=== PATIENT | male | born 1955 | race African-American/Black ===

== ENCOUNTER 2018-08-06 00:07 | Inpatient (IN) | payer OTHER ==
--- NOTE | 2018-08-06 01:04 | PDOC ---
History of Present Illness - General Chief Complaint: Pain, Acute Stated Complaint: ABDOMINAL PAIN - History of Present Illness Initial Comments: The patient is a 62M w/ a history of HTN and ESRD on iHD (,, ) who presents for evaluation of L flank/abdominal pain 1.5d. The patient describes that pain as achy/cramping, non-radiating, constant but worsening since its onset, and not associated with vomiting or diarrhea. The patient endorses intermittent chills. He denies fevers, WANG, blurry vision, chest pain, dyspnea, dysuria, hematuria, blood in his stool, or changes in sensation. The patient reports feeling well before his last iHD He denies taking his metoprolol today Patient endorses making a small amount of urine, approx 1 small void daily 08/06/18 03:57 Past History - Past Medical History Allergies/Adverse Reactions: Allergies Allergy/AdvReac Type Severity Reaction Status Date / Time No Known Drug Allergies Allergy Verified 08/06/18 00:20 Home Medications: Ambulatory Orders Sevelamer Carbonate [Renvela -] 800 mg PO TIDCM 12/26/13 oxyCODONE HCL [Roxicodone -] 5 mg PO Q4H PRN #30 tablet 03/17/15 Anemia: No Asthma: No Cancer: No Cardiac Disorders: No CVA: No COPD: No CHF: No Dementia: No Diabetes: Yes (NO MEDS AT PRESENT) Dialysis: Yes () GI Disorders: No Disorders: No HTN: Yes Hypercholesterolemia: No Liver Disease: No Seizures: No Thyroid Disease: No Other medical history: RENAL FAILURE,DIALYSIS - Surgical History Abdominal Surgery: No Appendectomy: No Cardiac Surgery: No Cholecystectomy: No Lung Surgery: No Neurologic Surgery: No Orthopedic Surgery: No - Suicide/Smoking/Psychosocial Hx Smoking Status: No Smoking History: Former smoker Have you smoked in the past 12 months: No Number of Cigarettes Smoked Daily: 3 If you are a former smoker, when did you quit?: 1 YEARS AGO Cigars Per Day: 0 Information on smoking cessation initiated: No 'Breaking Loose' booklet given: 03/15/15 Hx Alcohol Use: No Drug/Substance Use Hx: No Substance Use Type: None Hx Substance Use Treatment: No Review of Systems - Review of Systems Able to Perform ROS?: Yes Comments:: GENERAL/CONSTITUTIONAL: +chills; Denies fever. No weakness HEAD, EYES, EARS, NOSE AND THROAT: No change in vision. No ear pain or discharge. No sore throat CARDIOVASCULAR: No chest pain or shortness of breath RESPIRATORY: No cough, wheezing, or hemoptysis GASTROINTESTINAL: per HPI GENITOURINARY: No dysuria, frequency, or change in urination MUSCULOSKELETAL: No joint or muscle swelling or pain. No neck or back pain SKIN: No rash NEUROLOGIC: No headache, vertigo, loss of consciousness, or change in strength/ sensation ENDOCRINE: No increased thirst. No abnormal weight change HEMATOLOGIC/LYMPHATIC: No anemia, easy bleeding, or history of blood clots ALLERGIC/IMMUNOLOGIC: No hives or skin allergy 08/06/18 04:02 Is the patient limited Icelandic proficient: No *Physical Exam - Vital Signs Last Vital Signs Temp Pulse Resp BP Pulse Ox 99.5 F 114 H 22 H 134/79 92 L 08/06/18 00:17 08/06/18 00:17 08/06/18 00:17 08/06/18 00:17 08/06/18 00:17 - Physical Exam Comments: GENERAL: Awake, alert, and fully oriented, in no acute distress HEAD: No signs of trauma, normocephalic, atraumatic EYES: PERRL, EOMI, sclera anicteric, conjunctiva clear ENT: Hearing grossly normal, nares patent, oropharynx clear without exudates. Moist mucosa LUNGS: No distress, speaks full sentences, clear to auscultation bilaterally HEART:Regular rate and rhythm, normal S1 and S2, no murmurs appreciated, peripheral pulses normal and equal bilaterally ABDOMEN: Soft, protuberant, suprapubic TTP and mild L flank TTP, not distended, normoactive bowel sounds. No guarding, no rebound EXTREMITIES : Normal inspection, Normal range of motion, no edema NEUROLOGICAL: Cranial nerves II through XII grossly intact. Normal speech, no focal sensorimotor deficits SKIN: Warm, Dry, normal turgor, no rashes or lesions noted 08/06/18 04:04 ED Treatment Course - LABORATORY CBC & Chemistry Diagram: 08/27/18 05:20 08/27/18 05:20 - ADDITIONAL ORDERS Additional order review: Laboratory Results 08/06/18 00:27 POC Glucometer [id number] 08/06/18 00:27 POC Glucometer [id number] Medical Decision Making - Medical Decision Making The patient is a 62M w/ a history of HTN and ESRD on iHD who presents for evaluation of 1.5d of suprapubic and L flank abdominal pain associated with chills. ED Course CBC, CMP CT Spiral Tylenol 975mg PO once Hyperkalmeia 5.2, near baseline Kayexolate 15mg PO once for hyperkalemia Cr 11.7 08/06/18 04:07 Patient appear more diaphoretic Will obtain rectal temperature... 102.1F Will initiate Sepsis w/u Patient pending CT spiral 08/06/18 04:14 Trop I 0.14, hx of 0.16 Lactate 1.4 08/06/18 05:50 Plan for admission for further evaluation of SIRS Patient w/o leukocytosis, could be viral in etiology, will withhold abx at this time 08/06/18 05:54 Patient w/ repeat Cr 11, ESRD Patient signed out to Dr. Dorado, presentation/course/plan to this point discussed and all questions answered 08/06/18 06:22 *DC/Admit/Observation/Transfer Diagnosis at time of Disposition: ESRD (end stage renal disease) on dialysis - Discharge Dispostion Disposition: Condition at time of disposition: Guarded Decision to Admit order: Yes - Referrals - Patient Instructions - Post Discharge Activity
[2018-08-06] MEDS ORDERED: ACETAMINOPHEN 325 MG TABLET (FP) PO ONE (01:46)
--- NOTE | 2018-08-06 02:06 | PDOC ---
Attending Attestation - HPI HPI: 08/06/18 02:07 The patient is a 59 year old male with a significant PMH of ESRD(TThSa) and hypertension who presents to the emergency department with abdominal pain since earlier today. The patient reports that his abdominal pain is non radiating , left sided and achy. He states that he has been experiencing a small output of urine since about once a day. He also reports some associated chills since . The patient denies any other symptoms. He denies any fever, nausea, vomiting, diarrhea, constipation, or other urinary symptoms. He denies any chest pain, shortness of breath, headache or dizziness. The patient denies any other complaints. PCP: Law Posada - Physicial Exam PE: 08/06/18 02:07 GENERAL: Awake, alert, and fully oriented, in no acute distress HEAD: No signs of trauma EYES: PERRLA, EOMI, sclera anicteric, conjunctiva clear ENT: Auricles normal inspection, hearing grossly normal, nares patent, oropharynx clear without exudates. Moist mucosa NECK: Normal ROM, supple, no lymphadenopathy, JVD, or masses LUNGS: Breath sounds equal, clear to auscultation bilaterally. No wheezes, and no crackles HEART: (+) tACHY Regular rhythm, normal S1 and S2, no murmurs, rubs or gallops ABDOMEN: (+) Suprapubic tenderness w/o rebound. Soft, normoactive bowel sounds. No guarding, No masses EXTREMITIES: Normal range of motion, no edema. No clubbing or cyanosis. No cords, erythema, or tenderness NEUROLOGICAL: Cranial nerves II through XII grossly intact. Normal speech, normal gait SKIN: Warm, Dry, normal turgor, no rashes or lesions noted. Documentation prepared by Felipa Coello, acting as medical office representative for Rachael Cruz MD. <Felipa Coello - Last Filed: 08/06/18 02:07> - Resident Resident Name: Cullen Morley - ED Attending Attestation I have performed the following: I have examined & evaluated the patient, The case was reviewed & discussed with the resident, I agree w/resident's findings & plan - Medical Decision Making 08/06/18 04:36 Pt has a fever and he appears unwell; perhaps a reaction to the flu shot which he received during dialysis on . Sonce that time, pt has felt unwell, and he continues to look unwell. He is complaining of abd and flank pain. He has been unable to give us urine. We will admit for fever and r/o UTI 08/06/18 04:55 Rectal temp is 102+F Pt likely has a pyelonephritis. We are awaiting CT scan of abd pelvis to look for kidney stones etc. 08/06/18 05:45 Patient Name: DAVID VALENZUELA THIS IS A PRELIMINARY REPORT FROM [facility] DATE OF SERVICE: 2018-08-06 04:18:53 IMAGES: [id number] EXAM: CT ABDOMEN AND PELVIS WITHOUT CONTRAST HISTORY: Pain COMPARISON: None. FINDINGS: Mild bibasilar subsegmental atelectasis Cardiomegaly with a small pericardial effusion No gallstones Atrophic kidneys Small left renal cysts Punctate nonobstructing calyceal stone within the inferior pole of the left kidney No evidence of ureterolithiasis or obstructive uropathy Atherosclerotic aorta without evidence of an aneurysm No evidence of intestinal obstruction, perforation, colitis, pancreatitis, acute diverticular disease, or an intra-abdominal or pelvic abscess Normal appendix Large amount of stool within the rectosigmoid colon Small fat-containing bilateral inguinal hernias Bilateral pars defects at L5 Multiple collateral vessels within the anterior abdominal and pelvic wall THIS DOCUMENT HAS BEEN ELECTRONICALLY SIGNED 08/07/18 04:29 <Rachael Cruz - Last Filed: 08/07/18 04:30> Heart Score/ECG Review - ST and T Early Repolarization: No Non Specific ST-T Wave changes: Yes Flattened T Waves: Yes Prolonged Q-T Interval: No - ECG Impressions Normal ECG: No Non-specific ST Elevation: No Ischemic Changes: Yes (flipped lateral T waves) Tachycardia: Sinus <Rachael Cruz - Last Filed: 08/07/18 04:30>
[2018-08-06] MEDS ORDERED: ACETAMINOPHEN 325 MG TABLET (FP) ONE (02:24)
[2018-08-06 02:30] LABS: HEMATOCRIT 31.5 % (35.4-49); HEMOGLOBIN 10.2 GM/dL (11.7-16.9); MCH 29.6 pg (25.7-33.7); MCHC 32.5 g/dl (32.0-35.9); MEAN CELL VOLUME 91.1 fl (80-96); PLATELET COUNT 134 K/MM3 (134-434); RBC 3.45 M/mm3 (4.00-5.60); WHITE BLOOD COUNT 8.6 K/mm3 (4.0-10.0)
[2018-08-06 03:52] LABS: ALBUMIN 3.4 g/dl (3.4-5.0); ALK PHOS 190 U/L (45-117); ANION GAP 10 MMOL/L (8-16); BILIRUBIN,TOTAL 0.5 mg/dL (0.2-1); BLOOD UREA NITROGEN 50 mg/dL (7-18); CHLORIDE 98 mmol/L (98-107); CO2 28 mmol/L (21-32); GLUCOSE,RANDOM 190 mg/dL (74-106); LIPASE 143 U/L (73-393); POTASSIUM 5.2 mmol/L (3.5-5.1); SGOT/AST 16 U/L (15-37); SGPT/ALT 17 U/L (13-61); SODIUM 135 mmol/L (136-145); TOT PROT 8.1 g/dl (6.4-8.2)
[2018-08-06 03:54] LABS: CREATININE 11.7 mg/dL (0.55-1.3)
[2018-08-06] MEDS ORDERED: SODIUM POLYSTYRENE SULFONATE 15 GM/60 ML BOTTLE PO ONE (03:54)
[2018-08-06] MEDS ORDERED: SODIUM POLYSTYRENE SULFONATE 15 GM/60 ML BOTTLE ONE (04:34)
[2018-08-06] MEDS ORDERED: IBUPROFEN 600 MG TABLET (FP) PO ONE ×2 (05:04→06:05)
[2018-08-06 05:23] LABS: VENOUS PC02 44.6 mmHg (38-52); VENOUS PH 7.41 (7.32-7.42)
[2018-08-06 05:53] LABS: INR 1.58 (0.83-1.09); PROTHROMBIN TIME (PATIENT) 18.7 SEC (9.7-13.0)
[2018-08-06 06:07] LABS: BASO % 0.5 % (0-2.0); HEMATOCRIT 29.3 % (35.4-49); HEMOGLOBIN 9.6 GM/dL (11.7-16.9); LYMPH % 5.9 % (8-40); MCH 29.8 pg (25.7-33.7); MCHC 32.6 g/dl (32.0-35.9); MEAN CELL VOLUME 91.4 fl (80-96); MEAN PLT VOLUME 9.2 fl (7.5-11.1); NEUT % 87.6 % (42.8-82.8); PLATELET COUNT 114 K/MM3 (134-434); RBC 3.21 M/mm3 (4.00-5.60); RDW 19.2 % (11.9-15.9); WHITE BLOOD COUNT 8.5 K/mm3 (4.0-10.0)
[2018-08-06 06:18] LABS: ALBUMIN 3.1 g/dl (3.4-5.0); ALK PHOS 170 U/L (45-117); ANION GAP 10 MMOL/L (8-16); BILIRUBIN,TOTAL 0.4 mg/dL (0.2-1); BLOOD UREA NITROGEN 52 mg/dL (7-18); CALCIUM 8.6 mg/dL (8.5-10.1); CHLORIDE 98 mmol/L (98-107); CO2 28 mmol/L (21-32); GLUCOSE,RANDOM 184 mg/dL (74-106); SGOT/AST 14 U/L (15-37); SGPT/ALT 16 U/L (13-61); SODIUM 136 mmol/L (136-145); TOT PROT 7.4 g/dl (6.4-8.2)
[2018-08-06 06:20] LABS: CREATININE 11.9 mg/dL (0.55-1.3)
[2018-08-06 06:24] LABS: URINE APPEARANCE CLEAR; URINE BILIRUBIN NEGATIVE (<2.0 mg/dL); URINE COLOR LTYELLOW; URINE GLUCOSE (UA) 2+ (NEGATIVE); URINE KETONE NEGATIVE (NEGATIVE); URINE LEUK ESTERASE NEGATIVE (NEGATIVE); URINE NITRITE NEGATIVE (NEGATIVE); URINE PROTEIN 2+ (NEGATIVE); URINE UROBILINOGEN NEGATIVE mg/dL (0.2-1.0)
[2018-08-06 06:28] LABS: EPI CELLS RARE /HPF (FEW)
[2018-08-06] MEDS ORDERED: VANCOMYCIN 1,000 MG in DEXTROSE 5%-WATER - 250 ML IVPB ONE (07:20)
[2018-08-06] MEDS ORDERED: VANCOMYCIN 1 GRAM (PRE-DOCKED) 1,000 MG/250 ML BAG IVPB ONE (07:37)
[2018-08-06] MEDS ORDERED: ACETAMINOPHEN 1000 MG/100 ML VIAL (NON FORMULARY) IVPB ONE (07:39)
[2018-08-06] MEDS ORDERED: ACETAMINOPHEN INJECTION 100 ML IVPB ONE (07:41)
[2018-08-06] MEDS: HEPARIN NA (PORCINE) 5,000 UNITS/ML 1ML VIAL SQ SCH ×2 (10:04→21:39)
[2018-08-06] MEDS: INSULIN SLIDING SCALE (NOVOLOG) 1 VIAL SQ SCH ×3 (11:29→21:39)
--- NOTE | 2018-08-06 11:59 | CON.NEP ---
Consult Consult Specialty:: nephrology Referred by:: dr pastrana Reason for Consultation:: esrd on maintenance dialysis - History of Present Illness Chief Complaint: malaise chills cough History of Present Illness: poor historian 62M HTN ESRD on iHD (,, ) c/o L flank/abdominal pain 1.5d. achy/cramping, non-radiating, constant but worsening since its onset, no vomiting or diarrhea. +intermittent chills. - History Source History Provided By: Medical Record, Transfer Record Limitations to Obtaining History: Clinical Condition - Past Medical History Cardio/Vascular: Yes: HTN Renal/: Yes: Renal Failure, Other (on dialysis for 3 years) Endocrine: Yes: Diabetes Mellitus - Past Surgical History Past Surgical History: Yes: AV Fistula/Graft - Alcohol/Substance Use Hx Alcohol Use: No - Smoking History Smoking history: Former smoker Have you smoked in the past 12 months: No Aproximately how many cigarettes per day: 3 If you are a former smoker, when did you quit?: 1 YEARS AGO Home Medications - Allergies Allergies/Adverse Reactions: Allergies Allergy/AdvReac Type Severity Reaction Status Date / Time No Known Drug Allergies Allergy Verified 08/06/18 00:20 - Home Medications Home Medications: Ambulatory Orders Sevelamer Carbonate [Renvela -] 800 mg PO TIDCM 12/26/13 oxyCODONE HCL [Roxicodone -] 5 mg PO Q4H PRN #30 tablet 03/17/15 Nephrology Consult - Height Height: 5 ft 9 in - Weight Weight: 201 lb 1.6 oz - BMI Body Mass Index (BMI): 29.7 - Lab Results CBC,BMP: CBC, BMP 08/06/18 04:56 08/06/18 04:56 Anion Gap: Anion Gap Anion Gap 10 MMOL/L (8-16) 08/06/18 04:56 - Physical Examination Vital Signs: Vital Signs Temperature 100.2 F H 08/06/18 08:23 Pulse Rate 97 H 08/06/18 08:23 Respiratory Rate 16 08/06/18 08:23 Blood Pressure 121/60 08/06/18 08:23 O2 Sat by Pulse Oximetry (%) 99 08/06/18 07:45 Constitutional: Yes: Well Nourished, Obese Eyes: Yes: WNL HENT: Yes: WNL Neck: Yes: WNL Cardiovascular: Yes: WNL Respiratory: Yes: WNL Gastrointestinal: Yes: WNL Access for Hemodialysis: AV Graft Musculoskeletal: Yes: WNL Edema: No Integumentary: Yes: WNL Neurological: Yes: WNL Psychiatric: Yes: WNL Assessment/Plan esrd on hd via avg s/p avg excision s/p avg infection htn admitted for eval of malaise and l abd/flank pain
[2018-08-06] MEDS ORDERED: SODIUM CHLORIDE 250 ML IV PRN ×2 (12:04→12:19)
[2018-08-06] MEDS ORDERED: oxyCODONE HCL 5 MG TABLET PO PRN (13:07)
--- NOTE | 2018-08-06 13:09 | HP ---
Admitting History and Physical - Primary Care Physician PCP: Zelalem Franklin - Admission History of Present Illness: pt seen/ examined . chart reviewed. 62 year old man ESRD on HD with right arm AV graft - , DM, obesity is admitted with fever to 104 and left sided abdominal pain. given abx - vanco in er ct scan - abd - ok pt seen/ examined / daughter at bedside cultures send avg noted to be tender/swelling + distally and oozing + Likely infected pt denies any abd pain/ cp sob now History Source: Patient, Family Member Limitations to Obtaining History: No Limitations - Past Medical History Cardiovascular: Yes: HTN Renal/: Yes: Renal Failure, Other (on dialysis for 3 years) Endocrine: Yes: Diabetes Mellitus - Past Surgical History Past Surgical History: Yes: AV Fistula/Graft - Smoking History Smoking history: Former smoker Have you smoked in the past 12 months: No Aproximately how many cigarettes per day: 3 If you are a former smoker, when did you quit?: 1 YEARS AGO - Alcohol/Substance Use Hx Alcohol Use: No Home Medications - Allergies Allergies/Adverse Reactions: Allergies Allergy/AdvReac Type Severity Reaction Status Date / Time No Known Drug Allergies Allergy Verified 08/06/18 00:20 - Home Medications Home Medications: Ambulatory Orders Sevelamer Carbonate [Renvela -] 800 mg PO TIDCM 12/26/13 oxyCODONE HCL [Roxicodone -] 5 mg PO Q4H PRN #30 tablet 03/17/15 Review of Systems Findings/Remarks: see [place] - Review of Systems Constitutional: reports: Fever Eyes: reports: No Symptoms Neck: reports: No Symptoms Cardiovascular: reports: No Symptoms Respiratory: reports: No Symptoms Gastrointestinal: reports: Abdominal Pain Neurological: reports: No Symptoms Endocrine: reports: No Symptoms Physical Examination Vital Signs: Vital Signs Temperature 100.2 F H 08/06/18 08:23 Pulse Rate 97 H 08/06/18 08:23 Respiratory Rate 16 08/06/18 08:23 Blood Pressure 121/60 08/06/18 08:23 O2 Sat by Pulse Oximetry (%) 99 08/06/18 07:45 Constitutional: Yes: No Distress, Obese Eyes: Yes: Conjunctiva Clear Neck: Yes: Supple Cardiovascular: Yes: Regular Rate and Rhythm Respiratory: Yes: Diminished Gastrointestinal: Yes: Soft Extremities: Yes: Other (rue - av fistula - tender/ oozing/ swelling + distally) Edema: No Neurological: Yes: Alert Psychiatric: Yes: Alert Labs: CBC, BMP 08/06/18 04:56 08/06/18 04:56 Imaging - Results Chest X-ray: Report Reviewed Problem List - Problems (1) Abdominal pain Code(s): R10.9 - UNSPECIFIED ABDOMINAL PAIN (2) ESRD (end stage renal disease) on dialysis Code(s): N18.6 - END STAGE RENAL DISEASE; Z99.2 - DEPENDENCE ON RENAL DIALYSIS (3) Fever Code(s): R50.9 - FEVER, UNSPECIFIED (4) AV fistula occlusion Code(s): T82.898A - OTH COMPLICATION OF VASCULAR PROSTH DEV/GRFT, INIT Assessment/Plan Abx Pain control Hold dialysis today Discussed with nursing staff . Also discussed with i/d and Dr. Lucero Will request Dr. Ortiz to evaluate will follow Discussed in detail with pt/ pts family also
--- NOTE | 2018-08-06 13:58 | CON.ID ---
Consult - History of Present Illness History of Present Illness: Asked to evaluate this 62 y.o. male with PMH of ESRD on HD (), DM, HTN, RUE AVF presenting with c/o Lt sided abdominal pain for the past 3 days. Pt states pain is sharp (9/10 in intensity at times) and exacerbated with movement but denies n/v/d or bloody BMs. Denies recent travel or sick contacts. In the ER he was noted to have persistent fever (up to 104F). He denies shortness of breath, chest pain, rhinorrhea, cough, sore throat. Today he was noted to have small amount of bleeding from the AVF/graft site as well as formation of a small clear fluid-filled blister. Pt reports pain at the site. Currently he is alert, without acute distress but states he is unable to move due to his abd pain. and daughter at the bedside agree with history given by patient. - History Source History Provided By: Patient, Family Member Limitations to Obtaining History: No Limitations - Past Medical History Cardio/Vascular: Yes: HTN Renal/: Yes: Renal Failure, Other (on dialysis for 3 years) Endocrine: Yes: Diabetes Mellitus - Past Surgical History Past Surgical History: Yes: AV Fistula/Graft - Alcohol/Substance Use Hx Alcohol Use: No - Smoking History Smoking history: Former smoker Have you smoked in the past 12 months: No Aproximately how many cigarettes per day: 3 If you are a former smoker, when did you quit?: 1 YEARS AGO - Social History Usual Living Arrangement: With Spouse History of Recent Travel: No Home Medications - Allergies Allergies/Adverse Reactions: Allergies Allergy/AdvReac Type Severity Reaction Status Date / Time No Known Drug Allergies Allergy Verified 08/06/18 00:20 - Home Medications Home Medications: Ambulatory Orders Sevelamer Carbonate [Renvela -] 800 mg PO TIDCM 12/26/13 oxyCODONE HCL [Roxicodone -] 5 mg PO Q4H PRN #30 tablet 03/17/15 Review of Systems - Review of Systems Constitutional: reports: Chills, Fever. denies: No Symptoms, Diaphoresis, Lethargy, Loss of Appetite, Malaise, Night Sweats, Unintentional Wgt. Loss, Weakness, Other Eyes: reports: No Symptoms. denies: Blind Spots, Blurred Vision, Double Vision , Eye Pain, Floaters, Photophobia, Recent Change in Vision, Other HENT: reports: No Symptoms. denies: Difficult Swallowing, Ear Discharge, Ear Pain, Epistaxis, Gingival Bleeding, Hearing Loss, Mouth Swelling, Nasal Congestion, Ocular Prosthesis, Throat Pain, Toothache, Ringing in Ears, Other Neck: reports: No Symptoms. denies: Decreased ROM, Lumps, Pain on Movement, Stiffness, Swollen Glands, Tenderness, Other Cardiovascular: reports: No Symptoms. denies: Chest Pain, Edema, Palpitations, Shortness of Breath, Other Respiratory: reports: No Symptoms. denies: Cough, Exercise Intolerance, Hemoptysis, Orthopnea, PND, Snoring, SOB, SOB on Exertion, Wheezing, Other Gastrointestinal: reports: Abdominal Pain (Lt side). denies: No Symptoms, Bloating, Constipation, Diarrhea, Dysphagia, Indigestion, Melena, Nausea, Rectal Bleeding, Vomiting, Vomiting Blood, Other Genitourinary: reports: No Symptoms Musculoskeletal: reports: No Symptoms Integumentary: reports: Blister (RUE AVG site with mild pain). denies: Bruising , Change in Color, Eczema, Erythema, Incision, Lesions, Lump, Pallor, Pruritis, Rash, Wound, Other Neurological: reports: No Symptoms. denies: Change in LOC, Change in Speech, Confusion, Dizziness, Headache, Incoordination, Numbness, Parasthesia, Pre- Existing Deficit, Seizure, Syncope, Tremors, Unsteady Gait, Weakness, Other Endocrine: reports: No Symptoms. denies: Excessive Sweating, Flushing, Increased Hunger, Increased Thirst, Intolerance to Cold, Intolerance to Heat, Unexplained Weight Gain, Unexplained Weight Loss, Other Hematology/Lymphatic: reports: No Symptoms. denies: Easily Bruised, Excessive Bleeding, Swollen Glands, Other Pain Intensity: 9 Physical Exam Vital Signs: Vital Signs Temperature 100.2 F H 08/06/18 08:23 Pulse Rate 97 H 08/06/18 08:23 Respiratory Rate 16 08/06/18 08:23 Blood Pressure 121/60 08/06/18 08:23 O2 Sat by Pulse Oximetry (%) 99 08/06/18 07:45 Constitutional: Yes: No Distress, Calm Eyes: Yes: Conjunctiva Clear HENT: Yes: Atraumatic Neck: Yes: Supple Cardiovascular: Yes: Regular Rate and Rhythm Respiratory: Yes: CTA Bilaterally Gastrointestinal: Yes: Normal Bowel Sounds, Soft, Tenderness (Lt abd/lower abd, no guarding) Renal/: Yes: Oliguria Musculoskeletal: Yes: WNL Extremities: Yes: Other (RUE AVF with .5cm blister , clear fluid at distal aspect, +mild tenderness, no obvious purulent drainage) Edema: No Integumentary: Yes: WNL Neurological: Yes: Alert Psychiatric: Yes: Alert Labs: CBC, BMP 08/06/18 04:56 08/06/18 04:56 Laboratory Tests 08/06/18 08/06/18 08/06/18 00:27 02:10 02:10 WBC 8.6 RBC 3.45 L Hgb 10.2 L Hct 31.5 L MCV 91.1 MCH 29.6 MCHC 32.5 RDW 19.0 H Plt Count 134 MPV 9.0 Absolute Neuts (auto) Neutrophils % Lymphocytes % Monocytes % Eosinophils % Basophils % Nucleated RBC % PT with INR INR PTT (Actin FS) VBG pH POC VBG pCO2 POC VBG pO2 Mixed VBG HCO3 Sodium 135 L Potassium 5.2 H Chloride 98 Carbon Dioxide 28 Anion Gap 10 BUN 50 H Creatinine 11.7 H* Creat Clearance w eGFR 4.43 POC Glucometer [phone] Random Glucose 190 H Lactic Acid Calcium 9.0 Total Bilirubin 0.5 AST 16 ALT 17 Alkaline Phosphatase 190 H Troponin I Total Protein 8.1 Albumin 3.4 Lipase 143 Urine Color Urine Appearance Urine pH Ur Specific Apollo Urine Protein Urine Glucose (UA) Urine Ketones Urine Blood Urine Nitrite Urine Bilirubin Urine Urobilinogen Ur Leukocyte Esterase Urine WBC (Auto) Urine RBC (Auto) Ur Epithelial Cells 08/06/18 08/06/18 08/06/18 04:56 04:56 04:56 WBC 8.5 RBC 3.21 L Hgb 9.6 L Hct 29.3 L MCV 91.4 MCH 29.8 MCHC 32.6 RDW 19.2 H Plt Count 114 L MPV 9.2 Absolute Neuts (auto) 7.5 Neutrophils % 87.6 H Lymphocytes % 5.9 L D Monocytes % 6.0 Eosinophils % 0.0 D Basophils % 0.5 Nucleated RBC % 0 PT with INR INR PTT (Actin FS) VBG pH 7.41 POC VBG pCO2 44.6 POC VBG pO2 26.0 L Mixed VBG HCO3 27.5 H Sodium 136 Potassium 5.0 Chloride 98 Carbon Dioxide 28 Anion Gap 10 BUN 52 H Creatinine 11.9 H* Creat Clearance w eGFR 4.35 POC Glucometer Random Glucose 184 H Lactic Acid Calcium 8.6 Total Bilirubin 0.4 AST 14 L ALT 16 Alkaline Phosphatase 170 H Troponin I Total Protein 7.4 Albumin 3.1 L Lipase Urine Color Urine Appearance Urine pH Ur Specific Apollo Urine Protein Urine Glucose (UA) Urine Ketones Urine Blood Urine Nitrite Urine Bilirubin Urine Urobilinogen Ur Leukocyte Esterase Urine WBC (Auto) Urine RBC (Auto) Ur Epithelial Cells 08/06/18 08/06/18 08/06/18 04:56 04:56 05:12 WBC RBC Hgb Hct MCV MCH MCHC RDW Plt Count MPV Absolute Neuts (auto) Neutrophils % Lymphocytes % Monocytes % Eosinophils % Basophils % Nucleated RBC % PT with INR 18.70 H INR 1.58 H PTT (Actin FS) 44.0 H VBG pH POC VBG pCO2 POC VBG pO2 Mixed VBG HCO3 Sodium Potassium Chloride Carbon Dioxide Anion Gap BUN Creatinine Creat Clearance w eGFR POC Glucometer Random Glucose Lactic Acid 1.2 Calcium Total Bilirubin AST ALT Alkaline Phosphatase Troponin I 0.14 H Total Protein Albumin Lipase Urine Color Urine Appearance Urine pH Ur Specific Apollo Urine Protein Urine Glucose (UA) Urine Ketones Urine Blood Urine Nitrite Urine Bilirubin Urine Urobilinogen Ur Leukocyte Esterase Urine WBC (Auto) Urine RBC (Auto) Ur Epithelial Cells 08/06/18 08/06/18 08/06/18 05:32 10:40 10:40 WBC RBC Hgb Hct MCV MCH MCHC RDW Plt Count MPV Absolute Neuts (auto) Neutrophils % Lymphocytes % Monocytes % Eosinophils % Basophils % Nucleated RBC % PT with INR INR PTT (Actin FS) VBG pH POC VBG pCO2 POC VBG pO2 Mixed VBG HCO3 Sodium Potassium Chloride Carbon Dioxide Anion Gap BUN Creatinine Creat Clearance w eGFR POC Glucometer Random Glucose Lactic Acid 1.8 Calcium Total Bilirubin AST ALT Alkaline Phosphatase Troponin I 0.15 H Total Protein Albumin Lipase Urine Color Ltyellow Urine Appearance Clear Urine pH 8.0 Ur Specific Apollo 1.011 Urine Protein 2+ H Urine Glucose (UA) 2+ H Urine Ketones Negative Urine Blood 1+ H Urine Nitrite Negative Urine Bilirubin Negative Urine Urobilinogen Negative Ur Leukocyte Esterase Negative Urine WBC (Auto) 3 Urine RBC (Auto) 1 Ur Epithelial Cells Rare 08/06/18 11:26 WBC RBC Hgb Hct MCV MCH MCHC RDW Plt Count MPV Absolute Neuts (auto) Neutrophils % Lymphocytes % Monocytes % Eosinophils % Basophils % Nucleated RBC % PT with INR INR PTT (Actin FS) VBG pH POC VBG pCO2 POC VBG pO2 Mixed VBG HCO3 Sodium Potassium Chloride Carbon Dioxide Anion Gap BUN Creatinine Creat Clearance w eGFR POC Glucometer 337 Random Glucose Lactic Acid Calcium Total Bilirubin AST ALT Alkaline Phosphatase Troponin I Total Protein Albumin Lipase Urine Color Urine Appearance Urine pH Ur Specific Apollo Urine Protein Urine Glucose (UA) Urine Ketones Urine Blood Urine Nitrite Urine Bilirubin Urine Urobilinogen Ur Leukocyte Esterase Urine WBC (Auto) Urine RBC (Auto) Ur Epithelial Cells Microbiology 08/06/18 06:16 Nasopharyngeal Swab Influenza Types A,B Antigen - Final 08/06/18 06:16 Nasopharyngeal Swab - Final Blood cultures - pending Imaging - Results Chest X-ray: Report Reviewed Cat Scan: Report Reviewed Problem List - Problems (1) Abdominal pain Code(s): R10.9 - UNSPECIFIED ABDOMINAL PAIN (2) Fever Code(s): R50.9 - FEVER, UNSPECIFIED (3) ESRD (end stage renal disease) on dialysis Code(s): N18.6 - END STAGE RENAL DISEASE; Z99.2 - DEPENDENCE ON RENAL DIALYSIS (4) Presence of arterial-venous shunt (for dialysis) Code(s): Z99.2 - DEPENDENCE ON RENAL DIALYSIS Assessment/Plan 62 y.o. male with PMH of ESRD on HD, AVF/Graft, DM, and HTN presenting with Lt sided abdominal pain, fevers, and RUE AVF site blister formation/mild bleeding/ mild tenderness Fever Abd pain - unclear etiology r/o AVF site infection ESRD on HD DM HTN -- agree with Vancomycin post HD empirically for now, (one dose given this a.m. ) monitor levels -- vascular surgery evaluation requested -- f/u blood culture results -- CT abd/pelvis results noted, no obvious abnormal findings -- monitor temperatures/vitals will follow Thank you
--- NOTE | 2018-08-06 14:28 | CONSULT ---
Consult - History of Present Illness History of Present Illness: 62 year old man ESRD on HD with right arm AV graft - HERO graft with history of central venous occlusion. He is admitted with fever to 104 and left sided abdominal pain. He was noted to have a pulsatile area of swelling over the AV graft with bloody oozing. - Past Medical History Cardio/Vascular: Yes: HTN Renal/: Yes: Renal Failure, Other (on dialysis for 3 years) Endocrine: Yes: Diabetes Mellitus - Past Surgical History Past Surgical History: Yes: AV Fistula/Graft - Alcohol/Substance Use Hx Alcohol Use: No - Smoking History Smoking history: Former smoker Have you smoked in the past 12 months: No Aproximately how many cigarettes per day: 3 If you are a former smoker, when did you quit?: 1 YEARS AGO - Social History Usual Living Arrangement: With Spouse History of Recent Travel: No Home Medications - Allergies Allergies/Adverse Reactions: Allergies Allergy/AdvReac Type Severity Reaction Status Date / Time No Known Drug Allergies Allergy Verified 08/06/18 00:20 - Home Medications Home Medications: Ambulatory Orders Sevelamer Carbonate [Renvela -] 800 mg PO TIDCM 12/26/13 oxyCODONE HCL [Roxicodone -] 5 mg PO Q4H PRN #30 tablet 03/17/15 Physical Exam Vital Signs: Vital Signs Temperature 98.1 F 08/06/18 14:13 Pulse Rate 93 H 08/06/18 14:13 Respiratory Rate 18 08/06/18 14:13 Blood Pressure 110/59 L 08/06/18 14:13 O2 Sat by Pulse Oximetry (%) 99 08/06/18 07:45 Extremities: Yes: Other (Right arm 3 x 3 cm pulsatile area over distal AV graft in upper arm and small adjacent blister. Small wound over area of swelling with no active bleeding. 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 Occlusive dressing applied. IV antibiotics Will excise graft segment tomorrow AM and place Permacath until infection resolves. Code(s): T82.9XXA - UNSP COMP OF CARDIAC AND VASCULAR PROSTH DEV/GRFT, INIT Qualifiers: Encounter type: initial encounter Qualified Code(s): T82.9XXA - Unspecified complication of cardiac and vascular prosthetic device, implant and graft, initial encounter
--- NOTE | 2018-08-06 14:53 | EKG ---
Test Reason : Blood Pressure : / mmHG Vent. Rate : 104 BPM Atrial Rate : 104 BPM P-R Int : 190 ms QRS Dur : 094 ms QT Int : 332 ms P-R-T Axes : 068 -07 121 degrees QTc Int : 436 ms POOR DATA QUALITY, INTERPRETATION MAY BE ADVERSELY AFFECTED SINUS TACHYCARDIA LEFT VENTRICULAR HYPERTROPHY WITH REPOLARIZATION ABNORMALITY ABNORMAL ECG WHEN COMPARED WITH ECG OF 06-AUG-2018 02:25, PREMATURE ATRIAL COMPLEXES ARE NO LONGER PRESENT Confirmed by MD Kenneth, Rolly ([id number]) on 08/06/2018 2:53:49 PM Referred By: Confirmed By:Rolly Cooper MD
[2018-08-06] MEDS ORDERED: SEVELAMER CARBONATE 800 MG TAB (FP) PO SCH (17:30)
[2018-08-06] MEDS ORDERED: INSULIN (NOVOLOG) ASPART 100 UNITS/ML 10ML VIAL ONE (18:13)
[2018-08-06] MEDS ORDERED: INSULIN (LEVEMIR) 100 UNITS/ML UNITS SQ SCH (22:00)
--- NOTE | 2018-08-06 23:25 | HOSP ---
Subjective - Review of Symptoms Subjective: rapid response called at 11:15pm. On arrival, informed that patient was bleeding out of his R arm AV graft site. On arrival, patient had a large pool of clotted blood on bed near R arm. Patient is laying comfortably in bed in no acute distress. PE Vitals: 98/40, 105bpm, 12, 100% 2L PE: No acute distress, A&O mild systolic murmur noted on exam R arm fistula A/P: R arm graft bleed -ice packs applied to area -used tourniquet to attempt to stop blood flow -held pressure -CBC, CMP, INR ordered -Dr. Greene contacted, OR team called in -3U PRBC ordered, transfuse 1U now, slowly due to anuric status Physical Examination Vital Signs: Vital Signs Temperature 99.8 F H 08/06/18 22:00 Pulse Rate 104 H 08/06/18 22:00 Respiratory Rate 18 08/06/18 22:00 Blood Pressure 133/66 08/06/18 22:00 O2 Sat by Pulse Oximetry (%) 99 08/06/18 07:45 Labs: CBC, BMP 08/06/18 04:56 08/06/18 04:56 Visit type - Emergency Visit Emergency Visit: Yes ED Registration Date: 08/06/18 Care time: The patient presented to the Emergency Department on the above date and was hospitalized for further evaluation of their emergent condition. - New Patient This patient is new to me today: No - Critical Care Critical Care patient: No
[2018-08-06 23:50] LABS: HEMATOCRIT 24.1 % (35.4-49); HEMOGLOBIN 7.8 GM/dL (11.7-16.9); MCH 29.4 pg (25.7-33.7); MCHC 32.3 g/dl (32.0-35.9); MEAN CELL VOLUME 91.2 fl (80-96); MEAN PLT VOLUME 9.6 fl (7.5-11.1); PLATELET COUNT 92 K/MM3 (134-434); RBC 2.64 M/mm3 (4.00-5.60); RDW 19.8 % (11.9-15.9); WHITE BLOOD COUNT 9.3 K/mm3 (4.0-10.0)
[2018-08-07] MEDS ORDERED: MIDAZOLAM HCL 2 MG/2 ML SINGLE DOSE VIAL ONE (00:15)
[2018-08-07] MEDS ORDERED: ROCURONIUM BROMIDE 50 MG/5 ML VIAL ONE (00:15)
[2018-08-07] MEDS ORDERED: ETOMIDATE 20 MG/10 ML AMPUL IVPUSH ONE (00:17)
[2018-08-07] MEDS ORDERED: LIDOCAINE HCL/PF 2% SDV 5ML VIAL ONE (00:17)
[2018-08-07 00:18] LABS: INR 1.39 (0.83-1.09); PROTHROMBIN TIME (PATIENT) 16.5 SEC (9.7-13.0)
[2018-08-07] MEDS ORDERED: DESFLURANE GAS 240 ML BOTTLE IH ONE (00:45)
[2018-08-07 00:47] LABS: ALBUMIN 2.3 g/dl (3.4-5.0); ALK PHOS 116 U/L (45-117); ANION GAP 12 MMOL/L (8-16); BILIRUBIN,TOTAL 0.4 mg/dL (0.2-1); BLOOD UREA NITROGEN 38 mg/dL (7-18); CALCIUM 8.1 mg/dL (8.5-10.1); CHLORIDE 100 mmol/L (98-107); CO2 26 mmol/L (21-32); GLUCOSE,RANDOM 279 mg/dL (74-106); POTASSIUM 4.5 mmol/L (3.5-5.1); SGOT/AST 23 U/L (15-37); SGPT/ALT 15 U/L (13-61); SODIUM 138 mmol/L (136-145); TOT PROT 5.8 g/dl (6.4-8.2)
[2018-08-07 00:53] LABS: CREATININE 9.1 mg/dL (0.55-1.3)
[2018-08-07] MEDS ORDERED: DEXAMETHASONE SOD PHOSPHATE 4 MG/1 ML VIAL ONE (01:00)
[2018-08-07] MEDS ORDERED: NEOSTIGMINE METHYLSULFATE 0.5 MG/ML - 10 ML MDV ONE (01:09)
[2018-08-07] MEDS ORDERED: GLYCOPYRROLATE 0.2 MG/1 ML VIAL ONE ×2 (01:09→01:34)
--- NOTE | 2018-08-07 01:35 | OP ---
Operative Note - Note: Operative Date: 08/07/18 Pre-Operative Diagnosis: Bleeding AV graft aneurysm Operation: Excision of AV graft right arm Findings: Bleeding from aneurysm of AV graft right upper arm Post-Operative Diagnosis: Same as Pre-op Surgeon: Gio Greene Anesthesiologist/[employer] HANDSTITCHING MACHINE: Jeremias Arreola Anesthesia: General Specimens Removed: Portion of AV graft Estimated Blood Loss (mls): 20
[2018-08-07] MEDS ORDERED: oxyCODONE HCL 5 MG TABLET PO PRN (01:43)
[2018-08-07] MEDS ORDERED: SODIUM CHLORIDE 250 ML IV PRN (01:43)
[2018-08-07] MEDS ORDERED: ACETAMINOPHEN 1000 MG/100 ML VIAL (NON FORMULARY) IVPB ONE (01:53)
[2018-08-07] MEDS ORDERED: PROMETHAZINE HCL 25 MG/1 ML VIAL IVPUSH PRN (01:53)
[2018-08-07] MEDS ORDERED: ONDANSETRON 4 MG/2 ML VIAL IVPUSH PRN (01:53)
[2018-08-07] MEDS ORDERED: SODIUM CHLORIDE 1,000 ML IV SCH (02:00)
[2018-08-07] MEDS ORDERED: ACETAMINOPHEN INJECTION 100 ML IVPB ONE (02:53)
[2018-08-07 08:07] LABS: BASO % 0.3 % (0-2.0); HEMATOCRIT 31.3 % (35.4-49); HEMOGLOBIN 10.4 GM/dL (11.7-16.9); LYMPH % 5.5 % (8-40); MCH 29.8 pg (25.7-33.7); MCHC 33.2 g/dl (32.0-35.9); MEAN CELL VOLUME 89.6 fl (80-96); MEAN PLT VOLUME 9.3 fl (7.5-11.1); MONO % 7.7 % (3.8-10.2); NEUT % 86.5 % (42.8-82.8); PLATELET COUNT 72 K/MM3 (134-434); RDW 16.7 % (11.9-15.9); WHITE BLOOD COUNT 10.4 K/mm3 (4.0-10.0)
[2018-08-07] MEDS: SEVELAMER CARBONATE 800 MG TAB (FP) PO SCH ×3 (08:45→18:08)
[2018-08-07] MEDS: INSULIN SLIDING SCALE (NOVOLOG) 1 VIAL SQ SCH ×4 (08:45→22:41)
[2018-08-07 09:14] LABS: ALBUMIN 2.5 g/dl (3.4-5.0); ALK PHOS 116 U/L (45-117); ANION GAP 14 MMOL/L (8-16); BILIRUBIN,TOTAL 0.6 mg/dL (0.2-1); BLOOD UREA NITROGEN 44 mg/dL (7-18); CALCIUM 8.2 mg/dL (8.5-10.1); CHLORIDE 102 mmol/L (98-107); CO2 26 mmol/L (21-32); GLUCOSE,RANDOM 228 mg/dL (74-106); SGOT/AST 42 U/L (15-37); SGPT/ALT 23 U/L (13-61); SODIUM 142 mmol/L (136-145)
[2018-08-07 09:23] LABS: CREATININE 9.8 mg/dL (0.55-1.3)
[2018-08-07] MEDS: HEPARIN NA (PORCINE) 5,000 UNITS/ML 1ML VIAL SQ SCH ×2 (10:46→22:39)
--- NOTE | 2018-08-07 12:39 | PN ---
Progress Note (short form) - Note Progress Note: Events reviewed/ noted S/p Avg graft excision due to bleeding / aneurism Now +ve cultures-- staph pt comfortable ate well family at bedside Vital Signs Temp 98.6 F 08/07/18 05:46 Pulse 91 H 08/07/18 08:53 Resp 18 08/07/18 08:53 BP 90/58 L 08/07/18 08:53 Pulse Ox 98 08/07/18 08:53 Intake & Output 08/06/18 08/07/18 08/07/18 23:59 11:59 23:59 Intake Total 350 1100 Output Total 0 20 Balance 350 1080 Weight 201 lb 1.6 oz Intake: IV 300 Oral 350 0 Blood Product 800 Output: Urine 0 0 Void 0 0 Estimated Blood Loss 20 Other: Voiding Method Urinal Urinal Bowel Movement No Height 5 ft 9 in Body Mass Index (BMI) 29.7 Active Medications Heparin Sodium (Porcine) (Heparin -) 5,000 unit SQ BID [facility] Last Admin: 08/07/18 10:46 Dose: 5,000 unit Sodium Chloride (Normal Saline -) 250 mls @ 3,000 mls/hr IV PRN PRN PRN Reason: Hypotension during Dialysis Insulin Aspart (Novolog Vial Sliding Scale -) 1 vial SQ [facility]; Protocol Last Admin: 08/07/18 12:01 Dose: 4 units Insulin Detemir (Levemir Vial) 12 units SQ [facility] Ondansetron HCl (Zofran Injection) 4 mg IVPUSH Q6H PRN PRN Reason: NAUSEA AND/OR VOMITING Oxycodone HCl (Roxicodone -) 5 mg PO Q4H PRN PRN Reason: PAIN LEVEL 6-10 Sevelamer Carbonate (Renvela -) 800 mg PO TIDCM [facility] Last Admin: 08/07/18 08:45 Dose: Not Given CBC, BMP 08/07/18 07:49 08/07/18 07:49 Microbiology 08/06/18 05:32 Urine Culture - Preliminary Urine - Urine - Catheterized Staphylococcus Latex Coag Pos 08/06/18 04:56 Blood Culture - Preliminary Blood - Peripheral Venous Staphylococcus Latex Coag Pos 08/06/18 04:56 Blood Culture - Preliminary Blood - Peripheral Venous Staphylococcus Latex Coag Pos vanco level -- ordered Echo _ ordered Physical Examination Vital Signs: Vital Signs Temperature 100.2 F H 08/06/18 08:23 Pulse Rate 97 H 08/06/18 08:23 Respiratory Rate 16 08/06/18 08:23 Blood Pressure 121/60 08/06/18 08:23 O2 Sat by Pulse Oximetry (%) 99 08/06/18 07:45 Constitutional: Yes: No Distress, morbidly obese Eyes: Yes: Conjunctiva Clear Neck: Yes: Supple Cardiovascular: Yes: Regular Rate and Rhythm Respiratory: Yes: Diminished Gastrointestinal: Yes: Soft. obese Extremities: Yes: Other (rue - dressing +) Edema: No Neurological: Yes: Alert Psychiatric: Yes: Alert Assessment/Plan Abx Pain under control f/u cultures check vanco level will need access but +ve cultures Permacath when cultures -ve May need shiley Check vanco level-- Vanco per level i/d/ vascular and renal to follow Not in volume overload f/u labs tomorrow Discussed in detail with pts family in detail Also discussed with Nursing staff . will follow Problem List - Problems (1) Abdominal pain Code(s): R10.9 - UNSPECIFIED ABDOMINAL PAIN (2) ESRD (end stage renal disease) on dialysis Code(s): N18.6 - END STAGE RENAL DISEASE; Z99.2 - DEPENDENCE ON RENAL DIALYSIS (3) Fever Code(s): R50.9 - FEVER, UNSPECIFIED (4) AV fistula occlusion Code(s): T82.898A - OTH COMPLICATION OF VASCULAR PROSTH DEV/GRFT, INIT (5) Bacteremia Code(s): R78.81 - BACTEREMIA
--- NOTE | 2018-08-07 13:36 | PN ---
Progress Note, Physician History of Present Illness: Pt is alert, with recent low grade fevers. He is s/p excision of AVG. Currently without acute distress. - Current Medication List Current Medications: Active Medications Heparin Sodium (Porcine) (Heparin -) 5,000 unit SQ BID [facility] Last Admin: 08/07/18 10:46 Dose: 5,000 unit Sodium Chloride (Normal Saline -) 250 mls @ 3,000 mls/hr IV PRN PRN PRN Reason: Hypotension during Dialysis Insulin Aspart (Novolog Vial Sliding Scale -) 1 vial SQ ACHS [facility]; Protocol Last Admin: 08/07/18 12:01 Dose: 4 units Insulin Detemir (Levemir Vial) 12 units SQ HS [facility] Ondansetron HCl (Zofran Injection) 4 mg IVPUSH Q6H PRN PRN Reason: NAUSEA AND/OR VOMITING Oxycodone HCl (Roxicodone -) 5 mg PO Q4H PRN PRN Reason: PAIN LEVEL 6-10 Sevelamer Carbonate (Renvela -) 800 mg PO TIDCM [facility] Last Admin: 08/07/18 13:15 Dose: Not Given - Objective Vital Signs: Vital Signs Temperature 98.6 F 08/07/18 05:46 Pulse Rate 91 H 08/07/18 08:53 Respiratory Rate 18 08/07/18 08:53 Blood Pressure 90/58 L 08/07/18 08:53 O2 Sat by Pulse Oximetry (%) 98 08/07/18 08:53 Constitutional: Yes: No Distress Cardiovascular: Yes: Regular Rate and Rhythm Respiratory: Yes: Regular Gastrointestinal: Yes: Normal Bowel Sounds, Soft Extremities: Yes: WNL Integumentary: Yes: WNL Wound/Incision: Yes: Dressing Dry and Intact (RUE) Neurological: Yes: Alert Labs: CBC, BMP 08/07/18 07:49 08/07/18 07:49 INR, PTT INR 1.39 (0.83-1.09) H 08/06/18 23:00 Microbiology 08/06/18 04:56 Blood - Peripheral Venous Blood Culture - Preliminary Presumptive Mssa (Pbp2a Neg) 08/06/18 05:32 Urine - Urine - Catheterized Urine Culture - Preliminary Staphylococcus Latex Coag Pos 08/06/18 04:56 Blood - Peripheral Venous Blood Culture - Preliminary Staphylococcus Latex Coag Pos 08/06/18 06:16 Nasopharyngeal Swab Influenza Types A,B Antigen - Final 08/06/18 06:16 Nasopharyngeal Swab - Final Problem List - Problems (1) Abdominal pain Code(s): R10.9 - UNSPECIFIED ABDOMINAL PAIN (2) Fever Code(s): R50.9 - FEVER, UNSPECIFIED (3) ESRD (end stage renal disease) on dialysis Code(s): N18.6 - END STAGE RENAL DISEASE; Z99.2 - DEPENDENCE ON RENAL DIALYSIS (4) Presence of arterial-venous shunt (for dialysis) Code(s): Z99.2 - DEPENDENCE ON RENAL DIALYSIS Assessment/Plan 62 y.o. male with PMH of ESRD on HD, AVF/Graft, DM, and HTN presenting with Lt sided abdominal pain, fevers, and RUE AVF site blister formation/mild bleeding/ mild tenderness Sepsis/ Staph aureus bacteremia Infection of AVG - s/p excision ESRD on HD DM HTN -- f/u Vancomycin level drawn, redose if <15 -- f/u final blood culture results, will adjust antibiotics if indicated -- repeat blood cultures pending -- continue monitor temperature trend/vitals -- wound care
--- NOTE | 2018-08-07 13:36 | PN ---
Progress Note (short form) - Note Progress Note: S/p graft excision for bleeding aneurysm. Stable No edema Hgb 10 Blood C+S growing Staph auerus Will hold off placing Permacath until blood cultures negative. May need femoral Shiley for access in the interim. Problem List - Problems (1) ESRD (end stage renal disease) on dialysis Code(s): N18.6 - END STAGE RENAL DISEASE; Z99.2 - DEPENDENCE ON RENAL DIALYSIS (2) Complication of vascular access for dialysis Code(s): T82.9XXA - UNSP COMP OF CARDIAC AND VASCULAR PROSTH DEV/GRFT, INIT Qualifiers: Qualified Code(s): T82.9XXA - Unspecified complication of cardiac and vascular prosthetic device, implant and graft, initial encounter
--- NOTE | 2018-08-07 14:05 | EKG ---
Test Reason : Blood Pressure : / mmHG Vent. Rate : 114 BPM Atrial Rate : 114 BPM P-R Int : 202 ms QRS Dur : 104 ms QT Int : 314 ms P-R-T Axes : 054 -13 109 degrees QTc Int : 432 ms SINUS TACHYCARDIA WITH PREMATURE ATRIAL COMPLEXES LEFT VENTRICULAR HYPERTROPHY WITH REPOLARIZATION ABNORMALITY ABNORMAL ECG WHEN COMPARED WITH ECG OF 15-MAR-2015 10:09, PREMATURE VENTRICULAR COMPLEXES ARE NO LONGER PRESENT PREMATURE ATRIAL COMPLEXES ARE NOW PRESENT Confirmed by MD Kenneth, Rolly ([id number]) on 08/07/2018 2:04:52 PM Referred By: Confirmed By:Rolly Cooper MD
--- NOTE | 2018-08-07 20:25 | PN ---
Progress Note (short form) - Note Progress Note: Current Medications Heparin Sodium (Porcine) (Heparin -) 5,000 unit SQ BID [facility] Last Admin: 08/07/18 10:46 Dose: 5,000 unit Sodium Chloride (Normal Saline -) 250 mls @ 3,000 mls/hr IV PRN PRN PRN Reason: Hypotension during Dialysis Insulin Aspart (Novolog Vial Sliding Scale -) 1 vial SQ ACHS [facility]; Protocol Last Admin: 08/07/18 18:08 Dose: 2 units Insulin Detemir (Levemir Vial) 12 units SQ HS [facility] Ondansetron HCl (Zofran Injection) 4 mg IVPUSH Q6H PRN PRN Reason: NAUSEA AND/OR VOMITING Oxycodone HCl (Roxicodone -) 5 mg PO Q4H PRN PRN Reason: PAIN LEVEL 6-10 Sevelamer Carbonate (Renvela -) 800 mg PO TIDCM [facility] Last Admin: 08/07/18 18:08 Dose: 800 mg Last Vital Signs Temp Pulse Resp BP Pulse Ox 98.4 F 93 H 18 112/60 98 08/07/18 17:30 08/07/18 18:00 08/07/18 18:00 08/07/18 18:00 08/07/18 08:53 Lungs clear Heart reg Abd soft ext no edema CBC, BMP 08/07/18 07:49 08/07/18 07:49 Microbiology 08/07/18 02:30 Blood - Peripheral Venous Blood Culture - Preliminary Pending Organism 08/07/18 02:30 Blood - Peripheral Venous Blood Culture - Preliminary Pending Organism 08/06/18 04:56 Blood - Peripheral Venous Blood Culture - Preliminary Presumptive Mssa (Pbp2a Neg) 08/06/18 05:32 Urine - Urine - Catheterized Urine Culture - Preliminary Staphylococcus Latex Coag Pos 08/06/18 04:56 Blood - Peripheral Venous Blood Culture - Preliminary Staphylococcus Latex Coag Pos IMP- ESRD infected avg excision anemia Plan- follow blood c/s monitor renal fuction and lytes for timing of next dialysis with temporary catheter
[2018-08-07] MEDS ORDERED: INSULIN (LEVEMIR) 100 UNITS/ML UNITS SQ SCH (22:00)
[2018-08-07] MEDS: INSULIN (LEVEMIR) 100 UNITS/ML UNITS SQ SCH (22:40)
[2018-08-08] MEDS: INSULIN SLIDING SCALE (NOVOLOG) 1 VIAL SQ SCH ×4 (06:46→21:36)
--- NOTE | 2018-08-08 08:51 | PN ---
Progress Note (short form) - Note Progress Note: POD #1 - s/p ligation and excision of ruptured/infected A-V graft right arm under general anesthesia. VSS. Pt. doing well, resting comfortably in bed. C/o some nausea - zofran ordered. No apparent anesthetic complications noted. Continue current care.
[2018-08-08] MEDS: SEVELAMER CARBONATE 800 MG TAB (FP) PO SCH ×3 (09:06→18:33)
[2018-08-08] MEDS: HEPARIN NA (PORCINE) 5,000 UNITS/ML 1ML VIAL SQ SCH ×2 (09:06→21:35)
--- NOTE | 2018-08-08 09:26 | PN ---
Progress Note (short form) - Note Progress Note: 62yo M s/p excision of RUE AV graft POD 1. Pt had positive blood cx for staph aureus. Pt complains of mild Rt arm pain. Pt denies fever, chills, n/v. Pt last dialysis was on Wednesday08/06/18. Pt receiving vanc during HD. Pt currently has no HD access. Last Vital Signs Temp Pulse Resp BP Pulse Ox 98.2 F 94 H 17 104/75 96 08/08/18 08:00 08/08/18 08:00 08/08/18 08:00 08/08/18 08:00 08/07/18 21:00 CBC, BMP 08/07/18 07:49 08/07/18 07:49 PE: Gen: A&O x3 Resp: breathing comfortably Ext: RUE wound is clean with no erythema, serous discharge, wet to dry placed. Hand is warm, no edema. Problem List - Problems (1) Complication of vascular access for dialysis Assessment/Plan: Plan -appreciate ID and renal recs as to when and what type of HD access. Willing to place permacath today or tomorrow if cleared by ID, otherwise can place shiley at the bedside. -continue abx as per ID Code(s): T82.9XXA - UNSP COMP OF CARDIAC AND VASCULAR PROSTH DEV/GRFT, INIT Qualifiers: Encounter type: initial encounter Qualified Code(s): T82.9XXA - Unspecified complication of cardiac and vascular prosthetic device, implant and graft, initial encounter
[2018-08-08] MEDS ORDERED: PT OWN MED DRAWER 7, Y5N ONE (10:32)
--- NOTE | 2018-08-08 11:02 | PN ---
Progress Note (short form) - Note Progress Note: pt seen/ examined . chart reviewed. passed out yesterday for few seconds/ Min ? feels well now no complains except acid burn I saw echo with tech-- being done today-- looks ok- await cardiology input. Vital Signs Temp 98.2 F 08/08/18 08:00 Pulse 94 H 08/08/18 08:00 Resp 17 08/08/18 08:00 BP 104/75 08/08/18 08:00 Pulse Ox 96 08/07/18 21:00 Intake & Output 08/07/18 08/07/18 08/08/18 11:59 23:59 11:59 Intake Total 1100 250 100 Output Total 20 0 Balance 1080 250 100 Weight 201 lb 1.6 oz 214 lb 2 oz Intake: IV 300 0 vancomycin 0 Oral 0 250 100 Blood Product 800 Output: Urine 0 0 Void 0 0 Estimated Blood Loss 20 Other: Voiding Method Urinal Urinal Urinal Height 5 ft 9 in Body Mass Index (BMI) 29.7 Weight Measurement Method Patient Lift Scale Active Medications Heparin Sodium (Porcine) (Heparin -) 5,000 unit SQ BID [facility] Last Admin: 08/08/18 09:06 Dose: 5,000 unit Sodium Chloride (Normal Saline -) 250 mls @ 3,000 mls/hr IV PRN PRN PRN Reason: Hypotension during Dialysis Insulin Aspart (Novolog Vial Sliding Scale -) 1 vial SQ [facility]; Protocol Last Admin: 08/08/18 06:46 Dose: Not Given Insulin Detemir (Levemir Vial) 12 units SQ HS [facility] Last Admin: 08/07/18 22:40 Dose: 12 unit Ondansetron HCl (Zofran Injection) 4 mg IVPUSH Q6H PRN PRN Reason: NAUSEA AND/OR VOMITING Oxycodone HCl (Roxicodone -) 5 mg PO Q4H PRN PRN Reason: PAIN LEVEL 6-10 Sevelamer Carbonate (Renvela -) 800 mg PO TIDCM [facility] Last Admin: 08/08/18 09:06 Dose: 800 mg CBC, BMP 08/07/18 07:49 08/07/18 07:49 echo-- done -- official report pending. Physical Examination Constitutional: Yes: No Distress, morbidly obese Eyes: Yes: Conjunctiva Clear Neck: Yes: Supple Cardiovascular: Yes: Regular Rate and Rhythm Respiratory: Yes: Diminished Gastrointestinal: Yes: Soft. obese Extremities: Yes: Other (rue - dressing +) Edema: No Neurological: Yes: Alert/ n/f Psychiatric: Yes: Alert Assessment/Plan Abx Pain under control f/u cultures check vanco level-- not done yesterday !!! will need access but +ve cultures Permacath when cultures -ve May need shiley Check vanco level-- Vanco per level i/d/ vascular and renal to follow Not in volume overload f/u labs Discussed in detail with pts family Also discussed with Nursing staff . will follow will check u/s carotid and ct head also add zantac Problem List - Problems (1) Abdominal pain Code(s): R10.9 - UNSPECIFIED ABDOMINAL PAIN (2) ESRD (end stage renal disease) on dialysis Code(s): N18.6 - END STAGE RENAL DISEASE; Z99.2 - DEPENDENCE ON RENAL DIALYSIS (3) Fever Code(s): R50.9 - FEVER, UNSPECIFIED (4) AV fistula occlusion Code(s): T82.898A - OTH COMPLICATION OF VASCULAR PROSTH DEV/GRFT, INIT (5) Bacteremia Code(s): R78.81 - BACTEREMIA
[2018-08-08 11:09] LABS: ALBUMIN 2.7 g/dl (3.4-5.0); ALK PHOS 122 U/L (45-117); ANION GAP 12 MMOL/L (8-16); BILIRUBIN,TOTAL 0.5 mg/dL (0.2-1); BLOOD UREA NITROGEN 67 mg/dL (7-18); CALCIUM 8.8 mg/dL (8.5-10.1); CHLORIDE 95 mmol/L (98-107); CO2 29 mmol/L (21-32); GLUCOSE,RANDOM 101 mg/dL (74-106); SGOT/AST 54 U/L (15-37); SGPT/ALT 41 U/L (13-61); SODIUM 135 mmol/L (136-145); TOT PROT 6.8 g/dl (6.4-8.2)
[2018-08-08 11:21] LABS: BASO % 0.5 % (0-2.0); EOS % 0.2 % (0-4.5); HEMATOCRIT 28.9 % (35.4-49); HEMOGLOBIN 9.7 GM/dL (11.7-16.9); LYMPH % 7.2 % (8-40); MCH 29.6 pg (25.7-33.7); MCHC 33.5 g/dl (32.0-35.9); MEAN CELL VOLUME 88.5 fl (80-96); MONO % 9.1 % (3.8-10.2); PLATELET COUNT 103 K/MM3 (134-434); RBC 3.27 M/mm3 (4.00-5.60); RDW 17.2 % (11.9-15.9)
[2018-08-08 11:28] LABS: CREATININE 12.6 mg/dL (0.55-1.3)
[2018-08-08 11:59] LABS: ANISOCYTOSIS 1+; MACROCYTOSIS 0; OVALOCYTE 1+; PLATELET ESTIMATE DECREASED; TARGET CELLS 1+
--- NOTE | 2018-08-08 12:00 | ECHO ---
Name: DAVID VALENZUELA Exam:Adult Echocardiogram Study Date: 08/08/2018 10:12 AM Age: 62 yrs Reason For Study: R/O VEGETATIONS Height: 69 in Weight: 201 lb BSA: 2.1 m2 MMode/2D Measurements & Calculations IVSd: 1.1 cm Ao root diam: 3.1 cm LVIDd: 4.3 cm LA dimension: 3.2 cm LVIDs: 3.1 cm LVPWd: 0.95 cm EDV(Teich): 84.2 ml TAPSE: 2.6 cm ESV(Teich): 37.2 ml RV S Real: 13.0 cm/sec Doppler Measurements & Calculations MV E max real: 74.5 cm/sec MR max real: 286.4 cm/sec MV A max real: 101.7 cm/sec MR max P.8 mmHg MV E/A: 0.73 Med Peak E' Real: 3.6 cm/sec Med E/e': 20.7 Lat Peak E' Real: 6.2 cm/sec Lat E/e': 12.1 Procedure A complete two-dimensional transthoracic echocardiogram was performed (2D, M-mode, Doppler and color flow Doppler). Technically limited study. Left Ventricle The left ventricle is normal in size. Left ventricular systolic function is mild to moderately reduce d. Ejection Fraction = 40-45%. E/A reversal and TDI reveals impaired relaxation and elevated filling pre ssure (E/E' 20). There is mild to moderate global hypokinesis of the left ventricle. Right Ventricle The right ventricle is normal size. The right ventricular systolic function is normal. RV systolic TD I is 13 cm/s. Atria The left atrial size is normal. Right atrial size is normal. Mitral Valve There is mild mitral annular calcification. There is no mitral regurgitation noted. Tricuspid Valve The tricuspid valve is normal in structure and function. No tricuspid regurgitation. Aortic Valve The aortic valve is normal in structure and function. No aortic regurgitation is present. Pulmonic Valve The pulmonic valve is not well visualized. Great Vessels The aortic root is normal size. Pericardium/Pleura There is no pericardial effusion. Interpretation Summary Technically limited study The left ventricle is normal in size. Left ventricular systolic function is mild to moderately reduced. There is mild to moderate global hypokinesis of the left ventricle. Ejection Fraction = 40-45%. E/A reversal and TDI reveals impaired relaxation and elevated filling pressure (E/E' 20) The right ventricular systolic function is normal. The left atrial size is normal. Right atrial size is normal. There is mild mitral annular calcification. No obvious vegetations. Clinical correlation is recommended There is no pericardial effusion. Abner Milian MD 08/08/2018 11:59 AM
[2018-08-08 12:09] LABS: ANION GAP 16 MMOL/L (8-16); BLOOD UREA NITROGEN 69 mg/dL (7-18); CALCIUM 8.6 mg/dL (8.5-10.1); CHLORIDE 95 mmol/L (98-107); CO2 26 mmol/L (21-32); GLUCOSE,RANDOM 125 mg/dL (74-106); SODIUM 137 mmol/L (136-145)
[2018-08-08 12:12] LABS: CREATININE 12.4 mg/dL (0.55-1.3)
--- NOTE | 2018-08-08 12:28 | PN ---
Progress Note (short form) - Note Progress Note: Renal follow up for ESRD on HD Pt seen and examined at the bedside Vital Signs Temperature 98.2 F 08/08/18 08:00 Pulse Rate 94 H 08/08/18 08:00 Respiratory Rate 17 08/08/18 08:00 Blood Pressure 104/75 08/08/18 08:00 O2 Sat by Pulse Oximetry (%) 96 08/07/18 21:00 Intake & Output 08/05/18 08/06/18 08/07/18 08/08/18 23:59 23:59 23:59 23:59 Intake Total 350 1350 100 Output Total 0 20 0 Balance 350 1330 100 Weight 91.217 kg 91.217 kg 97.125 kg CBC, BMP 08/08/18 11:10 08/08/18 11:10 Current Medications Heparin Sodium (Porcine) (Heparin -) 5,000 unit SQ BID [facility] Last Admin: 08/08/18 09:06 Dose: 5,000 unit Sodium Chloride (Normal Saline -) 250 mls @ 3,000 mls/hr IV PRN PRN PRN Reason: Hypotension during Dialysis Insulin Aspart (Novolog Vial Sliding Scale -) 1 vial SQ [facility]; Protocol Last Admin: 08/08/18 11:44 Dose: Not Given Insulin Detemir (Levemir Vial) 12 units SQ HS [facility] Last Admin: 08/07/18 22:40 Dose: 12 unit Ondansetron HCl (Zofran Injection) 4 mg IVPUSH Q6H PRN PRN Reason: NAUSEA AND/OR VOMITING Oxycodone HCl (Roxicodone -) 5 mg PO Q4H PRN PRN Reason: PAIN LEVEL 6-10 Ranitidine HCl (Zantac -) 150 mg PO BID [facility] Sevelamer Carbonate (Renvela -) 800 mg PO TIDCM [facility] Last Admin: 08/08/18 09:06 Dose: 800 mg 62 year old gentleman with hx of ESRD on HD, Hypertension, Anemia presented with Abd pain and found to have MRSA bacteremia with infected AVG site. #Sepsis/MRSA bacteremia #ESRD on HD #Hypertension #Anemia #Renal osteodystrophy
--- NOTE | 2018-08-08 12:58 | PN ---
Progress Note, Physician History of Present Illness: still patient looks sick according to the family confusion clinically stable blood cx still positive - Current Medication List Current Medications: Active Medications Heparin Sodium (Porcine) (Heparin -) 5,000 unit SQ BID [facility] Last Admin: 08/08/18 09:06 Dose: 5,000 unit Sodium Chloride (Normal Saline -) 250 mls @ 3,000 mls/hr IV PRN PRN PRN Reason: Hypotension during Dialysis Insulin Aspart (Novolog Vial Sliding Scale -) 1 vial SQ ACHS [facility]; Protocol Last Admin: 08/08/18 11:44 Dose: Not Given Insulin Detemir (Levemir Vial) 12 units SQ HS [facility] Last Admin: 08/07/18 22:40 Dose: 12 unit Ondansetron HCl (Zofran Injection) 4 mg IVPUSH Q6H PRN PRN Reason: NAUSEA AND/OR VOMITING Oxycodone HCl (Roxicodone -) 5 mg PO Q4H PRN PRN Reason: PAIN LEVEL 6-10 Ranitidine HCl (Zantac -) 150 mg PO BID [facility] Sevelamer Carbonate (Renvela -) 800 mg PO TIDCM [facility] Last Admin: 08/08/18 09:06 Dose: 800 mg - Objective Vital Signs: Vital Signs Temperature 98.2 F 08/08/18 08:00 Pulse Rate 94 H 08/08/18 08:00 Respiratory Rate 17 08/08/18 08:00 Blood Pressure 104/75 08/08/18 08:00 O2 Sat by Pulse Oximetry (%) 96 08/07/18 21:00 Constitutional: Yes: No Distress, Calm Cardiovascular: Yes: Regular Rate and Rhythm Respiratory: Yes: Regular, CTA Bilaterally Gastrointestinal: Yes: Normal Bowel Sounds, Soft Musculoskeletal: Yes: WNL Extremities: Yes: Other Wound/Incision: Yes: Dressing Dry and Intact Neurological: Yes: Alert, Other Labs: CBC, BMP 08/08/18 11:10 08/08/18 11:10 INR, PTT INR 1.39 (0.83-1.09) H 08/06/18 23:00 Assessment/Plan Problem List - Problems (1) Abdominal pain Code(s): R10.9 - UNSPECIFIED ABDOMINAL PAIN (2) Fever Code(s): R50.9 - FEVER, UNSPECIFIED (3) ESRD (end stage renal disease) on dialysis Code(s): N18.6 - END STAGE RENAL DISEASE; Z99.2 - DEPENDENCE ON RENAL DIALYSIS (4) Presence of arterial-venous shunt (for dialysis) Code(s): Z99.2 - DEPENDENCE ON RENAL DIALYSIS Assessment/Plan 62 y.o. male with PMH of ESRD on HD, AVF/Graft, DM, and HTN presenting with Lt sided abdominal pain, fevers, and RUE AVF site blister formation/mild bleeding/ mild tenderness Sepsis/ Staph aureus bacteremia Infection of AVG - s/p excision ESRD on HD DM HTN patient continues to be positive now one of his blood cx showing probably enetrococcus plan continue current abx await for repeat cx reports to come back rest continue current mgmt patient stable
[2018-08-08] MEDS: RANITIDINE HCL 150 MG TABLET (FP) PO SCH ×2 (13:28→21:37)
[2018-08-08] MEDS ORDERED: APIXABAN 2.5 MG TABLET PO SCH (13:45)
[2018-08-08 14:12] LABS: HBSAG SCREEN Negative (Negative); HEP B CORE AB, TOT Negative (Negative)
[2018-08-08] MEDS ORDERED: CEFAZOLIN 1 GM in DEXTROSE 5%-WATER - 50 ML IVPB ONE (17:15)
--- NOTE | 2018-08-08 17:38 | CON.CARD ---
Consult Consult Specialty:: Cardiology Referred by:: Rigoberto Reason for Consultation:: syncope - History of Present Illness Chief Complaint: syncope History of Present Illness: 62M h/o ESRD on HD, DM, obesity p/w fever, L side abd pain. On abx, av graft found to be tender/swelling/oozing, was removed by vascular. Received 3 units PRBC as well. Plans to get catheter for HD. Noted to have bactermia, on IV abx. PT complained he blacked out yesterday for a few seconds, when asked about it today he does not remember and denies any history of syncope. Head CT unremarkable. Carotid ultrasound shows IJ clot, reportedly old per Dr. Greene although no prior study for comparison. Eliquis started today. Patient complains of chest pain since graft surgery that is constant, worse if moving arm, no dyspnea, edema, orthopnea, dizziness. - Past Medical History Cardio/Vascular: Yes: HTN Renal/: Yes: Renal Failure, Other (on dialysis for 3 years) Endocrine: Yes: Diabetes Mellitus - Past Surgical History Past Surgical History: Yes: AV Fistula/Graft - Alcohol/Substance Use Hx Alcohol Use: No - Smoking History Smoking history: Former smoker Have you smoked in the past 12 months: No Aproximately how many cigarettes per day: 3 If you are a former smoker, when did you quit?: 1 YEARS AGO - Social History Usual Living Arrangement: With Spouse History of Recent Travel: No Home Medications - Allergies Allergies/Adverse Reactions: Allergies Allergy/AdvReac Type Severity Reaction Status Date / Time No Known Drug Allergies Allergy Verified 08/06/18 00:20 - Home Medications Home Medications: Ambulatory Orders Sevelamer Carbonate [Renvela -] 800 mg PO TIDCM 12/26/13 oxyCODONE HCL [Roxicodone -] 5 mg PO Q4H PRN #30 tablet 03/17/15 Family Disease History - Family Disease History Family History: Unremarkable Review of Systems - Review of Systems Constitutional: reports: No Symptoms Eyes: reports: No Symptoms HENT: reports: No Symptoms Neck: reports: No Symptoms Cardiovascular: reports: No Symptoms Respiratory: reports: No Symptoms Gastrointestinal: reports: Abdominal Pain Genitourinary: reports: No Symptoms Musculoskeletal: reports: No Symptoms Integumentary: reports: No Symptoms Neurological: reports: Syncope Endocrine: reports: No Symptoms Hematology/Lymphatic: reports: No Symptoms Psychiatric: reports: No Symptoms Vital Signs: Vital Signs Temperature 98.2 F 08/08/18 08:00 Pulse Rate 94 H 08/08/18 08:00 Respiratory Rate 17 08/08/18 08:00 Blood Pressure 104/75 08/08/18 08:00 O2 Sat by Pulse Oximetry (%) 96 08/07/18 21:00 Constitutional: Yes: No Distress, Calm Eyes: Yes: Conjunctiva Clear, EOM Intact HENT: Yes: Atraumatic, Normocephalic Neck: Yes: Supple, Trachea Midline Respiratory: Yes: Regular, CTA Bilaterally (poor cooperation, auscultated anteriorly) Gastrointestinal: Yes: Normal Bowel Sounds, Soft Cardiovascular: Yes: Regular Rate and Rhythm JVD: No Carotid Bruit: No Heart Sounds: Yes: S1, S2 Musculoskeletal: Yes: WNL Extremities: Yes: WNL Edema: No Peripheral Pulses WNL: Yes Peripheral Pulses: 2+ Left Doralis Pedis, 2+ Right Dorsalis Pedis Integumentary: No: Jaundice Neurological: Yes: Alert, Oriented ...Motor Strength: WNL Psychiatric: Yes: Alert, Oriented - Other Data Labs, Other Data: CBC, BMP 08/08/18 11:10 08/08/18 11:10 INR, PTT INR 1.39 (0.83-1.09) H 08/06/18 23:00 Assessment/Plan EKG: sinus tachycardia, LVH with repol Echo 07/2018 nl LV size, EF 40-45%, E/A reversal, RV nl, LA nl Carotid dopplers: IJ thrombosis Syncope - patient denies history of syncope, however he complained of this per RN yesterday - echo showed EF 40-45%, unclear if new, pt says no cardiac hx, unlikely to have contributed to syncope - may be vasovagal vs orthostatic, appears less likely cardiac etiology - RIJ clot noted on carotid doppler, vascular following (Dr. Greene), likely old. eliquis was started today. appreciate vascular recs chest/abd pain, pos troponin - trop 0.14->0.15 on admission, has been constant since surgery and is worse with different positions - trend and history not c/w ACS, unlikely cardiac etiology Cardiomyopathy - EF 40-45% - has had borderline BPs, if stable after resuming HD would consider adding ACEI /BB - appears euvolemic currently, volume management with HD per renal - would consider outpatient ischemic evaluation after acute issues resolved ESRD on HD - plan for catheter placement, renal following fever/bacteremia - on abx per primary, ID
[2018-08-08] MEDS ORDERED: ceFAZolin SODIUM 1 GM VIAL ONE (18:05)
[2018-08-08] MEDS ORDERED: DEXTROSE 5%-WATER - 50 ML IVPB ONE (18:06)
--- NOTE | 2018-08-08 19:24 | PN ---
Progress Note (short form) - Note Progress Note: Renal follow up for ESRD on HD Pt seen and examined at the bedside awake and alert reports abd pain no sob, cp, fever, chills Vital Signs Temperature 98.2 F 08/08/18 08:00 Pulse Rate 94 H 08/08/18 08:00 Respiratory Rate 17 08/08/18 08:00 Blood Pressure 104/75 08/08/18 08:00 O2 Sat by Pulse Oximetry (%) 96 08/07/18 21:00 Intake & Output 08/05/18 08/06/18 08/07/18 08/08/18 23:59 23:59 23:59 23:59 Intake Total 350 1350 100 Output Total 0 20 0 Balance 350 1330 100 Weight 91.217 kg 91.217 kg 97.125 kg NAD awake and alert RRR, No M/R CTA, no rales soft NT/ND no LE edema CBC, BMP 08/08/18 11:10 08/08/18 11:10 Current Medications Heparin Sodium (Porcine) (Heparin -) 5,000 unit SQ BID [facility] Last Admin: 08/08/18 09:06 Dose: 5,000 unit Sodium Chloride (Normal Saline -) 250 mls @ 3,000 mls/hr IV PRN PRN PRN Reason: Hypotension during Dialysis Insulin Aspart (Novolog Vial Sliding Scale -) 1 vial SQ ACHS [facility]; Protocol Last Admin: 08/08/18 11:44 Dose: Not Given Insulin Detemir (Levemir Vial) 12 units SQ HS [facility] Last Admin: 08/07/18 22:40 Dose: 12 unit Ondansetron HCl (Zofran Injection) 4 mg IVPUSH Q6H PRN PRN Reason: NAUSEA AND/OR VOMITING Oxycodone HCl (Roxicodone -) 5 mg PO Q4H PRN PRN Reason: PAIN LEVEL 6-10 Ranitidine HCl (Zantac -) 150 mg PO BID [facility] Sevelamer Carbonate (Renvela -) 800 mg PO TIDCM [facility] Last Admin: 08/08/18 09:06 Dose: 800 mg 62 year old gentleman with hx of ESRD on HD, Hypertension, Anemia presented with Abd pain and found to have MRSA bacteremia with infected AVG site. #Sepsis/MRSA bacteremia #ESRD on HD #Hypertension #Anemia #Renal osteodystrophy No acute indication for [employer] today will likely need HD tomorrow, via temporary HD catheter will discuss with vascular sx Continue renal diet 1L fluid restriction daily Continue Abx as per ID, will repeat cultures on HD tomorrow Roderick Jameson DO
--- NOTE | 2018-08-08 21:33 | CONSULT ---
Consult - text type - Consultation Consultation Note: 62M h/o ESRD on HD, DM, obesity p/w fever, L side abd pain. On abx, av graft found to be tender/swelling/oozing, was removed by vascular. Plans to get catheter for HD. Noted to have bactermia, on IV abx. Carotid ultrasound shows incidentally noted IJ clot Currently denies any complaints Being treated for S. aureus bacteremia - Past Medical History Cardio/Vascular: Yes: HTN Renal/: Yes: Renal Failure, Other (on dialysis for 3 years) Endocrine: Yes: Diabetes Mellitus - Past Surgical History Past Surgical History: Yes: AV Fistula/Graft - Smoking History Smoking history: Former smoker - Social History Usual Living Arrangement: With Spouse - Allergies Allergies/Adverse Reactions: Allergies Allergy/AdvReac Type Severity Reaction Status Date / Time No Known Drug Allergies Allergy Verified 08/06/18 00:20 Active Medications Generic Name Dose Route Start Last Admin Trade Name Freq PRN Reason Stop Dose Admin Heparin Sodium (Porcine) 5,000 unit 08/08/18 22:00 08/09/18 09:15 Heparin - SQ 5,000 unit BID [facility] Administration Cefazolin Sodium 1 gm/ 50 mls @ 100 mls/hr 08/09/18 11:29 Dextrose IVPB 08/09/18 11:58 ONCE ONE Insulin Aspart 1 vial 08/07/18 07:00 08/09/18 11:08 Novolog Vial Sliding Scale - SQ Not Given ACHS [facility] Protocol Insulin Detemir 12 units 08/07/18 22:00 08/08/18 21:36 Levemir Vial SQ 12 unit HS [facility] Administration Ondansetron HCl 4 mg 08/07/18 01:53 Zofran Injection IVPUSH Q6H PRN NAUSEA AND/OR VOMITING Oxycodone HCl 5 mg 08/07/18 01:43 08/08/18 18:42 Roxicodone - PO 5 mg Q4H PRN Administration PAIN LEVEL 6-10 Ranitidine HCl 150 mg 08/08/18 11:15 08/09/18 09:15 Zantac - PO 150 mg BID [facility] Administration Sevelamer Carbonate 800 mg 08/07/18 08:00 08/09/18 08:33 Renvela - PO 800 mg TIDCM [facility] Administration - Home Medications Home Medications: Ambulatory Orders Sevelamer Carbonate [Renvela -] 800 mg PO TIDCM 12/26/13 oxyCODONE HCL [Roxicodone -] 5 mg PO Q4H PRN #30 tablet 03/17/15 Active Medications Generic Name Dose Route Start Last Admin Trade Name Freq PRN Reason Stop Dose Admin Heparin Sodium (Porcine) 5,000 unit 08/08/18 22:00 08/09/18 09:15 Heparin - SQ 5,000 unit BID [facility] Administration Cefazolin Sodium 1 gm in 50 mls @ 100 mls/hr 08/10/18 10:00 Ancef 1 Gm Premixed Ivpb - IVPB DAILY [facility] Insulin Aspart 1 vial 08/07/18 07:00 08/09/18 11:08 Novolog Vial Sliding Scale - SQ Not Given ACHS [facility] Protocol Insulin Detemir 12 units 08/07/18 22:00 08/08/18 21:36 Levemir Vial SQ 12 unit HS [facility] Administration Ondansetron HCl 4 mg 08/07/18 01:53 Zofran Injection IVPUSH Q6H PRN NAUSEA AND/OR VOMITING Oxycodone HCl 5 mg 08/07/18 01:43 08/08/18 18:42 Roxicodone - PO 5 mg Q4H PRN Administration PAIN LEVEL 6-10 Ranitidine HCl 150 mg 08/08/18 11:15 08/09/18 09:15 Zantac - PO 150 mg BID [facility] Administration Sevelamer Carbonate 800 mg 08/07/18 08:00 08/09/18 08:33 Renvela - PO 800 mg TIDCM [facility] Administration Family Disease History - Family Disease History Family History: Unremarkable Vital Signs: AFVSS Cor: RSR, No murmurs, No gallops Lungs: Clear to P&A Abd: Soft, Normal bowel sounds, No organomegaly generalized anasarca Assessment/Plan 62 y/o patient with DM, HTN, ESRD, comes in for left sided abdominal pain/fever Noted to have S. aureus bacteremia On abx per ID Also incidental IJ thrombosis ? old per vascular. Had rt. IJ permacath in the past which was removed To manage per vascular discussed with PMD
[2018-08-08] MEDS: INSULIN (LEVEMIR) 100 UNITS/ML UNITS SQ SCH (21:36)
[2018-08-09] MEDS: INSULIN SLIDING SCALE (NOVOLOG) 1 VIAL SQ SCH ×4 (06:58→22:23)
[2018-08-09] MEDS: SEVELAMER CARBONATE 800 MG TAB (FP) PO SCH ×3 (08:33→17:26)
[2018-08-09] MEDS: RANITIDINE HCL 150 MG TABLET (FP) PO SCH ×2 (09:15→22:21)
[2018-08-09] MEDS: HEPARIN NA (PORCINE) 5,000 UNITS/ML 1ML VIAL SQ SCH ×2 (09:15→22:23)
[2018-08-09] MEDS ORDERED: WATER IVPB ONE (09:45)
[2018-08-09] MEDS ORDERED: DEXTROSE 5% IVPB ONE (09:45)
[2018-08-09] MEDS ORDERED: SODIUM CHLORIDE 250 ML IV PRN (09:45)
[2018-08-09] MEDS ORDERED: CEFAZOLIN IVPB ONE (09:45)
--- NOTE | 2018-08-09 10:35 | PROC ---
Central Line Insertion Indication: Other (Dialysis access) Risks and Benefits Explained: Yes Consent on Chart: Yes Central Line: Dialysis Cath, Dual Lumen Anesthesia: 1% Lidocaine Sterile Technique: Yes Ultrasound Guided Assistance: No Position: Right Femoral Sterile Dressing Applied: Yes
--- NOTE | 2018-08-09 10:41 | PN ---
Progress Note (short form) - Note Progress Note: - Note Progress Note: pt seen/ examined in HD chart reviewed. rt femoral shiley placed feels well now Vital Signs - 24 hr 08/08/18 08/09/18 08/09/18 21:00 09:00 10:05 Temperature 98 F Pulse Rate 90 Respiratory 16 18 Rate Blood Pressure 124/72 O2 Sat by Pulse 98 96 Oximetry (%) 08/09/18 08/09/18 08/09/18 10:07 10:10 10:40 Temperature 97.7 F Pulse Rate 92 H 93 H 90 Respiratory 22 H 18 18 Rate Blood Pressure 154/83 128/71 120/70 O2 Sat by Pulse Oximetry (%) 08/09/18 08/09/18 08/09/18 11:10 11:40 12:10 Temperature Pulse Rate 90 94 H 74 Respiratory 18 18 18 Rate Blood Pressure 110/68 112/60 122/58 L O2 Sat by Pulse Oximetry (%) 08/09/18 12:40 Temperature Pulse Rate 72 Respiratory 18 Rate Blood Pressure 120/58 L O2 Sat by Pulse Oximetry (%) Current Medications Generic Name Dose Route Start Last Admin Trade Name Freq PRN Reason Stop Dose Admin Heparin Sodium (Porcine) 5,000 unit 08/08/18 22:00 08/09/18 09:15 Heparin - SQ 5,000 unit BID RASHEEDA Administration Cefazolin Sodium 1 gm/ 50 mls @ 100 mls/hr 08/10/18 10:00 Dextrose IVPB DAILY [facility] Insulin Aspart 1 vial 08/07/18 07:00 08/09/18 11:08 Novolog Vial Sliding Scale - SQ Not Given ACHS [facility] Protocol Insulin Detemir 12 units 08/07/18 22:00 08/08/18 21:36 Levemir Vial SQ 12 unit HS RASHEEDA Administration Ondansetron HCl 4 mg 08/07/18 01:53 Zofran Injection IVPUSH Q6H PRN NAUSEA AND/OR VOMITING Oxycodone HCl 5 mg 08/07/18 01:43 08/08/18 18:42 Roxicodone - PO 5 mg Q4H PRN Administration PAIN LEVEL 6-10 Ranitidine HCl 150 mg 08/08/18 11:15 08/09/18 09:15 Zantac - PO 150 mg BID RASHEEDA Administration Sevelamer Carbonate 800 mg 08/07/18 08:00 08/09/18 08:33 Renvela - PO 800 mg TIDCM RASHEEDA Administration Laboratory Results - last 24 hr 08/06/18 08/06/18 08/08/18 14:45 14:45 17:15 WBC RBC Hgb Hct MCV MCH MCHC RDW Plt Count MPV Sodium Potassium Chloride Carbon Dioxide Anion Gap BUN Creatinine Creat Clearance w eGFR POC Glucometer 132 Random Glucose Calcium Phosphorus Hepatitis A Ab Total Negative Hep Bs Antigen Negative Hep Bs Antibody Reactive Hep B Core Total Ab Negative Hep C Ab Diagnostic <0.1 08/08/18 08/09/18 08/09/18 21:34 06:29 10:20 WBC RBC Hgb Hct MCV MCH MCHC RDW Plt Count MPV Sodium 134 L Potassium 4.3 Chloride 95 L Carbon Dioxide 28 Anion Gap 11 BUN 66 H Creatinine 10.5 H* Creat Clearance w eGFR 5.02 POC Glucometer 170 137 Random Glucose 189 H Calcium 8.2 L Phosphorus 3.5 Hepatitis A Ab Total Hep Bs Antigen Hep Bs Antibody Hep B Core Total Ab Hep C Ab Diagnostic 08/09/18 10:20 WBC 8.6 RBC 3.11 L Hgb 9.3 L Hct 27.8 L MCV 89.4 MCH 29.9 MCHC 33.4 RDW 17.2 H Plt Count 119 L MPV 9.7 Sodium Potassium Chloride Carbon Dioxide Anion Gap BUN Creatinine Creat Clearance w eGFR POC Glucometer Random Glucose Calcium Phosphorus Hepatitis A Ab Total Hep Bs Antigen Hep Bs Antibody Hep B Core Total Ab Hep C Ab Diagnostic Physical Examination Constitutional: Yes: No Distress, morbidly obese Eyes: Yes: Conjunctiva Clear Neck: Yes: Supple Cardiovascular: Yes: Regular Rate and Rhythm Respiratory: Yes: Diminished Gastrointestinal: Yes: Soft. obese Extremities: Yes: Other (rue - dressing +)kassie+ Edema: No, rt fem shiley Neurological: Yes: Alert/ n/f Psychiatric: Yes: Alert Assessment/Plan Abx- as per ID-- spoke with Dr sarai Owusu under control f/u cultures-- positive Echo -no vegetations no anticoagulation as per Surgeon as clot is old continue with meds HD per Renal Problem List - Problems (1) Abdominal pain Code(s): R10.9 - UNSPECIFIED ABDOMINAL PAIN (2) Bacteremia Code(s): R78.81 - BACTEREMIA (3) Complication of vascular access for dialysis Code([facility]): [facility]A [facility]ARDIAC AND VASCULAR PROSTH DEV/GRFT, INIT Qualifiers: Encounter type: initial encounter Qualified Code(s): T82.9XXA - Unspecified complication of cardiac and vascular prosthetic device, implant and graft, initial encounter (4) ESRD (end stage renal disease) on dialysis Code(s): N18.6 - END STAGE RENAL DISEASE; Z99.2 - DEPENDENCE ON RENAL DIALYSIS (5) Fever Code(s): R50.9 - FEVER, UNSPECIFIED (6) AV fistula occlusion Code(s): T82.898A - [facility] COMPLICATION OF VASCULAR PROSTH DEV/GRFT, INIT
[2018-08-09 11:10] LABS: HEMATOCRIT 27.8 % (35.4-49); HEMOGLOBIN 9.3 GM/dL (11.7-16.9); MCH 29.9 pg (25.7-33.7); MCHC 33.4 g/dl (32.0-35.9); MEAN CELL VOLUME 89.4 fl (80-96); MEAN PLT VOLUME 9.7 fl (7.5-11.1); PLATELET COUNT 119 K/MM3 (134-434); RBC 3.11 M/mm3 (4.00-5.60); RDW 17.2 % (11.9-15.9); WHITE BLOOD COUNT 8.6 K/mm3 (4.0-10.0)
[2018-08-09] MEDS ORDERED: CEFAZOLIN 1 GM in DEXTROSE 5%-WATER - 50 ML IVPB ONE (11:29)
--- NOTE | 2018-08-09 11:58 | PN ---
Progress Note, Physician History of Present Illness: patient doing well c/o of rt shoulder pain blood cx still positive switched to cefazolin - Current Medication List Current Medications: Active Medications Heparin Sodium (Porcine) (Heparin -) 5,000 unit SQ BID [facility] Last Admin: 08/09/18 09:15 Dose: 5,000 unit Cefazolin Sodium 1 gm/ (Dextrose) 50 mls @ 100 mls/hr IVPB ONCE ONE Stop: 08/09/18 11:58 Insulin Aspart (Novolog Vial Sliding Scale -) 1 vial SQ ACHS [facility]; Protocol Last Admin: 08/09/18 11:08 Dose: Not Given Insulin Detemir (Levemir Vial) 12 units SQ HS [facility] Last Admin: 08/08/18 21:36 Dose: 12 unit Ondansetron HCl (Zofran Injection) 4 mg IVPUSH Q6H PRN PRN Reason: NAUSEA AND/OR VOMITING Oxycodone HCl (Roxicodone -) 5 mg PO Q4H PRN PRN Reason: PAIN LEVEL 6-10 Last Admin: 08/08/18 18:42 Dose: 5 mg Ranitidine HCl (Zantac -) 150 mg PO BID [facility] Last Admin: 08/09/18 09:15 Dose: 150 mg Sevelamer Carbonate (Renvela -) 800 mg PO TIDCM [facility] Last Admin: 08/09/18 08:33 Dose: 800 mg - Objective Vital Signs: Vital Signs Temperature 97.7 F 08/09/18 10:07 Pulse Rate 92 H 08/09/18 10:07 Respiratory Rate 22 H 08/09/18 10:07 Blood Pressure 154/83 08/09/18 10:07 O2 Sat by Pulse Oximetry (%) 96 08/09/18 09:00 Constitutional: Yes: Calm, Mild Distress Cardiovascular: Yes: Regular Rate and Rhythm Respiratory: Yes: Regular, CTA Bilaterally Gastrointestinal: Yes: Normal Bowel Sounds, Soft Musculoskeletal: Yes: WNL Extremities: Yes: WNL Wound/Incision: Yes: Dressing Dry and Intact Neurological: Yes: Alert, Oriented Psychiatric: Yes: Alert, Oriented Labs: CBC, BMP 08/09/18 10:20 INR, PTT INR 1.39 (0.83-1.09) H 08/06/18 23:00 Assessment/Plan Problem List - Problems (1) Abdominal pain Code(s): R10.9 - UNSPECIFIED ABDOMINAL PAIN (2) Fever Code(s): R50.9 - FEVER, UNSPECIFIED (3) ESRD (end stage renal disease) on dialysis Code(s): N18.6 - END STAGE RENAL DISEASE; Z99.2 - DEPENDENCE ON RENAL DIALYSIS (4) Presence of arterial-venous shunt (for dialysis) Code(s): Z99.2 - DEPENDENCE ON RENAL DIALYSIS Assessment/Plan 62 y.o. male with PMH of ESRD on HD, AVF/Graft, DM, and HTN presenting with Lt sided abdominal pain, fevers, and RUE AVF site blister formation/mild bleeding/ mild tenderness Sepsis/ Staph aureus bacteremia Infection of AVG - s/p excision ESRD on HD DM HTN plan will continue anceff echo continue to monitor blood cx monitor for fever wound is clean
[2018-08-09 12:18] LABS: ANION GAP 11 MMOL/L (8-16); BLOOD UREA NITROGEN 66 mg/dL (7-18); CALCIUM 8.2 mg/dL (8.5-10.1); CHLORIDE 95 mmol/L (98-107); CO2 28 mmol/L (21-32); GLUCOSE,RANDOM 189 mg/dL (74-106); PHOSPHOROUS 3.5 mg/dL (2.5-4.9); POTASSIUM 4.3 mmol/L (3.5-5.1); SODIUM 134 mmol/L (136-145)
[2018-08-09 12:20] LABS: CREATININE 10.5 mg/dL (0.55-1.3)
--- NOTE | 2018-08-09 13:16 | PN ---
Progress Note (short form) - Note Progress Note: Renal follow up for ESRD on HD Pt seen and examined during dialysis tolerating HD well femoral catheter inserted by vascular earlier today no acute complaints no fevers BP stable, UF goal ~3L Vital Signs Temperature 97.7 F 08/09/18 10:07 Pulse Rate 72 08/09/18 12:40 Respiratory Rate 18 08/09/18 12:40 Blood Pressure 120/58 L 08/09/18 12:40 O2 Sat by Pulse Oximetry (%) 96 08/09/18 09:00 Intake & Output 08/06/18 08/07/18 08/08/18 08/09/18 23:59 23:59 23:59 23:59 Intake Total 350 1350 220 0 Output Total 0 20 0 Balance 350 1330 220 0 Weight 91.217 kg 91.217 kg 97.125 kg 93.349 kg NAD awake and alert RRR, No M/R CTA, no rales soft NT/ND no LE edema CBC, BMP 08/09/18 10:20 08/09/18 10:20 Current Medications Heparin Sodium (Porcine) (Heparin -) 5,000 unit SQ BID [facility] Last Admin: 08/09/18 09:15 Dose: 5,000 unit Cefazolin Sodium 1 gm/ (Dextrose) 50 mls @ 100 mls/hr IVPB DAILY [facility] Insulin Aspart (Novolog Vial Sliding Scale -) 1 vial SQ ACHS [facility]; Protocol Last Admin: 08/09/18 11:08 Dose: Not Given Insulin Detemir (Levemir Vial) 12 units SQ HS [facility] Last Admin: 08/08/18 21:36 Dose: 12 unit Ondansetron HCl (Zofran Injection) 4 mg IVPUSH Q6H PRN PRN Reason: NAUSEA AND/OR VOMITING Oxycodone HCl (Roxicodone -) 5 mg PO Q4H PRN PRN Reason: PAIN LEVEL 6-10 Last Admin: 08/08/18 18:42 Dose: 5 mg Ranitidine HCl (Zantac -) 150 mg PO BID [facility] Last Admin: 08/09/18 09:15 Dose: 150 mg Sevelamer Carbonate (Renvela -) 800 mg PO TIDCM [facility] Last Admin: 08/09/18 08:33 Dose: 800 mg 62 year old gentleman with hx of ESRD on HD, Hypertension, Anemia presented with Abd pain and found to have MRSA bacteremia with infected AVG site. #Sepsis/MRSA bacteremia #ESRD on HD #Hypertension #Anemia #Renal osteodystrophy tolerating dialysis well to get Ancef 1g IV post Hd as per ID recs cultures collected today, waiting clearance of bacteremia Will reaccess daily for need for additional HD continue reese Jameson DO
[2018-08-09 15:19] LABS: CREATININE 4.7 mg/dL (0.55-1.3)
--- NOTE | 2018-08-09 17:04 | PN ---
Progress Note (short form) - Note Progress Note: surgery Asked by Dr Jameson to remove shiley in patient's right groin after he completes dialysis today 2/2 to bacteremia. Patient Will need daily evaluation regarding need for additional HD and access. Renal following. Shiley catheter removed from patient's right groin without complication and direct pressure was applied for 15 minuets. Site was clean and dry with no evidence of active bleeding. Thigh soft, supple and non-tender. Pressure dressing was applied to area. Patient tolerated the procedure well. Vascular to follow Evaluation and plan discussed with Dr Greene.
--- NOTE | 2018-08-09 17:57 | PN ---
Progress Note, Physician Chief Complaint: syncope History of Present Illness: poor historian CP near sternum, worse with pressing or twisting in bed no sob in bed, but yes if moves to fast no palpit, syncope ex cigs - Current Medication List Current Medications: Active Medications Heparin Sodium (Porcine) (Heparin -) 5,000 unit SQ BID [facility] Last Admin: 08/09/18 09:15 Dose: 5,000 unit Cefazolin Sodium 1 gm/ (Dextrose) 50 mls @ 100 mls/hr IVPB DAILY [facility] Insulin Aspart (Novolog Vial Sliding Scale -) 1 vial SQ ACHS [facility]; Protocol Last Admin: 08/09/18 17:12 Dose: 2 units Insulin Detemir (Levemir Vial) 12 units SQ HS [facility] Last Admin: 08/08/18 21:36 Dose: 12 unit Ondansetron HCl (Zofran Injection) 4 mg IVPUSH Q6H PRN PRN Reason: NAUSEA AND/OR VOMITING Oxycodone HCl (Roxicodone -) 5 mg PO Q4H PRN PRN Reason: PAIN LEVEL 6-10 Last Admin: 08/08/18 18:42 Dose: 5 mg Ranitidine HCl (Zantac -) 150 mg PO BID [facility] Last Admin: 08/09/18 09:15 Dose: 150 mg Sevelamer Carbonate (Renvela -) 800 mg PO TIDCM [facility] Last Admin: 08/09/18 17:26 Dose: 800 mg - Objective Vital Signs: Vital Signs Temperature 98.5 F 08/09/18 17:43 Pulse Rate 102 H 08/09/18 17:43 Respiratory Rate 18 08/09/18 17:43 Blood Pressure 116/63 08/09/18 17:43 O2 Sat by Pulse Oximetry (%) 96 08/09/18 09:00 Constitutional: Yes: No Distress, Calm Eyes: No: Sclera Icterus HENT: No: Nasal Congestion Cardiovascular: Yes: Regular Rate and Rhythm, S1, S2, Other (PMI non diplaced). No: JVD (tds neck habitus), Gallop, Murmur Respiratory: Yes: CTA Bilaterally. No: Accessory Muscle Use, Rales, Wheezes Gastrointestinal: Yes: Normal Bowel Sounds, Soft. No: Tenderness Musculoskeletal: Yes: Other (No kyphosis) Extremities: No: Cyanosis Edema: No Integumentary: No: Jaundice Neurological: Yes: Alert. No: Seizure Psychiatric: No: Agitated Labs: CBC, BMP 08/09/18 10:20 08/09/18 14:10 INR, PTT INR 1.39 (0.83-1.09) H 08/06/18 23:00 Assessment/Plan Echo 07/2018 nl LV size, EF 40-45%, E/A reversal, RV nl, LA nl Carotid dopplers: IJ thrombosis Syncope - patient denies history of syncope, however he complained of this per on 08/07 RN...he is poor historian. - here with old IJ clot per vascular--no AC indicated - was hypoxic to 86% on 08/06, normal sats since - mild tachycardia, suspect infection related - rec CTA chest PE protocol to confirm no PE to explain syncope and these other findings--d/w'd renal (trevon), pt should tolerate the IV contrast bolus. ordered. - echo showed EF 40-45%, unclear if new, pt says no cardiac hx, unlikely to have contributed to syncope - may be vasovagal vs orthostatic, appears less likely cardiac etiology - RIJ clot noted on carotid doppler, vascular following (Dr. Greene), likely old. eliquis was started today. appreciate vascular recs chest/abd pain, pos troponin - trop 0.14->0.15 on admission, has been constant since surgery and is worse with different positions, + worse with palpation. - trend and history not c/w ACS, unlikely cardiac etiology Cardiomyopathy - EF 40-45% - has had borderline BPs, if stable after resuming HD would consider adding ACEI /BB - appears euvolemic currently, volume management with HD per renal - would consider outpatient ischemic evaluation after acute issues resolved ESRD on HD - plan for catheter placement, renal following fever/bacteremia - on abx per primary, ID
--- NOTE | 2018-08-09 18:27 | PATH ---
Surgical Pathology Report Patient Name: DAVID VALNEZUELA Med. Rec. #: [id number] /Age/Gender: 1955 (Age: 62) / M Account: [id number] Location: [facility] MED/SURG Taken: 08/07/2018 Received: 08/08/2018 Reported: 08/09/2018 Physicians: Desi Badillo M.D. Specimen(s) Received REMOVED PORTION OF AV GRAFT Clinical History Ruptured AV graft Final Diagnosis PORTION OF PROSTHETIC GRAFT, REMOVAL: PORTION OF VASCULAR WALL WITH SYNTHETIC MATERIAL CONSISTENT WITH VASCULAR GRAFT SHOWING DEGENERATIVE CHANGE AND BLOOD CLOT. SEPARATE PORTION OF SKIN SHOWING EROSION, ULCERATION WITH SEVERE ACUTE AND CHRONIC INFLAMMATION. Electronically Signed Claudio Deluca M.D. Gross Description Received fresh labeled "removed portion of prosthetic graft," is a 4.0 x 2.5 x 0.8 cm aggregate of multiple portions skin, soft tissue and graft. Houseperson sections are submitted in one cassette. /08/08/2018 [facility]/08/08/2018
[2018-08-09] MEDS: INSULIN (LEVEMIR) 100 UNITS/ML UNITS SQ SCH (22:23)
[2018-08-10] MEDS: INSULIN SLIDING SCALE (NOVOLOG) 1 VIAL SQ SCH ×4 (07:03→21:56)
[2018-08-10 07:36] LABS: ANION GAP 13 MMOL/L (8-16); BLOOD UREA NITROGEN 45 mg/dL (7-18); CALCIUM 8.3 mg/dL (8.5-10.1); CHLORIDE 101 mmol/L (98-107); CO2 27 mmol/L (21-32); GLUCOSE,RANDOM 54 mg/dL (74-106); PHOSPHOROUS 3.7 mg/dL (2.5-4.9); POTASSIUM 4.1 mmol/L (3.5-5.1); SODIUM 141 mmol/L (136-145)
[2018-08-10 07:51] LABS: CREATININE 8.9 mg/dL (0.55-1.3)
[2018-08-10] MEDS: SEVELAMER CARBONATE 800 MG TAB (FP) PO SCH ×3 (08:57→17:54)
[2018-08-10] MEDS ORDERED: DEXTROSE 5%-WATER - 50 ML IVPB ONE ×3 (09:20→17:51)
[2018-08-10] MEDS ORDERED: ceFAZolin SODIUM 1 GM VIAL ONE (09:20)
[2018-08-10 09:57] LABS: BASO % 0.4 % (0-2.0); EOS % 0.7 % (0-4.5); HEMATOCRIT 25.5 % (35.4-49); HEMOGLOBIN 8.4 GM/dL (11.7-16.9); LYMPH % 7.2 % (8-40); MCH 29.6 pg (25.7-33.7); MCHC 33.1 g/dl (32.0-35.9); MEAN CELL VOLUME 89.5 fl (80-96); MONO % 8.5 % (3.8-10.2); NEUT % 83.2 % (42.8-82.8); PLATELET COUNT 143 K/MM3 (134-434); RBC 2.85 M/mm3 (4.00-5.60); RDW 17.9 % (11.9-15.9)
[2018-08-10] MEDS ORDERED: CEFAZOLIN 1 GM in DEXTROSE 5%-WATER - 50 ML IVPB SCH (10:00)
--- NOTE | 2018-08-10 10:08 | PN ---
Progress Note (short form) - Note Progress Note: Surgery POD #3 Excision of AV graft right arm patient seen and examined at bedside. Patient states he "blacked out" last night but cannot articulate what happened at the time. He is difficult to understand and nursing reports he is a poor historian with sundowning. The episode was unwitnessed but the patient was found to be hypoixic. Dr Carson has ordered a Chest CTA to r/o PE. Vital Signs Temp 98.2 F 08/10/18 05:00 Pulse 83 08/10/18 05:00 Resp 20 08/10/18 05:00 BP 164/59 L 08/10/18 05:00 Pulse Ox 96 08/09/18 21:00 Intake & Output 08/09/18 08/09/18 08/10/18 11:59 23:59 11:59 Intake Total 0 300 0 Balance 0 300 0 Weight 205 lb 12.8 oz 205 lb Intake: IV 0 sl 0 Oral 300 0 Other: Voiding Method Diaper Diaper Diaper Bowel Movement No Height 5 ft 9 in Body Mass Index (BMI) 30.2 Weight Measurement Method Chair Scale CBC, BMP 08/10/18 09:45 08/10/18 06:10 PE: A&O, NAD Right UE, surgical sites c/d/i proximal and distal sites with kassie in situ, surrounding tissue intact with no erythema, edema collection of active d/c, open wound @3.5cm X 2.5cm with clean boarders and fibrinous base, no evidence of active d/c, no foul smell, no evidence of collection. Arm soft supple ad non- tender, area dressed with Wet to dry dressing. Arm and hand warm and well perfused distally right groin c/d/i with no active bleeding from shiley site. Thigh soft to touch and non-tender to palpation. feet warm and LE compartments soft and supple. Problem List - Problems (1) ESRD (end stage renal disease) on dialysis Assessment/Plan: POD #3 excision of infected graft. Plan for PC once cultures negative. Will place shiley upon request for HD from renal. 1) Continue daily dressing change to right UE Pack wet to dry 2) Follow up final rpt blood cultures 3) Plan for PC pending negative cultures-once cleared by ID Evaluation and plan discussed with Dr Greene. Code(s): N18.6 - END STAGE RENAL DISEASE; Z99.2 - DEPENDENCE ON RENAL DIALYSIS
--- NOTE | 2018-08-10 10:21 | PN ---
Progress Note, Physician History of Present Illness: continues to have blood cx positive echo result noted u/s result noted old ij thrombus present patient c/o of rt chest pain near the shoulder - Current Medication List Current Medications: Active Medications Heparin Sodium (Porcine) (Heparin -) 5,000 unit SQ BID [facility] Last Admin: 08/09/18 22:23 Dose: 5,000 unit Cefazolin Sodium 1 gm/ (Dextrose) 50 mls @ 100 mls/hr IVPB DAILY [facility] Insulin Aspart (Novolog Vial Sliding Scale -) 1 vial SQ ACHS [facility]; Protocol Last Admin: 08/10/18 07:03 Dose: Not Given Insulin Detemir (Levemir Vial) 12 units SQ HS [facility] Last Admin: 08/09/18 22:23 Dose: 12 unit Ondansetron HCl (Zofran Injection) 4 mg IVPUSH Q6H PRN PRN Reason: NAUSEA AND/OR VOMITING Ranitidine HCl (Zantac -) 150 mg PO BID [facility] Last Admin: 08/09/18 22:21 Dose: 150 mg Sevelamer Carbonate (Renvela -) 800 mg PO TIDCM [facility] Last Admin: 08/10/18 08:57 Dose: 800 mg - Objective Vital Signs: Vital Signs Temperature 98.2 F 08/10/18 05:00 Pulse Rate 83 08/10/18 05:00 Respiratory Rate 20 08/10/18 05:00 Blood Pressure 164/59 L 08/10/18 05:00 O2 Sat by Pulse Oximetry (%) 96 08/09/18 21:00 Constitutional: Yes: Calm, Mild Distress Cardiovascular: Yes: S1, S2 Respiratory: Yes: Regular, CTA Bilaterally Gastrointestinal: Yes: Normal Bowel Sounds, Soft Musculoskeletal: Yes: WNL Extremities: Yes: Other Wound/Incision: Yes: Dressing Dry and Intact Neurological: Yes: Alert, Oriented Psychiatric: Yes: Alert Labs: CBC, BMP 08/10/18 09:45 08/10/18 06:10 INR, PTT INR 1.39 (0.83-1.09) H 08/06/18 23:00 Assessment/Plan Problem List - Problems (1) Abdominal pain Code(s): R10.9 - UNSPECIFIED ABDOMINAL PAIN (2) Fever Code(s): R50.9 - FEVER, UNSPECIFIED (3) ESRD (end stage renal disease) on dialysis Code(s): N18.6 - END STAGE RENAL DISEASE; Z99.2 - DEPENDENCE ON RENAL DIALYSIS (4) Presence of arterial-venous shunt (for dialysis) Code(s): Z99.2 - DEPENDENCE ON RENAL DIALYSIS Assessment/Plan 62 y.o. male with PMH of ESRD on HD, AVF/Graft, DM, and HTN presenting with Lt sided abdominal pain, fevers, and RUE AVF site blister formation/mild bleeding/ mild tenderness Sepsis/ Staph aureus bacteremia Infection of AVG - s/p excision ESRD on HD DM HTN patient continues to be positive now one of his blood cx showing probably enetrococcus i am going to change his abx completely and monitor blood cx hodges tart him on nafcillin and zosyn
[2018-08-10] MEDS: RANITIDINE HCL 150 MG TABLET (FP) PO SCH ×2 (10:24→21:56)
[2018-08-10] MEDS: HEPARIN NA (PORCINE) 5,000 UNITS/ML 1ML VIAL SQ SCH ×2 (10:25→21:56)
--- NOTE | 2018-08-10 11:07 | PN ---
Progress Note (short form) - Note Progress Note: - Note Progress Note: pt seen/ examined confused more today trying to get out of bed rt femoral shiley removed after he was dialysed yesterday awake Vital Signs - 24 hr 08/09/18 08/09/18 08/09/18 11:10 11:40 12:10 Temperature Pulse Rate 90 94 H 74 Respiratory 18 18 18 Rate Blood Pressure 110/68 112/60 122/58 L O2 Sat by Pulse Oximetry (%) 08/09/18 08/09/18 08/09/18 12:40 13:10 13:40 Temperature Pulse Rate 72 70 104 H Respiratory 18 18 18 Rate Blood Pressure 120/58 L 119/50 L 119/71 O2 Sat by Pulse Oximetry (%) 08/09/18 08/09/18 08/09/18 14:10 14:23 14:53 Temperature 97.4 F L Pulse Rate 100 H 102 H 102 H Respiratory 18 18 18 Rate Blood Pressure 120/70 126/75 131/80 O2 Sat by Pulse Oximetry (%) 08/09/18 08/09/18 08/10/18 17:43 21:00 05:00 Temperature 98.5 F 97.6 F 98.2 F Pulse Rate 102 H 86 83 Respiratory 18 20 20 Rate Blood Pressure 116/63 124/65 164/59 L O2 Sat by Pulse 96 Oximetry (%) 08/10/18 08/10/18 09:00 10:00 Temperature 97.5 F L Pulse Rate 86 Respiratory 20 20 Rate Blood Pressure 144/76 O2 Sat by Pulse 90 L Oximetry (%) Current Medications Generic Name Dose Route Start Last Admin Trade Name Freq PRN Reason Stop Dose Admin Heparin Sodium (Porcine) 5,000 unit 08/08/18 22:00 08/10/18 10:25 Heparin - SQ 5,000 unit BID RASHEEDA Administration Nafcillin Sodium 2 gm/ 100 mls @ 100 mls/hr 08/10/18 10:30 Dextrose IVPB Q6H-IV RASHEEDA Protocol Piperacillin Sod/Tazobactam 50 mls @ 100 mls/hr 08/10/18 10:30 Sod 2.25 gm/ Dextrose IVPB Q8H-IV RASHEEDA Protocol Insulin Aspart 1 vial 08/07/18 07:00 08/10/18 07:03 Novolog Vial Sliding Scale - SQ Not Given ACHS [facility] Protocol Insulin Detemir 12 units 10/28/18 22:00 08/09/18 22:23 Levemir Vial SQ 12 unit HS RASHEEDA Administration Ondansetron HCl 4 mg 08/07/18 01:53 Zofran Injection IVPUSH Q6H PRN NAUSEA AND/OR VOMITING Ranitidine HCl 150 mg 08/08/18 11:15 08/10/18 10:24 Zantac - PO 150 mg BID RASHEEDA Administration Sevelamer Carbonate 800 mg 08/07/18 08:00 08/10/18 08:57 Renvela - PO 800 mg TIDCM RASHEEDA Administration Laboratory Results - last 24 hr 08/06/18 08/09/18 08/09/18 14:45 10:20 10:20 WBC 8.6 Corrected WBC (auto) RBC 3.11 L Hgb 9.3 L Hct 27.8 L MCV 89.4 MCH 29.9 MCHC 33.4 RDW 17.2 H Plt Count 119 L MPV 9.7 Absolute Neuts (auto) Neutrophils % Lymphocytes % Monocytes % Eosinophils % Basophils % Nucleated RBC % Platelet Estimate Platelet Comment Sodium 134 L Potassium 4.3 Chloride 95 L Carbon Dioxide 28 Anion Gap 11 BUN 66 H Creatinine 10.5 H* Creat Clearance w eGFR 5.02 POC Glucometer Random Glucose 189 H Calcium 8.2 L Phosphorus 3.5 Blood Type O POSITIVE Antibody Screen Negative Crossmatch See Detail 08/09/18 08/09/18 08/09/18 14:10 17:07 22:19 WBC Corrected WBC (auto) RBC Hgb Hct MCV MCH MCHC RDW Plt Count MPV Absolute Neuts (auto) Neutrophils % Lymphocytes % Monocytes % Eosinophils % Basophils % Nucleated RBC % Platelet Estimate Platelet Comment Sodium Potassium Chloride Carbon Dioxide Anion Gap BUN 24 H Creatinine 4.7 H Creat Clearance w eGFR POC Glucometer 198 202 Random Glucose Calcium Phosphorus Blood Type Antibody Screen Crossmatch 08/10/18 08/10/18 08/10/18 06:10 06:10 07:02 WBC Cancelled Corrected WBC (auto) Cancelled RBC Cancelled Hgb Cancelled Hct Cancelled MCV Cancelled MCH Cancelled MCHC Cancelled RDW Cancelled Plt Count Cancelled MPV Cancelled Absolute Neuts (auto) Cancelled Neutrophils % Cancelled Lymphocytes % Cancelled Monocytes % Cancelled Eosinophils % Cancelled Basophils % Cancelled Nucleated RBC % Cancelled Platelet Estimate Cancelled Platelet Comment Cancelled Sodium 141 Potassium 4.1 Chloride 101 Carbon Dioxide 27 Anion Gap 13 BUN 45 H Creatinine 8.9 H* Creat Clearance w eGFR 6.08 POC Glucometer 60 Random Glucose 54 L Calcium 8.3 L Phosphorus 3.7 Blood Type Antibody Screen Crossmatch 08/10/18 09:45 WBC 9.0 Corrected WBC (auto) RBC 2.85 L Hgb 8.4 L Hct 25.5 L MCV 89.5 MCH 29.6 MCHC 33.1 RDW 17.9 H Plt Count 143 D MPV 9.0 Absolute Neuts (auto) 7.5 Neutrophils % 83.2 H Lymphocytes % 7.2 L Monocytes % 8.5 Eosinophils % 0.7 D Basophils % 0.4 Nucleated RBC % 0 Platelet Estimate Platelet Comment Sodium Potassium Chloride Carbon Dioxide Anion Gap BUN Creatinine Creat Clearance w eGFR POC Glucometer Random Glucose Calcium Phosphorus Blood Type Antibody Screen Crossmatch Physical Examination Constitutional: Yes: No Distress, morbidly obese Eyes: Yes: Conjunctiva Clear Neck: Yes: Supple Cardiovascular: Yes: Regular Rate and Rhythm Respiratory: Yes: Diminished Gastrointestinal: Yes: Soft. obese Extremities: Yes: Other (rue - dressing +)kassie+ Edema: No, rt fem shiley Neurological: Yes: Alert/ n/f Psychiatric: Yes: Alert Assessment/Plan Abx- as per ID-- spoke with Dr moon - antibiotics changed Pain under control Echo -no vegetations no anticoagulation as per Surgeon as clot is old if repeat blood cultures continue to be positive despite changing antibiotics, may need to surgically remove the clot as per ID continue with meds HD per Renal Problem List - Problems (1) Abdominal pain Code(s): R10.9 - UNSPECIFIED ABDOMINAL PAIN (2) Bacteremia Code(s): R78.81 - BACTEREMIA (3) Complication of vascular access for dialysis Code(s): T82.9XXA - UNSP COMP OF CARDIAC AND VASCULAR PROSTH DEV/GRFT, INIT Qualifiers: Encounter type: initial encounter Qualified Code(s): T82.9XXA - Unspecified complication of cardiac and vascular prosthetic device, implant and graft, initial encounter (4) ESRD (end stage renal disease) on dialysis Code(s): N18.6 - END STAGE RENAL DISEASE; Z99.2 - DEPENDENCE ON RENAL DIALYSIS (5) Fever Code(s): R50.9 - FEVER, UNSPECIFIED (6) AV fistula occlusion Code(s): T82.898A - OT COMPLICATION OF VASCULAR PROSTH DEV/GRFT, INIT (7) Sepsis associated with vascular access catheter Code(s): T82.7XXA - INFECT/INFLM REACT D/T OTH CARDI/VASC DEV/IMPLNT/GRFT, INIT ; A41.9 - SEPSIS, UNSPECIFIED ORGANISM
[2018-08-10] MEDS ORDERED: PIPERACILLIN/TAZOBACTAM 2.25 GM VIAL IVPB ONE ×2 (11:48→17:51)
[2018-08-10] MEDS ORDERED: INSULIN (NOVOLOG) ASPART 100 UNITS/ML 10ML VIAL ONE ×2 (11:48→16:32)
[2018-08-10] MEDS: PIPERACILLIN/TAZOB 2.25 GM 2.25 GM in DEXTROSE 5%-WATER - 50 ML IVPB SCH ×2 (11:55→17:54)
[2018-08-10] MEDS: NAFCILLIN - 2 GM in DEXTROSE 5%-WATER - 100 ML IVPB SCH ×3 (13:36→21:55)
--- NOTE | 2018-08-10 16:01 | CON.NEURO ---
Consult Consult Specialty:: NEUROLOGY-KAYLENE ALFRED Reason for Consultation:: Confusion - History of Present Illness History of Present Illness: 62M h/o ESRD on HD, DM, obesity p/w fever, L side abd pain. On abx, av graft found to be tender/swelling/oozing, was removed by vascular. Received 3 units PRBC as well. Plans to get catheter for HD. Noted to have bactermia, on IV abx. PT on 08/08 for a few seconds, when asked about it today he does not remember and denies any history of syncope. Head CT unremarkable. Carotid ultrasound shows IJ clot, reportedly old per Dr. Greene although no prior study for comparison. Eliquis started . Patient complains of chest pain since graft surgery that is constant, worse if moving arm, no dyspnea, edema, orthopnea, dizziness. Noted to have bactermia, on IV abx. Carotid ultrasound shows incidentally noted IJ clot-=considered to be old. He has been noted to be confused ?? x 2 days as per chart review. He denies feeling confused, states he is "just waiting for his so i can get out of here". Currently denies any complaints Being treated for S. aureus bacteremia - History Source History Provided By: Medical Record - Past Medical History Cardio/Vascular: Yes: HTN Renal/: Yes: Renal Failure, Other (on dialysis for 3 years) Endocrine: Yes: Diabetes Mellitus - Past Surgical History Past Surgical History: Yes: AV Fistula/Graft - Alcohol/Substance Use Hx Alcohol Use: No - Smoking History Smoking history: Former smoker Have you smoked in the past 12 months: No Aproximately how many cigarettes per day: 3 If you are a former smoker, when did you quit?: 1 YEARS AGO - Social History Usual Living Arrangement: With Spouse History of Recent Travel: No Home Medications - Allergies Allergies/Adverse Reactions: Allergies Allergy/AdvReac Type Severity Reaction Status Date / Time No Known Drug Allergies Allergy Verified 08/06/18 00:20 - Home Medications Home Medications: Ambulatory Orders Sevelamer Carbonate [Renvela -] 800 mg PO TIDCM 12/26/13 oxyCODONE HCL [Roxicodone -] 5 mg PO Q4H PRN #30 tablet 03/17/15 Physical Exam-Neuro Vital Signs: Vital Signs Temperature 97.7 F 08/10/18 14:37 Pulse Rate 85 08/10/18 14:37 Respiratory Rate 20 08/10/18 14:37 Blood Pressure 149/50 L 08/10/18 14:37 O2 Sat by Pulse Oximetry (%) 90 L 08/10/18 09:00 Labs: CBC, BMP 08/10/18 09:45 08/10/18 06:10 INR, PTT INR 1.39 (0.83-1.09) H 08/06/18 23:00 - Neuro Exam Level Of Consciousness: Yes: Alert, Oriented to Person (Not oriented to place/ year/month) Mini Mental Exam: Follows 2 step commands, has severely tangential thoughts, impaired concentration, reality testing is impaired. DTR's: 0 Left Achilles, 0 Right Achilles, 1+ Left Bicep, 1+ Right Bicep, 1+ Left Tricep, 1+ Right Tricep, 1+ Left Brachioradialis, 1+ Right Brachioradialis Babinski: Absent Response to light touch: Normal Response to pain prick: Normal (Unable to test proprioception-pt. is encephalopathic.) Motor Strength: 5/5: Left Arm, Right Arm, Left Leg, Right Leg Gait: Deferred (Pt. refused to ambulate.) Imaging - Results Cat Scan: Report Reviewed (Reported vwithout acute abn.) Assessment/Plan Pt. appears to be encephalopathic(inattentiveness) presenting with confusion and thought disorder-likely infection culprit).There is no focality to suggest an ischemic event. Syncope-doubt neurologic etiology. Will follow. Thank you, Mack Boston MD
--- NOTE | 2018-08-10 16:46 | PN ---
Progress Note (short form) - Note Progress Note: Chief Complaint: syncope History of Present Illness: poor historian; no cp sob palps dizzy ex cigs - Current Medication List Current Medications Generic Name Dose Route Start Last Admin Trade Name Nahomy PRN Reason Stop Dose Admin Heparin Sodium (Porcine) 5,000 unit 08/08/18 22:00 08/10/18 10:25 Heparin - SQ 5,000 unit BID RASHEEDA Administration Nafcillin Sodium 2 gm/ 100 mls @ 100 mls/hr 08/10/18 10:30 08/10/18 14:54 Dextrose IVPB Not Given Q6H-IV RASHEEDA Protocol Piperacillin Sod/Tazobactam 50 mls @ 100 mls/hr 08/10/18 10:30 08/10/18 11:55 Sod 2.25 gm/ Dextrose IVPB 100 mls/hr Q8H-IV RASHEEDA Administration Protocol Insulin Aspart 1 vial 08/07/18 07:00 08/10/18 11:57 Novolog Vial Sliding Scale - SQ Not Given ACHS RASHEEDA Protocol Insulin Detemir 10 units 08/10/18 22:00 Levemir Vial SQ HS RASHEEDA Ondansetron HCl 4 mg 08/07/18 01:53 Zofran Injection IVPUSH Q6H PRN NAUSEA AND/OR VOMITING Ranitidine HCl 150 mg 08/08/18 11:15 08/10/18 10:24 Zantac - PO 150 mg BID RASHEEDA Administration Sevelamer Carbonate 800 mg 08/07/18 08:00 08/10/18 11:55 Renvela - PO 800 mg TIDCM RASHEEDA Administration - Objective Vital Signs: Vital Signs Period Temp Pulse Resp BP Sys/Jackson Pulse Ox Last 24 Hr 97.5 F-98.5 F 83-102 18-20 116-164/50-76 90-96 Constitutional: Yes: No Distress, Calm Eyes: No: Sclera Icterus Cardiovascular: Yes: Regular Rate and Rhythm, S1, S2, Other (PMI non diplaced). No: JVD (tds neck habitus), Gallop, Murmur Respiratory: Yes: CTA Bilaterally. No: Accessory Muscle Use, Rales, Wheezes Gastrointestinal: Yes: Normal Bowel Sounds, Soft. No: Tenderness Extremities: No: Cyanosis Edema: No Integumentary: No: Jaundice diaphoresis Neurological: Yes: Alert. No: Seizure Psychiatric: No: Agitated Labs: CBC, BMP 08/10/18 09:45 08/10/18 06:10 Assessment/Plan Echo 07/2018 nl LV size, EF 40-45%, E/A reversal, RV nl, LA nl Carotid dopplers: IJ thrombosis Syncope - patient denies history of syncope, however he complained of this per on 08/07 RN...he is poor historian. - here with old IJ clot per vascular--no AC indicated - was hypoxic to 86% on 08/06, normal sats since - mild tachycardia, suspect infection related - rec CTA chest PE protocol to confirm no PE to explain syncope and these other findings--d/w'd renal (trevon), pt should tolerate the IV contrast bolus. test has been postponed today as pt has no IV access. d/w nursing they are trying to have anesthesia attempt peripheral iv later today. - echo showed EF 40-45%, unclear if new, pt says no cardiac hx, unlikely to have contributed to syncope - may be vasovagal vs orthostatic, appears less likely cardiac etiology chest/abd pain, pos troponin - trop 0.14->0.15 on admission, has been constant since surgery and is worse with different positions, + worse with palpation. - trend and history not c/w ACS, unlikely cardiac etiology Cardiomyopathy - EF 40-45% - has had borderline BPs, if stable after resuming HD would consider adding ACEI /BB - appears euvolemic currently, volume management with HD per renal - would consider outpatient ischemic evaluation after acute issues resolved ESRD on HD - HD per renal fever/bacteremia - on abx per primary, ID
--- NOTE | 2018-08-10 18:02 | PN ---
Progress Note (short form) - Note Progress Note: Renal follow up for ESRD on HD Pt seen and examined during dialysis no acute complaints s/p dialysis the yesterday Vital Signs Temperature 97.7 F 08/10/18 14:37 Pulse Rate 85 08/10/18 14:37 Respiratory Rate 20 08/10/18 14:37 Blood Pressure 149/50 L 08/10/18 14:37 O2 Sat by Pulse Oximetry (%) 90 L 08/10/18 09:00 Intake & Output 08/07/18 08/08/18 08/09/18 08/10/18 23:59 23:59 23:59 23:59 Intake Total 1350 220 300 0 Output Total 20 0 Balance 1330 220 300 0 Weight 91.217 kg 97.125 kg 92.986 kg NAD awake and alert RRR, No M/R CTA, no rales soft NT/ND no LE edema CBC, BMP 08/10/18 09:45 08/10/18 06:10 Current Medications Heparin Sodium (Porcine) (Heparin -) 5,000 unit SQ BID [facility] Last Admin: 08/10/18 10:25 Dose: 5,000 unit Nafcillin Sodium 2 gm/ (Dextrose) 100 mls @ 100 mls/hr IVPB Q6H-IV RASHEEDA; Protocol Last Admin: 08/10/18 14:54 Dose: Not Given Piperacillin Sod/Tazobactam (Sod 2.25 gm/ Dextrose) 50 mls @ 100 mls/hr IVPB Q8H-IV RASHEEDA; Protocol Last Admin: 08/10/18 17:54 Dose: 100 mls/hr Insulin Aspart (Novolog Vial Sliding Scale -) 1 vial SQ ACHS [facility]; Protocol Last Admin: 08/10/18 17:52 Dose: 2 units Insulin Detemir (Levemir Vial) 10 units SQ HS RASHEEDA Ondansetron HCl (Zofran Injection) 4 mg IVPUSH Q6H PRN PRN Reason: NAUSEA AND/OR VOMITING Ranitidine HCl (Zantac -) 150 mg PO BID [facility] Last Admin: 08/10/18 10:24 Dose: 150 mg Sevelamer Carbonate (Renvela -) 800 mg PO TIDCM [facility] Last Admin: 08/10/18 17:54 Dose: 800 mg 62 year old gentleman with hx of ESRD on HD, Hypertension, Anemia presented with Abd pain and found to have MRSA bacteremia with infected AVG site. #Sepsis/MRSA bacteremia #ESRD on HD #Hypertension #Anemia #Renal osteodystrophy no indication for COMPUTING ARCHITECT today continue Abx as per ID f/u cultures will plan for next Hd on Wednesday. Roderick Jameson DO
[2018-08-10] MEDS: INSULIN (LEVEMIR) 100 UNITS/ML UNITS SQ SCH (21:54)
[2018-08-11] MEDS ORDERED: DEXTROSE 5%-WATER - 50 ML IVPB ONE ×3 (00:50→18:50)
[2018-08-11] MEDS ORDERED: PIPERACILLIN/TAZOBACTAM 2.25 GM VIAL IVPB ONE ×3 (00:50→18:50)
[2018-08-11] MEDS: PIPERACILLIN/TAZOB 2.25 GM 2.25 GM in DEXTROSE 5%-WATER - 50 ML IVPB SCH ×3 (01:43→18:56)
[2018-08-11] MEDS: NAFCILLIN - 2 GM in DEXTROSE 5%-WATER - 100 ML IVPB SCH ×4 (02:21→22:23)
[2018-08-11] MEDS: INSULIN SLIDING SCALE (NOVOLOG) 1 VIAL SQ SCH ×4 (06:54→22:25)
[2018-08-11] MEDS ORDERED: INSULIN (LEVEMIR) 100 UNITS/ML UNITS SQ ONE (07:01)
[2018-08-11] MEDS ORDERED: INSULIN (NOVOLOG) ASPART 100 UNITS/ML 10ML VIAL ONE (07:01)
[2018-08-11 07:33] LABS: ANION GAP 13 MMOL/L (8-16); BLOOD UREA NITROGEN 63 mg/dL (7-18); CALCIUM 8.5 mg/dL (8.5-10.1); CHLORIDE 98 mmol/L (98-107); CO2 27 mmol/L (21-32); GLUCOSE,RANDOM 100 mg/dL (74-106); POTASSIUM 4.5 mmol/L (3.5-5.1); SODIUM 139 mmol/L (136-145)
[2018-08-11 07:40] LABS: CREATININE 11.2 mg/dL (0.55-1.3)
--- NOTE | 2018-08-11 09:18 | PN ---
Progress Note, Physician History of Present Illness: patient continues to be a little confused speech little slur according to the patients son patient is awake and alert eating - Current Medication List Current Medications: Active Medications Heparin Sodium (Porcine) (Heparin -) 5,000 unit SQ BID [facility] Last Admin: 08/10/18 21:56 Dose: 5,000 unit Nafcillin Sodium 2 gm/ (Dextrose) 100 mls @ 100 mls/hr IVPB Q6H-IV RASHEEDA; Protocol Last Admin: 08/11/18 02:21 Dose: 100 mls/hr Piperacillin Sod/Tazobactam (Sod 2.25 gm/ Dextrose) 50 mls @ 100 mls/hr IVPB Q8H-IV RAS[facility]EDA; Protocol Last Admin: 08/11/18 01:43 Dose: 100 mls/hr Insulin Aspart (Novolog Vial Sliding Scale -) 1 vial SQ ACHS [facility]; Protocol Last Admin: 08/11/18 06:54 Dose: Not Given Insulin Detemir (Levemir Vial) 10 units SQ HS [facility] Last Admin: 08/10/18 21:54 Dose: 10 unit Ondansetron HCl (Zofran Injection) 4 mg IVPUSH Q6H PRN PRN Reason: NAUSEA AND/OR VOMITING Ranitidine HCl (Zantac -) 150 mg PO BID [facility] Last Admin: 08/10/18 21:56 Dose: 150 mg Sevelamer Carbonate (Renvela -) 800 mg PO TIDCM [facility] Last Admin: 08/10/18 17:54 Dose: 800 mg - Objective Vital Signs: Vital Signs Temperature 98 F 08/11/18 06:00 Pulse Rate 84 08/11/18 06:00 Respiratory Rate 20 08/11/18 06:00 Blood Pressure 156/72 08/11/18 06:00 O2 Sat by Pulse Oximetry (%) 95 08/10/18 20:45 Constitutional: Yes: No Distress, Calm Cardiovascular: Yes: Regular Rate and Rhythm Respiratory: Yes: Regular, CTA Bilaterally Gastrointestinal: Yes: Normal Bowel Sounds, Soft Musculoskeletal: Yes: WNL Extremities: Yes: Other Wound/Incision: Yes: Dressing Dry and Intact Neurological: Yes: Alert, Oriented Psychiatric: Yes: Alert, Oriented Labs: CBC, BMP 08/10/18 09:45 08/11/18 06:10 INR, PTT INR 1.39 (0.83-1.09) H 08/06/18 23:00 Assessment/Plan Problem List - Problems (1) Abdominal pain Code(s): R10.9 - UNSPECIFIED ABDOMINAL PAIN (2) Fever Code(s): R50.9 - FEVER, UNSPECIFIED (3) ESRD (end stage renal disease) on dialysis Code(s): N18.6 - END STAGE RENAL DISEASE; Z99.2 - DEPENDENCE ON RENAL DIALYSIS (4) Presence of arterial-venous shunt (for dialysis) Code(s): Z99.2 - DEPENDENCE ON RENAL DIALYSIS Assessment/Plan 62 y.o. male with PMH of ESRD on HD, AVF/Graft, DM, and HTN presenting with Lt sided abdominal pain, fevers, and RUE AVF site blister formation/mild bleeding/ mild tenderness Sepsis/ Staph aureus bacteremia Infection of AVG - s/p excision ESRD on HD DM HTN patient continues to be positive now one of his blood cx showing probably enetrococcus plan continue current abx await for cx reports to come back rest continue current mgmt patient stable
[2018-08-11] MEDS: SEVELAMER CARBONATE 800 MG TAB (FP) PO SCH ×3 (09:54→18:55)
[2018-08-11] MEDS: HEPARIN NA (PORCINE) 5,000 UNITS/ML 1ML VIAL SQ SCH ×2 (09:54→22:24)
[2018-08-11] MEDS: RANITIDINE HCL 150 MG TABLET (FP) PO SCH ×2 (09:54→22:26)
--- NOTE | 2018-08-11 11:15 | PN ---
Progress Note (short form) - Note Progress Note: - Note Progress Note: pt seen/ examined confused more today trying to get out of bed appears to be SOB Vital Signs - 24 hr 08/10/18 08/10/18 08/10/18 14:37 18:16 20:45 Temperature 97.7 F 99.1 F Pulse Rate 85 79 Respiratory 20 18 18 Rate Blood Pressure 149/50 L 148/72 O2 Sat by Pulse 95 Oximetry (%) 08/10/18 08/11/18 08/11/18 22:00 01:19 06:00 Temperature 99.6 F 97.8 F 98 F Pulse Rate 83 78 84 Respiratory 20 20 20 Rate Blood Pressure 147/81 151/72 156/72 O2 Sat by Pulse Oximetry (%) 08/11/18 10:00 Temperature 98.0 F Pulse Rate 75 Respiratory 20 Rate Blood Pressure 127/74 O2 Sat by Pulse Oximetry (%) Current Medications Generic Name Dose Route Start Last Admin Trade Name Freq PRN Reason Stop Dose Admin Heparin Sodium (Porcine) 5,000 unit 08/08/18 22:00 08/11/18 09:54 Heparin - SQ 5,000 unit BID RASHEEDA Administration Nafcillin Sodium 2 gm/ 100 mls @ 100 mls/hr 08/10/18 10:30 08/11/18 10:34 Dextrose IVPB 100 mls/hr Q6H-IV RASHEEDA Administration Protocol Piperacillin Sod/Tazobactam 50 mls @ 100 mls/hr 08/10/18 10:30 08/11/18 09:53 Sod 2.25 gm/ Dextrose IVPB 100 mls/hr Q8H-IV RASHEEDA Administration Protocol Insulin Aspart 1 vial 08/07/18 07:00 08/11/18 11:45 Novolog Vial Sliding Scale - SQ 10 units ACHS RASHEEDA Administration Protocol Insulin Detemir 10 units 08/10/18 22:00 08/10/18 21:54 Levemir Vial SQ 10 unit HS RASHEEDA Administration Ondansetron HCl 4 mg 08/07/18 01:53 Zofran Injection IVPUSH Q6H PRN NAUSEA AND/OR VOMITING Ranitidine HCl 150 mg 08/08/18 11:15 08/11/18 09:54 Zantac - PO 150 mg BID RASHEEDA Administration Sevelamer Carbonate 800 mg 08/07/18 08:00 08/11/18 11:47 Renvela - PO 800 mg TIDCM RASHEEDA Administration Laboratory Results - last 24 hr 08/10/18 08/10/18 08/10/18 11:57 16:22 21:48 Sodium Potassium Chloride Carbon Dioxide Anion Gap BUN Creatinine Creat Clearance w eGFR POC Glucometer 137 172 196 Random Glucose Calcium Creatine Kinase Creatine Kinase Index CK-MB (CK-2) Troponin I TSH 08/11/18 08/11/18 06:10 06:53 Sodium 139 Potassium 4.5 Chloride 98 Carbon Dioxide 27 Anion Gap 13 BUN 63 H Creatinine 11.2 H* Creat Clearance w eGFR 4.66 POC Glucometer 126 Random Glucose 100 Calcium 8.5 Creatine Kinase 171 Creatine Kinase Index 0.5 CK-MB (CK-2) < 1.0 Troponin I 0.52 H TSH Cancelled Physical Examination Constitutional: Yes: No Distress, morbidly obese Eyes: Yes: Conjunctiva Clear Neck: Yes: Supple Cardiovascular: Yes: Regular Rate and Rhythm Respiratory: Yes: Diminished Gastrointestinal: Yes: Soft. obese Extremities: Yes: Other (rue - dressing +)kassie+ Edema: No, no groin hematoma Neurological: Yes: Alert/ n/f Psychiatric: Yes: Alert Assessment/Plan Abx- as per ID-- spoke with Dr moon - antibiotics changed Pain under control Echo -no vegetations no anticoagulation as per Surgeon as clot is old as per family, pt is AAOx3- independent - confusion is due to metabolic encephalopathy. Neurology eval noted if repeat blood cultures continue to be positive despite changing antibiotics, may need to surgically remove the clot as per ID continue with meds HD per Renal Problem List - Problems (1) Abdominal pain Code(s): R10.9 - UNSPECIFIED ABDOMINAL PAIN (2) Bacteremia Code(s): R78.81 - BACTEREMIA (3) Complication of vascular access for dialysis Code(s): T82.9XXA - UNSP COMP OF CARDIAC AND VASCULAR PROSTH DEV/GRFT, INIT Qualifiers: Encounter type: initial encounter Qualified Code(s): T82.9XXA - Unspecified complication of cardiac and vascular prosthetic device, implant and graft, initial encounter (4) ESRD (end stage renal disease) on dialysis Code(s): N18.6 - END STAGE RENAL DISEASE; Z99.2 - DEPENDENCE ON RENAL DIALYSIS (5) Fever Code(s): R50.9 - FEVER, UNSPECIFIED (6) AV fistula occlusion Code(s): T82.898A - OTH COMPLICATION OF VASCULAR PROSTH DEV/GRFT, INIT (7) Sepsis associated with vascular access catheter Code(s): T82.7XXA - INFECT/INFLM REACT D/T OTH CARDI/VASC DEV/IMPLNT/GRFT, INIT ; A41.9 - SEPSIS, UNSPECIFIED ORGANISM
[2018-08-11] MEDS ORDERED: LACTULOSE 20 GM/30 ML UDC (FOR ORAL USE ONLY) PO ONE ×2 (11:41→22:15)
--- NOTE | 2018-08-11 14:17 | PN ---
Progress Note, Physician Chief Complaint: The patient seen in his bed. Quite short of breath. seems confused too. History of Present Illness: 62 year old gentleman with hx of ESRD on HD, Hypertension, Anemia presented with Abd pain and found to have MRSA bacteremia with infected AVG site. AVG taken out. Was getting dialysis through femoral catheter, which was since removed. - Current Medication List Current Medications: Active Medications Heparin Sodium (Porcine) (Heparin -) 5,000 unit SQ BID [facility] Last Admin: 08/11/18 09:54 Dose: 5,000 unit Nafcillin Sodium 2 gm/ (Dextrose) 100 mls @ 100 mls/hr IVPB Q6H-IV [facility]; Protocol Last Admin: 08/11/18 10:34 Dose: 100 mls/hr Piperacillin Sod/Tazobactam (Sod 2.25 gm/ Dextrose) 50 mls @ 100 mls/hr IVPB Q8H-IV [facility]; Protocol Last Admin: 08/11/18 09:53 Dose: 100 mls/hr Insulin Aspart (Novolog Vial Sliding Scale -) 1 vial SQ ACHS [facility]; Protocol Last Admin: 08/11/18 11:45 Dose: 10 units Insulin Detemir (Levemir Vial) 10 units SQ HS [facility] Last Admin: 08/10/18 21:54 Dose: 10 unit Ondansetron HCl (Zofran Injection) 4 mg IVPUSH Q6H PRN PRN Reason: NAUSEA AND/OR VOMITING Ranitidine HCl (Zantac -) 150 mg PO BID [facility] Last Admin: 08/11/18 09:54 Dose: 150 mg Sevelamer Carbonate (Renvela -) 800 mg PO TIDCM [facility] Last Admin: 08/11/18 11:47 Dose: 800 mg - Objective Vital Signs: Vital Signs Temperature 98.0 F 08/11/18 10:00 Pulse Rate 75 08/11/18 10:00 Respiratory Rate 20 08/11/18 10:00 Blood Pressure 127/74 08/11/18 10:00 O2 Sat by Pulse Oximetry (%) 95 08/10/18 20:45 Constitutional: Yes: Anxious, Moderate Distress Eyes: Yes: Conjunctiva Clear HENT: Yes: Normocephalic Neck: Yes: Trachea Midline Cardiovascular: Yes: Tachycardia, Pulse Irregular, S1, S2 Respiratory: Yes: CTA Bilaterally, Diminished Gastrointestinal: Yes: Normal Bowel Sounds, Soft Labs: CBC, BMP 08/10/18 09:45 08/11/18 06:10 INR, PTT INR 1.39 (0.83-1.09) H 08/06/18 23:00 Assessment/Plan 62 year old gentleman with hx of ESRD on HD, Hypertension, Anemia presented with Abd pain and found to have MRSA bacteremia with infected AVG site. His AVG removed. Has Acute CHF with fluid overload now. Patient makes very minimal urine output. Will arrange for HD with [facility] today, and another Hd tomorrow. Orders reviewed with the HD RN. Neisha Hager MD
--- NOTE | 2018-08-11 14:46 | EKG ---
Test Reason : Blood Pressure : / mmHG Vent. Rate : 074 BPM Atrial Rate : 074 BPM P-R Int : 180 ms QRS Dur : 100 ms QT Int : 396 ms P-R-T Axes : 058 -01 062 degrees QTc Int : 439 ms NORMAL SINUS RHYTHM NONSPECIFIC T WAVE ABNORMALITY ABNORMAL ECG WHEN COMPARED WITH ECG OF 06-AUG-2018 05:06, NONSPECIFIC T WAVE ABNORMALITY HAS REPLACED INVERTED T WAVES IN LATERAL LEADS Confirmed by ALICIA ALFRED, DEBI ([id number]) on 08/11/2018 2:45:34 PM Referred By: Confirmed By:DEBI VARGAS MD
--- NOTE | 2018-08-11 15:11 | PROC ---
Central Line Insertion Indication: Other Risks and Benefits Explained: Yes Consent on Chart: Yes Central Line: Dialysis Cath, Dual Lumen Anesthesia: 1% Lidocaine Sterile Technique: Yes Ultrasound Guided Assistance: Yes Position: Left Femoral Post Insertion: Yes: Other Sterile Dressing Applied: Yes
[2018-08-11] MEDS ORDERED: PT OWN MED DRAWER 7, Y5N ONE (21:02)
[2018-08-11] MEDS: INSULIN (LEVEMIR) 100 UNITS/ML UNITS SQ SCH (22:25)
[2018-08-12] MEDS ORDERED: PIPERACILLIN/TAZOBACTAM 2.25 GM VIAL IVPB ONE ×2 (01:33→09:04)
[2018-08-12] MEDS ORDERED: DEXTROSE 5%-WATER - 50 ML IVPB ONE ×2 (01:33→09:04)
[2018-08-12] MEDS: PIPERACILLIN/TAZOB 2.25 GM 2.25 GM in DEXTROSE 5%-WATER - 50 ML IVPB SCH ×3 (02:05→17:17)
[2018-08-12] MEDS: NAFCILLIN - 2 GM in DEXTROSE 5%-WATER - 100 ML IVPB SCH ×4 (02:47→22:45)
[2018-08-12] MEDS: INSULIN SLIDING SCALE (NOVOLOG) 1 VIAL SQ SCH ×4 (06:01→22:46)
[2018-08-12] MEDS: SEVELAMER CARBONATE 800 MG TAB (FP) PO SCH ×3 (09:07→17:17)
[2018-08-12] MEDS: RANITIDINE HCL 150 MG TABLET (FP) PO SCH ×2 (09:08→22:47)
[2018-08-12] MEDS: HEPARIN NA (PORCINE) 5,000 UNITS/ML 1ML VIAL SQ SCH ×2 (09:08→22:46)
--- NOTE | 2018-08-12 09:14 | OP ---
DATE OF OPERATION: 08/07/2018 SURGEON: Gio Greene MD PROCEDURE: Excision of arteriovenous graft, right arm. PREOPERATIVE DIAGNOSIS: Bleeding arteriovenous graft aneurysm, right arm. POSTOPERATIVE DIAGNOSIS: Bleeding arteriovenous graft aneurysm, right arm. ANESTHESIA: General. ANESTHESIOLOGIST: Jeremias Arreola MD OPERATIVE FINDINGS: Patient with a right upper extremity AV graft for dialysis was found to have an expanding pseudoaneurysm with bleeding. At exploration, the proximal and distal ends of the graft were well incorporated without evidence of infection. The pseudoaneurysm was involving the mid portion of the graft. OPERATIVE PROCEDURE: Patient was brought emergently to the operating room with a tourniquet in place proximal to the AV graft. The arm was prepped with Betadine solution while pressure was held over the ulcerated area on top of the AV graft. General anesthesia was induced. Time-out was performed. The incision was made on the arterial inflow side of the AV graft near the arterial anastomosis. This was carried down to subcutaneous tissues using cautery for hemostasis. The graft was isolated and the vascular clamp was applied to control bleeding. The venous outflow was also exposed through a short incision in the upper part of the arm, and this graft was also controlled and clamped. The graft was then divided between clamps and the proximal end was oversewn with a running 5-0 Prolene suture. The distal portion of this portion of the graft was then from subcutaneous tissues for several centimeters and was then suture ligated and was excised. The wound was closed with interrupted suture of 3-0 Vicryl and skin kassie and covered with an occlusive dressing. The arterial end was then transected and arterial side was oversewn with 5-0 Prolene, while the side remaining in the patient was dissected free for several centimeters, suture ligated, and the intervening portion removed. The wounds were irrigated with Bacitracin solution and closed with subcuticular suture of 3-0 Vicryl and skin kassie. The pseudoaneurysm area was then excised with an elliptical incision around the area, carried down to subcutaneous tissues until the graft was identified. The graft material was removed in segments with attempts to get as much of it out as possible. Although it was well incorporated, so this was difficult. When adequate excision had been accomplished, the wound was irrigated with Bacitracin solution and packed open with Iodoform gauze. Sterile dressing was applied, and the patient was taken to the recovery room in stable condition. Desi NUNEZ/[id number]
--- NOTE | 2018-08-12 10:19 | PN ---
Progress Note (short form) - Note Progress Note: pt seen/ examined. chart reviewed. fully Alert and awake today No distress. Vital Signs Temp 98.5 F 08/12/18 08:21 Pulse 73 08/12/18 08:21 Resp 20 08/12/18 08:21 BP 101/73 08/12/18 08:21 Pulse Ox 95 08/11/18 21:00 Intake & Output 08/11/18 08/11/18 08/12/18 11:59 23:59 11:59 Intake Total 250 300 100 Balance 250 300 100 Intake: IVPB 250 200 Oral 100 100 Other: Voiding Method Diaper Diaper Diaper Bowel Movement Yes: 1 small bm Active Medications Heparin Sodium (Porcine) (Heparin -) 5,000 unit SQ BID [facility] Last Admin: 08/12/18 09:08 Dose: 5,000 unit Nafcillin Sodium 2 gm/ (Dextrose) 100 mls @ 100 mls/hr IVPB Q6H-IV [facility]; Protocol Last Admin: 08/12/18 09:07 Dose: 100 mls/hr Piperacillin Sod/Tazobactam (Sod 2.25 gm/ Dextrose) 50 mls @ 100 mls/hr IVPB Q8H-IV [facility]; Protocol Last Admin: 08/12/18 02:05 Dose: 100 mls/hr Insulin Aspart (Novolog Vial Sliding Scale -) 1 vial SQ ACHS [facility]; Protocol Last Admin: 08/12/18 06:01 Dose: Not Given Insulin Detemir (Levemir Vial) 10 units SQ HS [facility] Last Admin: 08/11/18 22:25 Dose: 10 unit Ondansetron HCl (Zofran Injection) 4 mg IVPUSH Q6H PRN PRN Reason: NAUSEA AND/OR VOMITING Ranitidine HCl (Zantac -) 150 mg PO BID [facility] Last Admin: 08/12/18 09:08 Dose: 150 mg Sevelamer Carbonate (Renvela -) 800 mg PO TIDCM [facility] Last Admin: 08/12/18 09:07 Dose: 800 mg CBC, BMP 08/10/18 09:45 08/11/18 06:10 Microbiology 08/09/18 11:00 Blood Culture - Final Blood - Peripheral Venous Staphylococcus Aureus 08/11/18 06:31 Blood Culture - Preliminary Blood - Peripheral Venous NO GROWTH OBTAINED AFTER 24 HOURS, INCUBATION TO CONTINUE FOR 4 DAYS. 08/11/18 06:10 Blood Culture - Preliminary Blood - Peripheral Venous NO GROWTH OBTAINED AFTER 24 HOURS, INCUBATION TO CONTINUE FOR 4 DAYS. 08/08/18 13:34 Blood Culture - Preliminary Blood - Blood Bank Unit NO GROWTH OBTAINED AFTER 72 HOURS, INCUBATION TO CONTINUE FOR 2 DAYS. 08/08/18 13:36 Blood Culture - Final Blood - Blood Bank Unit Staphylococcus Aureus 08/08/18 13:34 Blood Culture - Final Blood - Blood Bank Unit Enterococcus Faecalis 08/09/18 12:14 Blood Culture - Preliminary Blood - Blood Bank Unit NO GROWTH OBTAINED AFTER 48 HOURS, INCUBATION TO CONTINUE FOR 3 DAYS. 08/09/18 11:46 Blood Culture - Preliminary Blood - Blood Bank Unit NO GROWTH OBTAINED AFTER 48 HOURS, INCUBATION TO CONTINUE FOR 3 DAYS. 08/09/18 10:20 Blood Culture - Preliminary Blood - Peripheral Venous Staphylococcus Aureus Physical Examination Constitutional: Yes: No Distress, morbidly obese. Comfortable Eyes: Yes: Conjunctiva Clear Neck: Yes: Supple Cardiovascular: Yes: Regular Rate and Rhythm Respiratory: Yes: Diminished Gastrointestinal: Yes: Soft. obese Extremities: Yes: Other (rue - dressing +)kassie+ Edema: No, no groin hematoma Neurological: Yes: Alert/ n/f Psychiatric: Yes: Alert left [facility] Assessment/Plan Abx- as per ID-- spoke with Dr moon - antibiotics changed Pain under control Echo -no vegetations no anticoagulation as per Surgeon as clot is old patient is alert and awake today advance diet to renal Dialysis today monitor blood sugar will follow Problem List - Problems (1) Abdominal pain Code(s): R10.9 - UNSPECIFIED ABDOMINAL PAIN (2) ESRD (end stage renal disease) on dialysis Code(s): N18.6 - END STAGE RENAL DISEASE; Z99.2 - DEPENDENCE ON RENAL DIALYSIS (3) Fever Code(s): R50.9 - FEVER, UNSPECIFIED (4) AV fistula occlusion Code(s): T82.898A - OTH COMPLICATION OF VASCULAR PROSTH DEV/GRFT, INIT (5) Bacteremia Code(s): R78.81 - BACTEREMIA
--- NOTE | 2018-08-12 11:41 | PN ---
Progress Note, Physician History of Present Illness: patient looks much better in the room according to the patients speech is normal and he is normal at base line blood cx have turned negative now tolerating dialysis - Current Medication List Current Medications: Active Medications Heparin Sodium (Porcine) (Heparin -) 5,000 unit SQ BID [facility] Last Admin: 08/12/18 09:08 Dose: 5,000 unit Nafcillin Sodium 2 gm/ (Dextrose) 100 mls @ 100 mls/hr IVPB Q6H-IV [facility]; Protocol Last Admin: 08/12/18 09:07 Dose: 100 mls/hr Piperacillin Sod/Tazobactam (Sod 2.25 gm/ Dextrose) 50 mls @ 100 mls/hr IVPB Q8H-IV [facility]; Protocol Last Admin: 08/12/18 02:05 Dose: 100 mls/hr Insulin Aspart (Novolog Vial Sliding Scale -) 1 vial SQ ACHS [facility]; Protocol Last Admin: 08/12/18 06:01 Dose: Not Given Insulin Detemir (Levemir Vial) 10 units SQ HS [facility] Last Admin: 08/11/18 22:25 Dose: 10 unit Ondansetron HCl (Zofran Injection) 4 mg IVPUSH Q6H PRN PRN Reason: NAUSEA AND/OR VOMITING Ranitidine HCl (Zantac -) 150 mg PO BID [facility] Last Admin: 08/12/18 09:08 Dose: 150 mg Sevelamer Carbonate (Renvela -) 800 mg PO TIDCM [facility] Last Admin: 08/12/18 09:07 Dose: 800 mg - Objective Vital Signs: Vital Signs Temperature 98.5 F 08/12/18 08:21 Pulse Rate 73 08/12/18 08:21 Respiratory Rate 20 08/12/18 09:00 Blood Pressure 101/73 08/12/18 08:21 O2 Sat by Pulse Oximetry (%) 97 08/12/18 09:00 Constitutional: Yes: No Distress, Calm Cardiovascular: Yes: Regular Rate and Rhythm Respiratory: Yes: Regular, CTA Bilaterally Gastrointestinal: Yes: Normal Bowel Sounds, Soft Musculoskeletal: Yes: WNL Extremities: Yes: Other Wound/Incision: Yes: Dressing Dry and Intact Neurological: Yes: Alert, Oriented Psychiatric: Yes: Alert, Oriented Labs: CBC, BMP 08/10/18 09:45 08/11/18 06:10 INR, PTT INR 1.39 (0.83-1.09) H 08/06/18 23:00 Assessment/Plan Problem List - Problems (1) Abdominal pain Code(s): R10.9 - UNSPECIFIED ABDOMINAL PAIN (2) Fever Code(s): R50.9 - FEVER, UNSPECIFIED (3) ESRD (end stage renal disease) on dialysis Code(s): N18.6 - END STAGE RENAL DISEASE; Z99.2 - DEPENDENCE ON RENAL DIALYSIS (4) Presence of arterial-venous shunt (for dialysis) Code(s): Z99.2 - DEPENDENCE ON RENAL DIALYSIS Assessment/Plan 62 y.o. male with PMH of ESRD on HD, AVF/Graft, DM, and HTN presenting with Lt sided abdominal pain, fevers, and RUE AVF site blister formation/mild bleeding/ mild tenderness Sepsis/ Staph aureus bacteremia Infection of AVG - s/p excision ESRD on HD DM HTN patient continues to be positive now one of his blood cx showing probably enetrococcus plan continue current abx patient can get permacath will regulate abx once patient gets permacath rest as per the team
--- NOTE | 2018-08-12 14:14 | PN ---
Progress Note (short form) - Note Progress Note: Renal follow up for ESRD on HD Pt seen and examined during dialysis BP was low, UF was held and given some saline back awake and alert catheter with good flow total UF today ~3.5L Vital Signs Temperature 98.2 F 08/12/18 10:20 Pulse Rate 60 08/12/18 12:50 Respiratory Rate 18 08/12/18 12:50 Blood Pressure 130/65 08/12/18 12:50 O2 Sat by Pulse Oximetry (%) 97 08/12/18 09:00 Intake & Output 08/09/18 08/10/18 08/11/18 08/12/18 23:59 23:59 23:59 23:59 Intake Total 300 350 550 100 Balance 300 350 550 100 Weight 92.986 kg NAD awake and alert RRR, No M/R CTA, no rales soft NT/ND no LE edema CBC, BMP 08/10/18 09:45 08/11/18 06:10 Current Medications Heparin Sodium (Porcine) (Heparin -) 5,000 unit SQ BID [facility] Last Admin: 08/12/18 09:08 Dose: 5,000 unit Nafcillin Sodium 2 gm/ (Dextrose) 100 mls @ 100 mls/hr IVPB Q6H-IV [facility]; Protocol Last Admin: 08/12/18 09:07 Dose: 100 mls/hr Piperacillin Sod/Tazobactam (Sod 2.25 gm/ Dextrose) 50 mls @ 100 mls/hr IVPB Q8H-IV [facility]; Protocol Last Admin: 08/12/18 11:42 Dose: Not Given Insulin Aspart (Novolog Vial Sliding Scale -) 1 vial SQ ACHS [facility]; Protocol Last Admin: 08/12/18 11:42 Dose: Not Given Insulin Detemir (Levemir Vial) 10 units SQ HS [facility] Last Admin: 08/11/18 22:25 Dose: 10 unit Ondansetron HCl (Zofran Injection) 4 mg IVPUSH Q6H PRN PRN Reason: NAUSEA AND/OR VOMITING Ranitidine HCl (Zantac -) 150 mg PO BID [facility] Last Admin: 08/12/18 09:08 Dose: 150 mg Sevelamer Carbonate (Renvela -) 800 mg PO TIDCM [facility] Last Admin: 08/12/18 13:51 Dose: Not Given 62 year old gentleman with hx of ESRD on HD, Hypertension, Anemia presented with Abd pain and found to have MRSA bacteremia with infected AVG site. #Sepsis/MRSA bacteremia #ESRD on HD #Hypertension #Anemia #Renal osteodystrophy tolerating HD well today UF held because of low bp but did have around 3.5L removed already cultures from 08-10 and 08-11 w/o growth thus far continue abx as per ID give GYA with HD trend K, BUN, H/H Roderick Jameson DO
--- NOTE | 2018-08-12 15:25 | PN ---
Progress Note (short form) - Note Progress Note: Chief Complaint: syncope History of Present Illness: no cp, sob, palps, dizzy - Current Medication List Current Medications Heparin Sodium (Porcine) (Heparin -) 5,000 unit SQ BID [facility] Last Admin: 08/12/18 09:08 Dose: 5,000 unit Nafcillin Sodium 2 gm/ (Dextrose) 100 mls @ 100 mls/hr IVPB Q6H-IV [facility]; Protocol Last Admin: 08/12/18 14:58 Dose: 100 mls/hr Piperacillin Sod/Tazobactam (Sod 2.25 gm/ Dextrose) 50 mls @ 100 mls/hr IVPB Q8H-IV [facility]; Protocol Last Admin: 08/12/18 11:42 Dose: Not Given Insulin Aspart (Novolog Vial Sliding Scale -) 1 vial SQ ACHS [facility]; Protocol Last Admin: 08/12/18 11:42 Dose: Not Given Insulin Detemir (Levemir Vial) 10 units SQ HS [facility] Last Admin: 08/11/18 22:25 Dose: 10 unit Ondansetron HCl (Zofran Injection) 4 mg IVPUSH Q6H PRN PRN Reason: NAUSEA AND/OR VOMITING Ranitidine HCl (Zantac -) 150 mg PO BID [facility] Last Admin: 08/12/18 09:08 Dose: 150 mg Sevelamer Carbonate (Renvela -) 800 mg PO TIDCM [facility] Last Admin: 08/12/18 13:51 Dose: Not Given - Objective Vital Signs: Vital Signs Period Temp Pulse Resp BP Sys/Jackson Pulse Ox Last 24 Hr 97.4 F-98.5 F 60-94 18-20 80-144/43-88 95-97 Constitutional: Yes: No Distress, Calm Eyes: No: Sclera Icterus Cardiovascular: Yes: Regular Rate and Rhythm, S1, S2, Other (PMI non diplaced). No: JVD (tds neck habitus), Gallop, Murmur Respiratory: Yes: CTA Bilaterally. No: Accessory Muscle Use, Rales, Wheezes Gastrointestinal: Yes: Normal Bowel Sounds, Soft. No: Tenderness Extremities: No: Cyanosis Edema: No Integumentary: No: Jaundice diaphoresis Neurological: Yes: Alert. No: Seizure Psychiatric: No: Agitated Assessment/Plan Echo 07/2018 nl LV size, EF 40-45%, E/A reversal, RV nl, LA nl Carotid dopplers: IJ thrombosis Syncope - patient denies history of syncope, however he complained of this per on 08/07 RN...he is poor historian. - here with old IJ clot per vascular--no AC indicated - was hypoxic to 86% on 08/06, normal sats since - mild tachycardia, suspect infection related - rec CTA chest PE protocol to confirm no PE to explain syncope and these other findings--d/w'd renal (trevon), pt should tolerate the IV contrast bolus. test has been postponed again as pt does not have large enough IV, d/w nursing they will attempt larger IV - echo showed EF 40-45%, unclear if new, pt says no cardiac hx, unlikely to have contributed to syncope - may be vasovagal vs orthostatic, appears less likely cardiac etiology chest/abd pain, pos troponin - trop 0.14->0.15 on admission, has been constant since surgery and is worse with different positions, + worse with palpation. - trend and history not c/w ACS, unlikely cardiac etiology Cardiomyopathy - EF 40-45% - has had borderline BPs, if stable after resuming HD would consider adding ACEI /BB - appears euvolemic currently, volume management with HD per renal - would consider outpatient ischemic evaluation after acute issues resolved ESRD on HD - HD per renal fever/bacteremia - on abx per primary, ID
--- NOTE | 2018-08-12 15:34 | PN ---
Progress Note (short form) - Note Progress Note: His mental status is improved, oriented in 3 spheres, calm and pleasant. He likely has metabolic encephalopathy. Please call if further questions arise.
--- NOTE | 2018-08-12 16:34 | PROC ---
Procedure Note Procedure: Left femoral shiley removed with distal tip fully intact. Direct pressure held for 5 minutes. Positive hemostasis. Clean/dry dressing applied. patient tolerated procedure well.
[2018-08-12] MEDS ORDERED: INSULIN (NOVOLOG) ASPART 100 UNITS/ML 10ML VIAL ONE ×2 (17:29→21:48)
[2018-08-12] MEDS ORDERED: INSULIN (LEVEMIR) 100 UNITS/ML UNITS SQ ONE (21:48)
[2018-08-12] MEDS: INSULIN (LEVEMIR) 100 UNITS/ML UNITS SQ SCH (22:46)
[2018-08-13] MEDS ORDERED: PIPERACILLIN/TAZOBACTAM 2.25 GM VIAL IVPB ONE ×2 (00:11→08:36)
[2018-08-13] MEDS ORDERED: DEXTROSE 5%-WATER - 50 ML IVPB ONE ×2 (00:11→08:36)
[2018-08-13] MEDS: PIPERACILLIN/TAZOB 2.25 GM 2.25 GM in DEXTROSE 5%-WATER - 50 ML IVPB SCH ×3 (01:02→17:14)
[2018-08-13] MEDS: NAFCILLIN - 2 GM in DEXTROSE 5%-WATER - 100 ML IVPB SCH ×4 (03:00→21:50)
[2018-08-13] MEDS: INSULIN SLIDING SCALE (NOVOLOG) 1 VIAL SQ SCH ×5 (06:43→21:15)
[2018-08-13] MEDS ORDERED: INSULIN (NOVOLOG) ASPART 100 UNITS/ML 10ML VIAL ONE (08:19)
[2018-08-13] MEDS: SEVELAMER CARBONATE 800 MG TAB (FP) PO SCH ×3 (08:49→16:32)
--- NOTE | 2018-08-13 08:57 | PN ---
Progress Note (short form) - Note Progress Note: Renal follow up for ESRD on HD Pt seen and examined at the bedside no acute complaints no fever, chills, sob s/p Hd yesterday Vital Signs Temperature 97.5 F L 08/13/18 06:00 Pulse Rate 70 08/13/18 06:00 Respiratory Rate 20 08/13/18 06:00 Blood Pressure 118/72 08/13/18 06:00 O2 Sat by Pulse Oximetry (%) 92 L 08/12/18 21:00 Intake & Output 08/10/18 08/11/18 08/12/18 08/13/18 23:59 23:59 23:59 23:59 Intake Total 350 550 250 500 Balance 350 550 250 500 Weight 90.718 kg NAD neck supple CTA no LE edema CBC, BMP 08/10/18 09:45 08/11/18 06:10 Current Medications Heparin Sodium (Porcine) (Heparin -) 5,000 unit SQ BID [facility] Last Admin: 08/12/18 22:46 Dose: 5,000 unit Nafcillin Sodium 2 gm/ (Dextrose) 100 mls @ 100 mls/hr IVPB Q6H-IV [facility]; Protocol Last Admin: 08/13/18 08:49 Dose: 100 mls/hr Piperacillin Sod/Tazobactam (Sod 2.25 gm/ Dextrose) 50 mls @ 100 mls/hr IVPB Q8H-IV [facility]; Protocol Last Admin: 08/13/18 01:02 Dose: 100 mls/hr Insulin Aspart (Novolog Vial Sliding Scale -) 1 vial SQ ACHS [facility]; Protocol Last Admin: 08/13/18 06:43 Dose: Not Given Insulin Detemir (Levemir Vial) 10 units SQ HS [facility] Last Admin: 08/12/18 22:46 Dose: 10 unit Ondansetron HCl (Zofran Injection) 4 mg IVPUSH Q6H PRN PRN Reason: NAUSEA AND/OR VOMITING Ranitidine HCl (Zantac -) 150 mg PO BID [facility] Last Admin: 08/12/18 22:47 Dose: 150 mg Sevelamer Carbonate (Renvela -) 800 mg PO TIDCM [facility] Last Admin: 08/13/18 08:49 Dose: 800 mg 62 year old gentleman with hx of ESRD on HD, Hypertension, Anemia presented with Abd pain and found to have MRSA bacteremia with infected AVG site. 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
[2018-08-13] MEDS: RANITIDINE HCL 150 MG TABLET (FP) PO SCH ×2 (08:59→21:16)
[2018-08-13] MEDS: HEPARIN NA (PORCINE) 5,000 UNITS/ML 1ML VIAL SQ SCH ×2 (08:59→21:14)
--- NOTE | 2018-08-13 12:12 | PN ---
Progress Note (short form) - Note Progress Note: - Note Progress Note: pt seen/ examined sitting in chair , eating lunch feels well not confused making sense Vital Signs - 24 hr 08/13/18 08/13/18 08/13/18 02:15 06:00 09:00 Temperature 98.6 F 97.5 F L Pulse Rate 77 70 Respiratory 20 20 20 Rate Blood Pressure 129/65 118/72 O2 Sat by Pulse 95 Oximetry (%) 08/13/18 08/13/18 08/13/18 10:00 13:40 18:21 Temperature 98.1 F 98 F 98.1 F Pulse Rate 62 76 79 Respiratory 20 20 18 Rate Blood Pressure 138/53 L 101/52 L 98/55 L O2 Sat by Pulse Oximetry (%) Current Medications Generic Name Dose Route Start Last Admin Trade Name Freq PRN Reason Stop Dose Admin Heparin Sodium (Porcine) 5,000 unit 08/08/18 22:00 08/13/18 21:14 Heparin - SQ 5,000 unit BID [facility] Administration Nafcillin Sodium 2 gm/ 100 mls @ 100 mls/hr 08/10/18 10:30 08/13/18 21:50 Dextrose IVPB 100 mls/hr Q6H-IV [facility] Administration Protocol Piperacillin Sod/Tazobactam 50 mls @ 100 mls/hr 08/10/18 10:30 08/13/18 17:14 Sod 2.25 gm/ Dextrose IVPB 100 mls/hr Q8H-IV [facility] Administration Protocol Insulin Aspart 1 vial 08/07/18 07:00 08/13/18 21:15 Novolog Vial Sliding Scale - SQ 4 units ACHS [facility] Administration Protocol Insulin Detemir 10 units 08/10/18 22:00 08/13/18 21:14 Levemir Vial SQ 10 unit HS [facility] Administration Ondansetron HCl 4 mg 08/07/18 01:53 Zofran Injection IVPUSH Q6H PRN NAUSEA AND/OR VOMITING Ranitidine HCl 150 mg 08/08/18 11:15 08/13/18 21:16 Zantac - PO 150 mg BID [facility] Administration Sevelamer Carbonate 800 mg 08/07/18 08:00 08/13/18 16:32 Renvela - PO 800 mg TIDCM [facility] Administration Laboratory Results - last 24 hr 08/12/18 08/13/18 08/13/18 22:44 06:39 16:31 POC Glucometer 221 115 195 08/13/18 20:36 POC Glucometer 230 Physical Examination Constitutional: Yes: No Distress, morbidly obese Eyes: Yes: Conjunctiva Clear Neck: Yes: Supple Cardiovascular: Yes: Regular Rate and Rhythm Respiratory: Yes: Diminished Gastrointestinal: Yes: Soft. obese Extremities: Yes: Other (rue - dressing +)kassie+ Edema: No, no groin hematoma Neurological: Yes: Alert/ n/f Psychiatric: Yes: Alert Assessment/Plan Abx- as per ID blood cultures - repeated Pain under control Echo -no vegetations no anticoagulation as per Surgeon as clot is old as per family, pt is AAOx3- independent - confusion is due to metabolic encephalopathy. Neurology eval noted if repeat blood cultures continue to be positive despite changing antibiotics, may need to surgically remove the clot as per ID continue with meds HD per Renal Problem List - Problems (1) Abdominal pain Code(s): R10.9 - UNSPECIFIED ABDOMINAL PAIN (2) Bacteremia Code(s): R78.81 - BACTEREMIA (3) Complication of vascular access for dialysis Code(s): T82.9XXA - [facility] COMP OF CARDIAC AND VASCULAR PROSTH DEV/GRFT, INIT Qualifiers: Encounter type: initial encounter Qualified Code(s): T82.9XXA - Unspecified complication of cardiac and vascular prosthetic device, implant and graft, initial encounter (4) ESRD (end stage renal disease) on dialysis Code(s): N18.6 - END STAGE RENAL DISEASE; Z99.2 - DEPENDENCE ON RENAL DIALYSIS (5) Fever Code(s): R50.9 - FEVER, UNSPECIFIED (6) AV fistula occlusion Code(s): T82.898A - [facility] COMPLICATION OF VASCULAR PROSTH DEV/GRFT, INIT (7) Sepsis associated with vascular access catheter Code(s): T82.7XXA - INFECT/INFLM REACT D/T OTH CARDI/VASC DEV/IMPLNT/GRFT, INIT ; A41.9 - SEPSIS, UNSPECIFIED ORGANISM
[2018-08-13] MEDS ORDERED: PT OWN MED DRAWER 7, Y5N ONE (21:06)
[2018-08-13] MEDS: INSULIN (LEVEMIR) 100 UNITS/ML UNITS SQ SCH (21:14)
[2018-08-14] MEDS ORDERED: DEXTROSE 5%-WATER - 50 ML IVPB ONE ×2 (01:37→09:20)
[2018-08-14] MEDS ORDERED: PIPERACILLIN/TAZOBACTAM 2.25 GM VIAL IVPB ONE ×3 (01:37→17:34)
[2018-08-14] MEDS: PIPERACILLIN/TAZOB 2.25 GM 2.25 GM in DEXTROSE 5%-WATER - 50 ML IVPB SCH ×3 (02:09→17:39)
[2018-08-14] MEDS: NAFCILLIN - 2 GM in DEXTROSE 5%-WATER - 100 ML IVPB SCH ×4 (02:09→21:38)
[2018-08-14] MEDS: INSULIN SLIDING SCALE (NOVOLOG) 1 VIAL SQ SCH ×4 (06:29→21:39)
--- NOTE | 2018-08-14 08:20 | PN ---
Progress Note (short form) - Note Progress Note: Renal follow up for ESRD on HD Pt seen and examined at the bedside awake and alert no acute complaints no sob, cp, abd pain, N/V/D last dialysis was Wednesday Vital Signs Temperature 97.7 F 08/14/18 05:56 Pulse Rate 77 08/14/18 05:56 Respiratory Rate 20 08/14/18 05:56 Blood Pressure 108/56 L 08/14/18 05:56 O2 Sat by Pulse Oximetry (%) 95 08/13/18 21:00 Intake & Output 08/11/18 08/12/18 08/13/18 08/14/18 23:59 23:59 23:59 22:59 Intake Total 764 562 3299 150 Balance 653 262 8176 150 Weight 90.718 kg 91.535 kg NAD awake and alert CTA no LE edema CBC, BMP 08/10/18 09:45 08/11/18 06:10 Microbiology 08/11/18 06:31 Blood - Peripheral Venous Blood Culture - Preliminary NO GROWTH OBTAINED AFTER 48 HOURS, INCUBATION TO CONTINUE FOR 3 DAYS. 08/11/18 06:10 Blood - Peripheral Venous Blood Culture - Preliminary Staphylococcus Latex Coag Pos 08/11/18 06:10 Blood - Peripheral Venous Blood Culture - Preliminary NO GROWTH OBTAINED AFTER 48 HOURS, INCUBATION TO CONTINUE FOR 3 DAYS. 08/09/18 12:14 Blood - Blood Bank Unit Blood Culture - Preliminary NO GROWTH OBTAINED AFTER 72 HOURS, INCUBATION TO CONTINUE FOR 2 DAYS. 08/09/18 11:46 Blood - Blood Bank Unit Blood Culture - Preliminary NO GROWTH OBTAINED AFTER 72 HOURS, INCUBATION TO CONTINUE FOR 2 DAYS. Current Medications Heparin Sodium (Porcine) (Heparin -) 5,000 unit SQ BID [facility] Last Admin: 08/13/18 21:14 Dose: 5,000 unit Nafcillin Sodium 2 gm/ (Dextrose) 100 mls @ 100 mls/hr IVPB Q6H-IV [facility]; Protocol Last Admin: 08/14/18 02:09 Dose: 100 mls/hr Piperacillin Sod/Tazobactam (Sod 2.25 gm/ Dextrose) 50 mls @ 100 mls/hr IVPB Q8H-IV [facility]; Protocol Last Admin: 08/14/18 02:09 Dose: 100 mls/hr Insulin Aspart (Novolog Vial Sliding Scale -) 1 vial SQ ACHS [facility]; Protocol Last Admin: 08/14/18 06:29 Dose: Not Given Insulin Detemir (Levemir Vial) 10 units SQ HS [facility] Last Admin: 08/13/18 21:14 Dose: 10 unit Ondansetron HCl (Zofran Injection) 4 mg IVPUSH Q6H PRN PRN Reason: NAUSEA AND/OR VOMITING Ranitidine HCl (Zantac -) 150 mg PO BID [facility] Last Admin: 08/13/18 21:16 Dose: 150 mg Sevelamer Carbonate (Renvela -) 800 mg PO TIDCM [facility] Last Admin: 08/13/18 16:32 Dose: 800 mg 62 year old gentleman with hx of ESRD on HD, Hypertension, Anemia presented with Abd pain and found to have MRSA bacteremia with infected AVG site. #Sepsis/MSSA bacteremia #ESRD on HD #Hypertension #Anemia #Renal osteodystrophy no acute indication for POOL [employer] today pt appears evolemic at the present time will likely need HD tomorrow 1/2 bottles from 08/11 grew coag negative staph, likely a contaminant will discuss with ID, will need clearance before new tunneled Hd catheter can be placed continue moe Jameson DO
[2018-08-14] MEDS: RANITIDINE HCL 150 MG TABLET (FP) PO SCH ×2 (09:29→21:38)
[2018-08-14] MEDS: HEPARIN NA (PORCINE) 5,000 UNITS/ML 1ML VIAL SQ SCH ×2 (09:29→21:38)
[2018-08-14] MEDS: SEVELAMER CARBONATE 800 MG TAB (FP) PO SCH ×3 (09:29→17:39)
[2018-08-14 11:12] LABS: ANION GAP 12 MMOL/L (8-16); BLOOD UREA NITROGEN 44 mg/dL (7-18); CALCIUM 8.4 mg/dL (8.5-10.1); CHLORIDE 98 mmol/L (98-107); CO2 29 mmol/L (21-32); GLUCOSE,RANDOM 90 mg/dL (74-106); POTASSIUM 3.8 mmol/L (3.5-5.1); SODIUM 138 mmol/L (136-145)
[2018-08-14 11:23] LABS: CREATININE 9.1 mg/dL (0.55-1.3)
--- NOTE | 2018-08-14 11:43 | PN ---
Progress Note (short form) - Note Progress Note: - Note Progress Note: pt seen/ examined sitting in chair , eating lunch feels well not confused making sense no complaints Vital Signs - 24 hr 08/14/18 08/14/18 08/14/18 05:56 09:00 09:45 Temperature 97.7 F 98.0 F Pulse Rate 77 70 Respiratory 20 18 Rate Blood Pressure 108/56 L 123/74 O2 Sat by Pulse 95 Oximetry (%) 08/14/18 08/14/18 14:31 17:23 Temperature 98.0 F 98.5 F Pulse Rate 76 77 Respiratory 20 20 Rate Blood Pressure 102/51 L 149/51 L O2 Sat by Pulse Oximetry (%) Current Medications Generic Name Dose Route Start Last Admin Trade Name Freq PRN Reason Stop Dose Admin Heparin Sodium (Porcine) 5,000 unit 08/08/18 22:00 08/14/18 21:38 Heparin - SQ 5,000 unit BID [facility] Administration Nafcillin Sodium 2 gm/ 100 mls @ 100 mls/hr 08/10/18 10:30 08/14/18 21:38 Dextrose IVPB 100 mls/hr Q6H-IV [facility] Administration Protocol Piperacillin Sod/Tazobactam 50 mls @ 100 mls/hr 08/10/18 10:30 08/14/18 17:39 Sod 2.25 gm/ Dextrose IVPB 100 mls/hr Q8H-IV [facility] Administration Protocol Insulin Aspart 1 vial 08/07/18 07:00 08/14/18 21:39 Novolog Vial Sliding Scale - SQ 2 units ACHS [facility] Administration Protocol Insulin Detemir 10 units 08/10/18 22:00 08/14/18 21:38 Levemir Vial SQ 10 unit HS [facility] Administration Ondansetron HCl 4 mg 08/07/18 01:53 Zofran Injection IVPUSH Q6H PRN NAUSEA AND/OR VOMITING Ranitidine HCl 150 mg 08/08/18 11:15 08/14/18 21:38 Zantac - PO 150 mg BID [facility] Administration Sevelamer Carbonate 800 mg 08/07/18 08:00 08/14/18 17:39 Renvela - PO 800 mg TIDCM [facility] Administration Laboratory Results - last 24 hr 08/14/18 08/14/18 08/14/18 06:28 10:30 11:58 Sodium 138 Potassium 3.8 Chloride 98 Carbon Dioxide 29 Anion Gap 12 BUN 44 H Creatinine 9.1 H* Creat Clearance w eGFR 5.92 POC Glucometer 85 97 Random Glucose 90 Calcium 8.4 L 08/14/18 16:39 Sodium Potassium Chloride Carbon Dioxide Anion Gap BUN Creatinine Creat Clearance w eGFR POC Glucometer 169 Random Glucose Calcium Physical Examination Constitutional: Yes: No Distress, morbidly obese Eyes: Yes: Conjunctiva Clear Neck: Yes: Supple Cardiovascular: Yes: Regular Rate and Rhythm Respiratory: Yes: Diminished Gastrointestinal: Yes: Soft. obese Extremities: Yes: Other (rue - dressing +)kassie+ Edema: No, no groin hematoma Neurological: Yes: Alert/ n/f Psychiatric: Yes: Alert Assessment/Plan Abx- as per ID blood cultures - one is now positive Pain under control Echo -no vegetations as per family, pt is AAOx3- independent - confusion is due to metabolic encephalopathy. Neurology eval noted spoke with ID- will repeat another set of blood cultures if repeat blood cultures continue to be positive despite changing antibiotics, may need to surgically remove the clot as per ID continue with meds HD per Renal Problem List - Problems (1) Abdominal pain Code(s): R10.9 - UNSPECIFIED ABDOMINAL PAIN (2) Bacteremia Code(s): R78.81 - BACTEREMIA (3) Complication of vascular access for dialysis Code(s): T82.9XXA - UNSP COMP OF CARDIAC AND VASCULAR PROSTH DEV/GRFT, INIT Qualifiers: Encounter type: initial encounter Qualified Code(s): T82.9XXA - Unspecified complication of cardiac and vascular prosthetic device, implant and graft, initial encounter (4) ESRD (end stage renal disease) on dialysis Code(s): N18.6 - END STAGE RENAL DISEASE; Z99.2 - DEPENDENCE ON RENAL DIALYSIS (5) Fever Code(s): R50.9 - FEVER, UNSPECIFIED (6) AV fistula occlusion Code(s): T82.898A - OTH COMPLICATION OF VASCULAR PROSTH DEV/GRFT, INIT (7) Sepsis associated with vascular access catheter Code(s): T82.7XXA - INFECT/INFLM REACT D/T OTH CARDI/VASC DEV/IMPLNT/GRFT, INIT ; A41.9 - SEPSIS, UNSPECIFIED ORGANISM (8) CHF (congestive heart failure) Code(s): I50.9 - HEART FAILURE, UNSPECIFIED Qualifiers: Heart failure type: diastolic
--- NOTE | 2018-08-14 11:49 | PN ---
Progress Note, Physician History of Present Illness: stable no complaints cx one of them has come positive - Current Medication List Current Medications: Active Medications Heparin Sodium (Porcine) (Heparin -) 5,000 unit SQ BID [facility] Last Admin: 08/14/18 09:29 Dose: 5,000 unit Nafcillin Sodium 2 gm/ (Dextrose) 100 mls @ 100 mls/hr IVPB Q6H-IV [facility]; Protocol Last Admin: 08/14/18 09:29 Dose: 100 mls/hr Piperacillin Sod/Tazobactam (Sod 2.25 gm/ Dextrose) 50 mls @ 100 mls/hr IVPB Q8H-IV [facility]; Protocol Last Admin: 08/14/18 10:33 Dose: 100 mls/hr Insulin Aspart (Novolog Vial Sliding Scale -) 1 vial SQ ACHS [facility]; Protocol Last Admin: 08/14/18 06:29 Dose: Not Given Insulin Detemir (Levemir Vial) 10 units SQ HS [facility] Last Admin: 08/13/18 21:14 Dose: 10 unit Ondansetron HCl (Zofran Injection) 4 mg IVPUSH Q6H PRN PRN Reason: NAUSEA AND/OR VOMITING Ranitidine HCl (Zantac -) 150 mg PO BID [facility] Last Admin: 08/14/18 09:29 Dose: 150 mg Sevelamer Carbonate (Renvela -) 800 mg PO TIDCM [facility] Last Admin: 08/14/18 09:29 Dose: 800 mg - Objective Vital Signs: Vital Signs Temperature 98.0 F 08/14/18 09:45 Pulse Rate 70 08/14/18 09:45 Respiratory Rate 18 08/14/18 09:45 Blood Pressure 123/74 08/14/18 09:45 O2 Sat by Pulse Oximetry (%) 95 08/14/18 09:00 Constitutional: Yes: No Distress, Calm Cardiovascular: Yes: Regular Rate and Rhythm Respiratory: Yes: Regular, CTA Bilaterally Gastrointestinal: Yes: Normal Bowel Sounds, Soft Musculoskeletal: Yes: WNL Extremities: Yes: WNL Wound/Incision: Yes: Dressing Dry and Intact Neurological: Yes: Alert, Oriented Labs: CBC, BMP 08/10/18 09:45 08/14/18 10:30 INR, PTT INR 1.39 (0.83-1.09) H 08/06/18 23:00 Assessment/Plan Problem List - Problems (1) Abdominal pain Code(s): R10.9 - UNSPECIFIED ABDOMINAL PAIN (2) Fever Code(s): R50.9 - FEVER, UNSPECIFIED (3) ESRD (end stage renal disease) on dialysis Code(s): N18.6 - END STAGE RENAL DISEASE; Z99.2 - DEPENDENCE ON RENAL DIALYSIS (4) Presence of arterial-venous shunt (for dialysis) Code(s): Z99.2 - DEPENDENCE ON RENAL DIALYSIS Assessment/Plan 62 y.o. male with PMH of ESRD on HD, AVF/Graft, DM, and HTN presenting with Lt sided abdominal pain, fevers, and RUE AVF site blister formation/mild bleeding/ mild tenderness Sepsis/ Staph aureus bacteremia Infection of AVG - s/p excision ESRD on HD DM HTN patient continues to be positive now one of his blood cx showing probably enetrococcus plan continue current abx will hold of on permacath now that one of the cx is again showing positive will send blood cx stat rest as per the team
[2018-08-14] MEDS ORDERED: PT OWN MED DRAWER 7, Y5N ONE (15:02)
[2018-08-14] MEDS ORDERED: DEXTROSE 5%-WATER - 100 ML IVPB ONE (17:34)
[2018-08-14] MEDS ORDERED: INSULIN (NOVOLOG) ASPART 100 UNITS/ML 10ML VIAL ONE (20:45)
[2018-08-14] MEDS: INSULIN (LEVEMIR) 100 UNITS/ML UNITS SQ SCH (21:38)
[2018-08-15] MEDS ORDERED: PIPERACILLIN/TAZOBACTAM 2.25 GM VIAL IVPB ONE ×2 (00:34→07:52)
[2018-08-15] MEDS ORDERED: DEXTROSE 5%-WATER - 50 ML IVPB ONE ×2 (00:34→07:52)
[2018-08-15] MEDS: PIPERACILLIN/TAZOB 2.25 GM 2.25 GM in DEXTROSE 5%-WATER - 50 ML IVPB SCH ×2 (01:10→09:27)
[2018-08-15] MEDS: NAFCILLIN - 2 GM in DEXTROSE 5%-WATER - 100 ML IVPB SCH ×5 (02:21→22:21)
[2018-08-15] MEDS: INSULIN SLIDING SCALE (NOVOLOG) 1 VIAL SQ SCH ×4 (06:24→22:20)
[2018-08-15] MEDS: SEVELAMER CARBONATE 800 MG TAB (FP) PO SCH ×4 (08:17→17:29)
--- NOTE | 2018-08-15 09:22 | PN ---
Progress Note (short form) - Note Progress Note: Resting comfortably without complaint. Per Renal, patient will likely need HD today Blood cultures thus far: 1 of 2 bottles grew coag sudheer damian 08/14/18 Will discuss with ID, will need clearance before new tunneled HD catheter can be placed. Will place shiley for HD today and should be removed after his session.
[2018-08-15] MEDS: HEPARIN NA (PORCINE) 5,000 UNITS/ML 1ML VIAL SQ SCH ×2 (09:29→22:21)
[2018-08-15] MEDS: RANITIDINE HCL 150 MG TABLET (FP) PO SCH ×2 (09:29→22:21)
--- NOTE | 2018-08-15 09:47 | PN ---
Progress Note (short form) - Note Progress Note: Vascular Surgery Will place Permacath celia as long as ID clears the pt. Mary whalen today for HD NPO past midnight Shahbaz Cueto dO
--- NOTE | 2018-08-15 10:57 | PROC ---
Central Line Insertion - Procedure Note TIME OUT performed prior to this procedure with verbal confirmation of correct patient identity, correct side, agreement of the procedure, correct patient position, availability of necessary equipment. The consent form is complete and accurate. Risk of possible infection and bleeding have been discussed with the patient. Safety precautions based on patient history or medication use has been addressed. Coags within normal limits to do procedure safely Indication: Other Consent on Chart: Yes (+ blood cultures and needs HD ) Central Line: Dialysis Cath, Dual Lumen Position: Supine Area prepped with Chlorhexidine solution then draped using sterile barrier protection. Anesthesia: Lidocaine 1% Technique used: Seldinger Ultrasound Guided Assistance: No Site: Right Femoral Dark venous non-pulsatile flow noted from hub of needle. The catheter was introduced. Guide wire removed intact. Each port aspirated then flushed with sterile normal saline and TEGO capped placed Line secured to skin with silk suture. Biopatch placed around base of line. Sterile occlusive dressing applied. No complications. Patient tolerated the procedure well. HD notified.
--- NOTE | 2018-08-15 11:23 | PN ---
Progress Note (short form) - Note Progress Note: Renal follow up for ESRD on HD Pt seen and examined at the bedside Vital Signs Temperature 97.8 F 08/15/18 08:53 Pulse Rate 79 08/15/18 08:53 Respiratory Rate 20 08/15/18 08:53 Blood Pressure 144/70 08/15/18 08:53 O2 Sat by Pulse Oximetry (%) 96 08/14/18 21:00 Intake & Output 08/13/18 08/14/18 08/14/18 08/15/18 00:59 00:59 23:59 23:59 Intake Total 350 Balance 350 Weight 89.528 kg NAD awake and alert CTA no LE edema CBC, BMP 08/10/18 09:45 08/14/18 10:30 Current Medications Heparin Sodium (Porcine) (Heparin -) 5,000 unit SQ BID [facility] Last Admin: 08/15/18 09:29 Dose: 5,000 unit Nafcillin Sodium 2 gm/ (Dextrose) 100 mls @ 100 mls/hr IVPB Q6H-IV [facility]; Protocol Last Admin: 08/15/18 08:02 Dose: 100 mls/hr Piperacillin Sod/Tazobactam (Sod 2.25 gm/ Dextrose) 50 mls @ 100 mls/hr IVPB Q8H-IV [facility]; Protocol Last Admin: 08/15/18 09:27 Dose: 100 mls/hr Insulin Aspart (Novolog Vial Sliding Scale -) 1 vial SQ ACHS [facility]; Protocol Last Admin: 08/15/18 11:14 Dose: Not Given Insulin Detemir (Levemir Vial) 10 units SQ HS [facility] Last Admin: 08/14/18 21:38 Dose: 10 unit Ondansetron HCl (Zofran Injection) 4 mg IVPUSH Q6H PRN PRN Reason: NAUSEA AND/OR VOMITING Ranitidine HCl (Zantac -) 150 mg PO BID [facility] Last Admin: 08/15/18 09:29 Dose: 150 mg Sevelamer Carbonate (Renvela -) 800 mg PO TIDCM [facility] Last Admin: 08/15/18 11:15 Dose: 800 mg 62 year old gentleman with hx of ESRD on HD, Hypertension, Anemia presented with Abd pain and found to have MRSA bacteremia with infected AVG site. #Sepsis/MSSA bacteremia #ESRD on HD #Hypertension #Anemia #Renal osteodystrophy Roderick Jameson DO
[2018-08-15] MEDS ORDERED: SODIUM CHLORIDE 250 ML IV PRN (11:28)
--- NOTE | 2018-08-15 11:55 | PN ---
Progress Note (short form) - Note Progress Note: patient seen and examined Comfortable alert and awake Chart reviewed no complaints Right Shiley placed going for dialysis today Continue to have positive cultures--- discussed with ID May need JANES--- cardiology to follow. Unable to place permacath--- until cultures are negative Vital Signs Temp 97.8 F 08/15/18 08:53 Pulse 79 08/15/18 08:53 Resp 20 08/15/18 09:00 BP 144/70 08/15/18 08:53 Pulse Ox 95 08/15/18 09:00 Intake & Output 08/14/18 08/14/18 08/15/18 11:59 23:59 11:59 Intake Total 550 350 Balance 550 350 Weight 197 lb 6 oz Intake: IVPB 100 200 Oral 450 150 Other: Voiding Method Incontinent Incontinent Bowel Movement Yes Weight Measurement Method Patient Lift Scale Active Medications Epoetin Nelson (Procrit -) 20,000 unit IVPUSH ONCE ONE Stop: 08/15/18 11:29 Heparin Sodium (Porcine) (Heparin -) 5,000 unit SQ BID [facility] Last Admin: 08/15/18 09:29 Dose: 5,000 unit Nafcillin Sodium 2 gm/ (Dextrose) 100 mls @ 100 mls/hr IVPB Q6H-IV [facility]; Protocol Last Admin: 08/15/18 08:02 Dose: 100 mls/hr Piperacillin Sod/Tazobactam (Sod 2.25 gm/ Dextrose) 50 mls @ 100 mls/hr IVPB Q8H-IV [facility]; Protocol Last Admin: 08/15/18 09:27 Dose: 100 mls/hr Sodium Chloride (Normal Saline -) 250 mls @ 3,000 mls/hr IV PRN PRN PRN Reason: Hypotension during Dialysis Stop: 08/16/18 11:28 Insulin Aspart (Novolog Vial Sliding Scale -) 1 vial SQ ACHS [facility]; Protocol Last Admin: 08/15/18 11:14 Dose: Not Given Insulin Detemir (Levemir Vial) 10 units SQ HS [facility] Last Admin: 08/14/18 21:38 Dose: 10 unit Ondansetron HCl (Zofran Injection) 4 mg IVPUSH Q6H PRN PRN Reason: NAUSEA AND/OR VOMITING Ranitidine HCl (Zantac -) 150 mg PO BID [facility] Last Admin: 08/15/18 09:29 Dose: 150 mg Sevelamer Carbonate (Renvela -) 800 mg PO TIDCM [facility] Last Admin: 08/15/18 11:25 Dose: Not Given CBC, BMP 08/10/18 09:45 08/14/18 10:30 Microbiology 08/14/18 12:10 Blood Culture - Preliminary Blood - Peripheral Venous Pending Organism 08/11/18 06:31 Blood Culture - Preliminary Blood - Peripheral Venous NO GROWTH OBTAINED AFTER 96 HOURS, INCUBATION TO CONTINUE FOR 1 DAYS. 08/09/18 12:14 Blood Culture - Final Blood - Blood Bank Unit NO GROWTH AFTER 5 DAYS INCUBATION 08/09/18 11:46 Blood Culture - Final Blood - Blood Bank Unit NO GROWTH AFTER 5 DAYS INCUBATION 08/11/18 06:10 Blood Culture - Final Blood - Peripheral Venous Staphylococcus Aureus Physical Examination Constitutional: Yes: No Distress, morbidly obese. Eyes: Yes: Conjunctiva Clear Neck: Yes: SuppleAlert and awake. No JVD Cardiovascular: Yes: Regular Rate and Rhythm Respiratory: Yes: Diminished Gastrointestinal: Yes: Soft. obese Extremities: Yes: Other (rue - dressing +)kassie+ Edema: No, no groin hematoma Neurological: Yes: Alert/ n/f Psychiatric: Yes: Alert. Right Shiley in place Assessment/Plan persistent bacteremia Continue antibiotics per ID Dialysis today Cardiology to follow--- for positive JANES discussed with patient and patient's --who is at bedside Will follow Problem List - Problems (1) Abdominal pain Code(s): R10.9 - UNSPECIFIED ABDOMINAL PAIN (2) ESRD (end stage renal disease) on dialysis Code(s): N18.6 - END STAGE RENAL DISEASE; Z99.2 - DEPENDENCE ON RENAL DIALYSIS (3) Fever Code(s): R50.9 - FEVER, UNSPECIFIED (4) AV fistula occlusion Code(s): T82.898A - OTH COMPLICATION OF VASCULAR PROSTH DEV/GRFT, INIT (5) Bacteremia Code(s): R78.81 - BACTEREMIA
--- NOTE | 2018-08-15 12:07 | PN ---
Progress Note, Physician History of Present Illness: patient stable blood cx re send patient still positive on the previous cx clinically better - Current Medication List Current Medications: Active Medications Epoetin Nelson (Procrit -) 20,000 unit IVPUSH ONCE ONE Stop: 08/15/18 11:29 Heparin Sodium (Porcine) (Heparin -) 5,000 unit SQ BID [facility] Last Admin: 08/15/18 09:29 Dose: 5,000 unit Nafcillin Sodium 2 gm/ (Dextrose) 100 mls @ 100 mls/hr IVPB Q6H-IV [facility]; Protocol Last Admin: 08/15/18 08:02 Dose: 100 mls/hr Sodium Chloride (Normal Saline -) 250 mls @ 3,000 mls/hr IV PRN PRN PRN Reason: Hypotension during Dialysis Stop: 08/16/18 11:28 Insulin Aspart (Novolog Vial Sliding Scale -) 1 vial SQ [facility]; Protocol Last Admin: 08/15/18 11:14 Dose: Not Given Insulin Detemir (Levemir Vial) 10 units SQ HS [facility] Last Admin: 08/14/18 21:38 Dose: 10 unit Ondansetron HCl (Zofran Injection) 4 mg IVPUSH Q6H PRN PRN Reason: NAUSEA AND/OR VOMITING Ranitidine HCl (Zantac -) 150 mg PO BID [facility] Last Admin: 08/15/18 09:29 Dose: 150 mg Sevelamer Carbonate (Renvela -) 800 mg PO TIDCM [facility] Last Admin: 08/15/18 11:25 Dose: Not Given - Objective Vital Signs: Vital Signs Temperature 97.8 F 08/15/18 08:53 Pulse Rate 79 08/15/18 08:53 Respiratory Rate 20 08/15/18 09:00 Blood Pressure 144/70 08/15/18 08:53 O2 Sat by Pulse Oximetry (%) 95 08/15/18 09:00 Constitutional: Yes: No Distress, Calm Cardiovascular: Yes: Regular Rate and Rhythm Respiratory: Yes: Regular, CTA Bilaterally Gastrointestinal: Yes: Normal Bowel Sounds, Soft Musculoskeletal: Yes: Other Extremities: Yes: Other Wound/Incision: Yes: Dressing Dry and Intact Neurological: Yes: Alert, Oriented Psychiatric: Yes: Alert, Oriented Labs: CBC, BMP 08/10/18 09:45 08/14/18 10:30 INR, PTT INR 1.39 (0.83-1.09) H 08/06/18 23:00 Assessment/Plan Problem List - Problems (1) Abdominal pain Code(s): R10.9 - UNSPECIFIED ABDOMINAL PAIN (2) Fever Code(s): R50.9 - FEVER, UNSPECIFIED (3) ESRD (end stage renal disease) on dialysis Code(s): N18.6 - END STAGE RENAL DISEASE; Z99.2 - DEPENDENCE ON RENAL DIALYSIS (4) Presence of arterial-venous shunt (for dialysis) Code(s): Z99.2 - DEPENDENCE ON RENAL DIALYSIS Assessment/Plan 62 y.o. male with PMH of ESRD on HD, AVF/Graft, DM, and HTN presenting with Lt sided abdominal pain, fevers, and RUE AVF site blister formation/mild bleeding/ mild tenderness Sepsis/ Staph aureus bacteremia Infection of AVG - s/p excision ESRD on HD DM HTN plan continue abx await for repeat cx report rest continue current mgmt will d/w nephrology further plan await till blood cx are negative
[2018-08-15] MEDS ORDERED: EPOETIN ALFA 20,000 UNIT/1 ML VIAL IVPUSH ONE (15:30)
[2018-08-15 15:41] LABS: ANION GAP 11 MMOL/L (8-16); BASO % 0.5 % (0-2.0); BLOOD UREA NITROGEN 47 mg/dL (7-18); CALCIUM 8.1 mg/dL (8.5-10.1); CHLORIDE 98 mmol/L (98-107); CO2 29 mmol/L (21-32); EOS % 1.7 % (0-4.5); GLUCOSE,RANDOM 160 mg/dL (74-106); HEMATOCRIT 23.4 % (35.4-49); HEMOGLOBIN 7.8 GM/dL (11.7-16.9); LYMPH % 9.8 % (8-40); MAGNESIUM 2.1 mg/dL (1.8-2.4); MCH 29.5 pg (25.7-33.7); MCHC 33.4 g/dl (32.0-35.9); MEAN CELL VOLUME 88.4 fl (80-96); MEAN PLT VOLUME 8.8 fl (7.5-11.1); MONO % 2.2 % (3.8-10.2); NEUT % 85.8 % (42.8-82.8); PHOSPHOROUS 4.5 mg/dL (2.5-4.9); PLATELET COUNT 266 K/MM3 (134-434); POTASSIUM 3.3 mmol/L (3.5-5.1); RBC 2.65 M/mm3 (4.00-5.60); RDW 17.5 % (11.9-15.9); SODIUM 138 mmol/L (136-145); WHITE BLOOD COUNT 8.4 K/mm3 (4.0-10.0)
--- NOTE | 2018-08-15 15:47 | PN ---
Progress Note (short form) - Note Progress Note: Renal follow up for ESRD on HD Pt seen and examined at the bedside no acute complaints no sob, cp, abd pain, N/V/D Vital Signs Temperature 98.4 F 08/15/18 14:20 Pulse Rate 79 08/15/18 14:25 Respiratory Rate 18 08/15/18 14:25 Blood Pressure 136/62 08/15/18 14:25 O2 Sat by Pulse Oximetry (%) 95 08/15/18 09:00 NAD awake and alert CTA no LE edema CBC, BMP 08/10/18 09:45 08/14/18 10:30 Current Medications Heparin Sodium (Porcine) (Heparin -) 5,000 unit SQ BID [facility] Last Admin: 08/15/18 09:29 Dose: 5,000 unit Nafcillin Sodium 2 gm/ (Dextrose) 100 mls @ 100 mls/hr IVPB Q6H-IV [facility]; Protocol Last Admin: 08/15/18 08:02 Dose: 100 mls/hr Piperacillin Sod/Tazobactam (Sod 2.25 gm/ Dextrose) 50 mls @ 100 mls/hr IVPB Q8H-IV [facility]; Protocol Last Admin: 08/15/18 09:27 Dose: 100 mls/hr Insulin Aspart (Novolog Vial Sliding Scale -) 1 vial SQ ACHS [facility]; Protocol Last Admin: 08/15/18 11:14 Dose: Not Given Insulin Detemir (Levemir Vial) 10 units SQ HS [facility] Last Admin: 08/14/18 21:38 Dose: 10 unit Ondansetron HCl (Zofran Injection) 4 mg IVPUSH Q6H PRN PRN Reason: NAUSEA AND/OR VOMITING Ranitidine HCl (Zantac -) 150 mg PO BID [facility] Last Admin: 08/15/18 09:29 Dose: 150 mg Sevelamer Carbonate (Renvela -) 800 mg PO TIDCM [facility] Last Admin: 08/15/18 11:15 Dose: 800 mg 62 year old gentleman with hx of ESRD on HD, Hypertension, Anemia presented with Abd pain and found to have MSSA bacteremia with infected AVG site. #Sepsis/MSSA bacteremia #ESRD on HD #Hypertension #Anemia #Renal osteodystrophy For dialysis today with temporary HD catheter as cultures from 07/31 are positive repeat cultures sent yesterday continue Abx as per ID Catheter to be removed once HD is finished Continue GAY with HD Roderick Jameson DO
[2018-08-15 15:48] LABS: CREATININE 8.6 mg/dL (0.55-1.3)
--- NOTE | 2018-08-15 16:07 | PN ---
Progress Note (short form) - Note Progress Note: Chief Complaint: syncope History of Present Illness: no cp, sob, palps, dizzy - Current Medication List Current Medications Heparin Sodium (Porcine) (Heparin -) 5,000 unit SQ BID [facility] Last Admin: 08/12/18 09:08 Dose: 5,000 unit Nafcillin Sodium 2 gm/ (Dextrose) 100 mls @ 100 mls/hr IVPB Q6H-IV [facility]; Protocol Last Admin: 08/12/18 14:58 Dose: 100 mls/hr Piperacillin Sod/Tazobactam (Sod 2.25 gm/ Dextrose) 50 mls @ 100 mls/hr IVPB Q8H-IV [facility]; Protocol Last Admin: 08/12/18 11:42 Dose: Not Given Insulin Aspart (Novolog Vial Sliding Scale -) 1 vial SQ ACHS [facility]; Protocol Last Admin: 08/12/18 11:42 Dose: Not Given Insulin Detemir (Levemir Vial) 10 units SQ HS [facility] Last Admin: 08/11/18 22:25 Dose: 10 unit Ondansetron HCl (Zofran Injection) 4 mg IVPUSH Q6H PRN PRN Reason: NAUSEA AND/OR VOMITING Ranitidine HCl (Zantac -) 150 mg PO BID [facility] Last Admin: 08/12/18 09:08 Dose: 150 mg Sevelamer Carbonate (Renvela -) 800 mg PO TIDCM [facility] Last Admin: 08/12/18 13:51 Dose: Not Given - Objective Vital Signs: Vital Signs Period Temp Pulse Resp BP Sys/Jackson Pulse Ox Last 24 Hr 97.4 F-98.5 F 60-94 18-20 80-144/43-88 95-97 Constitutional: Yes: No Distress, Calm Eyes: No: Sclera Icterus Cardiovascular: Yes: Regular Rate and Rhythm, S1, S2, Other (PMI non diplaced). No: JVD (tds neck habitus), Gallop, Murmur Respiratory: Yes: CTA Bilaterally. No: Accessory Muscle Use, Rales, Wheezes Gastrointestinal: Yes: Normal Bowel Sounds, Soft. No: Tenderness Extremities: No: Cyanosis Edema: No Integumentary: No: Jaundice diaphoresis Neurological: Yes: Alert. No: Seizure Psychiatric: No: Agitated Assessment/Plan Echo 07/2018 nl LV size, EF 40-45%, E/A reversal, RV nl, LA nl Carotid dopplers: IJ thrombosis fever/bacteremia - on abx per primary, ID Syncope - patient denies history of syncope, however he complained of this per on 08/07 RN...he is poor historian. - here with old IJ clot per vascular--no AC indicated - was hypoxic to 86% on 08/06, normal sats since - mild tachycardia, suspect infection related - rec CTA chest PE protocol to confirm no PE to explain syncope and these other findings--d/w'd renal (trevon), pt should tolerate the IV contrast bolus. unable to complete testing due to unable to place large enough IV - no further episodes of syncope, lightheadedness, dyspnea - echo showed EF 40-45%, unclear if new, pt says no cardiac hx, unlikely to have contributed to syncope - may be vasovagal vs orthostatic, appears less likely cardiac etiology, no reoccurence chest/abd pain, pos troponin - trop 0.14->0.15 on admission, has been constant since surgery and is worse with different positions, + worse with palpation. - trend and history not c/w ACS, unlikely cardiac etiology Cardiomyopathy - EF 40-45% - has had borderline BPs, if stable after resuming HD would consider adding ACEI /BB - appears euvolemic currently, volume management with HD per renal - would consider outpatient ischemic evaluation after acute issues resolved ESRD on HD - HD per renal - plan for replacement of permacath when cleared by ID
[2018-08-15] MEDS ORDERED: INSULIN (NOVOLOG) ASPART 100 UNITS/ML 10ML VIAL ONE (21:29)
[2018-08-15] MEDS: INSULIN (LEVEMIR) 100 UNITS/ML UNITS SQ SCH (22:22)
[2018-08-16] MEDS ORDERED: PT OWN MED DRAWER 7, Y5N ONE ×2 (01:07→21:47)
[2018-08-16] MEDS: NAFCILLIN - 2 GM in DEXTROSE 5%-WATER - 100 ML IVPB SCH ×4 (02:00→22:36)
[2018-08-16] MEDS: INSULIN SLIDING SCALE (NOVOLOG) 1 VIAL SQ SCH ×4 (06:21→22:34)
[2018-08-16] MEDS ORDERED: INSULIN (NOVOLOG) ASPART 100 UNITS/ML 10ML VIAL ONE (09:03)
[2018-08-16] MEDS: SEVELAMER CARBONATE 800 MG TAB (FP) PO SCH ×3 (09:54→16:40)
[2018-08-16] MEDS: HEPARIN NA (PORCINE) 5,000 UNITS/ML 1ML VIAL SQ SCH ×2 (09:55→22:36)
[2018-08-16] MEDS: RANITIDINE HCL 150 MG TABLET (FP) PO SCH ×2 (09:55→22:36)
--- NOTE | 2018-08-16 11:32 | PN ---
Progress Note (short form) - Note Progress Note: Renal follow up for ESRD on HD Pt seen and examined at the bedside awake and alert, no acute complaints no sob, cp, abd pain, N/V/D no fevers, s/p dialysis yesterday Vital Signs Temperature 98.8 F 08/16/18 08:54 Pulse Rate 75 08/16/18 08:54 Respiratory Rate 20 08/16/18 08:54 Blood Pressure 99/54 L 08/16/18 08:54 O2 Sat by Pulse Oximetry (%) 96 08/15/18 21:00 Intake & Output 08/14/18 08/14/18 08/15/18 08/16/18 00:59 23:59 23:59 23:59 Intake Total 600 200 Output Total 0 Balance 600 200 Weight 89.528 kg 87.203 kg NAD awake and alert No LE edema femoral shiley in place CBC, BMP 08/15/18 14:40 08/15/18 14:40 Microbiology 08/11/18 06:10 Blood - Peripheral Venous Blood Culture - Final Staphylococcus Aureus 08/14/18 12:10 Blood - Peripheral Venous Blood Culture - Preliminary Staphylococcus Latex Coag Pos Laboratory Tests 08/14/18 08/15/18 10:30 14:40 BUN 47 H Calcium 8.4 L Current Medications Heparin Sodium (Porcine) (Heparin -) 5,000 unit SQ BID [facility] Last Admin: 08/16/18 09:55 Dose: 5,000 unit Nafcillin Sodium 2 gm/ (Dextrose) 100 mls @ 100 mls/hr IVPB Q6H-IV [facility]; Protocol Last Admin: 08/16/18 10:37 Dose: 100 mls/hr Insulin Aspart (Novolog Vial Sliding Scale -) 1 vial SQ ACHS [facility]; Protocol Last Admin: 08/16/18 11:06 Dose: Not Given Insulin Detemir (Levemir Vial) 10 units SQ HS [facility] Last Admin: 08/15/18 22:22 Dose: 10 unit Ondansetron HCl (Zofran Injection) 4 mg IVPUSH Q6H PRN PRN Reason: NAUSEA AND/OR VOMITING Ranitidine HCl (Zantac -) 150 mg PO BID [facility] Last Admin: 08/16/18 09:55 Dose: 150 mg Sevelamer Carbonate (Renvela -) 800 mg PO TIDCM [facility] Last Admin: 08/16/18 09:54 Dose: Not Given 62 year old gentleman with hx of ESRD on HD, Hypertension, Anemia presented with Abd pain and found to have MSSA bacteremia with infected AVG site. 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
--- NOTE | 2018-08-16 11:43 | PN ---
Progress Note, Physician History of Present Illness: patient stable repeat blood cx was positive will reorder blood cx awaiting for imaging studies - Current Medication List Current Medications: Active Medications Heparin Sodium (Porcine) (Heparin -) 5,000 unit SQ BID [facility] Last Admin: 08/16/18 09:55 Dose: 5,000 unit Nafcillin Sodium 2 gm/ (Dextrose) 100 mls @ 100 mls/hr IVPB Q6H-IV [facility]; Protocol Last Admin: 08/16/18 10:37 Dose: 100 mls/hr Insulin Aspart (Novolog Vial Sliding Scale -) 1 vial SQ ACHS [facility]; Protocol Last Admin: 08/16/18 11:06 Dose: Not Given Insulin Detemir (Levemir Vial) 10 units SQ HS [facility] Last Admin: 08/15/18 22:22 Dose: 10 unit Ondansetron HCl (Zofran Injection) 4 mg IVPUSH Q6H PRN PRN Reason: NAUSEA AND/OR VOMITING Ranitidine HCl (Zantac -) 150 mg PO BID [facility] Last Admin: 08/16/18 09:55 Dose: 150 mg Sevelamer Carbonate (Renvela -) 800 mg PO TIDCM [facility]PL[facility] Last Admin: 08/16/18 09:54 Dose: Not Given - Objective Vital Signs: Vital Signs Temperature 98.8 F 08/16/18 08:54 Pulse Rate 75 08/16/18 08:54 Respiratory Rate 20 08/16/18 08:54 Blood Pressure 99/54 L 08/16/18 08:54 O2 Sat by Pulse Oximetry (%) 96 08/15/18 21:00 Constitutional: Yes: No Distress, Calm Cardiovascular: Yes: Regular Rate and Rhythm Respiratory: Yes: Regular, CTA Bilaterally Gastrointestinal: Yes: Normal Bowel Sounds, Soft Musculoskeletal: Yes: Other Extremities: Yes: Other (shiley in place) Neurological: Yes: Alert, Oriented Psychiatric: Yes: Alert, Oriented Labs: CBC, BMP 08/15/18 14:40 08/15/18 14:40 INR, PTT INR 1.39 (0.83-1.09) H 08/06/18 23:00 Assessment/Plan Problem List - Problems (1) Abdominal pain Code(s): R10.9 - UNSPECIFIED ABDOMINAL PAIN (2) Fever Code(s): R50.9 - FEVER, UNSPECIFIED (3) ESRD (end stage renal disease) on dialysis Code(s): N18.6 - END STAGE RENAL DISEASE; Z99.2 - DEPENDENCE ON RENAL DIALYSIS (4) Presence of arterial-venous shunt (for dialysis) Code(s): Z99.2 - DEPENDENCE ON RENAL DIALYSIS Assessment/Plan 62 y.o. male with PMH of ESRD on HD, AVF/Graft, DM, and HTN presenting with Lt sided abdominal pain, fevers, and RUE AVF site blister formation/mild bleeding/ mild tenderness Sepsis/ Staph aureus bacteremia Infection of AVG - s/p excision ESRD on HD DM HTN patient continues to be positive now one of his blood cx showing probably enetrococcus plan continue current abx will repeat blood cx await imaging studies rest as per the team
[2018-08-16] MEDS ORDERED: SODIUM CHLORIDE 250 ML IV PRN (11:55)
--- NOTE | 2018-08-16 13:25 | PN ---
Progress Note (short form) - Note Progress Note: pt seen/ examined sitting in chair , eating lunch feels well not confused making sense no complaints Vital Signs - 24 hr 08/15/18 08/15/18 08/15/18 14:20 14:25 14:55 Temperature 98.4 F Pulse Rate 77 79 77 Respiratory 18 18 18 Rate Blood Pressure 117/65 136/62 114/53 L O2 Sat by Pulse Oximetry (%) 08/15/18 08/15/18 08/15/18 15:25 15:55 16:25 Temperature Pulse Rate 87 41 L 42 L Respiratory 18 18 18 Rate Blood Pressure 123/60 111/56 L 115/77 O2 Sat by Pulse Oximetry (%) 08/15/18 08/15/18 08/15/18 16:55 17:25 17:55 Temperature Pulse Rate 67 86 88 Respiratory 18 18 18 Rate Blood Pressure 97/63 98/56 L 109/46 L O2 Sat by Pulse Oximetry (%) 08/15/18 08/15/18 08/15/18 18:30 18:46 19:45 Temperature 99.4 F Pulse Rate 80 93 H 102 H Respiratory 18 18 18 Rate Blood Pressure 110/52 L 98/44 L 120/70 O2 Sat by Pulse Oximetry (%) 08/15/18 08/16/18 08/16/18 21:00 06:00 08:54 Temperature 98.8 F 98.9 F 98.8 F Pulse Rate 85 76 75 Respiratory 18 18 20 Rate Blood Pressure 130/74 132/54 L 99/54 L O2 Sat by Pulse 96 Oximetry (%) Current Medications Generic Name Dose Route Start Last Admin Trade Name Freq PRN Reason Stop Dose Admin Heparin Sodium (Porcine) 5,000 unit 08/15/18 22:00 08/16/18 09:55 Heparin - SQ 5,000 unit BID [facility] Administration Nafcillin Sodium 2 gm/ 100 mls @ 100 mls/hr 08/10/18 10:30 08/16/18 10:37 Dextrose IVPB 100 mls/hr Q6H-IV [facility] Administration Protocol Sodium Chloride 250 mls @ 3,000 mls/hr 08/16/18 11:55 Normal Saline - IV 08/17/18 11:55 PRN PRN Hypotension during Dialysis Insulin Aspart 1 vial 08/07/18 07:00 08/16/18 11:06 Novolog Vial Sliding Scale - SQ Not Given ACHS [facility] Protocol Insulin Detemir 10 units 08/10/18 22:00 08/15/18 22:22 Levemir Vial SQ 10 unit HS [facility] Administration Ondansetron HCl 4 mg 08/07/18 01:53 Zofran Injection IVPUSH Q6H PRN NAUSEA AND/OR VOMITING Ranitidine HCl 150 mg 08/08/18 11:15 08/16/18 09:55 Zantac - PO 150 mg BID [facility] Administration Sevelamer Carbonate 800 mg 08/07/18 08:00 08/16/18 09:54 Renvela - PO Not Given TIDCM [facility] Torsemide 80 mg 08/17/18 10:00 Demadex - PO DAILY [facility] Laboratory Results - last 24 hr 08/15/18 08/15/18 08/15/18 14:40 14:40 22:19 WBC 8.4 RBC 2.65 L Hgb 7.8 L Hct 23.4 L MCV 88.4 MCH 29.5 MCHC 33.4 RDW 17.5 H Plt Count 266 D MPV 8.8 Absolute Neuts (auto) 7.2 Neutrophils % 85.8 H Lymphocytes % 9.8 D Monocytes % 2.2 L Eosinophils % 1.7 D Basophils % 0.5 Nucleated RBC % 0 Sodium 138 Potassium 3.3 L Chloride 98 Carbon Dioxide 29 Anion Gap 11 BUN 47 H Creatinine 8.6 H* Creat Clearance w eGFR 6.32 POC Glucometer 166 Random Glucose 160 H Calcium 8.1 L Phosphorus 4.5 Magnesium 2.1 08/16/18 08/16/18 06:20 11:05 WBC RBC Hgb Hct MCV MCH MCHC RDW Plt Count MPV Absolute Neuts (auto) Neutrophils % Lymphocytes % Monocytes % Eosinophils % Basophils % Nucleated RBC % Sodium Potassium Chloride Carbon Dioxide Anion Gap BUN Creatinine Creat Clearance w eGFR POC Glucometer 91 136 Random Glucose Calcium Phosphorus Magnesium Physical Examination Constitutional: Yes: No Distress, morbidly obese Eyes: Yes: Conjunctiva Clear Neck: Yes: Supple Cardiovascular: Yes: Regular Rate and Rhythm Respiratory: Yes: Diminished Gastrointestinal: Yes: Soft. obese Extremities: Yes: Other (rue - dressing +)kassie+ Edema: No, no groin hematoma Neurological: Yes: Alert/ n/f Psychiatric: Yes: Alert Assessment/Plan Abx- as per ID blood cultures - one is now positive Pain under control Echo -no vegetations as per family, pt is AAOx3- independent - confusion is due to metabolic encephalopathy. Neurology eval noted spoke with ID- will repeat another set of blood cultures HD per Renal Problem List - Problems (1) Abdominal pain Code(s): R10.9 - UNSPECIFIED ABDOMINAL PAIN (2) Bacteremia Code(s): R78.81 - BACTEREMIA (3) Complication of vascular access for dialysis Code(s): T82.9XXA - UNSP COMP OF CARDIAC AND VASCULAR PROSTH DEV/GRFT, INIT Qualifiers: Encounter type: initial encounter Qualified Code(s): T82.9XXA - Unspecified complication of cardiac and vascular prosthetic device, implant and graft, initial encounter (4) ESRD (end stage renal disease) on dialysis Code(s): N18.6 - END STAGE RENAL DISEASE; Z99.2 - DEPENDENCE ON RENAL DIALYSIS (5) Fever Code(s): R50.9 - FEVER, UNSPECIFIED (6) AV fistula occlusion Code(s): T82.898A - OTH COMPLICATION OF VASCULAR PROSTH DEV/GRFT, INIT (7) Sepsis associated with vascular access catheter Code(s): T82.7XXA - INFECT/INFLM REACT D/T OTH CARDI/VASC DEV/IMPLNT/GRFT, INIT ; A41.9 - SEPSIS, UNSPECIFIED ORGANISM (8) CHF (congestive heart failure) Code(s): I50.9 - HEART FAILURE, UNSPECIFIED Qualifiers: Heart failure type: diastolic
[2018-08-16 15:18] LABS: ANION GAP 11 MMOL/L (8-16); BLOOD UREA NITROGEN 35 mg/dL (7-18); CALCIUM 8.2 mg/dL (8.5-10.1); CHLORIDE 96 mmol/L (98-107); CO2 30 mmol/L (21-32); GLUCOSE,RANDOM 135 mg/dL (74-106); PHOSPHOROUS 5.1 mg/dL (2.5-4.9); POTASSIUM 3.7 mmol/L (3.5-5.1); SODIUM 137 mmol/L (136-145)
[2018-08-16 15:25] LABS: CREATININE 7.7 mg/dL (0.55-1.3)
[2018-08-16] MEDS: INSULIN (LEVEMIR) 100 UNITS/ML UNITS SQ SCH (22:33)
[2018-08-17] MEDS ORDERED: PT OWN MED DRAWER 7, Y5N ONE ×4 (02:44→20:51)
[2018-08-17] MEDS: NAFCILLIN - 2 GM in DEXTROSE 5%-WATER - 100 ML IVPB SCH ×4 (03:06→21:23)
[2018-08-17] MEDS: INSULIN SLIDING SCALE (NOVOLOG) 1 VIAL SQ SCH ×4 (06:34→21:34)
[2018-08-17 08:48] LABS: BASO % 0.6 % (0-2.0); EOS % 2.1 % (0-4.5); HEMATOCRIT 24.3 % (35.4-49); HEMOGLOBIN 8.1 GM/dL (11.7-16.9); LYMPH % 15.8 % (8-40); MCH 29.5 pg (25.7-33.7); MCHC 33.2 g/dl (32.0-35.9); MEAN CELL VOLUME 88.6 fl (80-96); NEUT % 75.5 % (42.8-82.8); PLATELET COUNT 287 K/MM3 (134-434); RBC 2.74 M/mm3 (4.00-5.60); RDW 17.8 % (11.9-15.9); WHITE BLOOD COUNT 7.3 K/mm3 (4.0-10.0)
[2018-08-17 09:38] LABS: ANION GAP 15 MMOL/L (8-16); BLOOD UREA NITROGEN 44 mg/dL (7-18); CALCIUM 8.3 mg/dL (8.5-10.1); CHLORIDE 97 mmol/L (98-107); CO2 26 mmol/L (21-32); GLUCOSE,RANDOM 83 mg/dL (74-106); POTASSIUM 3.7 mmol/L (3.5-5.1); SODIUM 137 mmol/L (136-145)
[2018-08-17] MEDS: SEVELAMER CARBONATE 800 MG TAB (FP) PO SCH ×3 (09:39→17:27)
[2018-08-17] MEDS: HEPARIN NA (PORCINE) 5,000 UNITS/ML 1ML VIAL SQ SCH ×2 (09:39→21:24)
[2018-08-17] MEDS: RANITIDINE HCL 150 MG TABLET (FP) PO SCH ×2 (09:39→21:23)
[2018-08-17 09:43] LABS: CREATININE 9.9 mg/dL (0.55-1.3)
--- NOTE | 2018-08-17 10:34 | PN ---
Progress Note (short form) - Note Progress Note: pt seen/ examined sitting in chair feels well not confused making sense no complaints Vital Signs - 24 hr 08/16/18 08/16/18 08/16/18 14:58 18:07 21:00 Temperature 98.3 F 98.4 F Pulse Rate 83 81 Respiratory 20 18 Rate Blood Pressure 128/63 114/51 L O2 Sat by Pulse 98 Oximetry (%) 08/16/18 08/17/18 08/17/18 22:00 01:55 09:00 Temperature 97.8 F 97.9 F Pulse Rate 73 78 Respiratory 20 20 Rate Blood Pressure 154/67 108/49 L O2 Sat by Pulse 96 Oximetry (%) Current Medications Generic Name Dose Route Start Last Admin Trade Name Freq PRN Reason Stop Dose Admin Heparin Sodium (Porcine) 5,000 unit 08/15/18 22:00 08/17/18 09:39 Heparin - SQ 5,000 unit BID [facility] Administration Nafcillin Sodium 2 gm/ 100 mls @ 100 mls/hr 08/10/18 10:30 08/17/18 09:39 Dextrose IVPB 100 mls/hr Q6H-IV [facility] Administration Protocol Sodium Chloride 250 mls @ 3,000 mls/hr 08/16/18 11:55 Normal Saline - IV 08/17/18 11:55 PRN PRN Hypotension during Dialysis Insulin Aspart 1 vial 08/07/18 07:00 08/17/18 06:34 Novolog Vial Sliding Scale - SQ Not Given ACHS [facility] Protocol Insulin Detemir 10 units 08/10/18 22:00 08/16/18 22:33 Levemir Vial SQ 10 unit HS [facility] Administration Ondansetron HCl 4 mg 08/07/18 01:53 Zofran Injection IVPUSH Q6H PRN NAUSEA AND/OR VOMITING Ranitidine HCl 150 mg 08/08/18 11:15 08/17/18 09:39 Zantac - PO 150 mg BID [facility] Administration Sevelamer Carbonate 800 mg 08/07/18 08:00 08/17/18 09:39 Renvela - PO 800 mg TIDCM [facility] Administration Torsemide 80 mg 08/17/18 10:00 Demadex - PO DAILY [facility] Laboratory Results - last 24 hr 08/16/18 08/16/18 08/16/18 11:05 13:10 16:34 WBC RBC Hgb Hct MCV MCH MCHC RDW Plt Count MPV Absolute Neuts (auto) Neutrophils % Lymphocytes % Monocytes % Eosinophils % Basophils % Nucleated RBC % Sodium 137 Potassium 3.7 Chloride 96 L Carbon Dioxide 30 Anion Gap 11 BUN 35 H Creatinine 7.7 H* Creat Clearance w eGFR 7.18 POC Glucometer 136 218 Random Glucose 135 H Calcium 8.2 L Phosphorus 5.1 H 08/16/18 08/17/18 08/17/18 22:31 06:33 08:05 WBC 7.3 RBC 2.74 L Hgb 8.1 L Hct 24.3 L MCV 88.6 MCH 29.5 MCHC 33.2 RDW 17.8 H Plt Count 287 MPV 9.0 Absolute Neuts (auto) 5.5 Neutrophils % 75.5 Lymphocytes % 15.8 D Monocytes % 6.0 D Eosinophils % 2.1 Basophils % 0.6 Nucleated RBC % 0 Sodium Potassium Chloride Carbon Dioxide Anion Gap BUN Creatinine Creat Clearance w eGFR POC Glucometer 224 90 Random Glucose Calcium Phosphorus 08/17/18 08:05 WBC RBC Hgb Hct MCV MCH MCHC RDW Plt Count MPV Absolute Neuts (auto) Neutrophils % Lymphocytes % Monocytes % Eosinophils % Basophils % Nucleated RBC % Sodium 137 Potassium 3.7 Chloride 97 L Carbon Dioxide 26 Anion Gap 15 BUN 44 H Creatinine 9.9 H* Creat Clearance w eGFR 5.37 POC Glucometer Random Glucose 83 Calcium 8.3 L Phosphorus Physical Examination Constitutional: Yes: No Distress, morbidly obese Eyes: Yes: Conjunctiva Clear Neck: Yes: Supple Cardiovascular: Yes: Regular Rate and Rhythm Respiratory: Yes: Diminished Gastrointestinal: Yes: Soft. obese Extremities: Yes: Other (rue - dressing +)kassie+ Edema: No, no groin hematoma Neurological: Yes: Alert/ n/f Psychiatric: Yes: Alert Assessment/Plan Abx- as per ID blood cultures - one positive- staph. cultures prepeated cervical spine CT noted - no abscess- though it is non contrast study Pain under control Echo -no vegetations as per family, pt is AAOx3- independent - confusion is due to metabolic encephalopathy. continue with meds HD per Renal Problem List - Problems (1) Abdominal pain Code(s): R10.9 - UNSPECIFIED ABDOMINAL PAIN (2) Bacteremia Code(s): R78.81 - BACTEREMIA (3) Complication of vascular access for dialysis Code(s): T82.9XXA - UNSP COMP OF CARDIAC AND VASCULAR PROSTH DEV/GRFT, INIT Qualifiers: Encounter type: initial encounter Qualified Code(s): T82.9XXA - Unspecified complication of cardiac and vascular prosthetic device, implant and graft, initial encounter (4) ESRD (end stage renal disease) on dialysis Code(s): N18.6 - END STAGE RENAL DISEASE; Z99.2 - DEPENDENCE ON RENAL DIALYSIS (5) Fever Code(s): R50.9 - FEVER, UNSPECIFIED (6) AV fistula occlusion Code(s): T82.898A - [facility] COMPLICATION OF VASCULAR PROSTH DEV/GRFT, INIT (7) Sepsis associated with vascular access catheter Code(s): T82.7XXA - INFECT/INFLM REACT D/T OTH CARDI/VASC DEV/IMPLNT/GRFT, INIT ; A41.9 - SEPSIS, UNSPECIFIED ORGANISM (8) CHF (congestive heart failure) Code(s): I50.9 - HEART FAILURE, UNSPECIFIED Qualifiers: Heart failure type: diastolic
--- NOTE | 2018-08-17 11:11 | PN ---
Progress Note (short form) - Note Progress Note: Renal follow up for ESRD on HD Pt seen and examined at the bedside complains of epigastric pain that he described as reflux BP noted to be low this am no sob, cp, abd pain, fever, chills Vital Signs Temperature 97.9 F 08/17/18 01:55 Pulse Rate 78 08/17/18 01:55 Respiratory Rate 20 08/17/18 01:55 Blood Pressure 108/49 L 08/17/18 01:55 O2 Sat by Pulse Oximetry (%) 96 08/17/18 09:00 Intake & Output 08/14/18 08/15/18 08/16/18 08/17/18 23:59 23:59 23:59 23:59 Intake Total 600 400 Output Total 0 Balance 600 400 Weight 89.528 kg 87.203 kg 88.167 kg NAD Neck supple No JVD RRR CTA soft NT/ND No LE edema CBC, BMP 08/17/18 08:05 08/17/18 08:05 Microbiology 08/14/18 12:10 Blood - Peripheral Venous Blood Culture - Final Staphylococcus Aureus 08/14/18 12:15 Blood - Peripheral Venous Blood Culture - Preliminary NO GROWTH OBTAINED AFTER 48 HOURS, INCUBATION TO CONTINUE FOR 3 DAYS. Laboratory Tests 08/17/18 08/17/18 08:05 08:05 MCV 88.6 Calcium 8.3 L Current Medications Heparin Sodium (Porcine) (Heparin -) 5,000 unit SQ BID [facility] Last Admin: 08/17/18 09:39 Dose: 5,000 unit Nafcillin Sodium 2 gm/ (Dextrose) 100 mls @ 100 mls/hr IVPB Q6H-IV [facility]; Protocol Last Admin: 08/17/18 09:39 Dose: 100 mls/hr Sodium Chloride (Normal Saline -) 250 mls @ 3,000 mls/hr IV PRN PRN PRN Reason: Hypotension during Dialysis Stop: 08/17/18 11:55 Insulin Aspart (Novolog Vial Sliding Scale -) 1 vial SQ ACHS [facility]; Protocol Last Admin: 08/17/18 06:34 Dose: Not Given Insulin Detemir (Levemir Vial) 10 units SQ HS [facility] Last Admin: 08/16/18 22:33 Dose: 10 unit Ondansetron HCl (Zofran Injection) 4 mg IVPUSH Q6H PRN PRN Reason: NAUSEA AND/OR VOMITING Ranitidine HCl (Zantac -) 150 mg PO BID [facility] Last Admin: 08/17/18 09:39 Dose: 150 mg Sevelamer Carbonate (Renvela -) 800 mg PO TIDCM [facility] Last Admin: 08/17/18 09:39 Dose: 800 mg Torsemide (Demadex -) 80 mg PO DAILY [facility] 62 year old gentleman with hx of ESRD on HD, Hypertension, Anemia presented with Abd pain and found to have MSSA bacteremia with infected AVG site. 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
[2018-08-17] MEDS: TORSEMIDE 20 MG TABLET (FP) PO SCH (11:13)
[2018-08-17] MEDS ORDERED: EPOETIN ALFA 20,000 UNIT/1 ML VIAL SQ SCH (11:15)
--- NOTE | 2018-08-17 11:19 | PN ---
Progress Note, Physician History of Present Illness: patient stable no new issues repeat cx noted - Current Medication List Current Medications: Active Medications Epoetin Nelson (Procrit -) 20,000 unit SQ MOWEFR [facility] Heparin Sodium (Porcine) (Heparin -) 5,000 unit SQ BID [facility] Last Admin: 08/17/18 09:39 Dose: 5,000 unit Nafcillin Sodium 2 gm/ (Dextrose) 100 mls @ 100 mls/hr IVPB Q6H-IV [facility]; Protocol Last Admin: 08/17/18 09:39 Dose: 100 mls/hr Sodium Chloride (Normal Saline -) 250 mls @ 3,000 mls/hr IV PRN PRN PRN Reason: Hypotension during Dialysis Stop: 08/17/18 11:55 Insulin Aspart (Novolog Vial Sliding Scale -) 1 vial SQ ACHS [facility]; Protocol Last Admin: 08/17/18 06:34 Dose: Not Given Insulin Detemir (Levemir Vial) 10 units SQ HS [facility] Last Admin: 08/16/18 22:33 Dose: 10 unit Ondansetron HCl (Zofran Injection) 4 mg IVPUSH Q6H PRN PRN Reason: NAUSEA AND/OR VOMITING Ranitidine HCl (Zantac -) 150 mg PO BID [facility] Last Admin: 08/17/18 09:39 Dose: 150 mg Sevelamer Carbonate (Renvela -) 800 mg PO TIDCM [facility] Last Admin: 08/17/18 09:39 Dose: 800 mg Torsemide (Demadex -) 80 mg PO DAILY [facility] Last Admin: 08/17/18 11:13 Dose: Not Given - Objective Vital Signs: Vital Signs Temperature 98.2 F 08/17/18 10:00 Pulse Rate 76 08/17/18 10:00 Respiratory Rate 20 08/17/18 10:00 Blood Pressure 96/62 08/17/18 10:00 O2 Sat by Pulse Oximetry (%) 96 08/17/18 09:00 Constitutional: Yes: No Distress, Calm Cardiovascular: Yes: Regular Rate and Rhythm Respiratory: Yes: Regular, CTA Bilaterally Gastrointestinal: Yes: Normal Bowel Sounds, Soft Musculoskeletal: Yes: WNL Extremities: Yes: WNL Neurological: Yes: Alert, Oriented Psychiatric: Yes: Alert, Oriented Labs: CBC, BMP 08/17/18 08:05 08/17/18 08:05 INR, PTT INR 1.39 (0.83-1.09) H 08/06/18 23:00 Assessment/Plan Problem List - Problems (1) Abdominal pain Code(s): R10.9 - UNSPECIFIED ABDOMINAL PAIN (2) Fever Code(s): R50.9 - FEVER, UNSPECIFIED (3) ESRD (end stage renal disease) on dialysis Code(s): N18.6 - END STAGE RENAL DISEASE; Z99.2 - DEPENDENCE ON RENAL DIALYSIS (4) Presence of arterial-venous shunt (for dialysis) Code(s): Z99.2 - DEPENDENCE ON RENAL DIALYSIS Assessment/Plan 62 y.o. male with PMH of ESRD on HD, AVF/Graft, DM, and HTN presenting with Lt sided abdominal pain, fevers, and RUE AVF site blister formation/mild bleeding/ mild tenderness Sepsis/ Staph aureus bacteremia Infection of AVG - s/p excision ESRD on HD DM HTN patient continues to be positive now one of his blood cx showing probably enetrococcus plan continue current abx await repeat blood cx rest as per the team
[2018-08-17] MEDS ORDERED: PANTOPRAZOLE SODIUM 40 MG VIAL IVPUSH ONE (11:57)
--- NOTE | 2018-08-17 16:33 | PN ---
Progress Note (short form) - Note Progress Note: Chief Complaint: syncope History of Present Illness: no cp sob palps dizzy ex cigs - Current Medication List Current Medications Generic Name Dose Route Start Last Admin Trade Name Nahomy PRN Reason Stop Dose Admin Epoetin Nelson 20,000 unit 08/17/18 11:15 08/17/18 15:12 Procrit - SQ 20,000 unit MOWEFR RASHEEDA Administration Heparin Sodium (Porcine) 5,000 unit 08/15/18 22:00 08/17/18 09:39 Heparin - SQ 5,000 unit BID RASHEEDA Administration Nafcillin Sodium 2 gm/ 100 mls @ 100 mls/hr 08/10/18 10:30 08/17/18 15:12 Dextrose IVPB 100 mls/hr Q6H-IV RASHEEDA Administration Protocol Insulin Aspart 1 vial 08/07/18 07:00 08/17/18 11:31 Novolog Vial Sliding Scale - SQ Not Given ACHS RASHEEDA Protocol Insulin Detemir 10 units 08/10/18 22:00 08/16/18 22:33 Levemir Vial SQ 10 unit HS RASHEEDA Administration Ondansetron HCl 4 mg 08/07/18 01:53 Zofran Injection IVPUSH Q6H PRN NAUSEA AND/OR VOMITING Ranitidine HCl 150 mg 08/08/18 11:15 08/17/18 09:39 Zantac - PO 150 mg BID RASHEEDA Administration Sevelamer Carbonate 800 mg 08/07/18 08:00 08/17/18 11:45 Renvela - PO 800 mg TIDCM RASHEEDA Administration Torsemide 80 mg 08/17/18 10:00 08/17/18 11:13 Demadex - PO Not Given DAILY RASHEEDA - Objective Vital Signs: Vital Signs Period Temp Pulse Resp BP Sys/Jackson Pulse Ox Last 24 Hr 97.8 F-98.5 F 73-83 18-20 96-154/49-67 96-98 Constitutional: Yes: No Distress, Calm Eyes: No: Sclera Icterus Cardiovascular: Yes: Regular Rate and Rhythm, S1, S2, Other (PMI non diplaced). No: JVD (tds neck habitus), Gallop, Murmur Respiratory: Yes: CTA Bilaterally. No: Accessory Muscle Use, Rales, Wheezes Gastrointestinal: Yes: Normal Bowel Sounds, Soft. No: Tenderness Extremities: No: Cyanosis Edema: No Integumentary: No: Jaundice diaphoresis Neurological: Yes: Alert. No: Seizure Psychiatric: No: Agitated Labs: CBC, BMP 08/17/18 08:05 08/17/18 08:05 Assessment/Plan Echo 07/2018 nl LV size, EF 40-45%, E/A reversal, RV nl, LA nl Carotid dopplers: IJ thrombosis Syncope - patient denies history of syncope, however he complained of this per on 08/07 RN...he is poor historian. - here with old IJ clot per vascular--no AC indicated - was hypoxic to 86% on 08/06, normal sats since - mild tachycardia, suspect infection related - rec CTA chest PE protocol to confirm no PE to explain syncope and these other findings--d/w'd renal (trevon), pt should tolerate the IV contrast bolus. test has been postponed again as pt does not have large enough IV, d/w nursing they will attempt larger IV - echo showed EF 40-45%, unclear if new, pt says no cardiac hx, unlikely to have contributed to syncope - may be vasovagal vs orthostatic, appears less likely cardiac etiology chest/abd pain, pos troponin - trop 0.14->0.15 on admission, has been constant since surgery and is worse with different positions, + worse with palpation. - trend and history not c/w ACS, unlikely cardiac etiology Cardiomyopathy - EF 40-45% - has had borderline BPs, if stable after resuming HD would consider adding ACEI /BB - appears euvolemic currently, volume management with HD per renal +/- po torsemide - would consider outpatient ischemic evaluation after acute issues resolved ESRD on HD - HD per renal fever/bacteremia - avg removed, on abx per ID
[2018-08-17] MEDS: INSULIN (LEVEMIR) 100 UNITS/ML UNITS SQ SCH (21:34)
[2018-08-18] MEDS ORDERED: PT OWN MED DRAWER 7, Y5N ONE ×4 (02:11→20:47)
[2018-08-18] MEDS: NAFCILLIN - 2 GM in DEXTROSE 5%-WATER - 100 ML IVPB SCH ×4 (02:17→21:07)
[2018-08-18] MEDS: INSULIN SLIDING SCALE (NOVOLOG) 1 VIAL SQ SCH ×4 (06:04→21:08)
[2018-08-18 08:04] LABS: ANION GAP 14 MMOL/L (8-16); BLOOD UREA NITROGEN 54 mg/dL (7-18); CALCIUM 8.4 mg/dL (8.5-10.1); CHLORIDE 96 mmol/L (98-107); CO2 27 mmol/L (21-32); GLUCOSE,RANDOM 92 mg/dL (74-106); POTASSIUM 3.7 mmol/L (3.5-5.1); SODIUM 137 mmol/L (136-145)
--- NOTE | 2018-08-18 08:07 | SPA.PREOP ---
- PRE-OP NOTE Dx: ESRD and needs exterminator access Planned Procedure: Permacatheter Insertion Surgeon: Shahbaz Cueto Consent: To be obtained by surgeon after risks, benefits and alternatives explained to patient. Last Vital Signs Temp Pulse Resp BP Pulse Ox 97.5 F L 77 20 144/78 96 08/18/18 06:33 08/18/18 06:33 08/18/18 06:33 08/18/18 06:33 08/17/18 21:00 Lab Results WBC 7.3 K/mm3 (4.0-10.0) 08/17/18 08:05 RBC 2.74 M/mm3 (4.00-5.60) L 08/17/18 08:05 Hgb 8.1 GM/dL (11.7-16.9) L 08/17/18 08:05 Hct 24.3 % (35.4-49) L 08/17/18 08:05 MCV 88.6 fl (80-96) 08/17/18 08:05 MCHC 33.2 g/dl (32.0-35.9) 08/17/18 08:05 RDW 17.8 % (11.9-15.9) H 08/17/18 08:05 Plt Count 287 K/MM3 (134-434) 08/17/18 08:05 Sodium 137 mmol/L (136-145) 08/18/18 06:00 Potassium 3.7 mmol/L (3.5-5.1) 08/18/18 06:00 Chloride 96 mmol/L (98-107) L 08/18/18 06:00 Carbon Dioxide 27 mmol/L (21-32) 08/18/18 06:00 Anion Gap 14 MMOL/L (8-16) 08/18/18 06:00 BUN 54 mg/dL (7-18) H 08/18/18 06:00 Creatinine 9.9 mg/dL (0.55-1.3) H* 08/17/18 08:05 Random Glucose 92 mg/dL (74-106) 08/18/18 06:00 Calcium 8.4 mg/dL (8.5-10.1) L 08/18/18 06:00 Blood Type O POSITIVE 08/06/18 23:37 Antibody Screen Negative 08/06/18 23:37 INR 1.39 (0.83-1.09) H 08/06/18 23:00 - ASSESSMENT/PLAN 1. Make NPO after midnight except po meds 2. GI/DVT PPX 3. Medical optimization / clearance Problem List - Problems (1) ESRD (end stage renal disease) on dialysis Code(s): N18.6 - END STAGE RENAL DISEASE; Z99.2 - DEPENDENCE ON RENAL DIALYSIS (2) Sepsis associated with vascular access catheter Assessment/Plan: f/u FINAL cultures prior too procedure ID clearance Code(s): T82.7XXA - INFECT/INFLM REACT D/T OTH CARDI/VASC DEV/IMPLNT/GRFT, INIT ; A41.9 - SEPSIS, UNSPECIFIED ORGANISM Visit type - Case Type Case Type: ED Admission
[2018-08-18 09:05] LABS: CREATININE 12.3 mg/dL (0.55-1.3)
[2018-08-18] MEDS: SEVELAMER CARBONATE 800 MG TAB (FP) PO SCH ×3 (09:26→17:49)
[2018-08-18] MEDS: HEPARIN NA (PORCINE) 5,000 UNITS/ML 1ML VIAL SQ SCH ×2 (09:26→21:07)
[2018-08-18] MEDS: RANITIDINE HCL 150 MG TABLET (FP) PO SCH ×2 (09:26→21:08)
[2018-08-18] MEDS: TORSEMIDE 20 MG TABLET (FP) PO SCH (09:26)
--- NOTE | 2018-08-18 10:10 | PN ---
Progress Note (short form) - Note Progress Note: pt seen/ examined sitting in chair feels well not confused making sense no complaints Vital Signs - 24 hr 08/17/18 08/17/18 08/17/18 14:43 18:47 21:00 Temperature 98.5 F 98.6 F Pulse Rate 83 78 Respiratory 20 20 22 H Rate Blood Pressure 121/52 L 133/63 O2 Sat by Pulse 96 Oximetry (%) 08/17/18 08/18/18 22:00 06:33 Temperature 98.2 F 97.5 F L Pulse Rate 85 77 Respiratory 22 H 20 Rate Blood Pressure 121/53 L 144/78 O2 Sat by Pulse Oximetry (%) Current Medications Generic Name Dose Route Start Last Admin Trade Name Freq PRN Reason Stop Dose Admin Epoetin Nelson 20,000 unit 08/17/18 11:15 08/17/18 15:12 Procrit - SQ 20,000 unit MOWEFR RASHEEDA Administration Heparin Sodium (Porcine) 5,000 unit 08/15/18 22:00 08/18/18 09:26 Heparin - SQ 5,000 unit BID RASHEEDA Administration Nafcillin Sodium 2 gm/ 100 mls @ 100 mls/hr 08/10/18 10:30 08/18/18 09:20 Dextrose IVPB 100 mls/hr Q6H-IV RASHEEDA Administration Protocol Insulin Aspart 1 vial 08/07/18 07:00 08/18/18 06:04 Novolog Vial Sliding Scale - SQ Not Given ACHS RASHEEDA Protocol Insulin Detemir 10 units 08/10/18 22:00 08/17/18 21:34 Levemir Vial SQ 10 unit HS RASHEEDA Administration Ondansetron HCl 4 mg 08/07/18 01:53 Zofran Injection IVPUSH Q6H PRN NAUSEA AND/OR VOMITING Ranitidine HCl 150 mg 08/08/18 11:15 08/18/18 09:26 Zantac - PO 150 mg BID RASHEEDA Administration Sevelamer Carbonate 800 mg 08/07/18 08:00 08/18/18 09:26 Renvela - PO 800 mg TIDCM RASHEEDA Administration Torsemide 80 mg 08/17/18 10:00 08/18/18 09:26 Demadex - PO 80 mg DAILY RASHEEDA Administration Laboratory Results - last 24 hr 08/17/18 08/17/18 08/17/18 11:28 16:56 21:26 Sodium Potassium Chloride Carbon Dioxide Anion Gap BUN Creatinine Creat Clearance w eGFR POC Glucometer 142 175 146 Random Glucose Calcium 08/18/18 08/18/18 06:00 06:03 Sodium 137 Potassium 3.7 Chloride 96 L Carbon Dioxide 27 Anion Gap 14 BUN 54 H Creatinine 12.3 H* Creat Clearance w eGFR 4.18 POC Glucometer 97 Random Glucose 92 Calcium 8.4 L Physical Examination Constitutional: Yes: No Distress, morbidly obese Eyes: Yes: Conjunctiva Clear Neck: Yes: Supple Cardiovascular: Yes: Regular Rate and Rhythm Respiratory: Yes: Diminished Gastrointestinal: Yes: Soft. obese Extremities: Yes: Other (rue - dressing +)kassie+ Edema: No, no groin hematoma Neurological: Yes: Alert/ n/f Psychiatric: Yes: Alert Assessment/Plan Abx- as per ID blood cultures - one positive- staph. cultures repeated cervical spine CT noted - no abscess- though it is non contrast study Pain under control Echo -no vegetations HD per Renal Problem List - Problems (1) Abdominal pain Code(s): R10.9 - UNSPECIFIED ABDOMINAL PAIN (2) Bacteremia Code(s): R78.81 - BACTEREMIA (3) Complication of vascular access for dialysis Code(s): T82.9XXA - UNSP COMP OF CARDIAC AND VASCULAR PROSTH DEV/GRFT, INIT Qualifiers: Encounter type: initial encounter Qualified Code(s): T82.9XXA - Unspecified complication of cardiac and vascular prosthetic device, implant and graft, initial encounter (4) ESRD (end stage renal disease) on dialysis Code(s): N18.6 - END STAGE RENAL DISEASE; Z99.2 - DEPENDENCE ON RENAL DIALYSIS (5) Fever Code(s): R50.9 - FEVER, UNSPECIFIED (6) AV fistula occlusion Code(s): T82.898A - OTH COMPLICATION OF VASCULAR PROSTH DEV/GRFT, INIT (7) Sepsis associated with vascular access catheter Code(s): T82.7XXA - INFECT/INFLM REACT D/T OTH CARDI/VASC DEV/IMPLNT/GRFT, INIT ; A41.9 - SEPSIS, UNSPECIFIED ORGANISM (8) CHF (congestive heart failure) Code(s): I50.9 - HEART FAILURE, UNSPECIFIED Qualifiers: Heart failure type: diastolic
--- NOTE | 2018-08-18 11:23 | PN ---
Progress Note (short form) - Note Progress Note: Renal follow up for ESRD on HD Pt seen and examined at the bedside no acute complaints no fever, chills, sob, cp, abd pain, N/V/D Vital Signs Temperature 97.5 F L 08/18/18 06:33 Pulse Rate 77 08/18/18 06:33 Respiratory Rate 20 08/18/18 06:33 Blood Pressure 144/78 08/18/18 06:33 O2 Sat by Pulse Oximetry (%) 96 08/17/18 21:00 Intake & Output 08/15/18 08/16/18 08/17/18 08/18/18 23:59 23:59 23:59 23:59 Intake Total 600 400 300 100 Output Total 0 Balance 600 400 300 100 Weight 89.528 kg 87.203 kg 88.167 kg 88.932 kg NAD Neck supple No JVD RRR CTA soft NT/ND No LE edema CBC, BMP 08/17/18 08:05 08/18/18 06:00 Microbiology 08/14/18 12:15 Blood - Peripheral Venous Blood Culture - Final Staphylococcus Latex Coag Pos 08/14/18 12:10 Blood - Peripheral Venous Blood Culture - Final Staphylococcus Aureus 08/16/18 12:25 Blood - Peripheral Venous Blood Culture - Preliminary NO GROWTH OBTAINED AFTER 24 HOURS, INCUBATION TO CONTINUE FOR 4 DAYS. 08/16/18 12:10 Blood - Peripheral Venous Blood Culture - Preliminary NO GROWTH OBTAINED AFTER 24 HOURS, INCUBATION TO CONTINUE FOR 4 DAYS. Laboratory Tests 08/18/18 06:00 Calcium 8.4 L Current Medications Epoetin Nelson (Procrit -) 20,000 unit SQ MOWEFR RASHEEDA Last Admin: 08/17/18 15:12 Dose: 20,000 unit Heparin Sodium (Porcine) (Heparin -) 5,000 unit SQ BID RASHEEDA Last Admin: 08/18/18 09:26 Dose: 5,000 unit Nafcillin Sodium 2 gm/ (Dextrose) 100 mls @ 100 mls/hr IVPB Q6H-IV RASHEEDA; Protocol Last Admin: 08/18/18 09:20 Dose: 100 mls/hr Insulin Aspart (Novolog Vial Sliding Scale -) 1 vial SQ ACHS [facility]; Protocol Last Admin: 08/18/18 06:04 Dose: Not Given Insulin Detemir (Levemir Vial) 10 units SQ HS [facility] Last Admin: 08/17/18 21:34 Dose: 10 unit Ondansetron HCl (Zofran Injection) 4 mg IVPUSH Q6H PRN PRN Reason: NAUSEA AND/OR VOMITING Ranitidine HCl (Zantac -) 150 mg PO BID [facility] Last Admin: 08/18/18 09:26 Dose: 150 mg Sevelamer Carbonate (Renvela -) 800 mg PO TIDCM [facility] Last Admin: 08/18/18 09:26 Dose: 800 mg Torsemide (Demadex -) 80 mg PO DAILY [facility] Last Admin: 08/18/18 09:26 Dose: 80 mg 62 year old gentleman with hx of ESRD on HD, Hypertension, Anemia presented with Abd pain and found to have MSSA bacteremia with infected AVG site. #Sepsis/MSSA bacteremia (persistent), #ESRD on HD #Hypertension #Anemia requiring PRBC transfusion #Renal osteodystrophy will defer tunneled catheter placement until next week as per ID recs f/u cultures from as they are still negative will plan for temporary dialysis cathter placement tomorrow for HD continue Abx as per ID JANES as per ID recs Roderick Jameson DO
--- NOTE | 2018-08-18 12:16 | PN ---
Progress Note, Physician History of Present Illness: patient stable repeat blood cx remaining negative so far patient stable tolerating - Current Medication List Current Medications: Active Medications Epoetin Nelson (Procrit -) 20,000 unit SQ MOWEFR [facility] Last Admin: 08/17/18 15:12 Dose: 20,000 unit Heparin Sodium (Porcine) (Heparin -) 5,000 unit SQ BID [facility] Last Admin: 08/18/18 09:26 Dose: 5,000 unit Nafcillin Sodium 2 gm/ (Dextrose) 100 mls @ 100 mls/hr IVPB Q6H-IV [facility]; Protocol Last Admin: 08/18/18 09:20 Dose: 100 mls/hr Insulin Aspart (Novolog Vial Sliding Scale -) 1 vial SQ ACHS [facility]; Protocol Last Admin: 08/18/18 06:04 Dose: Not Given Insulin Detemir (Levemir Vial) 10 units SQ HS [facility] Last Admin: 08/17/18 21:34 Dose: 10 unit Ondansetron HCl (Zofran Injection) 4 mg IVPUSH Q6H PRN PRN Reason: NAUSEA AND/OR VOMITING Ranitidine HCl (Zantac -) 150 mg PO BID [facility] Last Admin: 08/18/18 09:26 Dose: 150 mg Sevelamer Carbonate (Renvela -) 800 mg PO TIDCM [facility] Last Admin: 08/18/18 09:26 Dose: 800 mg Torsemide (Demadex -) 80 mg PO DAILY [facility] Last Admin: 08/18/18 09:26 Dose: 80 mg - Objective Vital Signs: Vital Signs Temperature 97.5 F L 08/18/18 06:33 Pulse Rate 77 08/18/18 06:33 Respiratory Rate 20 08/18/18 06:33 Blood Pressure 144/78 08/18/18 06:33 O2 Sat by Pulse Oximetry (%) 96 08/17/18 21:00 Constitutional: Yes: No Distress, Calm Cardiovascular: Yes: Regular Rate and Rhythm Respiratory: Yes: Regular, CTA Bilaterally Gastrointestinal: Yes: Normal Bowel Sounds, Soft Musculoskeletal: Yes: WNL Extremities: Yes: Other Neurological: Yes: Alert Psychiatric: Yes: Alert Labs: CBC, BMP 08/17/18 08:05 08/18/18 06:00 INR, PTT INR 1.39 (0.83-1.09) H 10/27/18 23:00 Assessment/Plan Problem List - Problems (1) Abdominal pain Code(s): R10.9 - UNSPECIFIED ABDOMINAL PAIN (2) Fever Code(s): R50.9 - FEVER, UNSPECIFIED (3) ESRD (end stage renal disease) on dialysis Code(s): N18.6 - END STAGE RENAL DISEASE; Z99.2 - DEPENDENCE ON RENAL DIALYSIS (4) Presence of arterial-venous shunt (for dialysis) Code(s): Z99.2 - DEPENDENCE ON RENAL DIALYSIS Assessment/Plan 62 y.o. male with PMH of ESRD on HD, AVF/Graft, DM, and HTN presenting with Lt sided abdominal pain, fevers, and RUE AVF site blister formation/mild bleeding/ mild tenderness Sepsis/ Staph aureus bacteremia Infection of AVG - s/p excision ESRD on HD DM HTN plan continue abx repeat cx negative rest as per the team patient remaining stable
--- NOTE | 2018-08-18 15:52 | PN ---
Progress Note (short form) - Note Progress Note: Chief Complaint: syncope History of Present Illness: no cp sob palps dizzy, feels well ex cigs - Current Medication List Current Medications Epoetin Nelson (Procrit -) 20,000 unit SQ MOWEFR [facility] Last Admin: 08/17/18 15:12 Dose: 20,000 unit Heparin Sodium (Porcine) (Heparin -) 5,000 unit SQ BID [facility] Last Admin: 08/18/18 09:26 Dose: 5,000 unit Nafcillin Sodium 2 gm/ (Dextrose) 100 mls @ 100 mls/hr IVPB Q6H-IV [facility]; Protocol Last Admin: 08/18/18 15:39 Dose: 100 mls/hr Insulin Aspart (Novolog Vial Sliding Scale -) 1 vial SQ ACHS [facility]; Protocol Last Admin: 08/18/18 13:13 Dose: Not Given Insulin Detemir (Levemir Vial) 10 units SQ HS [facility] Last Admin: 08/17/18 21:34 Dose: 10 unit Ondansetron HCl (Zofran Injection) 4 mg IVPUSH Q6H PRN PRN Reason: NAUSEA AND/OR VOMITING Ranitidine HCl (Zantac -) 150 mg PO BID [facility] Last Admin: 08/18/18 09:26 Dose: 150 mg Sevelamer Carbonate (Renvela -) 800 mg PO TIDCM [facility] Last Admin: 08/18/18 13:13 Dose: 800 mg Torsemide (Demadex -) 80 mg PO DAILY [facility] Last Admin: 08/18/18 09:26 Dose: 80 mg - Objective Vital Signs: Vital Signs Period Temp Pulse Resp BP Sys/Jackson Pulse Ox Last 24 Hr 97.5 F-98.6 F 77-85 18-22 110-144/53-78 96-100 Constitutional: Yes: No Distress, Calm Eyes: No: Sclera Icterus Cardiovascular: Yes: Regular Rate and Rhythm, S1, S2, Other (PMI non diplaced). No: JVD (tds neck habitus), Gallop, Murmur Respiratory: Yes: CTA Bilaterally. No: Accessory Muscle Use, Rales, Wheezes Gastrointestinal: Yes: Normal Bowel Sounds, Soft. No: Tenderness Extremities: No: Cyanosis Edema: No Integumentary: No: Jaundice diaphoresis Neurological: Yes: Alert. No: Seizure Psychiatric: No: Agitated Assessment/Plan Echo 07/2018 nl LV size, EF 40-45%, E/A reversal, RV nl, LA nl Carotid dopplers: IJ thrombosis Syncope - patient denies history of syncope, however he complained of this per on 08/07 RN...he is poor historian. - here with old IJ clot per vascular--no AC indicated - was hypoxic to 86% on 08/06, normal sats since - mild tachycardia, suspect infection related - rec CTA chest PE protocol to confirm no PE to explain syncope and these other findings--d/w'd renal (trevon), pt should tolerate the IV contrast bolus. test has been postponed pt does not have large enough IV, difficult IV access - echo showed EF 40-45%, unclear if new, pt says no cardiac hx, unlikely to have contributed to syncope - may be vasovagal vs orthostatic, appears less likely cardiac etiology chest/abd pain, pos troponin - trop 0.14->0.15 on admission, has been constant since surgery and is worse with different positions, + worse with palpation. - trend and history not c/w ACS, unlikely cardiac etiology Cardiomyopathy - EF 40-45% - has had borderline BPs, if stable after resuming HD would consider adding ACEI /BB - appears euvolemic currently, volume management with HD per renal, torsemide - would consider outpatient ischemic evaluation after acute issues resolved ESRD on HD - HD per renal fever/bacteremia - avg removed, on abx per ID
[2018-08-18] MEDS: INSULIN (LEVEMIR) 100 UNITS/ML UNITS SQ SCH (21:07)
[2018-08-19] MEDS ORDERED: PT OWN MED DRAWER 7, Y5N ONE ×3 (02:21→21:24)
[2018-08-19] MEDS: NAFCILLIN - 2 GM in DEXTROSE 5%-WATER - 100 ML IVPB SCH ×4 (02:31→21:28)
[2018-08-19] MEDS: INSULIN SLIDING SCALE (NOVOLOG) 1 VIAL SQ SCH ×4 (06:16→21:31)
[2018-08-19] MEDS ORDERED: HEPARIN NA (PORCINE) 5,000 UNITS/ML 1ML VIAL IVPUSH ONE (07:42)
[2018-08-19] MEDS: SEVELAMER CARBONATE 800 MG TAB (FP) PO SCH ×3 (09:15→16:32)
[2018-08-19] MEDS: HEPARIN NA (PORCINE) 5,000 UNITS/ML 1ML VIAL SQ SCH ×2 (09:16→21:28)
[2018-08-19] MEDS: RANITIDINE HCL 150 MG TABLET (FP) PO SCH ×2 (09:16→21:29)
[2018-08-19] MEDS: TORSEMIDE 20 MG TABLET (FP) PO SCH (09:18)
--- NOTE | 2018-08-19 09:44 | PN ---
Progress Note, Physician History of Present Illness: patient stable no new issues cx remaining negative so far temporary dialysis catheter placed - Current Medication List Current Medications: Active Medications Epoetin Nelson (Procrit -) 20,000 unit SQ MoWeFr@1000 RASHEEDA Heparin Sodium (Porcine) (Heparin -) 5,000 unit SQ BID [facility] Last Admin: 08/19/18 09:16 Dose: 5,000 unit Nafcillin Sodium 2 gm/ (Dextrose) 100 mls @ 100 mls/hr IVPB Q6H-IV [facility]; Protocol Last Admin: 08/19/18 09:15 Dose: 100 mls/hr Insulin Aspart (Novolog Vial Sliding Scale -) 1 vial SQ ACHS [facility]; Protocol Last Admin: 08/19/18 06:16 Dose: Not Given Insulin Detemir (Levemir Vial) 10 units SQ HS [facility] Last Admin: 08/18/18 21:07 Dose: 10 unit Ondansetron HCl (Zofran Injection) 4 mg IVPUSH Q6H PRN PRN Reason: NAUSEA AND/OR VOMITING Ranitidine HCl (Zantac -) 150 mg PO BID [facility] Last Admin: 08/19/18 09:16 Dose: 150 mg Sevelamer Carbonate (Renvela -) 800 mg PO TIDCM [facility] Last Admin: 08/19/18 09:15 Dose: 800 mg Torsemide (Demadex -) 80 mg PO DAILY [facility] Last Admin: 08/19/18 09:18 Dose: 80 mg - Objective Vital Signs: Vital Signs Temperature 97.5 F L 08/19/18 09:12 Pulse Rate 84 08/19/18 09:12 Respiratory Rate 18 08/19/18 09:12 Blood Pressure 103/68 08/19/18 09:12 O2 Sat by Pulse Oximetry (%) 96 08/18/18 21:00 Constitutional: Yes: No Distress, Calm Cardiovascular: Yes: Regular Rate and Rhythm Respiratory: Yes: Regular, CTA Bilaterally Gastrointestinal: Yes: Normal Bowel Sounds, Soft Musculoskeletal: Yes: WNL Extremities: Yes: Other Neurological: Yes: Alert, Oriented Psychiatric: Yes: Alert, Oriented Labs: CBC, BMP 08/17/18 08:05 08/18/18 06:00 INR, PTT INR 1.39 (0.83-1.09) H 08/06/18 23:00 Assessment/Plan Problem List - Problems (1) Abdominal pain Code(s): R10.9 - UNSPECIFIED ABDOMINAL PAIN (2) Fever Code(s): R50.9 - FEVER, UNSPECIFIED (3) ESRD (end stage renal disease) on dialysis Code(s): N18.6 - END STAGE RENAL DISEASE; Z99.2 - DEPENDENCE ON RENAL DIALYSIS (4) Presence of arterial-venous shunt (for dialysis) Code(s): Z99.2 - DEPENDENCE ON RENAL DIALYSIS Assessment/Plan 62 y.o. male with PMH of ESRD on HD, AVF/Graft, DM, and HTN presenting with Lt sided abdominal pain, fevers, and RUE AVF site blister formation/mild bleeding/ mild tenderness Sepsis/ Staph aureus bacteremia Infection of AVG - s/p excision ESRD on HD DM HTN blood cx still negative plan continue monitoring if blood cx remain negative can place a permacath on wednesday rest as per the team dialysis
--- NOTE | 2018-08-19 10:01 | PROC ---
Central Line Insertion - Procedure Note TIME OUT performed prior to this procedure with verbal confirmation of correct patient identity, correct side, agreement of the procedure, correct patient position, availability of necessary equipment. The consent form is complete and accurate. Risk of possible infection, bleeding and pneumothorax have been discussed with the patient. Safety precautions based on patient history or medication use has been addressed. Indication: Other (dialysis) Central Line: Dialysis Cath, Dual Lumen, Other (Shiley catheter) Position: Supine Area prepped with Chlorhexidine solution then draped using sterile barrier protection. Anesthesia: Lidocaine 1% Technique used: Seldinger Ultrasound Guided Assistance: Yes Site: Left Femoral Dark venous non-pulsatile flow noted from hub of needle. The catheter was introduced. Guide wire removed intact. Each port aspirated then flushed with sterile normal saline and capped. Line secured to skin with silk suture. Biopatch placed around base of line. Sterile occlusive dressing applied. No complications. Patient tolerated the procedure well. Lines flushed with Heparin- written directly on the dressing. Jesica Tucker PA-C was present and assisted throughout the entire procedure.
[2018-08-19] MEDS ORDERED: EPOETIN ALFA 10,000 UNIT/1 ML VIAL SQ ONE (10:36)
--- NOTE | 2018-08-19 11:18 | PN ---
Progress Note (short form) - Note Progress Note: pt seen/ examined chart reviewed awake/ comfortable denies pain Shiley placed today Dialysis later today Repeat cultures -now ve so far. Vital Signs Temp 97.5 F L 08/19/18 09:12 Pulse 84 08/19/18 09:12 Resp 18 08/19/18 09:12 BP 103/68 08/19/18 09:12 Pulse Ox 96 08/18/18 21:00 Intake & Output 08/18/18 08/18/18 08/19/18 11:59 23:59 11:59 Intake Total 100 250 Balance 100 250 Weight 196 lb 1 oz 187 lb 11.2 oz Intake: IV 0 sl2 0 IVPB 100 100 Oral 150 Other: Voiding Method Toilet Toilet Toilet # Unmeasured Voids Void 2 1 Bowel Movement Yes Yes No # Bowel Movements 4 1 Weight Measurement Method Standing Scale Standing Scale Active Medications Epoetin Nelson (Procrit -) 20,000 unit SQ MoWeFr@1000 [facility] Heparin Sodium (Porcine) (Heparin -) 5,000 unit SQ BID [facility] Last Admin: 08/19/18 09:16 Dose: 5,000 unit Nafcillin Sodium 2 gm/ (Dextrose) 100 mls @ 100 mls/hr IVPB Q6H-IV [facility]; Protocol Last Admin: 08/19/18 09:15 Dose: 100 mls/hr Insulin Aspart (Novolog Vial Sliding Scale -) 1 vial SQ ACHS [facility]; Protocol Last Admin: 08/19/18 06:16 Dose: Not Given Insulin Detemir (Levemir Vial) 10 units SQ HS [facility] Last Admin: 08/18/18 21:07 Dose: 10 unit Ondansetron HCl (Zofran Injection) 4 mg IVPUSH Q6H PRN PRN Reason: NAUSEA AND/OR VOMITING Ranitidine HCl (Zantac -) 150 mg PO BID [facility] Last Admin: 08/19/18 09:16 Dose: 150 mg Sevelamer Carbonate (Renvela -) 800 mg PO TIDCM [facility] Last Admin: 08/19/18 09:15 Dose: 800 mg Torsemide (Demadex -) 80 mg PO DAILY [facility] Last Admin: 08/19/18 09:18 Dose: 80 mg CBC, BMP 08/17/18 08:05 08/18/18 06:00 Microbiology 08/18/18 06:45 Blood Culture - Preliminary Blood - Peripheral Venous NO GROWTH OBTAINED AFTER 24 HOURS, INCUBATION TO CONTINUE FOR 4 DAYS. 08/18/18 06:00 Blood Culture - Preliminary Blood - Peripheral Venous NO GROWTH OBTAINED AFTER 24 HOURS, INCUBATION TO CONTINUE FOR 4 DAYS. 08/16/18 12:10 Blood Culture - Preliminary Blood - Peripheral Venous NO GROWTH OBTAINED AFTER 48 HOURS, INCUBATION TO CONTINUE FOR 3 DAYS. 08/16/18 12:25 Blood Culture - Preliminary Blood - Peripheral Venous NO GROWTH OBTAINED AFTER 48 HOURS, INCUBATION TO CONTINUE FOR 3 DAYS. 08/14/18 12:15 Blood Culture - Final Blood - Peripheral Venous Staphylococcus Latex Coag Pos Physical Examination Constitutional: Yes: No Distress, morbidly obese. comfortable Eyes: Yes: Conjunctiva Clear Neck: Yes: Supple Cardiovascular: Yes: Regular Rate and Rhythm Respiratory: Yes: Diminished Gastrointestinal: Yes: Soft. obese Extremities: Yes: Other (rue - dressing +)kassie+ Edema: No, no groin hematoma Neurological: Yes: Alert/ n/f Psychiatric: Yes: Alert Assessment/Plan Abx- as per ID blood cultures - repeat -ve so far HD per Renal -- later today permacath on wednesday if cultures remain -ve if + ve-- JANES need to be considered Discussed with i/d and cardiology will follow' Problem List - Problems (1) Abdominal pain Code(s): R10.9 - UNSPECIFIED ABDOMINAL PAIN (2) ESRD (end stage renal disease) on dialysis Code(s): N18.6 - END STAGE RENAL DISEASE; Z99.2 - DEPENDENCE ON RENAL DIALYSIS (3) Fever Code(s): R50.9 - FEVER, UNSPECIFIED (4) AV fistula occlusion Code(s): T82.898A - OTH COMPLICATION OF VASCULAR PROSTH DEV/GRFT, INIT (5) Bacteremia Code(s): R78.81 - BACTEREMIA
--- NOTE | 2018-08-19 12:10 | PN ---
Progress Note, Physician Chief Complaint: The patient seen in his bed. awake, alert. Left femoral shiley placed. Azotemia worsening. History of Present Illness: 62 year old gentleman with hx of ESRD on HD, Hypertension, Anemia presented with Abd pain and found to have MRSA bacteremia with infected AVG site. AVG taken out. The patient remains bacteremic. A shiley catheter was placed today. For dialysis. - Current Medication List Current Medications: Active Medications Epoetin Nelson (Procrit -) 20,000 unit SQ MoWeFr@1000 [facility] Heparin Sodium (Porcine) (Heparin -) 5,000 unit SQ BID [facility] Last Admin: 08/19/18 09:16 Dose: 5,000 unit Nafcillin Sodium 2 gm/ (Dextrose) 100 mls @ 100 mls/hr IVPB Q6H-IV [facility]; Protocol Last Admin: 08/19/18 09:15 Dose: 100 mls/hr Insulin Aspart (Novolog Vial Sliding Scale -) 1 vial SQ ACHS [facility]; Protocol Last Admin: 08/19/18 06:16 Dose: Not Given Insulin Detemir (Levemir Vial) 10 units SQ HS [facility] Last Admin: 08/18/18 21:07 Dose: 10 unit Ondansetron HCl (Zofran Injection) 4 mg IVPUSH Q6H PRN PRN Reason: NAUSEA AND/OR VOMITING Ranitidine HCl (Zantac -) 150 mg PO BID [facility] Last Admin: 08/19/18 09:16 Dose: 150 mg Sevelamer Carbonate (Renvela -) 800 mg PO TIDCM [facility] Last Admin: 08/19/18 09:15 Dose: 800 mg Torsemide (Demadex -) 80 mg PO DAILY [facility] Last Admin: 08/19/18 09:18 Dose: 80 mg - Objective Vital Signs: Vital Signs Temperature 98.0 F 08/19/18 11:05 Pulse Rate 78 08/19/18 11:40 Respiratory Rate 18 08/19/18 11:40 Blood Pressure 137/50 L 08/19/18 11:40 O2 Sat by Pulse Oximetry (%) 96 08/18/18 21:00 Constitutional: Yes: Anxious, Pallor Eyes: Yes: Conjunctiva Clear HENT: Yes: Normocephalic Neck: Yes: Supple Cardiovascular: Yes: Regular Rate and Rhythm Respiratory: Yes: CTA Bilaterally, Diminished Gastrointestinal: Yes: Normal Bowel Sounds, Soft Genitourinary: No: CVA Tenderness - Left, CVA Tenderness - Right Edema: Yes Neurological: Yes: Alert, Oriented Labs: CBC, BMP 08/17/18 08:05 08/18/18 06:00 INR, PTT INR 1.39 (0.83-1.09) H 08/06/18 23:00 Problem List - Problems (1) Bacteremia Code(s): R78.81 - BACTEREMIA (2) CHF (congestive heart failure) Code(s): I50.9 - HEART FAILURE, UNSPECIFIED Qualifiers: Heart failure type: diastolic (3) Complication of vascular access for dialysis Code(s): T82.9XXA - UNSP COMP OF CARDIAC AND VASCULAR PROSTH DEV/GRFT, INIT Qualifiers: Encounter type: initial encounter Qualified Code(s): T82.9XXA - Unspecified complication of cardiac and vascular prosthetic device, implant and graft, initial encounter (4) ESRD (end stage renal disease) on dialysis Code(s): N18.6 - END STAGE RENAL DISEASE; Z99.2 - DEPENDENCE ON RENAL DIALYSIS (5) Fever Code(s): R50.9 - FEVER, UNSPECIFIED (6) Sepsis associated with vascular access catheter Code(s): T82.7XXA - INFECT/INFLM REACT D/T OTH CARDI/VASC DEV/IMPLNT/GRFT, INIT ; A41.9 - SEPSIS, UNSPECIFIED ORGANISM (7) AV fistula occlusion Code(s): T82.898A - [facility] COMPLICATION OF VASCULAR PROSTH DEV/GRFT, INIT Assessment/Plan 62 year old gentleman with hx of ESRD on HD, Hypertension, Anemia presented with Abd pain and found to have MRSA bacteremia with infected AVG site. His AVG removed. The patient continues to be Bacteremic in spite of removal of the AVG. A femoral catheter placed today. For dialysis later today, and agin tomorrow. Should consider JANES given the persistent bacteremic, in spite of IV Abx for several days now. Orders for HD written and reviewed with the RN. Neisha Hager MD
[2018-08-19 12:17] VITALS: BMI 27.6
--- NOTE | 2018-08-19 14:38 | PN ---
Progress Note (short form) - Note Progress Note: Chief Complaint: syncope History of Present Illness: no cp sob palps dizzy, syncope Current Medications Epoetin Nelson (Procrit -) 20,000 unit SQ MoWeFr@1000 [facility] Heparin Sodium (Porcine) (Heparin -) 5,000 unit SQ BID [facility] Last Admin: 08/19/18 09:16 Dose: 5,000 unit Nafcillin Sodium 2 gm/ (Dextrose) 100 mls @ 100 mls/hr IVPB Q6H-IV [facility]; Protocol Last Admin: 08/19/18 09:15 Dose: 100 mls/hr Insulin Aspart (Novolog Vial Sliding Scale -) 1 vial SQ ACHS [facility]; Protocol Last Admin: 08/19/18 13:12 Dose: Not Given Insulin Detemir (Levemir Vial) 10 units SQ HS [facility] Last Admin: 08/18/18 21:07 Dose: 10 unit Ondansetron HCl (Zofran Injection) 4 mg IVPUSH Q6H PRN PRN Reason: NAUSEA AND/OR VOMITING Ranitidine HCl (Zantac -) 150 mg PO BID [facility] Last Admin: 08/19/18 09:16 Dose: 150 mg Sevelamer Carbonate (Renvela -) 800 mg PO TIDCM [facility] Last Admin: 08/19/18 13:12 Dose: Not Given Torsemide (Demadex -) 80 mg PO DAILY [facility] Last Admin: 08/19/18 09:18 Dose: 80 mg - Objective Vital Signs: Vital Signs Period Temp Pulse Resp BP Sys/Jackson Pulse Ox Last 24 Hr 97.5 F-98.0 F 76-94 18-20 103-137/50-80 96 Constitutional: Yes: No Distress, Calm Eyes: No: Sclera Icterus Cardiovascular: Yes: Regular Rate and Rhythm, S1, S2, Other (PMI non diplaced). No: JVD (tds neck habitus), Gallop, Murmur Respiratory: Yes: CTA Bilaterally. No: Accessory Muscle Use, Rales, Wheezes Gastrointestinal: Yes: Normal Bowel Sounds, Soft. No: Tenderness Extremities: No: Cyanosis Edema: No Integumentary: No: Jaundice diaphoresis Neurological: Yes: Alert. No: Seizure Psychiatric: No: Agitated Assessment/Plan Echo 07/2018 nl LV size, EF 40-45%, E/A reversal, RV nl, LA nl Carotid dopplers: IJ thrombosis Syncope - patient denies history of syncope, however he complained of this per on 08/07 RN, he is poor historian. - here with old IJ clot per vascular--no AC indicated - was hypoxic to 86% on 08/06, normal sats since - mild tachycardia, suspect infection related - rec CTA chest PE protocol to confirm no PE to explain syncope and these other findings--d/w'd renal (trevon), pt should tolerate the IV contrast bolus. test has been postponed pt does not have large enough IV, difficult IV access - echo showed EF 40-45%, unclear if new, pt says no cardiac hx, unlikely to have contributed to syncope - may be vasovagal vs orthostatic, appears less likely cardiac etiology, no reoccurence chest/abd pain, pos troponin - trop 0.14->0.15 on admission, has been constant since surgery and is worse with different positions, + worse with palpation. - trend and history not c/w ACS, unlikely cardiac etiology Cardiomyopathy - EF 40-45% - has had borderline BPs, holding on ACEI/BB - appears euvolemic currently, volume management with HD per renal, torsemide - would consider outpatient ischemic evaluation after acute issues resolved ESRD on HD - HD per renal, suleiman replaced. fever/bacteremia - avg removed, on abx per ID - last positive culture 08/14, remaining prelim cultures negative - plan to replace permacath if cultures remain clear
[2018-08-19] MEDS: EPOETIN ALFA 20,000 UNIT/1 ML VIAL SQ SCH (15:20)
--- NOTE | 2018-08-19 16:54 | PN ---
Progress Note (short form) - Note Progress Note: Patient had shiley placed today followed by HD. Dr. Pinto covering for Dr. Jameson --> spoke with Dr. Pinto regarding removal of cath. He he would like for suleiman to stay this evening as patient going for Hd tomrrow too. Problem List - Problems (1) ESRD (end stage renal disease) on dialysis Code(s): N18.6 - END STAGE RENAL DISEASE; Z99.2 - DEPENDENCE ON RENAL DIALYSIS (2) Sepsis associated with vascular access catheter Code(s): T82.7XXA - INFECT/INFLM REACT D/T OTH CARDI/VASC DEV/IMPLNT/GRFT, INIT ; A41.9 - SEPSIS, UNSPECIFIED ORGANISM
[2018-08-19] MEDS: INSULIN (LEVEMIR) 100 UNITS/ML UNITS SQ SCH (21:28)
[2018-08-20] MEDS: NAFCILLIN - 2 GM in DEXTROSE 5%-WATER - 100 ML IVPB SCH ×4 (02:40→21:07)
[2018-08-20] MEDS: INSULIN SLIDING SCALE (NOVOLOG) 1 VIAL SQ SCH ×4 (06:24→21:15)
[2018-08-20] MEDS ORDERED: PT OWN MED DRAWER 7, Y5N ONE ×3 (07:38→20:42)
[2018-08-20] MEDS: SEVELAMER CARBONATE 800 MG TAB (FP) PO SCH ×3 (07:54→18:19)
[2018-08-20] MEDS: HEPARIN NA (PORCINE) 5,000 UNITS/ML 1ML VIAL SQ SCH (11:48)
[2018-08-20] MEDS: TORSEMIDE 20 MG TABLET (FP) PO SCH (11:48)
[2018-08-20] MEDS: RANITIDINE HCL 150 MG TABLET (FP) PO SCH ×2 (11:48→21:15)
--- NOTE | 2018-08-20 12:01 | PN ---
Progress Note, Physician Chief Complaint: The patient seen in his bed. Receiving dialysis. Left femoral shiley working well. History of Present Illness: 62 year old gentleman with hx of ESRD on HD, Hypertension, Anemia presented with Abd pain and found to have MRSA bacteremia with infected AVG site. AVG taken out. Has a right femoral acute catheter being used for dialysis. - Current Medication List Current Medications: Active Medications Epoetin Nelson (Procrit -) 20,000 unit SQ MoWeFr@1000 [facility] Last Admin: 08/19/18 15:20 Dose: 20,000 unit Heparin Sodium (Porcine) (Heparin -) 5,000 unit SQ BID [facility] Last Admin: 08/19/18 21:28 Dose: 5,000 unit Nafcillin Sodium 2 gm/ (Dextrose) 100 mls @ 100 mls/hr IVPB Q6H-IV [facility]; Protocol Last Admin: 08/20/18 11:23 Dose: 100 mls/hr Insulin Aspart (Novolog Vial Sliding Scale -) 1 vial SQ ACHS [facility]; Protocol Last Admin: 08/20/18 06:24 Dose: Not Given Insulin Detemir (Levemir Vial) 10 units SQ HS [facility] Last Admin: 08/19/18 21:28 Dose: 10 unit Ondansetron HCl (Zofran Injection) 4 mg IVPUSH Q6H PRN PRN Reason: NAUSEA AND/OR VOMITING Ranitidine HCl (Zantac -) 150 mg PO BID [facility] Last Admin: 08/19/18 21:29 Dose: 150 mg Sevelamer Carbonate (Renvela -) 800 mg PO TIDCM [facility] Last Admin: 08/20/18 07:54 Dose: 800 mg Torsemide (Demadex -) 80 mg PO DAILY [facility] Last Admin: 08/19/18 09:18 Dose: 80 mg - Objective Vital Signs: Vital Signs Temperature 98.4 F 08/20/18 06:00 Pulse Rate 79 08/20/18 06:00 Respiratory Rate 18 08/20/18 06:00 Blood Pressure 106/63 08/20/18 06:00 O2 Sat by Pulse Oximetry (%) 97 08/19/18 21:00 Constitutional: Yes: Well Nourished Eyes: Yes: Conjunctiva Clear HENT: Yes: Atraumatic Neck: Yes: Trachea Midline Cardiovascular: Yes: Regular Rate and Rhythm, S1, S2 Respiratory: Yes: CTA Bilaterally, Diminished Gastrointestinal: Yes: Normal Bowel Sounds, Abdomen, Obese Edema: Yes Neurological: Yes: Alert, Oriented Labs: CBC, BMP 08/17/18 08:05 08/18/18 06:00 INR, PTT INR 1.39 (0.83-1.09) H 08/06/18 23:00 Problem List - Problems (1) Bacteremia Code(s): R78.81 - BACTEREMIA (2) CHF (congestive heart failure) Code(s): I50.9 - HEART FAILURE, UNSPECIFIED Qualifiers: Heart failure type: diastolic (3) Complication of vascular access for dialysis Code(s): T82.9XXA - UNSP COMP OF CARDIAC AND VASCULAR PROSTH DEV/GRFT, INIT Qualifiers: Encounter type: initial encounter Qualified Code(s): T82.9XXA - Unspecified complication of cardiac and vascular prosthetic device, implant and graft, initial encounter (4) ESRD (end stage renal disease) on dialysis Code(s): N18.6 - END STAGE RENAL DISEASE; Z99.2 - DEPENDENCE ON RENAL DIALYSIS (5) Fever Code(s): R50.9 - FEVER, UNSPECIFIED (6) Sepsis associated with vascular access catheter Code(s): T82.7XXA - INFECT/INFLM REACT D/T OTH CARDI/VASC DEV/IMPLNT/GRFT, INIT ; A41.9 - SEPSIS, UNSPECIFIED ORGANISM (7) AV fistula occlusion Code(s): T82.898A - OTH COMPLICATION OF VASCULAR PROSTH DEV/GRFT, INIT Assessment/Plan 62 year old gentleman with hx of ESRD on HD, Hypertension, Anemia presented with Abd pain and found to have MRSA bacteremia with infected AVG site. His AVG removed. The Blodd C/s from 08/16 onwards is negative, and if it stays that way, should be able to have permacath replaced. HD orders reviewed with the RN. To remove the Shiley catheter after todays's dialysis. For Permacath next week. Neisha Hager MD
--- NOTE | 2018-08-20 13:22 | PN ---
Progress Note (short form) - Note Progress Note: pt seen/ examined awake/ comfortable denies pain Dialysis --just finished Repeat cultures -now ve so far. Vital Signs Temp 98.4 F 08/20/18 09:10 Pulse 85 08/20/18 13:18 Resp 18 08/20/18 13:18 BP 109/66 08/20/18 13:18 Pulse Ox 97 08/19/18 21:00 Intake & Output 08/19/18 08/20/18 08/20/18 23:59 11:59 23:59 Intake Total 500 100 Balance 500 100 Weight 191 lb 12.8 oz Intake: IVPB 300 100 Oral 200 Other: Voiding Method Toilet Toilet Weight Measurement Method Chair Scale Active Medications Epoetin Nelson (Procrit -) 20,000 unit SQ MoWeFr@1000 [facility] Last Admin: 08/19/18 15:20 Dose: 20,000 unit Heparin Sodium (Porcine) (Heparin -) 5,000 unit SQ BID [facility] Last Admin: 08/19/18 21:28 Dose: 5,000 unit Nafcillin Sodium 2 gm/ (Dextrose) 100 mls @ 100 mls/hr IVPB Q6H-IV [facility]; Protocol Last Admin: 08/20/18 11:23 Dose: 100 mls/hr Insulin Aspart (Novolog Vial Sliding Scale -) 1 vial SQ ACHS [facility]; Protocol Last Admin: 08/20/18 06:24 Dose: Not Given Insulin Detemir (Levemir Vial) 10 units SQ HS [facility] Last Admin: 08/19/18 21:28 Dose: 10 unit Ondansetron HCl (Zofran Injection) 4 mg IVPUSH Q6H PRN PRN Reason: NAUSEA AND/OR VOMITING Ranitidine HCl (Zantac -) 150 mg PO BID [facility] Last Admin: 08/19/18 21:29 Dose: 150 mg Sevelamer Carbonate (Renvela -) 800 mg PO TIDCM [facility] Last Admin: 08/20/18 07:54 Dose: 800 mg Torsemide (Demadex -) 80 mg PO DAILY [facility] Last Admin: 08/19/18 09:18 Dose: 80 mg Microbiology 08/16/18 12:10 Blood Culture - Preliminary Blood - Peripheral Venous NO GROWTH OBTAINED AFTER 96 HOURS, INCUBATION TO CONTINUE FOR 1 DAYS. 08/16/18 12:25 Blood Culture - Preliminary Blood - Peripheral Venous NO GROWTH OBTAINED AFTER 96 HOURS, INCUBATION TO CONTINUE FOR 1 DAYS. 08/18/18 06:45 Blood Culture - Preliminary Blood - Peripheral Venous NO GROWTH OBTAINED AFTER 48 HOURS, INCUBATION TO CONTINUE FOR 3 DAYS. 08/18/18 06:00 Blood Culture - Preliminary Blood - Peripheral Venous NO GROWTH OBTAINED AFTER 48 HOURS, INCUBATION TO CONTINUE FOR 3 DAYS. CBC, BMP 08/17/18 08:05 08/18/18 06:00 Physical Examination Constitutional: Yes: No Distress, morbidly obese. comfortable Eyes: Yes: Conjunctiva Clear Neck: Yes: Supple Cardiovascular: Yes: Regular Rate and Rhythm Respiratory: Yes: Diminished Gastrointestinal: Yes: Soft. obese Extremities: Yes: Other (rue - dressing +)kassie+ Edema: No, shiley + Neurological: Yes: Alert/ n/f Psychiatric: Yes: Alert Assessment/Plan Abx- as per ID blood cultures - repeat -ve so far HD per Renal -- Shiley to be removed permacath on wednesday if cultures remain -ve if + ve-- JANES need to be considered Discussed with nursing staff will follow' Problem List - Problems (1) Abdominal pain Code(s): R10.9 - UNSPECIFIED ABDOMINAL PAIN (2) ESRD (end stage renal disease) on dialysis Code(s): N18.6 - END STAGE RENAL DISEASE; Z99.2 - DEPENDENCE ON RENAL DIALYSIS (3) Fever Code(s): R50.9 - FEVER, UNSPECIFIED (4) AV fistula occlusion Code(s): T82.898A - OTH COMPLICATION OF VASCULAR PROSTH DEV/GRFT, INIT (5) Bacteremia Code(s): R78.81 - BACTEREMIA
--- NOTE | 2018-08-20 14:45 | PN ---
Progress Note, Physician History of Present Illness: stable tolerated dialysis in the room no complaints blood cx still negative - Current Medication List Current Medications: Active Medications Epoetin Nelson (Procrit -) 20,000 unit SQ MoWeFr@1000 [facility] Last Admin: 08/19/18 15:20 Dose: 20,000 unit Heparin Sodium (Porcine) (Heparin -) 5,000 unit SQ BID [facility] Last Admin: 08/20/18 11:48 Dose: Not Given Nafcillin Sodium 2 gm/ (Dextrose) 100 mls @ 100 mls/hr IVPB Q6H-IV [facility]; Protocol Last Admin: 08/20/18 11:23 Dose: 100 mls/hr Insulin Aspart (Novolog Vial Sliding Scale -) 1 vial SQ ACHS [facility]; Protocol Last Admin: 08/20/18 11:48 Dose: Not Given Insulin Detemir (Levemir Vial) 10 units SQ HS [facility] Last Admin: 08/19/18 21:28 Dose: 10 unit Ondansetron HCl (Zofran Injection) 4 mg IVPUSH Q6H PRN PRN Reason: NAUSEA AND/OR VOMITING Ranitidine HCl (Zantac -) 150 mg PO BID [facility] Last Admin: 08/20/18 11:48 Dose: Not Given Sevelamer Carbonate (Renvela -) 800 mg PO TIDCM [facility] Last Admin: 08/20/18 11:48 Dose: Not Given Torsemide (Demadex -) 80 mg PO DAILY [facility] Last Admin: 08/19/18 09:18 Dose: 80 mg - Objective Vital Signs: Vital Signs Temperature 97.4 F L 08/20/18 14:25 Pulse Rate 86 08/20/18 14:25 Respiratory Rate 18 08/20/18 14:25 Blood Pressure 121/49 L 08/20/18 14:25 O2 Sat by Pulse Oximetry (%) 97 08/19/18 21:00 Constitutional: Yes: No Distress, Calm Cardiovascular: Yes: Regular Rate and Rhythm Respiratory: Yes: Regular, CTA Bilaterally Gastrointestinal: Yes: Normal Bowel Sounds, Soft Musculoskeletal: Yes: WNL Extremities: Yes: Other Neurological: Yes: Alert, Oriented Psychiatric: Yes: Alert, Oriented Labs: CBC, BMP 08/17/18 08:05 08/18/18 06:00 INR, PTT INR 1.39 (0.83-1.09) H 08/06/18 23:00 Assessment/Plan Problem List - Problems (1) Abdominal pain Code(s): R10.9 - UNSPECIFIED ABDOMINAL PAIN (2) Fever Code(s): R50.9 - FEVER, UNSPECIFIED (3) ESRD (end stage renal disease) on dialysis Code(s): N18.6 - END STAGE RENAL DISEASE; Z99.2 - DEPENDENCE ON RENAL DIALYSIS (4) Presence of arterial-venous shunt (for dialysis) Code(s): Z99.2 - DEPENDENCE ON RENAL DIALYSIS Assessment/Plan 62 y.o. male with PMH of ESRD on HD, AVF/Graft, DM, and HTN presenting with Lt sided abdominal pain, fevers, and RUE AVF site blister formation/mild bleeding/ mild tenderness Sepsis/ Staph aureus bacteremia Infection of AVG - s/p excision ESRD on HD DM HTN blood cx still negative plan continue monitoring if blood cx remain negative can place a permacath on wednesday rest as per the team dialysis
[2018-08-20 20:28] LABS: EOS % 1.3 % (0-4.5); HEMATOCRIT 20.2 % (35.4-49); LYMPH % 14.4 % (8-40); MCHC 34.2 g/dl (32.0-35.9); MEAN CELL VOLUME 90.8 fl (80-96); MEAN PLT VOLUME 8.6 fl (7.5-11.1); MONO % 12.6 % (3.8-10.2); NEUT % 70.7 % (42.8-82.8); PLATELET COUNT 284 K/MM3 (134-434); RBC 2.23 M/mm3 (4.00-5.60); RDW 18.1 % (11.9-15.9); WHITE BLOOD COUNT 5.7 K/mm3 (4.0-10.0)
[2018-08-20 20:33] LABS: HEMOGLOBIN 6.9 GM/dL (11.7-16.9)
[2018-08-20] MEDS: INSULIN (LEVEMIR) 100 UNITS/ML UNITS SQ SCH (21:14)
[2018-08-21] MEDS: NAFCILLIN - 2 GM in DEXTROSE 5%-WATER - 100 ML IVPB SCH ×4 (02:45→22:33)
[2018-08-21] MEDS: INSULIN SLIDING SCALE (NOVOLOG) 1 VIAL SQ SCH ×4 (06:28→22:35)
[2018-08-21 09:21] LABS: EOS % 1.4 % (0-4.5); HEMATOCRIT 23.3 % (35.4-49); LYMPH % 15.7 % (8-40); MCH 31.1 pg (25.7-33.7); MCHC 34.2 g/dl (32.0-35.9); MEAN CELL VOLUME 90.9 fl (80-96); MEAN PLT VOLUME 8.9 fl (7.5-11.1); MONO % 8.5 % (3.8-10.2); NEUT % 73.4 % (42.8-82.8); PLATELET COUNT 305 K/MM3 (134-434); RBC 2.57 M/mm3 (4.00-5.60); RDW 16.9 % (11.9-15.9); WHITE BLOOD COUNT 6.4 K/mm3 (4.0-10.0)
[2018-08-21] MEDS ORDERED: PT OWN MED DRAWER 7, Y5N ONE ×5 (09:40→22:53)
[2018-08-21] MEDS: TORSEMIDE 20 MG TABLET (FP) PO SCH (09:50)
[2018-08-21] MEDS: SEVELAMER CARBONATE 800 MG TAB (FP) PO SCH ×3 (09:51→16:59)
[2018-08-21] MEDS: RANITIDINE HCL 150 MG TABLET (FP) PO SCH (09:51)
[2018-08-21 10:25] LABS: ALBUMIN 2.4 g/dl (3.4-5.0); ALK PHOS 83 U/L (45-117); ANION GAP 9 MMOL/L (8-16); BILIRUBIN,TOTAL 1.1 mg/dL (0.2-1); BLOOD UREA NITROGEN 35 mg/dL (7-18); CHLORIDE 101 mmol/L (98-107); CO2 30 mmol/L (21-32); GLUCOSE,RANDOM 157 mg/dL (74-106); POTASSIUM 3.5 mmol/L (3.5-5.1); SGOT/AST 30 U/L (15-37); SGPT/ALT 25 U/L (13-61); SODIUM 140 mmol/L (136-145); TOT PROT 7.5 g/dl (6.4-8.2)
--- NOTE | 2018-08-21 10:43 | PN ---
Progress Note (short form) - Note Progress Note: pt seen / examined events noted was confused last night as per nursing staff also got 1 unit of prbcs for anemia last night sob + having diarrhea now - watery / not smelly off heparin + ve moist cough shiley removed -ve Repeat cultures -ve so far. all f/u noted . Vital Signs Temp 98.2 F 08/21/18 06:00 Pulse 91 H 08/21/18 06:00 Resp 20 08/21/18 06:00 BP 133/66 08/21/18 06:00 Pulse Ox 97 08/20/18 21:00 Intake & Output 08/20/18 08/20/18 08/21/18 11:59 23:59 11:59 Intake Total 100 300 800 Balance 100 300 800 Weight 191 lb 12.8 oz 187 lb 3.2 oz Intake: IV 50 sl2 50 IVPB 100 100 200 Oral 200 200 Packed Cells 350 Other: Voiding Method Toilet Diaper Diaper # Unmeasured Voids Void 2 2 Bowel Movement Yes Yes Weight Measurement Method Chair Scale Chair Scale Active Medications Epoetin Nelson (Procrit -) 20,000 unit SQ MoWeFr@1000 [facility] Last Admin: 08/19/18 15:20 Dose: 20,000 unit Heparin Sodium (Porcine) (Heparin -) 5,000 unit SQ BID [facility] Last Admin: 08/20/18 11:48 Dose: Not Given Nafcillin Sodium 2 gm/ (Dextrose) 100 mls @ 100 mls/hr IVPB Q6H-IV [facility]; Protocol Last Admin: 08/21/18 09:50 Dose: 100 mls/hr Insulin Aspart (Novolog Vial Sliding Scale -) 1 vial SQ ACHS [facility]; Protocol Last Admin: 08/21/18 06:28 Dose: 2 units Insulin Detemir (Levemir Vial) 10 units SQ HS [facility] Last Admin: 08/20/18 21:14 Dose: 10 unit Ondansetron HCl (Zofran Injection) 4 mg IVPUSH Q6H PRN PRN Reason: NAUSEA AND/OR VOMITING Ranitidine HCl (Zantac -) 150 mg PO BID [facility] Last Admin: 08/21/18 09:51 Dose: 150 mg Sevelamer Carbonate (Renvela -) 800 mg PO TIDCM [facility] Last Admin: 08/21/18 09:51 Dose: 800 mg Torsemide (Demadex -) 80 mg PO DAILY [facility] Last Admin: 08/21/18 09:50 Dose: 80 mg CBC, BMP 08/21/18 08:28 08/21/18 08:28 Microbiology 08/18/18 06:45 Blood Culture - Preliminary Blood - Peripheral Venous NO GROWTH OBTAINED AFTER 72 HOURS, INCUBATION TO CONTINUE FOR 2 DAYS. 08/18/18 06:00 Blood Culture - Preliminary Blood - Peripheral Venous NO GROWTH OBTAINED AFTER 72 HOURS, INCUBATION TO CONTINUE FOR 2 DAYS. 08/16/18 12:10 Blood Culture - Preliminary Blood - Peripheral Venous NO GROWTH OBTAINED AFTER 96 HOURS, INCUBATION TO CONTINUE FOR 1 DAYS. 08/16/18 12:25 Blood Culture - Preliminary Blood - Peripheral Venous NO GROWTH OBTAINED AFTER 96 HOURS, INCUBATION TO CONTINUE FOR 1 DAYS. Physical Examination Constitutional: Yes: No Distress, morbidly obese. comfortable now. Eyes: Yes: Conjunctiva Clear Neck: Yes: Supple. no jvd. Cardiovascular: Yes: Regular Rate and Rhythm Respiratory: Yes: Diminished at bases Gastrointestinal: Yes: Soft. obese Edema: No, Neurological: Yes: Alert/ n/f Psychiatric: Yes: Alert Assessment/Plan Abx- as per ID blood cultures - repeat -ve so far HD per Renal -- last hd yesterday Check c diff monitor cbc agree with d/c heparin alert/ awake now likely toxic metabolic encephalopathy-- resolving will follow will need gi work up --inpatient vs out pt will consult gi also check cxr -- pt has moist cough permacath on wednesday if cultures remain -ve if + ve-- JANES need to be considered Discussed with nursing staff will follow Problem List - Problems (1) Abdominal pain Code(s): R10.9 - UNSPECIFIED ABDOMINAL PAIN (2) ESRD (end stage renal disease) on dialysis Code(s): N18.6 - END STAGE RENAL DISEASE; Z99.2 - DEPENDENCE ON RENAL DIALYSIS (3) Fever Code(s): R50.9 - FEVER, UNSPECIFIED (4) AV fistula occlusion Code(s): T82.898A - OTH COMPLICATION OF VASCULAR PROSTH DEV/GRFT, INIT (5) Bacteremia Code(s): R78.81 - BACTEREMIA
--- NOTE | 2018-08-21 10:52 | PN ---
Progress Note, Physician Chief Complaint: The patient seen in his bed. Reportedly was transiently confused last evening. ? hypotension. Had bloody loose BM. S/P PRBC transfusion. Feels well now. Scheduled for Permacath in AM History of Present Illness: 62 year old gentleman with hx of ESRD on HD, Hypertension, Anemia presented with Abd pain and found to have MRSA bacteremia with infected AVG site. AVG taken out. The right femoral catheter removed. - Current Medication List Current Medications: Active Medications Epoetin Nelson (Procrit -) 20,000 unit SQ MoWeFr@1000 [facility] Last Admin: 08/19/18 15:20 Dose: 20,000 unit Heparin Sodium (Porcine) (Heparin -) 5,000 unit SQ BID [facility] Last Admin: 08/20/18 11:48 Dose: Not Given Nafcillin Sodium 2 gm/ (Dextrose) 100 mls @ 100 mls/hr IVPB Q6H-IV [facility]; Protocol Last Admin: 08/21/18 09:50 Dose: 100 mls/hr Insulin Aspart (Novolog Vial Sliding Scale -) 1 vial SQ ACHS [facility]; Protocol Last Admin: 08/21/18 06:28 Dose: 2 units Insulin Detemir (Levemir Vial) 10 units SQ HS [facility] Last Admin: 08/20/18 21:14 Dose: 10 unit Ondansetron HCl (Zofran Injection) 4 mg IVPUSH Q6H PRN PRN Reason: NAUSEA AND/OR VOMITING Ranitidine HCl (Zantac -) 150 mg PO BID [facility] Last Admin: 08/21/18 09:51 Dose: 150 mg Sevelamer Carbonate (Renvela -) 800 mg PO TIDCM [facility] Last Admin: 08/21/18 09:51 Dose: 800 mg Torsemide (Demadex -) 80 mg PO DAILY [facility] Last Admin: 08/21/18 09:50 Dose: 80 mg - Objective Vital Signs: Vital Signs Temperature 98.2 F 08/21/18 06:00 Pulse Rate 91 H 08/21/18 06:00 Respiratory Rate 20 08/21/18 06:00 Blood Pressure 133/66 08/21/18 06:00 O2 Sat by Pulse Oximetry (%) 97 08/20/18 21:00 Constitutional: Yes: No Distress, Pallor HENT: Yes: Normocephalic Neck: Yes: Trachea Midline Cardiovascular: Yes: Regular Rate and Rhythm, Tachycardia, S1, S2 Respiratory: Yes: CTA Bilaterally, Poor Air Entry, Rhonchi, Other (gurgly upper airway sopunds.) Gastrointestinal: Yes: Normal Bowel Sounds, Abdomen, Obese Edema: No Neurological: Yes: Alert, Oriented Labs: CBC, BMP 08/21/18 08:28 08/21/18 08:28 INR, PTT INR 1.39 (0.83-1.09) H 08/06/18 23:00 Problem List - Problems (1) Bacteremia Code(s): R78.81 - BACTEREMIA (2) CHF (congestive heart failure) Code(s): I50.9 - HEART FAILURE, UNSPECIFIED Qualifiers: Heart failure type: diastolic (3) Complication of vascular access for dialysis Code(s): T82.9XXA - UNSP COMP OF CARDIAC AND VASCULAR PROSTH DEV/GRFT, INIT Qualifiers: Encounter type: initial encounter Qualified Code(s): T82.9XXA - Unspecified complication of cardiac and vascular prosthetic device, implant and graft, initial encounter (4) ESRD (end stage renal disease) on dialysis Code(s): N18.6 - END STAGE RENAL DISEASE; Z99.2 - DEPENDENCE ON RENAL DIALYSIS (5) Fever Code(s): R50.9 - FEVER, UNSPECIFIED (6) Sepsis associated with vascular access catheter Code(s): T82.7XXA - INFECT/INFLM REACT D/T OTH CARDI/VASC DEV/IMPLNT/GRFT, INIT ; A41.9 - SEPSIS, UNSPECIFIED ORGANISM (7) AV fistula occlusion Code(s): T82.898A - OTH COMPLICATION OF VASCULAR PROSTH DEV/GRFT, INIT Assessment/Plan 62 year old gentleman with hx of ESRD on HD, Hypertension, Anemia presented had MRSA bacteremia with infected AVG site. His AVG removed. The Blodd C/s from 08/16 onwards is negative, is scheduled for Permacath tomorrow. Femoral catheter removed. For CXR to evaluate pulmonary congestion. Neisha Hager MD
--- NOTE | 2018-08-21 11:31 | CON.GI ---
Consult Consult Specialty:: GI Referred by:: Dr. Rj Franklin Reason for Consultation:: Anemia - History of Present Illness Chief Complaint: Patient is confused and does not give a clear history History of Present Illness: 64M admitted 08/06 for evaluation of fevers. Noted to have an infected and clotted right arm AV fistula. He has had + staph aureus blood cultures Has been getting treated. had a left groin shiley placed yesterday for dialysis. It was removed. Called becaiuse Hgb 6.9 yesterday. he has a chronic anemia with hgb ranging from 8-10. Nurse reports dark liquid BM's. He was noted to gbe guaiac positive on specimen sent to lab. There was no fross rectal bleeding. He denies any abdominal pain. I spoke to his . Mr. Crawford had a colonoscopy 6 months ago at [facility]. She states that 2 polyps were removed. He has never had an upper endoscopy. She states that he was never a heavy alcohol drinker and had no known history of liver disease. He is scheduled for possible permacath placement tomorrow. - History Source History Provided By: Patient, Family Member, Medical Record Limitations to Obtaining History: Poor Historian (patient confused) - Past Medical History Cardio/Vascular: Yes: HTN Renal/: Yes: Renal Failure, Other (on dialysis for 3 years) Heme/Onc: Yes: Anemia Endocrine: Yes: Diabetes Mellitus - Past Surgical History Past Surgical History: Yes: AV Fistula/Graft - Alcohol/Substance Use Hx Alcohol Use: Yes History of Substance Use: reports: None - Smoking History Smoking history: Former smoker Have you smoked in the past 12 months: No Aproximately how many cigarettes per day: 3 If you are a former smoker, when did you quit?: 1 YEARS AGO - Social History Usual Living Arrangement: With Spouse ADL: Independent Place of : Other History of Recent Travel: No Home Medications - Allergies Allergies/Adverse Reactions: Allergies Allergy/AdvReac Type Severity Reaction Status Date / Time No Known Drug Allergies Allergy Verified 08/06/18 00:20 - Home Medications Home Medications: Ambulatory Orders Sevelamer Carbonate [Renvela -] 800 mg PO TIDCM 12/26/13 oxyCODONE HCL [Roxicodone -] 5 mg PO Q4H PRN #30 tablet 03/17/15 Family Disease History - Family Disease History Family History: Unable to Obtain Review of Systems - Review of Systems Gastrointestinal: denies: Abdominal Pain Physical Exam-GI Vital Signs: Vital Signs Temperature 100.1 rectal 08/21/18 11:30 Pulse Rate 91 H 08/21/18 11:30 Respiratory Rate 20 08/21/18 11:30 Blood Pressure 133/66 08/21/18 11:30 O2 Sat by Pulse Oximetry (%) 97 08/20/18 11:30 Constitutional: Yes: Calm Eyes: No: Sclera Icterus Cardiovascular: Yes: Regular Rate and Rhythm. No: Murmur Respiratory: Yes: Diminished (at bases bilaterally but gave poor insp effort) Gastrointestinal Inspection: No: Distention ...Auscultate: Yes: Normoactive Bowel Sounds ...Palpate: No: Hepatomegaly, Splenomegaly ...Percussion: No: Tympanitic ...Rectal Exam: Yes: Other (No external lesions, no masses, scant liquid dark brown stool, tracely guaiac positive) Neurological: Yes: Alert, Confusion Labs: CBC, BMP 08/21/18 08:28 08/21/18 08:28 INR, PTT INR 1.39 (0.83-1.09) H 08/06/18 23:00 Hepatic Panel Total Bilirubin 1.1 mg/dL (0.2-1) H 08/21/18 08:28 AST 30 U/L (15-37) 08/21/18 08:28 ALT 25 U/L (13-61) 08/21/18 08:28 Alkaline Phosphatase 83 U/L (45-117) 08/21/18 08:28 Albumin 2.4 g/dl (3.4-5.0) L 08/21/18 08:28 Problem List - Problems (1) Anemia Assessment/Plan: To exclude soource of upper GI bleeding, I discussed possible EGD with his via telephone. I discussed potential risks of the procedure like but not limited to bleeding, perforation requiring surgery to repair, infection, sedation medication effects all of which could be potentially life threatening. She has agreed to the procedure and stated that she would come by to sign consent today. For now: Clear liquid diet Monitor H/H. Repeat CBC Needs clearance for EGD tomorrow from medical standpoint. ? unclear if he will need dialysis tomorrow and if so will need access. NPO after midnight in case he is cleared for EGD Low grade rectal temp noted on exam being evaluated by Dr. Franklin. ID will be called to reevaluate as well Hold AM dose of heparin PPI drip for now: ordered 40mg IVPB x 1 followed by 8mg/hr drip. D/C'd nexium in the interim Evaluation of coagulopathy: repeat coags ordered for the AM Fluid management while patient NPO per renal If overt GI bleeding / change in hemodynamics, transfer to ICU and keep strict NPO If continued isolated rise in bilirubin with worsening anemia, consider need for hemolysis work-up Code(s): D64.9 - ANEMIA, UNSPECIFIED Qualifiers: Anemia type: unspecified type Qualified Code(s): D64.9 - Anemia, unspecified
[2018-08-21] MEDS ORDERED: ACETAMINOPHEN 325 MG TABLET (FP) PO PRN (11:48)
[2018-08-21] MEDS ORDERED: PANTOPRAZOLE SODIUM 40 MG VIAL IVPUSH ONE (11:49)
[2018-08-21] MEDS: DEXTROSE 5%-0.45% SALINE 1,000 ML IV SCH (12:29)
[2018-08-21] MEDS ORDERED: TORSEMIDE 20 MG TABLET (FP) PO PRN (13:28)
[2018-08-21] MEDS: PANTOPRAZOLE SODIUM 80 MG in SODIUM CHLORIDE 100 ML IVPB SCH ×2 (15:43→22:59)
--- NOTE | 2018-08-21 16:41 | PN ---
Progress Note, Physician History of Present Illness: had bleeding per stools had low grade fever iv line in the foot had dirrhoea was slightly confused after dialysis - Current Medication List Current Medications: Active Medications Acetaminophen (Tylenol -) 650 mg PO Q6H PRN PRN Reason: FEVER Last Admin: 08/21/18 12:23 Dose: 650 mg Epoetin Nelson (Procrit -) 20,000 unit SQ MoWeFr@1000 [facility] Last Admin: 08/19/18 15:20 Dose: 20,000 unit Heparin Sodium (Porcine) (Heparin -) 5,000 unit SQ BID [facility] Last Admin: 08/20/18 11:48 Dose: Not Given Nafcillin Sodium 2 gm/ (Dextrose) 100 mls @ 100 mls/hr IVPB Q6H-IV [facility]; Protocol Last Admin: 08/21/18 15:42 Dose: 100 mls/hr Pantoprazole Sodium 80 mg/ (Sodium Chloride) 100 mls @ 10 mls/hr IVPB Q10H [facility] Last Admin: 08/21/18 15:43 Dose: 10 mls/hr Dextrose/Sodium Chloride (D5-1/2ns -) 1,000 mls @ 40 mls/hr IV ASDIR [facility] Last Admin: 08/21/18 12:29 Dose: 40 mls/hr Insulin Aspart (Novolog Vial Sliding Scale -) 1 vial SQ ACHS [facility]; Protocol Last Admin: 08/21/18 14:21 Dose: Not Given Insulin Detemir (Levemir Vial) 10 units SQ HS [facility] Last Admin: 08/20/18 21:14 Dose: 10 unit Ondansetron HCl (Zofran Injection) 4 mg IVPUSH Q6H PRN PRN Reason: NAUSEA AND/OR VOMITING Sevelamer Carbonate (Renvela -) 800 mg PO TIDCM [facility] Last Admin: 08/21/18 12:22 Dose: Not Given Torsemide (Demadex -) 80 mg PO DAILY [facility] Last Admin: 08/21/18 09:50 Dose: 80 mg Torsemide (Demadex -) 80 mg PO BID PRN PRN Reason: SHORTNESS OF BREATH - Objective Vital Signs: Vital Signs Temperature 98.5 F 08/21/18 14:26 Pulse Rate 78 08/21/18 15:54 Respiratory Rate 20 08/21/18 15:54 Blood Pressure 127/54 L 08/21/18 15:54 O2 Sat by Pulse Oximetry (%) 95 08/21/18 09:00 Constitutional: Yes: No Distress, Calm Cardiovascular: Yes: Regular Rate and Rhythm Respiratory: Yes: Regular, CTA Bilaterally Gastrointestinal: Yes: Normal Bowel Sounds, Soft Musculoskeletal: Yes: Other Extremities: Yes: Other Neurological: Yes: Alert Labs: CBC, BMP 08/21/18 08:28 08/21/18 08:28 INR, PTT INR 1.39 (0.83-1.09) H 08/06/18 23:00 Assessment/Plan Problem List - Problems (1) Abdominal pain Code(s): R10.9 - UNSPECIFIED ABDOMINAL PAIN (2) Fever Code(s): R50.9 - FEVER, UNSPECIFIED (3) ESRD (end stage renal disease) on dialysis Code(s): N18.6 - END STAGE RENAL DISEASE; Z99.2 - DEPENDENCE ON RENAL DIALYSIS (4) Presence of arterial-venous shunt (for dialysis) Code(s): Z99.2 - DEPENDENCE ON RENAL DIALYSIS Assessment/Plan 62 y.o. male with PMH of ESRD on HD, AVF/Graft, DM, and HTN presenting with Lt sided abdominal pain, fevers, and RUE AVF site blister formation/mild bleeding/ mild tenderness Sepsis/ Staph aureus bacteremia Infection of AVG - s/p excision ESRD on HD DM HTN blood cx still negative plan continue monitoring if repeat blood cx remain negative can place a permacath on wednesday rest as per the team dialysis
[2018-08-21 18:49] LABS: HEMATOCRIT 22.9 % (35.4-49); HEMOGLOBIN 7.7 GM/dL (11.7-16.9); MCH 30.8 pg (25.7-33.7); MCHC 33.7 g/dl (32.0-35.9); MEAN CELL VOLUME 91.5 fl (80-96); MEAN PLT VOLUME 8.8 fl (7.5-11.1); PLATELET COUNT 280 K/MM3 (134-434); RDW 17.4 % (11.9-15.9)
[2018-08-21] MEDS: INSULIN (LEVEMIR) 100 UNITS/ML UNITS SQ SCH (22:36)
[2018-08-22] MEDS: INSULIN SLIDING SCALE (NOVOLOG) 1 VIAL SQ SCH ×3 (06:30→16:10)
[2018-08-22 08:03] LABS: BASO % 0.9 % (0-2.0); EOS % 2.5 % (0-4.5); HEMATOCRIT 20.6 % (35.4-49); LYMPH % 13.9 % (8-40); MCH 30.3 pg (25.7-33.7); MCHC 33.2 g/dl (32.0-35.9); MEAN CELL VOLUME 91.2 fl (80-96); MEAN PLT VOLUME 8.2 fl (7.5-11.1); MONO % 6.2 % (3.8-10.2); NEUT % 76.5 % (42.8-82.8); PLATELET COUNT 263 K/MM3 (134-434); RBC 2.26 M/mm3 (4.00-5.60); RDW 17.3 % (11.9-15.9); WHITE BLOOD COUNT 7.1 K/mm3 (4.0-10.0)
[2018-08-22 08:08] LABS: INR 1.64 (0.83-1.09); PROTHROMBIN TIME (PATIENT) 19.5 SEC (9.7-13.0)
[2018-08-22 08:38] LABS: HEMOGLOBIN 6.8 GM/dL (11.7-16.9)
[2018-08-22] MEDS: SEVELAMER CARBONATE 800 MG TAB (FP) PO SCH ×4 (09:10→16:53)
[2018-08-22] MEDS: PANTOPRAZOLE SODIUM 80 MG in SODIUM CHLORIDE 100 ML IVPB SCH ×3 (09:10→14:40)
[2018-08-22 09:19] LABS: ALBUMIN 2.2 g/dl (3.4-5.0); ALK PHOS 78 U/L (45-117); ANION GAP 14 MMOL/L (8-16); BILIRUBIN,TOTAL 1.1 mg/dL (0.2-1); BLOOD UREA NITROGEN 45 mg/dL (7-18); CALCIUM 8.6 mg/dL (8.5-10.1); CHLORIDE 102 mmol/L (98-107); CO2 26 mmol/L (21-32); GLUCOSE,RANDOM 88 mg/dL (74-106); POTASSIUM 3.4 mmol/L (3.5-5.1); SGOT/AST 21 U/L (15-37); SGPT/ALT 21 U/L (13-61); SODIUM 142 mmol/L (136-145); TOT PROT 7.1 g/dl (6.4-8.2)
[2018-08-22 09:47] LABS: CREATININE 9.5 mg/dL (0.55-1.3)
[2018-08-22] MEDS ORDERED: EPOETIN ALFA 10,000 UNIT/1 ML VIAL SQ ONE (10:54)
[2018-08-22] MEDS: TORSEMIDE 20 MG TABLET (FP) PO SCH (11:08)
[2018-08-22] MEDS ORDERED: PT OWN MED DRAWER 7, Y5N ONE (11:17)
[2018-08-22] MEDS: NAFCILLIN - 2 GM in DEXTROSE 5%-WATER - 100 ML IVPB SCH ×6 (11:20→22:50)
--- NOTE | 2018-08-22 11:28 | PN ---
Progress Note, Physician Chief Complaint: The patient seen in his bed. Hemoglobin continues to drop. Had bloody loose BM. S/P PRBC transfusion. Scheduled for Permacath today. Discussed with Dr. Greene . History of Present Illness: 62 year old gentleman with hx of ESRD on HD, Hypertension, Anemia presented with Abd pain and found to have MRSA bacteremia with infected AVG site. AVG taken out. Was being dialysed using femoral catheters. The patient has cleared bacteremia. - Current Medication List Current Medications: Active Medications Acetaminophen (Tylenol -) 650 mg PO Q6H PRN PRN Reason: FEVER Last Admin: 08/21/18 12:23 Dose: 650 mg Epoetin Nelson (Procrit -) 20,000 unit SQ MoWeFr@1000 [facility] Last Admin: 08/19/18 15:20 Dose: 20,000 unit Heparin Sodium (Porcine) (Heparin -) 5,000 unit SQ BID [facility] Last Admin: 08/20/18 11:48 Dose: Not Given Nafcillin Sodium 2 gm/ (Dextrose) 100 mls @ 100 mls/hr IVPB Q6H-IV [facility]; Protocol Last Admin: 08/22/18 11:21 Dose: 100 mls/hr Pantoprazole Sodium 80 mg/ (Sodium Chloride) 100 mls @ 10 mls/hr IVPB Q10H [facility] Last Admin: 08/22/18 09:10 Dose: Not Given Dextrose/Sodium Chloride (D5-1/2ns -) 1,000 mls @ 40 mls/hr IV ASDIR [facility] Last Admin: 08/21/18 12:29 Dose: 40 mls/hr Insulin Aspart (Novolog Vial Sliding Scale -) 1 vial SQ ACHS [facility]; Protocol Last Admin: 08/22/18 06:30 Dose: Not Given Insulin Detemir (Levemir Vial) 10 units SQ HS [facility] Last Admin: 08/21/18 22:36 Dose: 10 unit Ondansetron HCl (Zofran Injection) 4 mg IVPUSH Q6H PRN PRN Reason: NAUSEA AND/OR VOMITING Sevelamer Carbonate (Renvela -) 800 mg PO TIDCM [facility] Last Admin: 08/22/18 11:09 Dose: 800 mg Torsemide (Demadex -) 80 mg PO DAILY [facility] Last Admin: 08/22/18 11:08 Dose: 80 mg Torsemide (Demadex -) 80 mg PO BID PRN PRN Reason: SHORTNESS OF BREATH - Objective Vital Signs: Vital Signs Temperature 97.2 F L 08/22/18 06:00 Pulse Rate 87 08/22/18 06:00 Respiratory Rate 20 08/22/18 06:00 Blood Pressure 138/72 08/22/18 06:00 O2 Sat by Pulse Oximetry (%) 95 08/21/18 21:00 Constitutional: Yes: No Distress, Anxious Eyes: Yes: Conjunctiva Clear HENT: Yes: Normocephalic Cardiovascular: Yes: Tachycardia, S1 Respiratory: Yes: CTA Bilaterally, Diminished Gastrointestinal: Yes: Normal Bowel Sounds, Abdomen, Obese Genitourinary: No: CVA Tenderness - Left, CVA Tenderness - Right Neurological: Yes: Alert Labs: CBC, BMP 08/22/18 07:30 08/22/18 07:30 INR, PTT INR 1.64 (0.83-1.09) H 08/22/18 07:30 Problem List - Problems (1) Bacteremia Code(s): R78.81 - BACTEREMIA (2) CHF (congestive heart failure) Code(s): I50.9 - HEART FAILURE, UNSPECIFIED Qualifiers: Heart failure type: diastolic (3) Complication of vascular access for dialysis Code(s): T82.9XXA - UNSP COMP OF CARDIAC AND VASCULAR PROSTH DEV/GRFT, INIT Qualifiers: Encounter type: initial encounter Qualified Code(s): T82.9XXA - Unspecified complication of cardiac and vascular prosthetic device, implant and graft, initial encounter (4) ESRD (end stage renal disease) on dialysis Code(s): N18.6 - END STAGE RENAL DISEASE; Z99.2 - DEPENDENCE ON RENAL DIALYSIS (5) Fever Code(s): R50.9 - FEVER, UNSPECIFIED (6) Sepsis associated with vascular access catheter Code(s): T82.7XXA - INFECT/INFLM REACT D/T OTH CARDI/VASC DEV/IMPLNT/GRFT, INIT ; A41.9 - SEPSIS, UNSPECIFIED ORGANISM (7) AV fistula occlusion Code(s): T82.898A - OTH COMPLICATION OF VASCULAR PROSTH DEV/GRFT, INIT Assessment/Plan 62 year old gentleman with hx of ESRD on HD, Hypertension, Anemia presented had MRSA bacteremia with infected AVG site. His AVG removed. The Blood C/s from 08/16 onwards is negative, is scheduled for Permacath today. Discussed with Dr. Greene. The patient developed lowe GI blood loss. Will transfuse on dialysis today. Neisha Hager MD
--- NOTE | 2018-08-22 11:50 | PN ---
Progress Note (short form) - Note Progress Note: Pt seen/ examined. awake/ comfortable no distress at bedside decrease in h/h no obvious bleeding. Denies cp/ sob. alert/ awake Discussed with Dr. Neisha Mayes/ Surgical team / Dr. Maria Eugenia Varghese Scheduled for permacath today and after that dialysis and blood transfusion Likely egd tomorrow Vital Signs Temp 98 F 08/22/18 11:33 Pulse 78 08/22/18 11:33 Resp 18 08/22/18 11:33 BP 109/62 08/22/18 11:33 Pulse Ox 95 08/21/18 21:00 Intake & Output 08/21/18 08/21/18 08/22/18 11:59 23:59 11:59 Intake Total 800 1120 0 Balance 800 1120 0 Weight 187 lb 3.2 oz 189 lb 14.4 oz Intake: IV 50 360 D5-1/2Ns - 1,000 ml @ 40 360 mls/hr IV ASDIR [facility] Rx#: [id number] sl2 50 IVPB 200 200 Oral 200 560 0 Packed Cells 350 Other: Voiding Method Diaper Diaper Diaper # Unmeasured Voids Void 2 2 Bowel Movement Yes Yes Yes Weight Measurement Method Chair Scale Chair Scale Active Medications Acetaminophen (Tylenol -) 650 mg PO Q6H PRN PRN Reason: FEVER Last Admin: 08/21/18 12:23 Dose: 650 mg Epoetin Nelson (Procrit -) 20,000 unit SQ MoWeFr@1000 [facility] Last Admin: 08/19/18 15:20 Dose: 20,000 unit Heparin Sodium (Porcine) (Heparin -) 5,000 unit SQ BID [facility] Last Admin: 08/20/18 11:48 Dose: Not Given Nafcillin Sodium 2 gm/ (Dextrose) 100 mls @ 100 mls/hr IVPB Q6H-IV [facility]; Protocol Last Admin: 08/22/18 11:38 Dose: Not Given Pantoprazole Sodium 80 mg/ (Sodium Chloride) 100 mls @ 10 mls/hr IVPB Q10H [facility] Last Admin: 08/22/18 09:10 Dose: Not Given Dextrose/Sodium Chloride (D5-1/2ns -) 1,000 mls @ 40 mls/hr IV ASDIR [facility] Last Admin: 08/21/18 12:29 Dose: 40 mls/hr Insulin Aspart (Novolog Vial Sliding Scale -) 1 vial SQ ACHS [facility]; Protocol Last Admin: 08/22/18 11:35 Dose: Not Given Insulin Detemir (Levemir Vial) 10 units SQ HS [facility] Last Admin: 08/21/18 22:36 Dose: 10 unit Ondansetron HCl (Zofran Injection) 4 mg IVPUSH Q6H PRN PRN Reason: NAUSEA AND/OR VOMITING Sevelamer Carbonate (Renvela -) 800 mg PO TIDCM [facility] Last Admin: 08/22/18 11:09 Dose: 800 mg Torsemide (Demadex -) 80 mg PO DAILY [facility] Last Admin: 08/22/18 11:08 Dose: 80 mg Torsemide (Demadex -) 80 mg PO BID PRN PRN Reason: SHORTNESS OF BREATH CBC, [facility] 08/22/18 07:30 08/22/18 07:30 Microbiology 08/18/18 06:45 Blood Culture - Preliminary Blood - Peripheral Venous NO GROWTH OBTAINED AFTER 96 HOURS, INCUBATION TO CONTINUE FOR 1 DAYS. 08/18/18 06:00 Blood Culture - Preliminary Blood - Peripheral Venous NO GROWTH OBTAINED AFTER 96 HOURS, INCUBATION TO CONTINUE FOR 1 DAYS. 08/16/18 12:10 Blood Culture - Final Blood - Peripheral Venous NO GROWTH AFTER 5 DAYS INCUBATION 08/16/18 12:25 Blood Culture - Final Blood - Peripheral Venous NO GROWTH AFTER 5 DAYS INCUBATION Physical Examination Constitutional: Yes: No Distress, comfortable. Eyes: Yes: Conjunctiva Clear Neck: Yes: Supple. no jvd. Cardiovascular: Yes: Regular Rate and Rhythm Respiratory: Yes: Diminished at bases Gastrointestinal: Yes: Soft. obese . Edema: No, Neurological: Yes: Alert/ n/f Psychiatric: Yes: Alert Assessment/Plan Abx- as per ID blood cultures - repeat -ve so far HD per Renal -- later today after access monitor cbc off d/c heparin alert/ awake cxr-- Atelectasis / mild congestion permacath today Discussed with nursing staff will follow. Problem List - Problems (1) Abdominal pain Code(s): R10.9 - UNSPECIFIED ABDOMINAL PAIN (2) ESRD (end stage renal disease) on dialysis Code(s): N18.6 - END STAGE RENAL DISEASE; Z99.2 - DEPENDENCE ON RENAL DIALYSIS (3) Fever Code(s): R50.9 - FEVER, UNSPECIFIED (4) AV fistula occlusion Code(s): T82.898A - OTH COMPLICATION OF VASCULAR PROSTH DEV/GRFT, INIT (5) Bacteremia Code(s): R78.81 - BACTEREMIA Problem List - Problems (1) Abdominal pain Code(s): R10.9 - UNSPECIFIED ABDOMINAL PAIN (2) ESRD (end stage renal disease) on dialysis Code(s): N18.6 - END STAGE RENAL DISEASE; Z99.2 - DEPENDENCE ON RENAL DIALYSIS (3) Fever Code(s): R50.9 - FEVER, UNSPECIFIED (4) AV fistula occlusion Code(s): T82.898A - OT COMPLICATION OF VASCULAR PROSTH DEV/GRFT, INIT (5) Bacteremia Code(s): R78.81 - BACTEREMIA
--- NOTE | 2018-08-22 14:32 | PN ---
Progress Note, Physician History of Present Illness: stable no new issues for permacath today - Current Medication List Current Medications: Active Medications Acetaminophen (Tylenol -) 650 mg PO Q6H PRN PRN Reason: FEVER Last Admin: 08/21/18 12:23 Dose: 650 mg Epoetin Nelson (Procrit -) 20,000 unit SQ MoWeFr@1000 [facility]A Last Admin: 08/19/18 15:20 Dose: 20,000 unit Heparin Sodium (Porcine) (Heparin -) 5,000 unit SQ BID [facility] Last Admin: 08/20/18 11:48 Dose: Not Given Nafcillin Sodium 2 gm/ (Dextrose) 100 mls @ 100 mls/hr IVPB Q6H-IV [facility]; Protocol Last Admin: 08/22/18 11:59 Dose: 100 mls/hr Pantoprazole Sodium 80 mg/ (Sodium Chloride) 100 mls @ 10 mls/hr IVPB Q10H [facility] Last Admin: 08/22/18 13:56 Dose: Not Given Dextrose/Sodium Chloride (D5-1/2ns -) 1,000 mls @ 40 mls/hr IV ASDIR [facility] Last Admin: 08/21/18 12:29 Dose: 40 mls/hr Insulin Aspart (Novolog Vial Sliding Scale -) 1 vial SQ ACHS [facility]; Protocol Last Admin: 08/22/18 11:35 Dose: Not Given Insulin Detemir (Levemir Vial) 10 units SQ HS [facility] Last Admin: 08/21/18 22:36 Dose: 10 unit Ondansetron HCl (Zofran Injection) 4 mg IVPUSH Q6H PRN PRN Reason: NAUSEA AND/OR VOMITING Sevelamer Carbonate (Renvela -) 800 mg PO TIDCM [facility] Last Admin: 08/22/18 11:09 Dose: 800 mg Torsemide (Demadex -) 80 mg PO DAILY [facility] Last Admin: 08/22/18 11:08 Dose: 80 mg Torsemide (Demadex -) 80 mg PO BID PRN PRN Reason: SHORTNESS OF BREATH - Objective Vital Signs: Vital Signs Temperature 98.1 F 08/22/18 13:42 Pulse Rate 85 08/22/18 13:42 Respiratory Rate 20 08/22/18 13:42 Blood Pressure 117/68 08/22/18 13:42 O2 Sat by Pulse Oximetry (%) 95 08/21/18 21:00 Constitutional: Yes: No Distress, Calm Cardiovascular: Yes: Regular Rate and Rhythm Respiratory: Yes: Regular, CTA Bilaterally Gastrointestinal: Yes: Normal Bowel Sounds, Soft Musculoskeletal: Yes: Other Extremities: Yes: Other Wound/Incision: Yes: Dressing Dry and Intact Psychiatric: Yes: Alert, Oriented Labs: CBC, BMP 08/22/18 07:30 08/22/18 07:30 INR, PTT INR 1.64 (0.83-1.09) H 08/22/18 07:30 Assessment/Plan Problem List - Problems (1) Abdominal pain Code(s): R10.9 - UNSPECIFIED ABDOMINAL PAIN (2) Fever Code(s): R50.9 - FEVER, UNSPECIFIED (3) ESRD (end stage renal disease) on dialysis Code(s): N18.6 - END STAGE RENAL DISEASE; Z99.2 - DEPENDENCE ON RENAL DIALYSIS (4) Presence of arterial-venous shunt (for dialysis) Code(s): Z99.2 - DEPENDENCE ON RENAL DIALYSIS Assessment/Plan 62 y.o. male with PMH of ESRD on HD, AVF/Graft, DM, and HTN presenting with Lt sided abdominal pain, fevers, and RUE AVF site blister formation/mild bleeding/ mild tenderness Sepsis/ Staph aureus bacteremia Infection of AVG - s/p excision ESRD on HD DM HTN blood cx still negative plan cx still negative awaiting for permacath placement wound care rest as per the team
[2018-08-22] MEDS: DEXTROSE 5%-0.45% SALINE 1,000 ML IV SCH (14:48)
[2018-08-22] MEDS ORDERED: LIDOCAINE HCL 1%, 10 MG/ML (20ML VIAL) ONE ×2 (15:46→15:48)
[2018-08-22] MEDS ORDERED: MIDAZOLAM HCL 2 MG/2 ML SINGLE DOSE VIAL ONE (16:20)
[2018-08-22] MEDS ORDERED: ceFAZolin SODIUM 1 GM VIAL ONE (17:06)
[2018-08-22] MEDS ORDERED: SODIUM CHLORIDE 0.9% P/F 10 ML VIAL IJ ONE (17:07)
[2018-08-22] MEDS ORDERED: LIDOCAINE HCL 1%, 10 MG/ML (20ML VIAL) INF ONE ×3 (17:15)
[2018-08-22] MEDS ORDERED: HEPARIN NA (PORCINE) 5,000 UNITS/ML 1ML VIAL SQ ONE ×2 (17:20)
[2018-08-22] MEDS ORDERED: HEPARIN NA (PORCINE) 1,000 UNITS/ML 10ML M-D VIAL SQ ONE (17:23)
[2018-08-22] MEDS ORDERED: ONDANSETRON 4 MG/2 ML VIAL IVPUSH PRN ×2 (18:38→18:44)
--- NOTE | 2018-08-22 18:40 | OP ---
Operative Note - Note: Operative Date: 08/22/18 Pre-Operative Diagnosis: ESRD Operation: Venogram left subclavian vein. Placement Permacath left femoral vein Findings: Occlusion left IJ, innominate vein Patent left femoral vein. Implants: 40 cm Permacath Post-Operative Diagnosis: Same as Pre-op Surgeon: Gio Greene Anesthesiologist/ADMINISTRATION MANAGER: Tano Santos Anesthesia: Fractional Estimated Blood Loss (mls): 20 Operative Report Dictated: Yes
[2018-08-22] MEDS ORDERED: TORSEMIDE 20 MG TABLET (FP) PO PRN (18:44)
[2018-08-22] MEDS ORDERED: ACETAMINOPHEN 325 MG TABLET (FP) PO PRN (18:44)
--- NOTE | 2018-08-22 23:10 | OP ---
DATE OF OPERATION: 08/22/2018 PROCEDURE: Ultrasound guided cannulation left subclavian vein with venogram of left subclavian and innominate vein and then placement of PermCath left femoral vein. PREOPERATIVE DIAGNOSIS: End-stage renal disease. POSTOPERATIVE DIAGNOSIS: End-stage renal disease. Occlusion of innominate vein. ANESTHESIA: Fractional. ANESTHESIOLOGIST: Tano Santos M.D. OPERATIVE FINDINGS: The ultrasound evaluation of the left neck showed a patent jugular vein. The left subclavian vein was patent with drainage into the azygos system around the heart. The left innominate vein was occluded and could not be catheterized into the superior vena cava. OPERATIVE PROCEDURE: Following routine patient identification intravenous sedation was established. The left neck and chest were prepped with ChloraPrep. Timeout was performed. Ultrasound evaluation of the left neck revealed several structures appearing to be veins. Lidocaine was infiltrated in the neck and then made to cannulate these structures under ultrasound guidance, but there was no blood return to suggest that they were occluded veins. Additional Xylocaine was then infiltrated on the chest wall, and under ultrasound guidance, the left subclavian vein was cannulated with a micropuncture needle. The wire was passed proximally into the mediastinum, and the needle was exchanged for a 5 Sami catheter. Contrast was injected through the catheter to visualize the subclavian vein. There was occlusion of the innominate vein with collaterals going up into the neck and into the mediastinum via the azygos vein system. A 7 Sami sheath was then placed over the wire to the subclavian vein, and using a wire catheter, attempts were made to catheterize the innominate vein. A wire was able to be passed across the chest to the area of the superior vena cava, where a Hero catheter was present, but the wire would not reenter the lumen of the vessel. Multiple attempts with different wires and catheters proved unsuccessful. The sheath was then removed and pressure applied on the chest until all bleeding ceased and sterile dressing was applied. The left groin lower abdomen and thigh were then prepped with ChloraPrep. Using realtime duplex imaging, the left pelvic femoral vein was identified and was compressible. Lidocaine was infiltrated in the skin over the vein, the vein was cannulated with a micropuncture needle, and a wire was passed proximally. The needle was exchanged for a 5 Sami catheter, and the wire was exchanged for a J-tipped wire which was advanced into the inferior vena cava. Additional Xylocaine was infiltrated 3 cm distal on the thigh. A stab wound made. A 40-cm length PermCath was then passed through the tunnel between the 2 incisions. Tract around the wire was dilated and the introducer was placed over the wire into the iliac vein. The wire and dilator were removed, and the tip of the PermCath was advanced into the inferior vena cava with the aid of a guidewire. The sheath was peeled away. was aspirated for blood and flushed with saline and filled with heparin solution. The groin incision was closed with subcuticular suture of 3-0 Vicryl, and the catheter was sutured to the skin at the exit site with 3-0 nylon. Sterile dressings were applied, and the patient was taken to the recovery room in stable condition. DEEPALI RENO M.D. [id number]
[2018-08-23] MEDS: INSULIN (LEVEMIR) 100 UNITS/ML UNITS SQ SCH ×2 (00:18→21:45)
[2018-08-23] MEDS: HEPARIN NA (PORCINE) 5,000 UNITS/ML 1ML VIAL SQ SCH ×3 (00:18→21:45)
[2018-08-23] MEDS: INSULIN SLIDING SCALE (NOVOLOG) 1 VIAL SQ SCH ×5 (00:19→22:42)
[2018-08-23] MEDS: DEXTROSE 5%-0.45% SALINE 1,000 ML IV SCH ×2 (00:23→22:42)
[2018-08-23] MEDS: NAFCILLIN - 2 GM in DEXTROSE 5%-WATER - 100 ML IVPB SCH ×4 (04:00→21:45)
[2018-08-23] MEDS: PANTOPRAZOLE SODIUM 80 MG in SODIUM CHLORIDE 100 ML IVPB SCH ×4 (06:00→23:38)
--- NOTE | 2018-08-23 08:37 | PN ---
Progress Note (short form) - Note Progress Note: Unable to place Permacath in chest due to chronic central vein occlusion. Left femoral vein line placed. Once arm has healed will plan new access to HeRO catheter. Problem List - Problems (1) ESRD (end stage renal disease) on dialysis Code(s): N18.6 - END STAGE RENAL DISEASE; Z99.2 - DEPENDENCE ON RENAL DIALYSIS (2) Complication of vascular access for dialysis Code(s): T82.9XXA - UNSP COMP OF CARDIAC AND VASCULAR PROSTH DEV/GRFT, INIT Qualifiers: Encounter type: initial encounter Qualified Code(s): T82.9XXA - Unspecified complication of cardiac and vascular prosthetic device, implant and graft, initial encounter
--- NOTE | 2018-08-23 09:01 | PN ---
Progress Note, Physician History of Present Illness: patient stable no issues had a permacath placed - Current Medication List Current Medications: Active Medications Acetaminophen (Tylenol -) 650 mg PO Q6H PRN PRN Reason: FEVER Epoetin Nelson (Procrit -) 20,000 unit SQ MoWeFr@1000 RASHEEDA Heparin Sodium (Porcine) (Heparin -) 5,000 unit SQ BID [facility] Last Admin: 08/23/18 00:18 Dose: 5,000 unit Dextrose/Sodium Chloride (D5-1/2ns -) 1,000 mls @ 40 mls/hr IV ASDIR [facility] Last Admin: 08/23/18 00:23 Dose: 40 mls/hr Nafcillin Sodium 2 gm/ (Dextrose) 100 mls @ 100 mls/hr IVPB Q6H-IV [facility]; Protocol Last Admin: 08/23/18 04:00 Dose: Not Given Pantoprazole Sodium 80 mg/ (Sodium Chloride) 100 mls @ 10 mls/hr IVPB Q10H [facility] Last Admin: 08/23/18 06:00 Dose: Not Given Insulin Aspart (Novolog Vial Sliding Scale -) 1 vial SQ ACHS [facility]; Protocol Last Admin: 08/23/18 06:12 Dose: Not Given Insulin Detemir (Levemir Vial) 10 units SQ HS [facility] Last Admin: 08/23/18 00:18 Dose: Not Given Ondansetron HCl (Zofran Injection) 4 mg IVPUSH Q6H PRN PRN Reason: NAUSEA AND/OR VOMITING Ondansetron HCl (Zofran Injection) 4 mg IVPUSH Q6H PRN PRN Reason: NAUSEA AND/OR VOMITING Sevelamer Carbonate (Renvela -) 800 mg PO TIDCM [facility] Torsemide (Demadex -) 80 mg PO BID PRN PRN Reason: SHORTNESS OF BREATH Torsemide (Demadex -) 80 mg PO DAILY [facility] - Objective Vital Signs: Vital Signs Temperature 97.3 F L 08/23/18 08:34 Pulse Rate 87 08/23/18 08:34 Respiratory Rate 18 08/23/18 08:34 Blood Pressure 121/59 L 08/23/18 08:34 O2 Sat by Pulse Oximetry (%) 92 L 08/23/18 00:15 Constitutional: Yes: No Distress, Calm Eyes: Yes: Conjunctiva Clear Cardiovascular: Yes: Regular Rate and Rhythm Respiratory: Yes: Regular, CTA Bilaterally Gastrointestinal: Yes: Normal Bowel Sounds, Soft Musculoskeletal: Yes: WNL Extremities: Yes: Other (permacath in the left groin) Neurological: Yes: Alert, Oriented Psychiatric: Yes: Alert, Oriented Labs: CBC, BMP 08/22/18 07:30 08/22/18 07:30 INR, PTT INR 1.64 (0.83-1.09) H 08/22/18 07:30 Assessment/Plan Problem List - Problems (1) Abdominal pain Code(s): R10.9 - UNSPECIFIED ABDOMINAL PAIN (2) Fever Code(s): R50.9 - FEVER, UNSPECIFIED (3) ESRD (end stage renal disease) on dialysis Code(s): N18.6 - END STAGE RENAL DISEASE; Z99.2 - DEPENDENCE ON RENAL DIALYSIS (4) Presence of arterial-venous shunt (for dialysis) Code(s): Z99.2 - DEPENDENCE ON RENAL DIALYSIS Assessment/Plan 62 y.o. male with PMH of ESRD on HD, AVF/Graft, DM, and HTN presenting with Lt sided abdominal pain, fevers, and RUE AVF site blister formation/mild bleeding/ mild tenderness Sepsis/ Staph aureus bacteremia Infection of AVG - s/p excision ESRD on HD DM HTN blood cx still negative post permacath placed plan continue abx will need abx for another 2 weeks rest as per the team dialysis
[2018-08-23] MEDS: SEVELAMER CARBONATE 800 MG TAB (FP) PO SCH ×3 (09:15→17:53)
[2018-08-23] MEDS: TORSEMIDE 20 MG TABLET (FP) PO SCH (09:54)
[2018-08-23 10:24] LABS: BASO % 0.7 % (0-2.0); EOS % 2.2 % (0-4.5); HEMATOCRIT 23.6 % (35.4-49); HEMOGLOBIN 7.8 GM/dL (11.7-16.9); LYMPH % 11.4 % (8-40); MCH 29.5 pg (25.7-33.7); MCHC 33.1 g/dl (32.0-35.9); MEAN CELL VOLUME 89.2 fl (80-96); MEAN PLT VOLUME 8.1 fl (7.5-11.1); MONO % 6.1 % (3.8-10.2); NEUT % 79.6 % (42.8-82.8); PLATELET COUNT 213 K/MM3 (134-434); RBC 2.65 M/mm3 (4.00-5.60); RDW 16.9 % (11.9-15.9)
[2018-08-23 10:37] LABS: INR 1.88 (0.83-1.09); PROTHROMBIN TIME (PATIENT) 22.3 SEC (9.7-13.0)
[2018-08-23 10:44] LABS: ANION GAP 13 MMOL/L (8-16); BLOOD UREA NITROGEN 30 mg/dL (7-18); CALCIUM 7.9 mg/dL (8.5-10.1); CHLORIDE 101 mmol/L (98-107); CO2 29 mmol/L (21-32); CREATININE 7.2 mg/dL (0.55-1.3); GLUCOSE,RANDOM 156 mg/dL (74-106); POTASSIUM 3.3 mmol/L (3.5-5.1); SODIUM 143 mmol/L (136-145)
[2018-08-23] MEDS ORDERED: PHYTONADIONE 10 MG/1 ML AMP SQ ONE (11:49)
--- NOTE | 2018-08-23 12:01 | PN ---
Progress Note (short form) - Note Progress Note: INR 1.88 today. No overt bleeding reported and vitals have been stable. Ordered vitamin k 10mg SC x 1 today, advanced to full liquids for today and plan for EGD tomorrow 08/24. Check coags / CBC in AM. Problem List - Problems (1) Anemia Code(s): D64.9 - ANEMIA, UNSPECIFIED Qualifiers: Anemia type: unspecified type Qualified Code(s): D64.9 - Anemia, unspecified
--- NOTE | 2018-08-23 12:10 | PN ---
Progress Note (short form) - Note Progress Note: Chief Complaint: syncope History of Present Illness: no cp sob palps dizzy ex cigs - Current Medication List Current Medications Generic Name Dose Route Start Last Admin Trade Name Frecammy PRN Reason Stop Dose Admin Acetaminophen 650 mg 08/22/18 18:44 Tylenol - PO Q6H PRN FEVER Epoetin Nelson 20,000 unit 08/24/18 10:00 Procrit - SQ MoWeFr@1000 RASHEEDA Heparin Sodium (Porcine) 5,000 unit 08/22/18 22:00 08/23/18 09:46 Heparin - SQ Not Given BID [facility] Dextrose/Sodium Chloride 1,000 mls @ 40 mls/hr 08/22/18 18:44 08/23/18 00:23 D5-1/2ns - IV 40 mls/hr ASDIR [facility] Administration Nafcillin Sodium 2 gm/ 100 mls @ 100 mls/hr 08/22/18 21:00 08/23/18 09:15 Dextrose IVPB Not Given Q6H-IV [facility] Protocol Pantoprazole Sodium 80 mg/ 100 mls @ 10 mls/hr 08/23/18 04:00 08/23/18 06:00 Sodium Chloride IVPB Not Given Q10H [facility] 8 MG/HR Insulin Aspart 1 vial 08/22/18 22:00 08/23/18 11:57 Novolog Vial Sliding Scale - SQ Not Given ACHS [facility] Protocol Insulin Detemir 10 units 08/22/18 22:00 08/23/18 00:18 Levemir Vial SQ Not Given HS [facility] Ondansetron HCl 4 mg 08/22/18 18:38 Zofran Injection IVPUSH Q6H PRN NAUSEA AND/OR VOMITING Ondansetron HCl 4 mg 08/22/18 18:44 Zofran Injection IVPUSH Q6H PRN NAUSEA AND/OR VOMITING Sevelamer Carbonate 800 mg 08/23/18 08:00 08/23/18 09:15 Renvela - PO Not Given TIDCM [facility] Torsemide 80 mg 08/22/18 18:44 Demadex - PO BID PRN SHORTNESS OF BREATH Torsemide 80 mg 08/23/18 10:00 08/23/18 09:54 Demadex - PO 80 mg DAILY [facility] Administration - Objective Vital Signs: Vital Signs Period Temp Pulse Resp BP Sys/Jackson Pulse Ox Last 24 Hr 97.3 F-98.5 F 80-92 18-22 97-142/45-71 92-100 Constitutional: Yes: No Distress, Calm Eyes: No: Sclera Icterus Cardiovascular: Yes: Regular Rate and Rhythm, S1, S2, Other (PMI non diplaced). No: JVD (tds neck habitus), Gallop, Murmur Respiratory: Yes: CTA Bilaterally. No: Accessory Muscle Use, Rales, Wheezes Gastrointestinal: Yes: Normal Bowel Sounds, Soft. No: Tenderness Extremities: No: Cyanosis Edema: No Integumentary: No: Jaundice diaphoresis Neurological: Yes: Alert. No: Seizure Psychiatric: No: Agitated Labs: CBC, BMP 08/23/18 09:55 08/23/18 09:55 Assessment/Plan Echo 07/2018 nl LV size, EF 40-45%, E/A reversal, RV nl, LA nl Carotid dopplers: IJ thrombosis Syncope - patient denies history of syncope, however he complained of this per on 08/07 RN...he is poor historian. - here with old IJ clot per vascular--no AC indicated - was hypoxic to 86% on 08/06, normal sats since - mild tachycardia, suspect infection related - echo showed EF 40-45%, unclear if new, pt says no cardiac hx, unlikely to have contributed to syncope - may be vasovagal vs orthostatic, appears less likely cardiac etiology chest/abd pain, pos troponin - resolved - trop 0.14->0.15 on admission, has been constant since surgery and is worse with different positions, + worse with palpation. - trend and history not c/w ACS, unlikely cardiac etiology Cardiomyopathy - EF 40-45% - has had borderline BPs, if stable after resuming HD would consider adding ACEI /BB - appears euvolemic currently, volume management with HD per renal +/- po torsemide - would consider outpatient ischemic evaluation after acute issues resolved ESRD on HD - HD per renal fever/bacteremia - avg removed, on abx per ID - Vascular unable to place Permacath in chest due to chronic central vein occlusion. anemia: -plan for egd tomorrow, no cardiac contraindications
--- NOTE | 2018-08-23 12:13 | CON.NEURO ---
Consult Consult Specialty:: Neurology Referred by:: Dr. Rivera Reason for Consultation:: Altered Mental Status - History of Present Illness Chief Complaint: Altered mental status History of Present Illness: 62M h/o ESRD on HD, DM, obesity p/w fever, L side abd pain. On abx, av graft found to be tender/swelling/oozing, was removed by vascular. Received 3 units PRBC as well. Plans to get catheter for HD. Noted to have bactermia, on IV abx. PT on 08/08 for a few seconds, when asked about it today he does not remember and denies any history of syncope. Head CT unremarkable. Carotid ultrasound shows IJ clot, reportedly old per Dr. Greene although no prior study for comparison. Eliquis started . Patient complains of chest pain since graft surgery that is constant, worse if moving arm, no dyspnea, edema, orthopnea, dizziness. Noted to have bactermia, on IV abx. Carotid ultrasound shows incidentally noted IJ clot-=considered to be old. We had seen him a few weeks ago for encephalopathy which had improved, but apparently has some waxing and waning and he is not aware of it. He is not entirely sure why he's in the hospital, defering to his and stating only that he's a dialysis patient. - History Source History Provided By: Patient, Medical Record Limitations to Obtaining History: Dementia - Past Medical History Cardio/Vascular: Yes: HTN Renal/: Yes: Renal Failure, Other (on dialysis for 3 years) Endocrine: Yes: Diabetes Mellitus - Past Surgical History Past Surgical History: Yes: AV Fistula/Graft - Alcohol/Substance Use Hx Alcohol Use: Yes History of Substance Use: reports: None - Smoking History Smoking history: Former smoker Have you smoked in the past 12 months: No Aproximately how many cigarettes per day: 3 If you are a former smoker, when did you quit?: 1 YEARS AGO - Social History Usual Living Arrangement: With Spouse ADL: Independent History of Recent Travel: No Home Medications - Allergies Allergies/Adverse Reactions: Allergies Allergy/AdvReac Type Severity Reaction Status Date / Time No Known Drug Allergies Allergy Verified 08/06/18 00:20 - Home Medications Home Medications: Ambulatory Orders Sevelamer Carbonate [Renvela -] 800 mg PO TIDCM 12/26/13 oxyCODONE HCL [Roxicodone -] 5 mg PO Q4H PRN #30 tablet 03/17/15 Physical Exam-Neuro Vital Signs: Vital Signs Temperature 97.3 F L 08/23/18 08:34 Pulse Rate 87 08/23/18 08:34 Respiratory Rate 18 08/23/18 08:34 Blood Pressure 121/59 L 08/23/18 08:34 O2 Sat by Pulse Oximetry (%) 100 08/23/18 09:00 Constitutional: Yes: Well Nourished, No Distress, Calm Labs: CBC, BMP 08/23/18 09:55 08/23/18 09:55 INR, PTT INR 1.88 (0.83-1.09) H 08/23/18 09:55 - Neuro Exam Level Of Consciousness: Yes: Alert, Oriented to Person, Oriented to Place, Oriented to Time Eyes: Yes: MARTY Speech: WNL Cranial Nerves II-XII Intact: Yes DTR's: 0 Left Achilles, 0 Right Achilles, 1+ Left Bicep, 1+ Right Bicep, 1+ Left Tricep, 1+ Right Tricep, 1+ Left Brachioradialis, 1+ Right Brachioradialis Babinski: Absent Motor Strength: 5/5: Left Arm, Right Arm, Left Leg, Right Leg Imaging - Results Cat Scan: Report Reviewed, Image Reviewed (He has some atrophy) Problem List - Problems (1) Dementia Code(s): F03.90 - UNSPECIFIED DEMENTIA WITHOUT BEHAVIORAL DISTURBANCE (2) Anemia Code(s): D64.9 - ANEMIA, UNSPECIFIED Qualifiers: Anemia type: unspecified type Qualified Code(s): D64.9 - Anemia, unspecified (3) Bacteremia Code(s): R78.81 - BACTEREMIA (4) CHF (congestive heart failure) Code(s): I50.9 - HEART FAILURE, UNSPECIFIED Qualifiers: Heart failure type: diastolic (5) Complication of vascular access for dialysis Code(s): T82.9XXA - UNSP COMP OF CARDIAC AND VASCULAR PROSTH DEV/GRFT, INIT Qualifiers: Encounter type: initial encounter Qualified Code(s): T82.9XXA - Unspecified complication of cardiac and vascular prosthetic device, implant and graft, initial encounter (6) ESRD (end stage renal disease) on dialysis Code(s): N18.6 - END STAGE RENAL DISEASE; Z99.2 - DEPENDENCE ON RENAL DIALYSIS (7) Fever Code(s): R50.9 - FEVER, UNSPECIFIED (8) Sepsis associated with vascular access catheter Code(s): T82.7XXA - INFECT/INFLM REACT D/T OTH CARDI/VASC DEV/IMPLNT/GRFT, INIT ; A41.9 - SEPSIS, UNSPECIFIED ORGANISM (9) Encephalopathy Code(s): G93.40 - ENCEPHALOPATHY, UNSPECIFIED Assessment/Plan He likely has some baseline dementia, and reduced cognitive reserve, making him very susceptible to transient metabolic/infectious triggers of delirium. I see no focal indicators of infarction nor are any suggested by the CT scan. I will order b12, TSH, syphilis screen to r/o other sources dementia.
[2018-08-23] MEDS: EPOETIN ALFA 20,000 UNIT/1 ML VIAL SQ SCH (12:18)
--- NOTE | 2018-08-23 12:56 | PN ---
Progress Note (short form) - Note Progress Note: pt seen/ examined sitting in chair tired no complaints Vital Signs - 24 hr 08/22/18 08/22/18 08/22/18 13:42 18:34 18:45 Temperature 98.1 F 98.1 F Pulse Rate 85 83 80 Respiratory 20 20 22 H Rate Blood Pressure 117/68 122/48 L 112/52 L O2 Sat by Pulse 98 Oximetry (%) 08/22/18 08/22/18 08/22/18 19:00 19:15 20:00 Temperature 97.9 F Pulse Rate 80 84 89 Respiratory 18 18 18 Rate Blood Pressure 120/71 118/68 97/52 L O2 Sat by Pulse 98 Oximetry (%) 08/22/18 08/22/18 08/22/18 20:05 20:33 20:35 Temperature 97.8 F Pulse Rate 86 86 87 Respiratory 18 22 H 18 Rate Blood Pressure 102/46 L 120/68 104/62 O2 Sat by Pulse Oximetry (%) 08/22/18 08/22/18 08/22/18 21:05 21:35 22:05 Temperature Pulse Rate 88 87 90 Respiratory 18 18 18 Rate Blood Pressure 98/48 L 106/67 111/57 L O2 Sat by Pulse Oximetry (%) 08/22/18 08/22/18 08/22/18 22:35 23:05 23:35 Temperature Pulse Rate 84 86 85 Respiratory 18 18 18 Rate Blood Pressure 119/65 107/45 L 98/68 O2 Sat by Pulse Oximetry (%) 08/22/18 08/23/18 08/23/18 23:50 00:15 06:00 Temperature 98.5 F 98.2 F Pulse Rate 87 92 H 82 Respiratory 18 20 20 Rate Blood Pressure 101/64 142/63 136/65 O2 Sat by Pulse 92 L Oximetry (%) 08/23/18 08/23/18 08:34 09:00 Temperature 97.3 F L Pulse Rate 87 Respiratory 18 Rate Blood Pressure 121/59 L O2 Sat by Pulse 100 Oximetry (%) Current Medications Generic Name Dose Route Start Last Admin Trade Name Freq PRN Reason Stop Dose Admin Acetaminophen 650 mg 08/22/18 18:44 Tylenol - PO Q6H PRN FEVER Epoetin Nelson 20,000 unit 08/24/18 10:00 Procrit - SQ MoWeFr@1000 RASHEEDA Heparin Sodium (Porcine) 5,000 unit 08/22/18 22:00 08/23/18 09:46 Heparin - SQ Not Given BID RASHEEDA Dextrose/Sodium Chloride 1,000 mls @ 40 mls/hr 08/22/18 18:44 08/23/18 00:23 D5-1/2ns - IV 40 mls/hr ASDIR RASHEEDA Administration Nafcillin Sodium 2 gm/ 100 mls @ 100 mls/hr 08/22/18 21:00 08/23/18 09:15 Dextrose IVPB Not Given Q6H-IV [facility]1983 Protocol Pantoprazole Sodium 80 mg/ 100 mls @ 10 mls/hr 08/23/18 04:00 08/23/18 06:00 Sodium Chloride IVPB Not Given Q10H RASHEEDA 8 MG/HR Insulin Aspart 1 vial 08/22/18 22:00 08/23/18 11:57 Novolog Vial Sliding Scale - SQ Not Given ACHS [facility]1983 Protocol Insulin Detemir 10 units 08/22/18 22:00 08/23/18 00:18 Levemir Vial SQ Not Given HS RASHEEDA Ondansetron HCl 4 mg 08/22/18 18:38 Zofran Injection IVPUSH Q6H PRN NAUSEA AND/OR VOMITING Ondansetron HCl 4 mg 08/22/18 18:44 Zofran Injection IVPUSH Q6H PRN NAUSEA AND/OR VOMITING Sevelamer Carbonate 800 mg 08/23/18 08:00 08/23/18 09:15 Renvela - PO Not Given TIDCM RASHEEDA Torsemide 80 mg 08/22/18 18:44 Demadex - PO BID PRN SHORTNESS OF BREATH Torsemide 80 mg 08/23/18 10:00 08/23/18 09:54 Demadex - PO 80 mg DAILY RASHEEDA Administration Laboratory Results - last 24 hr 08/20/18 08/22/18 08/22/18 21:10 16:03 19:00 WBC RBC Hgb Hct MCV MCH MCHC RDW Plt Count MPV Absolute Neuts (auto) Neutrophils % Lymphocytes % Monocytes % Eosinophils % Basophils % Nucleated RBC % PT with INR INR Sodium Potassium Chloride Carbon Dioxide Anion Gap BUN Creatinine Creat Clearance w eGFR POC Glucometer 137 115 Random Glucose Calcium Blood Type O POSITIVE Antibody Screen Negative Crossmatch See Detail 08/23/18 08/23/18 08/23/18 00:16 05:54 09:55 WBC RBC Hgb Hct MCV MCH MCHC RDW Plt Count MPV Absolute Neuts (auto) Neutrophils % Lymphocytes % Monocytes % Eosinophils % Basophils % Nucleated RBC % PT with INR 22.30 H INR 1.88 H Sodium Potassium Chloride Carbon Dioxide Anion Gap BUN Creatinine Creat Clearance w eGFR POC Glucometer 154 113 Random Glucose Calcium Blood Type Antibody Screen Crossmatch 08/23/18 08/23/18 08/23/18 09:55 09:55 11:46 WBC 7.0 RBC 2.65 L Hgb 7.8 L Hct 23.6 L MCV 89.2 MCH 29.5 MCHC 33.1 RDW 16.9 H Plt Count 213 MPV 8.1 Absolute Neuts (auto) 5.6 Neutrophils % 79.6 Lymphocytes % 11.4 Monocytes % 6.1 Eosinophils % 2.2 Basophils % 0.7 Nucleated RBC % 0 PT with INR INR Sodium 143 Potassium 3.3 L Chloride 101 Carbon Dioxide 29 Anion Gap 13 BUN 30 H Creatinine 7.2 H Creat Clearance w eGFR 7.76 POC Glucometer 159 Random Glucose 156 H Calcium 7.9 L Blood Type Antibody Screen Crossmatch Physical Examination Constitutional: Yes: No Distress, morbidly obese Eyes: Yes: Conjunctiva Clear Neck: Yes: Supple Cardiovascular: Yes: Regular Rate and Rhythm Respiratory: Yes: Diminished Gastrointestinal: Yes: Soft. obese Extremities: Yes: Other (rue - dressing +)kassie+ Edema: No, no groin hematoma Neurological: Yes: Alert/ n/f Psychiatric: Yes: Alert Assessment/Plan Abx- as per ID blood cultures - negative left femoral permacath + for EGD tomorrow monitor Hb Neurology eval noted HD per Renal Problem List - Problems (1) Abdominal pain Code(s): R10.9 - UNSPECIFIED ABDOMINAL PAIN (2) Bacteremia Code(s): R78.81 - BACTEREMIA (3) Complication of vascular access for dialysis Code(s): T82.9XXA - UNSP COMP OF CARDIAC AND VASCULAR PROSTH DEV/GRFT, INIT Qualifiers: Encounter type: initial encounter Qualified Code(s): T82.9XXA - Unspecified complication of cardiac and vascular prosthetic device, implant and graft, initial encounter (4) ESRD (end stage renal disease) on dialysis Code(s): N18.6 - END STAGE RENAL DISEASE; Z99.2 - DEPENDENCE ON RENAL DIALYSIS (5) Fever Code(s): R50.9 - FEVER, UNSPECIFIED (6) AV fistula occlusion Code(s): T82.898A - OT COMPLICATION OF VASCULAR PROSTH DEV/GRFT, INIT (7) Sepsis associated with vascular access catheter Code(s): T82.7XXA - INFECT/INFLM REACT D/T OTH CARDI/VASC DEV/IMPLNT/GRFT, INIT ; A41.9 - SEPSIS, UNSPECIFIED ORGANISM (8) CHF (congestive heart failure) Code(s): I50.9 - HEART FAILURE, UNSPECIFIED Qualifiers: Heart failure type: diastolic (9) Toxic metabolic encephalopathy Code(s): G92 - TOXIC ENCEPHALOPATHY
--- NOTE | 2018-08-23 14:19 | PN ---
Progress Note (short form) - Note Progress Note: Renal follow up for ESRD on HD Pt seen and examined at the bedside no acute complaints s/p femoral shiley placement and HD yesterday denies any sob, cp, abd pain, N/V/D, Fever Vital Signs Temperature 97.3 F L 08/23/18 08:34 Pulse Rate 87 08/23/18 08:34 Respiratory Rate 18 08/23/18 08:34 Blood Pressure 121/59 L 08/23/18 08:34 O2 Sat by Pulse Oximetry (%) 100 08/23/18 09:00 Intake & Output 08/20/18 08/21/18 08/22/18 08/23/18 23:59 23:59 23:59 23:59 Intake Total 400 1920 420 120 Output Total 20 Balance 400 1920 400 120 Weight 86.999 kg 84.912 kg 86.137 kg 84.686 kg NAD No LE edema right femoral shiley catheter in place CBC, BMP 08/23/18 09:55 08/23/18 09:55 Current Medications Acetaminophen (Tylenol -) 650 mg PO Q6H PRN PRN Reason: FEVER Epoetin Nelson (Procrit -) 20,000 unit SQ MoWeFr@1000 RASHEEDA Heparin Sodium (Porcine) (Heparin -) 5,000 unit SQ BID RASHEEDA Last Admin: 08/23/18 09:46 Dose: Not Given Dextrose/Sodium Chloride (D5-1/2ns -) 1,000 mls @ 40 mls/hr IV ASDIR RASHEEDA Last Admin: 08/23/18 00:23 Dose: 40 mls/hr Nafcillin Sodium 2 gm/ (Dextrose) 100 mls @ 100 mls/hr IVPB Q6H-IV RASHEEDA; Protocol Last Admin: 08/23/18 09:15 Dose: Not Given Pantoprazole Sodium 80 mg/ (Sodium Chloride) 100 mls @ 10 mls/hr IVPB Q10H RASHEEDA Last Admin: 08/23/18 06:00 Dose: Not Given Insulin Aspart (Novolog Vial Sliding Scale -) 1 vial SQ ACHS RASHEEDA; Protocol Last Admin: 08/23/18 11:57 Dose: Not Given Insulin Detemir (Levemir Vial) 10 units SQ HS [facility] Last Admin: 08/23/18 00:18 Dose: Not Given Ondansetron HCl (Zofran Injection) 4 mg IVPUSH Q6H PRN PRN Reason: NAUSEA AND/OR VOMITING Ondansetron HCl (Zofran Injection) 4 mg IVPUSH Q6H PRN PRN Reason: NAUSEA AND/OR VOMITING Sevelamer Carbonate (Renvela -) 800 mg PO TIDCM [facility] Last Admin: 08/23/18 13:35 Dose: 800 mg Torsemide (Demadex -) 80 mg PO BID PRN PRN Reason: SHORTNESS OF BREATH Torsemide (Demadex -) 80 mg PO DAILY [facility] Last Admin: 08/23/18 09:54 Dose: 80 mg 62 year old gentleman with hx of ESRD on HD, Hypertension, Anemia presented with Abd pain and found to have MSSA bacteremia with infected AVG site. #Sepsis/MSSA bacteremia (cultures now negative), #ESRD on HD (has femoral tunneled catheter) #Hypertension #Anemia requiring PRBC transfusion with guiac positive stools #Renal osteodystrophy no acute indication for DELIVERER OUTSIDE today, next treatment planned for tomorrow for EGD tomorrow to evaluate for GIB will give GAY with HD tomorrow, no acute need for transfusion continue Abx as per YOCASTA Jameson DO
[2018-08-24] MEDS: NAFCILLIN - 2 GM in DEXTROSE 5%-WATER - 100 ML IVPB SCH ×3 (02:02→18:59)
[2018-08-24] MEDS: INSULIN SLIDING SCALE (NOVOLOG) 1 VIAL SQ SCH ×4 (06:33→21:11)
[2018-08-24] MEDS: SEVELAMER CARBONATE 800 MG TAB (FP) PO SCH ×3 (07:54→20:06)
[2018-08-24 08:27] LABS: BASO % 0.5 % (0-2.0); EOS % 1.5 % (0-4.5); HEMATOCRIT 21.5 % (35.4-49); HEMOGLOBIN 7.1 GM/dL (11.7-16.9); LYMPH % 10.8 % (8-40); MCH 29.9 pg (25.7-33.7); MCHC 33.2 g/dl (32.0-35.9); MEAN CELL VOLUME 89.9 fl (80-96); MEAN PLT VOLUME 8.3 fl (7.5-11.1); MONO % 5.2 % (3.8-10.2); PLATELET COUNT 186 K/MM3 (134-434); RBC 2.39 M/mm3 (4.00-5.60); RDW 17.4 % (11.9-15.9); WHITE BLOOD COUNT 8.5 K/mm3 (4.0-10.0)
[2018-08-24 09:04] LABS: INR 1.53 (0.83-1.09); PROTHROMBIN TIME (PATIENT) 18.1 SEC (9.7-13.0)
[2018-08-24 09:07] LABS: ACTIVATED PTT 27.5 SECONDS (25.2-36.5)
[2018-08-24 09:15] LABS: ALK PHOS 79 U/L (45-117); ANION GAP 15 MMOL/L (8-16); BILIRUBIN,TOTAL 1.2 mg/dL (0.2-1); BLOOD UREA NITROGEN 69 mg/dL (7-18); CALCIUM 8.4 mg/dL (8.5-10.1); CHLORIDE 100 mmol/L (98-107); CO2 26 mmol/L (21-32); GLUCOSE,RANDOM 163 mg/dL (74-106); MAGNESIUM 1.9 mg/dL (1.8-2.4); POTASSIUM 3.4 mmol/L (3.5-5.1); SGOT/AST 17 U/L (15-37); SGPT/ALT 16 U/L (13-61); SODIUM 141 mmol/L (136-145); TOT PROT 6.6 g/dl (6.4-8.2)
--- NOTE | 2018-08-24 09:18 | PN ---
Progress Note (short form) - Note Progress Note: POD 2 from L subclavian venogram (occlusion of L IJ, innominate vein), placement of L femoral PC, POD 17 from Excision of AV graft right arm due to bleeding from overlying aneurysm. Pt seen and examined. RUE dressing changed. Approx 1.5x1cm open incision, clean wound bed with granulation tissue present, minimal serous drainage, no erythema or foul odor. Per attending pt planned for HeRo graft once arm is healed.
[2018-08-24] MEDS ORDERED: PHYTONADIONE 10 MG/1 ML AMP SQ ONE ×2 (09:21→19:00)
[2018-08-24] MEDS ORDERED: EPOETIN ALFA 20,000 UNIT/1 ML VIAL SQ SCH (10:00)
[2018-08-24] MEDS ORDERED: PT OWN MED DRAWER 7, Y5N ONE ×5 (10:07→20:09)
[2018-08-24] MEDS ORDERED: TRIPLE LUMEN FLUSH 4 ML ML IVPUSH PRN ×2 (10:29→22:06)
[2018-08-24] MEDS ORDERED: SODIUM CHLORIDE 250 ML IV PRN ×2 (10:31→10:32)
--- NOTE | 2018-08-24 10:56 | PN ---
Progress Note (short form) - Note Progress Note: Renal follow up for ESRD on HD Pt seen and examined during dialysis BP stable, permacath with good flow reports having some SOB no fever or chills for EGD today Vital Signs Temperature 98.1 F 08/24/18 10:00 Pulse Rate 89 08/24/18 10:00 Respiratory Rate 18 08/24/18 10:00 Blood Pressure 128/44 L 08/24/18 10:00 O2 Sat by Pulse Oximetry (%) 95 08/23/18 21:00 Intake & Output 08/21/18 08/22/18 08/23/18 08/24/18 23:59 23:59 23:59 23:59 Intake Total 1920 420 370 0 Output Total 20 Balance 1920 400 370 0 Weight 84.912 kg 86.137 kg 84.686 kg 84.323 kg NAD awake and alert neck supple RRR, no M/R Dec BS No LE edema Femoral permacath CBC, BMP 08/24/18 07:53 08/24/18 07:53 Current Medications Acetaminophen (Tylenol -) 650 mg PO Q6H PRN PRN Reason: FEVER Epoetin Nelson (Procrit -) 20,000 unit IVPUSH ONCE ONE Stop: 08/24/18 11:01 Heparin Sodium (Porcine) (Heparin -) 5,000 unit SQ BID RASHEEDA Last Admin: 08/23/18 21:45 Dose: Not Given IV Flush (Triple Lumen Flush) 4 ml IVPUSH PRN PRN PRN Reason: Protocol Dextrose/Sodium Chloride (D5-1/2ns -) 1,000 mls @ 40 mls/hr IV ASDIR RASHEEDA Last Admin: 08/23/18 22:42 Dose: Not Given Nafcillin Sodium 2 gm/ (Dextrose) 100 mls @ 100 mls/hr IVPB Q6H-IV RASHEEDA; Protocol Last Admin: 08/24/18 02:02 Dose: Not Given Pantoprazole Sodium 80 mg/ (Sodium Chloride) 100 mls @ 10 mls/hr IVPB Q10H RASHEEDA Last Admin: 08/23/18 23:38 Dose: Not Given Insulin Aspart (Novolog Vial Sliding Scale -) 1 vial SQ ACHS RASHEEDA; Protocol Last Admin: 08/24/18 06:33 Dose: Not Given Insulin Detemir (Levemir Vial) 10 units SQ HS [facility] Last Admin: 08/23/18 21:45 Dose: Not Given Ondansetron HCl (Zofran Injection) 4 mg IVPUSH Q6H PRN PRN Reason: NAUSEA AND/OR VOMITING Ondansetron HCl (Zofran Injection) 4 mg IVPUSH Q6H PRN PRN Reason: NAUSEA AND/OR VOMITING Sevelamer Carbonate (Renvela -) 800 mg PO TIDCM [facility] Last Admin: 08/24/18 07:54 Dose: 800 mg Torsemide (Demadex -) 80 mg PO DAILY [facility] Last Admin: 08/23/18 09:54 Dose: 80 mg 62 year old gentleman with hx of ESRD on HD, Hypertension, Anemia presented with Abd pain and found to have MSSA bacteremia with infected AVG site. #Sepsis/MSSA bacteremia (cultures now negative), #ESRD on HD (has femoral tunneled catheter) #Hypertension #Anemia requiring PRBC transfusion with guiac positive stools #Renal osteodystrophy Tolerating dialysis via permacath well will have HeRo graft placed once arm is healed continue Abx as per ID cultures now negative Will transfuse 2 units of PRBC with HD today for EGD today to evalulate for source of bleeding Continue nery leigh DO
[2018-08-24] MEDS ORDERED: EPOETIN ALFA 20,000 UNIT/1 ML VIAL IVPUSH ONE (11:00)
--- NOTE | 2018-08-24 11:05 | PN ---
Progress Note, Physician History of Present Illness: stable being dialyzed - Current Medication List Current Medications: Active Medications Acetaminophen (Tylenol -) 650 mg PO Q6H PRN PRN Reason: FEVER Heparin Sodium (Porcine) (Heparin -) 5,000 unit SQ BID [facility] Last Admin: 08/23/18 21:45 Dose: Not Given IV Flush (Triple Lumen Flush) 4 ml IVPUSH PRN PRN PRN Reason: Protocol Dextrose/Sodium Chloride (D5-1/2ns -) 1,000 mls @ 40 mls/hr IV ASDIR [facility] Last Admin: 08/23/18 22:42 Dose: Not Given Nafcillin Sodium 2 gm/ (Dextrose) 100 mls @ 100 mls/hr IVPB Q6H-IV [facility]; Protocol Last Admin: 08/24/18 02:02 Dose: Not Given Pantoprazole Sodium 80 mg/ (Sodium Chloride) 100 mls @ 10 mls/hr IVPB Q10H [facility] Last Admin: 08/23/18 23:38 Dose: Not Given Insulin Aspart (Novolog Vial Sliding Scale -) 1 vial SQ ACHS [facility]; Protocol Last Admin: 08/24/18 06:33 Dose: Not Given Insulin Detemir (Levemir Vial) 10 units SQ HS [facility] Last Admin: 08/23/18 21:45 Dose: Not Given Ondansetron HCl (Zofran Injection) 4 mg IVPUSH Q6H PRN PRN Reason: NAUSEA AND/OR VOMITING Ondansetron HCl (Zofran Injection) 4 mg IVPUSH Q6H PRN PRN Reason: NAUSEA AND/OR VOMITING Sevelamer Carbonate (Renvela -) 800 mg PO TIDCM [facility] Last Admin: 08/24/18 07:54 Dose: 800 mg Torsemide (Demadex -) 80 mg PO DAILY [facility] Last Admin: 08/23/18 09:54 Dose: 80 mg - Objective Vital Signs: Vital Signs Temperature 98.1 F 08/24/18 10:00 Pulse Rate 89 08/24/18 10:00 Respiratory Rate 18 08/24/18 10:00 Blood Pressure 128/44 L 08/24/18 10:00 O2 Sat by Pulse Oximetry (%) 95 08/23/18 21:00 Constitutional: Yes: No Distress, Calm Cardiovascular: Yes: Regular Rate and Rhythm Respiratory: Yes: Regular, CTA Bilaterally Gastrointestinal: Yes: Normal Bowel Sounds, Soft Musculoskeletal: Yes: Other Extremities: Yes: Other Neurological: Yes: Alert, Oriented Psychiatric: Yes: Alert, Oriented Labs: CBC, BMP 08/24/18 07:53 08/24/18 07:53 INR, PTT INR 1.53 (0.83-1.09) H 08/24/18 07:53 Assessment/Plan Problem List - Problems (1) Abdominal pain Code(s): R10.9 - UNSPECIFIED ABDOMINAL PAIN (2) Fever Code(s): R50.9 - FEVER, UNSPECIFIED (3) ESRD (end stage renal disease) on dialysis Code(s): N18.6 - END STAGE RENAL DISEASE; Z99.2 - DEPENDENCE ON RENAL DIALYSIS (4) Presence of arterial-venous shunt (for dialysis) Code(s): Z99.2 - DEPENDENCE ON RENAL DIALYSIS Assessment/Plan 62 y.o. male with PMH of ESRD on HD, AVF/Graft, DM, and HTN presenting with Lt sided abdominal pain, fevers, and RUE AVF site blister formation/mild bleeding/ mild tenderness Sepsis/ Staph aureus bacteremia Infection of AVG - s/p excision ESRD on HD DM HTN patient lost the iv access,missed couple of doses of iv abx plan will ask lab to do sensitivities for cefazolin if sensitive to cefazolin then will administer it during dialysis other jefferson will need continuation of nafcillin untill we get the sensitivities back please continue nafcillin
--- NOTE | 2018-08-24 11:56 | PN ---
Progress Note (short form) - Note Progress Note: pt seen/ examined in HD awake but appears to be confused he is responding Vital Signs - 24 hr 08/23/18 08/23/18 08/23/18 14:29 18:00 21:00 Temperature 98.2 F 97.6 F Pulse Rate 85 112 H Respiratory 20 20 Rate Blood Pressure 96/54 L 125/56 L O2 Sat by Pulse 95 Oximetry (%) 08/23/18 08/24/18 08/24/18 22:00 01:00 06:00 Temperature 98.0 F 97.6 F 97.9 F Pulse Rate 89 93 H 93 H Respiratory 20 20 20 Rate Blood Pressure 130/76 101/59 L 140/95 O2 Sat by Pulse Oximetry (%) 08/24/18 10:00 Temperature 98.1 F Pulse Rate 89 Respiratory 18 Rate Blood Pressure 128/44 L O2 Sat by Pulse Oximetry (%) Current Medications Generic Name Dose Route Start Last Admin Trade Name Freq PRN Reason Stop Dose Admin Acetaminophen 650 mg 08/22/18 18:44 Tylenol - PO Q6H PRN FEVER Heparin Sodium (Porcine) 5,000 unit 08/22/18 22:00 08/23/18 21:45 Heparin - SQ Not Given BID RASHEEDA IV Flush 4 ml 08/24/18 10:29 Triple Lumen Flush IVPUSH PRN PRN Protocol Dextrose/Sodium Chloride 1,000 mls @ 40 mls/hr 08/22/18 18:44 08/23/18 22:42 D5-1/2ns - IV Not Given ASDIR RASHEEDA Nafcillin Sodium 2 gm/ 100 mls @ 100 mls/hr 08/22/18 21:00 08/24/18 11:46 Dextrose IVPB 100 mls/hr Q6H-IV RASHEEDA Administration Protocol Pantoprazole Sodium 80 mg/ 100 mls @ 10 mls/hr 08/23/18 04:00 08/23/18 23:38 Sodium Chloride IVPB Not Given Q10H RASHEEDA 8 MG/HR Insulin Aspart 1 vial 08/22/18 22:00 08/24/18 06:33 Novolog Vial Sliding Scale - SQ Not Given ACHS RASHEEDA Protocol Insulin Detemir 10 units 08/22/18 22:00 08/23/18 21:45 Levemir Vial SQ Not Given HS RASHEEDA Ondansetron HCl 4 mg 08/22/18 18:38 Zofran Injection IVPUSH Q6H PRN NAUSEA AND/OR VOMITING Ondansetron HCl 4 mg 08/22/18 18:44 Zofran Injection IVPUSH Q6H PRN NAUSEA AND/OR VOMITING Sevelamer Carbonate 800 mg 08/23/18 08:00 08/24/18 07:54 Renvela - PO 800 mg TIDCM RASHEEDA Administration Torsemide 80 mg 08/23/18 10:00 08/23/18 09:54 Demadex - PO 80 mg DAILY RASHEEDA Administration Laboratory Results - last 24 hr 08/20/18 08/23/18 08/23/18 21:10 07:00 09:55 WBC RBC Hgb Hct MCV MCH MCHC RDW Plt Count MPV Absolute Neuts (auto) Neutrophils % Lymphocytes % Monocytes % Eosinophils % Basophils % Nucleated RBC % PT with INR INR PTT (Actin FS) Sodium 143 Potassium 3.3 L Chloride 101 Carbon Dioxide 29 Anion Gap 13 BUN 30 H Creatinine 7.2 H Creat Clearance w eGFR 7.76 POC Glucometer Random Glucose 156 H Calcium 7.9 L Magnesium Total Bilirubin AST ALT Alkaline Phosphatase Total Protein Albumin Vitamin B12 Cancelled 1003 H TSH Blood Type O POSITIVE Antibody Screen Negative Crossmatch See Detail 08/23/18 08/23/18 08/24/18 16:02 22:41 06:33 WBC RBC Hgb Hct MCV MCH MCHC RDW Plt Count MPV Absolute Neuts (auto) Neutrophils % Lymphocytes % Monocytes % Eosinophils % Basophils % Nucleated RBC % PT with INR INR PTT (Actin FS) Sodium Potassium Chloride Carbon Dioxide Anion Gap BUN Creatinine Creat Clearance w eGFR POC Glucometer 203 152 194 Random Glucose Calcium Magnesium Total Bilirubin AST ALT Alkaline Phosphatase Total Protein Albumin Vitamin B12 TSH Blood Type Antibody Screen Crossmatch 08/24/18 08/24/18 08/24/18 07:53 07:53 07:53 WBC 8.5 RBC 2.39 L Hgb 7.1 L Hct 21.5 L MCV 89.9 MCH 29.9 MCHC 33.2 RDW 17.4 H Plt Count 186 MPV 8.3 Absolute Neuts (auto) 7.0 Neutrophils % 82.0 Lymphocytes % 10.8 Monocytes % 5.2 Eosinophils % 1.5 Basophils % 0.5 Nucleated RBC % 0 PT with INR 18.10 H INR 1.53 H PTT (Actin FS) 27.5 Sodium 141 Potassium 3.4 L Chloride 100 Carbon Dioxide 26 Anion Gap 15 BUN 69 H Creatinine 10.0 H* Creat Clearance w eGFR 5.31 POC Glucometer Random Glucose 163 H Calcium 8.4 L Magnesium 1.9 Total Bilirubin 1.2 H AST 17 ALT 16 Alkaline Phosphatase 79 Total Protein 6.6 Albumin 2.0 L Vitamin B12 TSH 2.60 Blood Type Antibody Screen Crossmatch 08/24/18 10:15 WBC RBC Hgb Hct MCV MCH MCHC RDW Plt Count MPV Absolute Neuts (auto) Neutrophils % Lymphocytes % Monocytes % Eosinophils % Basophils % Nucleated RBC % PT with INR INR PTT (Actin FS) Sodium Potassium Chloride Carbon Dioxide Anion Gap BUN Creatinine Creat Clearance w eGFR POC Glucometer Random Glucose Calcium Magnesium Total Bilirubin AST ALT Alkaline Phosphatase Total Protein Albumin Vitamin B12 TSH Blood Type Antibody Screen Crossmatch See Detail Physical Examination Constitutional: Yes: No Distress, morbidly obese Eyes: Yes: Conjunctiva Clear Neck: Yes: Supple Cardiovascular: Yes: Regular Rate and Rhythm Respiratory: Yes: Diminished Gastrointestinal: Yes: Soft. obese Extremities: Yes: Other (rue - dressing +)kassie+ Edema: No, no groin hematoma -left femoral permacath Neurological: Yes: Alert/ n/f Psychiatric: Yes: Alert Assessment/Plan Abx- as per ID no iv access-- unable to get iv antibiotics, protonix gtt-- IR wont be able to do it today -surgical PA will be placing a line blood cultures - negative will need to see if sensitive to cefazolin spoke with GI and ID left femoral permacath + HD per Renal Problem List - Problems (1) Abdominal pain Code(s): R10.9 - UNSPECIFIED ABDOMINAL PAIN (2) Bacteremia Code(s): R78.81 - BACTEREMIA (3) Complication of vascular access for dialysis Code(s): T82.9XXA - UNSP COMP OF CARDIAC AND VASCULAR PROSTH DEV/GRFT, INIT Qualifiers: Encounter type: initial encounter Qualified Code(s): T82.9XXA - Unspecified complication of cardiac and vascular prosthetic device, implant and graft, initial encounter (4) ESRD (end stage renal disease) on dialysis Code(s): N18.6 - END STAGE RENAL DISEASE; Z99.2 - DEPENDENCE ON RENAL DIALYSIS (5) Fever Code(s): R50.9 - FEVER, UNSPECIFIED (6) AV fistula occlusion Code(s): T82.898A - OT COMPLICATION OF VASCULAR PROSTH DEV/GRFT, INIT (7) Sepsis associated with vascular access catheter Code(s): T82.7XXA - INFECT/INFLM REACT D/T OTH CARDI/VASC DEV/IMPLNT/GRFT, INIT ; A41.9 - SEPSIS, UNSPECIFIED ORGANISM (8) CHF (congestive heart failure) Code(s): I50.9 - HEART FAILURE, UNSPECIFIED Qualifiers: Heart failure type: diastolic (9) Toxic metabolic encephalopathy Code(s): G92 - TOXIC ENCEPHALOPATHY
--- NOTE | 2018-08-24 12:13 | PN ---
Progress Note (short form) - Note Progress Note: Patient still without IV access. Receiving 2 U PRBC, presumably during HD today. ALso to have ? central line placed. No overt bleeding reported by nursing. EGD postponed again. Vitamin K redosed as well. INR 1.8 --> 1.5. Coags, CBC in AM. Clear liquids, NPO after midnight for EGD tomorrow. Protonix 40mg PO daily in the interim. Problem List - Problems (1) Anemia Code(s): D64.9 - ANEMIA, UNSPECIFIED Qualifiers: Anemia type: unspecified type Qualified Code(s): D64.9 - Anemia, unspecified
[2018-08-24] MEDS ORDERED: PANTOPRAZOLE 40 MG TABLET (FP) PO SCH (12:30)
--- NOTE | 2018-08-24 17:15 | PN ---
Progress Note (short form) - Note Progress Note: Chief Complaint: syncope History of Present Illness: no cp sob palps dizzy ex cigs - Current Medication List Current Medications Generic Name Dose Route Start Last Admin Trade Name Nahomy PRN Reason Stop Dose Admin Acetaminophen 650 mg 08/22/18 18:44 Tylenol - PO Q6H PRN FEVER Heparin Sodium (Porcine) 5,000 unit 08/22/18 22:00 08/23/18 21:45 Heparin - SQ Not Given BID RASHEEDA IV Flush 4 ml 08/24/18 10:29 Triple Lumen Flush IVPUSH PRN PRN Protocol Dextrose/Sodium Chloride 1,000 mls @ 40 mls/hr 08/22/18 18:44 08/23/18 22:42 D5-1/2ns - IV Not Given ASDIR RASHEEDA Nafcillin Sodium 2 gm/ 100 mls @ 100 mls/hr 08/22/18 21:00 08/24/18 11:46 Dextrose IVPB 100 mls/hr Q6H-IV RASHEEDA Administration Protocol Pantoprazole Sodium 80 mg/ 100 mls @ 10 mls/hr 08/23/18 04:00 08/23/18 23:38 Sodium Chloride IVPB Not Given Q10H RASHEEDA 8 MG/HR Insulin Aspart 1 vial 08/22/18 22:00 08/24/18 06:33 Novolog Vial Sliding Scale - SQ Not Given ACHS RASHEEDA Protocol Insulin Detemir 10 units 08/22/18 22:00 08/23/18 21:45 Levemir Vial SQ Not Given HS RASHEEDA Ondansetron HCl 4 mg 08/22/18 18:38 Zofran Injection IVPUSH Q6H PRN NAUSEA AND/OR VOMITING Ondansetron HCl 4 mg 08/22/18 18:44 Zofran Injection IVPUSH Q6H PRN NAUSEA AND/OR VOMITING Pantoprazole Sodium 40 mg 08/24/18 12:30 08/24/18 15:02 Protonix - PO 40 mg DAILY RASHEEDA Administration Sevelamer Carbonate 800 mg 08/23/18 08:00 08/24/18 15:03 Renvela - PO 800 mg TIDCM RASHEEDA Administration Torsemide 80 mg 08/23/18 10:00 08/23/18 09:54 Demadex - PO 80 mg DAILY RASHEEDA Administration - Objective Vital Signs: Vital Signs Period Temp Pulse Resp BP Sys/Jackson Pulse Ox Last 24 Hr 97.6 F-98.4 F 89-112 18-20 85-140/40-95 95 Constitutional: Yes: No Distress, Calm Eyes: No: Sclera Icterus Cardiovascular: Yes: Regular Rate and Rhythm, S1, S2, Other (PMI non diplaced). No: JVD (tds neck habitus), Gallop, Murmur Respiratory: Yes: CTA Bilaterally. No: Accessory Muscle Use, Rales, Wheezes Gastrointestinal: Yes: Normal Bowel Sounds, Soft. No: Tenderness Extremities: No: Cyanosis Edema: No Integumentary: No: Jaundice diaphoresis Neurological: Yes: Alert. No: Seizure Psychiatric: No: Agitated Labs: CBC, BMP 08/24/18 07:53 08/24/18 07:53 Assessment/Plan Echo 07/2018 nl LV size, EF 40-45%, E/A reversal, RV nl, LA nl Carotid dopplers: IJ thrombosis Syncope - patient denies history of syncope, however he complained of this per on 08/07 RN...he is poor historian. - here with old IJ clot per vascular--no AC indicated - was hypoxic to 86% on 08/06, normal sats since - mild tachycardia, suspect infection related - echo showed EF 40-45%, unclear if new, pt says no cardiac hx, unlikely to have contributed to syncope - may be vasovagal vs orthostatic, appears less likely cardiac etiology chest/abd pain, pos troponin - resolved - trop 0.14->0.15 on admission, has been constant since surgery and is worse with different positions, + worse with palpation. - trend and history not c/w ACS, unlikely cardiac etiology Cardiomyopathy - EF 40-45% - has had borderline BPs, if stable after resuming HD would consider adding ACEI /BB - appears euvolemic currently, volume management with HD per renal +/- po torsemide - would consider outpatient ischemic evaluation after acute issues resolved ESRD on HD - HD per renal fever/bacteremia - avg removed, on abx per ID - Vascular unable to place Permacath in chest due to chronic central vein occlusion. anemia: -plan for egd tomorrow, no cardiac contraindications
--- NOTE | 2018-08-24 17:18 | PROC ---
Central Line Insertion - Procedure Note TIME OUT performed prior to this procedure with verbal confirmation of correct patient identity, correct side, agreement of the procedure, correct patient position, availability of necessary equipment. The consent form is complete and accurate. Risk of possible infection, bleeding and pneumothorax have been discussed with the patient. Safety precautions based on patient history or medication use has been addressed. Indication: Poor Venous Access Consent on Chart: Yes Central Line: Triple Lumen Catheter Position: Supine Area prepped with Chlorhexidine solution then draped using sterile barrier protection. Anesthesia: Lidocaine 1% Technique used: Seldinger Ultrasound Guided Assistance: Yes Site: Right Femoral Dark venous non-pulsatile flow noted from hub of needle. The catheter was introduced. Guide wire removed intact. Each port aspirated then flushed with sterile normal saline and capped. Line secured to skin with silk suture. Sterile occlusive dressing applied. No complications. Patient tolerated the procedure well.
[2018-08-24] MEDS: TORSEMIDE 20 MG TABLET (FP) PO SCH ×2 (19:18→20:21)
[2018-08-24] MEDS: HEPARIN NA (PORCINE) 5,000 UNITS/ML 1ML VIAL SQ SCH ×2 (19:19→21:12)
[2018-08-24] MEDS: PANTOPRAZOLE SODIUM 80 MG in SODIUM CHLORIDE 100 ML IVPB SCH ×2 (19:43→21:11)
--- NOTE | 2018-08-24 20:23 | HOSP ---
Subjective - Review of Symptoms Events since last encounter: Hospitalist Encounter Notified by the RN that the patient had an episode of Hemoptysis with clots tonight Subjective: Arrived to bedside, patient is alert, awake and oriented lying supine. Patient reports after drinking apple juice he coughed up bright red blood. Patient denies SOB, CP, palpitations, abdominal pain. PE performed see EMR Assessment: This is a 62 y/o man with a PMHx of ESRD (R- AV Fistula), HTN, DM. Admitted for GIB Patient is scheduled for EGD with GI tomorrow, currently on Protonix Drip Plan: Pulmonology Consult Keep NPO Continue Protonix Drip CBC stat Transfer to ICU Pulmonary: Yes: Other (Hemoptysis) Physical Examination Vital Signs: Vital Signs Temperature 98.0 F 08/24/18 19:30 Pulse Rate 85 08/24/18 19:30 Respiratory Rate 18 08/24/18 19:30 Blood Pressure 127/52 L 08/24/18 19:30 O2 Sat by Pulse Oximetry (%) 95 08/23/18 21:00 Constitutional: Yes: No Distress, Calm, Obese Eyes: Yes: Conjunctiva Clear, EOM Intact, PERRL HENT: Yes: WNL, Atraumatic, Normocephalic Neck: Yes: WNL, Supple, Trachea Midline Cardiovascular: Yes: Regular Rate and Rhythm, S1, S2 Respiratory: Yes: Rhonchi Gastrointestinal: Yes: Normal Bowel Sounds, Soft, Abdomen, Obese, Other ( femoral line to R- Groin) Renal/: Yes: Other (permacath in R- groin) Neurological: Yes: Alert, Confusion, Cran Nerves II-XII Intact ...Motor Strength: WNL Psychiatric: Yes: WNL, Alert, Oriented Labs: CBC, BMP 08/24/18 07:53 08/24/18 07:53 Hospitalist Encounter Outcome: Discussed case with Dr. King, ICU resident, who accepted the transfer. Lab values reviewed H/H improved, no indication for PRBCs BMP- showed K 3.2, from 3.4 pt is ESRD, no supplementation, will defer to nephrology Critical Care Total Critical Care Time (in minutes): 35 Critical Care Statement: The care of this patient involved high complexity decision making to prevent further life threatening deterioration of the patient 's condition and/or to evaluate & treat vital organ system(s) failure or risk of failure.
[2018-08-24] MEDS ORDERED: INSULIN (NOVOLOG) ASPART 100 UNITS/ML 10ML VIAL ONE (21:05)
[2018-08-24 22:06] LABS: BASO % 0.5 % (0-2.0); EOS % 1.3 % (0-4.5); HEMATOCRIT 22.8 % (35.4-49); LYMPH % 8.7 % (8-40); MEAN CELL VOLUME 88.6 fl (80-96); MEAN PLT VOLUME 8.7 fl (7.5-11.1); MONO % 5.4 % (3.8-10.2); NEUT % 84.1 % (42.8-82.8); PLATELET COUNT 159 K/MM3 (134-434); RBC 2.57 M/mm3 (4.00-5.60); RDW 16.3 % (11.9-15.9); WHITE BLOOD COUNT 7.4 K/mm3 (4.0-10.0)
[2018-08-24] MEDS ORDERED: ACETAMINOPHEN 325 MG TABLET (FP) PO PRN (22:06)
[2018-08-24] MEDS ORDERED: ONDANSETRON 4 MG/2 ML VIAL IVPUSH PRN ×2 (22:06)
[2018-08-24] MEDS ORDERED: DEXTROSE 5%-0.45% SALINE 1,000 ML IV SCH (22:06)
[2018-08-24 22:17] LABS: ANION GAP 11 MMOL/L (8-16); BLOOD UREA NITROGEN 37 mg/dL (7-18); CALCIUM 8.1 mg/dL (8.5-10.1); CHLORIDE 104 mmol/L (98-107); CO2 28 mmol/L (21-32); CREATININE 6.7 mg/dL (0.55-1.3); GLUCOSE,RANDOM 213 mg/dL (74-106); POTASSIUM 3.2 mmol/L (3.5-5.1); SODIUM 144 mmol/L (136-145)
--- NOTE | 2018-08-24 22:51 | CONSULT ---
Consultation: REQUESTING PROVIDER: Dr. Pam Mayes CONSULT REQUEST: We have been asked to medically evaluate this patient for Hemoptysis, GIB. HISTORY OF PRESENT ILLNESS: Patient is a 64 year old male with a PMHx of ESRD on HD (), IDDMII, who presented on 08/06 for fevers and was found to have positive blood cultures for staph aureus from infected and clotted right arm AV fistula, as well as right AV graft pseudoaneurysm. Patient was sent to the OR (08/07) and had an excision of AV graft and then Placement Permacath in left femoral vein was attempted but unsuccessful due to chronic central vein occlusion. Patient now has Triple lumen cath on the right and Left femoral vein line. Blood cultures were repeated and negative since 08/14. On 08/20 patient had a drop in Hgb to 6.9 but has known chronic anemia with Hgb ranging between 8-10. GI was consulted and stool guaic was positive. Patient's vitals remained stable throughout the hospital course and patient was scheduled to have an EGD. Today (08/24), hospitalist was notified by RN that patient had an episode of hemoptysis with clots. When they arrived, patient coughed up bright red blood but was in no distress. On my evaluation, patient was awake, alert, responsive, mildly confused. Patient denied any abdominal pain and is unaware he coughed bright red blood when I asked him. Patient is currently on Protonix drip. Patient unable to provide any further history Otherwise, patient denies any fever, chills, nausea, abdominal pain, chest pain , palpitations, shortness of breath, headaches, dysuria. As per medical records Patient last had colonoscopy 6 months ago and was found to have 2 polyps removed but never had an EGD. Patient has no history of heavy drinking, liver disease, hepatitis, autoimmune disorder. Patient denies any NSAID use PMHx: ESRD on HD (, ), IDDMII, Anemia of chronic disease PSHx: Right AV fistula Social Hx: Denies any drugs, alcohol, or smoking Allergies: NKDA REVIEW OF SYSTEMS: CONSTITUTIONAL: Absent: fever, chills, diaphoresis, generalized weakness, malaise, loss of appetite, weight change HEENT: Absent: rhinorrhea, nasal congestion, throat pain, throat swelling, difficulty swallowing, mouth swelling, ear pain, eye pain, visual changes CARDIOVASCULAR: Absent: chest pain, syncope, palpitations, irregular heart rate, lightheadedness , peripheral edema RESPIRATORY: Absent: cough, shortness of breath, dyspnea with exertion, orthopnea, wheezing, stridor, hemoptysis GASTROINTESTINAL: Hemoptysis Absent: abdominal pain, abdominal distension, nausea, vomiting, diarrhea, constipation, melena, hematochezia GENITOURINARY: Absent: dysuria, frequency, urgency, hesitancy, hematuria, flank pain, genital pain MUSCULOSKELETAL: Absent: myalgia, arthralgia, joint swelling, back pain, neck pain SKIN: Absent: rash, itching, pallor HEMATOLOGIC/IMMUNOLOGIC: Absent: easy bleeding, easy bruising, lymphadenopathy, frequent infections ENDOCRINE: Absent: unexplained weight gain, unexplained weight loss, heat intolerance, cold intolerance NEUROLOGIC: Absent: headache, focal weakness or paresthesias, dizziness, unsteady gait, seizure, mental status changes, bladder or bowel incontinence PSYCHIATRIC: Absent: anxiety, depression, suicidal or homicidal ideation, hallucinations. PHYSICAL EXAMINATION Vital Signs - 24 hr Vital Signs Period Temp Pulse Resp BP Sys/Jackson Pulse Ox Last 24 Hr 93 F-99.4 F 78-93 15-20 85-140/40-95 100-100 GENERAL: Awake, alert, oriented to person only, confused, no acute distress HEAD: Normal with no signs of trauma. EYES: Pupils equal, round and reactive to light, extraocular movements intact, sclera anicteric, conjunctiva clear. ENT: Dry blood on the lip. Oropharynx clear without exudates. Moist mucous membranes. NECK: (-) lymphadenopathy, JVD, or masses. LUNGS: Decreased breath sounds throughout with poor inspiratory effort. No wheezes, and no crackles. No accessory muscle use. HEART: Regular rate and rhythm, normal S1 and S2 without murmur, rub or gallop. ABDOMEN: Soft, obese, nontender, not distended, normoactive bowel sounds, no guarding, no rebound, no masses. RECTAL: No masses, external lesions or hemorrhoids palpated. Liquid Dark stool on the tip of the glove MUSCULOSKELETAL: No CVA tenderness. UPPER EXTREMITIES: RUE dressing c/d/i. No peripheral edema. LOWER EXTREMITIES: No peripheral edema. NEUROLOGICAL: Patient uncooperative SKIN: Warm, dry and scaly LE LINES: Triple Lumen Cath in right femoral, Left femoral Port. Laboratory Results - last 24 hr 08/24/18 08/24/18 08/24/18 07:53 07:53 07:53 WBC 8.5 RBC 2.39 L Hgb 7.1 L Hct 21.5 L MCV 89.9 MCH 29.9 MCHC 33.2 RDW 17.4 H Plt Count 186 MPV 8.3 Absolute Neuts (auto) 7.0 Neutrophils % 82.0 Lymphocytes % 10.8 Monocytes % 5.2 Eosinophils % 1.5 Basophils % 0.5 Nucleated RBC % 0 PT with INR 18.10 H INR 1.53 H PTT (Actin FS) 27.5 Sodium 141 Potassium 3.4 L Chloride 100 Carbon Dioxide 26 Anion Gap 15 BUN 69 H Creatinine 10.0 H* Creat Clearance w eGFR 5.31 POC Glucometer Random Glucose 163 H Calcium 8.4 L Magnesium 1.9 Total Bilirubin 1.2 H AST 17 ALT 16 Alkaline Phosphatase 79 Total Protein 6.6 Albumin 2.0 L TSH 2.60 RPR Titer Blood Type Antibody Screen Crossmatch Active Medications Generic Name Dose Route Start Last Admin Trade Name Freq PRN Reason Stop Dose Admin Acetaminophen 650 mg 08/24/18 22:06 Tylenol - PO Q6H PRN FEVER Chlorhexidine Gluconate 1 applic 08/24/18 22:00 Hibiclens For Decolonization - TP HS RASHEEDA IV Flush 4 ml 08/24/18 22:06 Triple Lumen Flush IVPUSH PRN PRN Protocol Dextrose/Sodium Chloride 1,000 mls @ 40 mls/hr 08/24/18 22:06 D5-1/2ns - IV ASDIR RASHEEDA Nafcillin Sodium 2 gm/ 100 mls @ 100 mls/hr 08/25/18 03:00 Dextrose IVPB Q6H-IV RASHEEDA Protocol Pantoprazole Sodium 80 mg/ 100 mls @ 10 mls/hr 08/25/18 06:00 Sodium Chloride IVPB Q10H RASHEEDA 8 MG/HR Insulin Aspart 1 vial 08/25/18 07:00 Novolog Vial Sliding Scale - SQ ACHS RASHEEDA Protocol Insulin Detemir 10 units 08/25/18 22:00 Levemir Vial SQ HS RASHEEDA Mupirocin 1 applic 08/24/18 22:00 Bactroban Ointment (For Decolonization) - NS 08/29/18 21:59 BID RASHEEDA Ondansetron HCl 4 mg 08/24/18 22:06 Zofran Injection IVPUSH Q6H PRN NAUSEA AND/OR VOMITING Ondansetron HCl 4 mg 08/24/18 22:06 Zofran Injection IVPUSH Q6H PRN NAUSEA AND/OR VOMITING Sevelamer Carbonate 800 mg 08/25/18 08:00 Renvela - PO TIDCM RASHEEDA Torsemide 80 mg 08/25/18 10:00 Demadex - PO DAILY RASHEEDA ASSESSMENT/PLAN: Patient is a 62 year old male who presented for fevers and was found to have an infected right arm AV fistula. Throughout hospital course, patient was found to have a low Hgb of 6.9 with positive guaic and was then scheduled for EGD. Patient then had one episode of Hemoptysis with clots and then transferred to ICU for further monitoring and management. GASTROENTEROLOGY #Hemoptysis -With dark stool, possible UGIB -Continue Protonix drip -IV Fluids @ 40cc/hr -NPO -EGD in the morning -Continue to monitor CBC -Avoid Anticoagulations -FFP and Vit. K to normalize PT and maintain platelets >50,000 -Will need further evaluation for hemoptysis as differentials may include but not limited to malignancy and TB. Pulmonary consult was placed, as patient may need a chest CT -Continue to monitor vitals such as hypotension or tachycardia or overt bleeding HEM/ONC #Anemia of Chronic Disease -Secondary to ESRD -However, patient had a drop in Hgb to 6.9, below baseline, which is likely from possible GI bleed -EGD in the am -Transfuse PRBC <7. Already transfused 3 -Continue to monitor CBC NEPHROLOGY #ESRD on HD -HD on , , and Wed. Makes no urine. Reports dry weight 195 lbs -Has permacath now for dialysis and tolerating -Will need HeRo graft once arm is healed -Continue IV abx with Nafcillin 2gm Q6H IVPB -Continue Renvela -Trend Phosphorous and bmp CARDIOLOGY #Cardiomyopathy -Last Echo 07/2018 nl LV size, EF 40-45%, E/A reversal, RV nl, LA nl -No signs of fluid overload -Receives Torsemide 80mg intermittently with dialysis. On hold for now -Outpatient ischemic evaluation by cardiology ENDOCRINE #IDDMII -Levemir -BGM, ISS F/E/N -D5-1/2 NS #40mls/hr -Hypokalemia. Patient has ESRD with dialysis tomorrow. Will defer to Nephrology for repletion -NPO PROPHYLAXIS -Hold AC due to possible GI bleed -Protonix drip for GI DISPOSITION -Full code -ICU monitoring. EGD for tomorrow. Dispo: We will continue to follow the patient. Thank you for this consultative opportunity. Shaina King [id number] Visit type - Emergency Visit Emergency Visit: Yes ED Registration Date: 08/06/18 Care time: The patient presented to the Emergency Department on the above date and was hospitalized for further evaluation of their emergent condition. - New Patient This patient is new to me today: Yes Date on this admission: 08/25/18 - Critical Care Critical Care patient: Yes Total Critical Care Time (in minutes): 45 Critical Care Statement: The care of this patient involved high complexity decision making to prevent further life threatening deterioration of the patient 's condition and/or to evaluate & treat vital organ system(s) failure or risk of failure.
[2018-08-25] MEDS: MUPIROCIN 2% TOPICAL OINTMENT FOR DECOLONIZATION NS SCH ×3 (00:20→22:00)
[2018-08-25] MEDS: CHLORHEXIDINE GLUCONATE 4% CLEANSER FOR DECOLONIZATION TP SCH ×2 (00:20→22:30)
[2018-08-25] MEDS: NAFCILLIN - 2 GM in DEXTROSE 5%-WATER - 100 ML IVPB SCH ×4 (04:00→21:46)
[2018-08-25] MEDS ORDERED: PANTOPRAZOLE SODIUM 80 MG in SODIUM CHLORIDE 100 ML IVPB SCH (06:00)
[2018-08-25 06:12] LABS: BASO % 0.4 % (0-2.0); EOS % 2.6 % (0-4.5); HEMATOCRIT 23.2 % (35.4-49); HEMOGLOBIN 7.9 GM/dL (11.7-16.9); LYMPH % 11.4 % (8-40); MCH 30.2 pg (25.7-33.7); MCHC 33.8 g/dl (32.0-35.9); MEAN CELL VOLUME 89.1 fl (80-96); MEAN PLT VOLUME 8.7 fl (7.5-11.1); MONO % 5.5 % (3.8-10.2); NEUT % 80.1 % (42.8-82.8); PLATELET COUNT 141 K/MM3 (134-434); RDW 16.4 % (11.9-15.9); WHITE BLOOD COUNT 7.8 K/mm3 (4.0-10.0)
[2018-08-25 06:27] LABS: INR 1.38 (0.83-1.09); PROTHROMBIN TIME (PATIENT) 16.3 SEC (9.7-13.0)
[2018-08-25] MEDS ORDERED: PT OWN MED DRAWER 7, Y5N ONE ×3 (06:39→21:44)
[2018-08-25] MEDS: INSULIN SLIDING SCALE (NOVOLOG) 1 VIAL SQ SCH ×4 (06:41→22:25)
[2018-08-25 07:54] LABS: ALBUMIN 2.2 g/dl (3.4-5.0); ALK PHOS 76 U/L (45-117); ANION GAP 13 MMOL/L (8-16); BILIRUBIN,TOTAL 0.9 mg/dL (0.2-1); BLOOD UREA NITROGEN 44 mg/dL (7-18); CALCIUM 8.3 mg/dL (8.5-10.1); CHLORIDE 105 mmol/L (98-107); CO2 26 mmol/L (21-32); GLUCOSE,RANDOM 110 mg/dL (74-106); MAGNESIUM 1.6 mg/dL (1.8-2.4); POTASSIUM 3.3 mmol/L (3.5-5.1); SGOT/AST 14 U/L (15-37); SGPT/ALT 12 U/L (13-61); SODIUM 144 mmol/L (136-145); TOT PROT 6.5 g/dl (6.4-8.2)
[2018-08-25] MEDS ORDERED: fentaNYL CITRATE 250 MCG/5 ML VIAL ONE (08:29)
[2018-08-25 08:36] LABS: CREATININE 7.5 mg/dL (0.55-1.3)
--- NOTE | 2018-08-25 09:13 | PN ---
Progress Note (short form) - Note Progress Note: EGD complete. Report left in procedural section of physical chart and to be scanned into [facility] Problem List - Problems (1) Anemia Code(s): D64.9 - ANEMIA, UNSPECIFIED Qualifiers: Anemia type: unspecified type Qualified Code(s): D64.9 - Anemia, unspecified
[2018-08-25] MEDS ORDERED: SODIUM CHLORIDE 500 ML IV STA (10:03)
--- NOTE | 2018-08-25 10:33 | PN ---
Progress Note (short form) - Note Progress Note: pt seen/ examined in ICU transferred for hemoptysis awake , knows he is here because he "threw up blood" yesterday no complaints of abdominal pain , nausea, SOB, dizziness Vital Signs - 24 hr 08/24/18 08/24/18 08/24/18 10:45 11:15 11:45 Temperature Pulse Rate 90 93 H 90 Respiratory 18 18 18 Rate Blood Pressure 120/52 L 132/58 L 110/40 L O2 Sat by Pulse Oximetry (%) 08/24/18 08/24/18 08/24/18 12:15 12:45 13:15 Temperature Pulse Rate 91 H 90 89 Respiratory 18 18 18 Rate Blood Pressure 91/48 L 90/40 L 97/44 L O2 Sat by Pulse Oximetry (%) 08/24/18 08/24/18 08/24/18 13:45 14:25 19:11 Temperature 93 F L Pulse Rate 90 91 H 93 H Respiratory 18 18 18 Rate Blood Pressure 85/48 L 109/44 L 103/55 L O2 Sat by Pulse Oximetry (%) 08/24/18 08/24/18 08/24/18 19:30 21:00 22:00 Temperature 98.0 F 98.6 F Pulse Rate 85 79 Respiratory 18 15 Rate Blood Pressure 127/52 L 114/73 O2 Sat by Pulse 100 Oximetry (%) 08/24/18 08/25/18 08/25/18 22:43 00:00 02:23 Temperature 99.4 F Pulse Rate 78 78 Respiratory 15 18 18 Rate Blood Pressure 111/74 111/68 O2 Sat by Pulse 100 Oximetry (%) 08/25/18 08/25/18 08/25/18 04:00 06:00 07:42 Temperature 98 F Pulse Rate 76 84 82 Respiratory 16 18 22 H Rate Blood Pressure 100/62 88/75 L 88/50 L O2 Sat by Pulse Oximetry (%) 08/25/18 08/25/18 07:44 08:01 Temperature Pulse Rate 82 77 Respiratory 22 H 19 Rate Blood Pressure 88/50 L 112/83 O2 Sat by Pulse Oximetry (%) Current Medications Generic Name Dose Route Start Last Admin Trade Name Freq PRN Reason Stop Dose Admin Acetaminophen 650 mg 08/24/18 22:06 Tylenol - PO Q6H PRN FEVER Chlorhexidine Gluconate 1 applic 08/24/18 22:00 08/25/18 00:20 Hibiclens For Decolonization - TP 1 applic HS RASHEEDA Administration IV Flush 4 ml 08/24/18 22:06 Triple Lumen Flush IVPUSH PRN PRN Protocol Dextrose/Sodium Chloride 1,000 mls @ 40 mls/hr 08/24/18 22:06 08/25/18 00:21 D5-1/2ns - IV 40 mls/hr ASDIR RASHEEDA Administration Nafcillin Sodium 2 gm/ 100 mls @ 100 mls/hr 08/25/18 03:00 08/25/18 04:00 Dextrose IVPB 100 mls/hr Q6H-IV RASHEEDA Administration Protocol Sodium Chloride 500 mls @ 500 mls/hr 08/25/18 10:03 Normal Saline - IV 08/25/18 11:02 ASDIR STA Insulin Aspart 1 vial 08/25/18 07:00 08/25/18 06:41 Novolog Vial Sliding Scale - SQ 2 units ACHS RASHEEDA Administration Protocol Insulin Detemir 10 units 08/25/18 22:00 Levemir Vial SQ HS RASHEEDA Mupirocin 1 applic 08/24/18 22:00 08/25/18 00:20 Bactroban Ointment (For Decolonization) - NS 08/29/18 21:59 1 applic BID RASHEEDA Administration Pantoprazole Sodium 20 mg 08/25/18 10:00 Protonix - PO DAILY RASHEEDA Sevelamer Carbonate 800 mg 08/25/18 08:00 Renvela - PO TIDCM RASHEEDA Torsemide 80 mg 08/25/18 10:00 Demadex - PO DAILY RASHEEDA Laboratory Results - last 24 hr 08/24/18 08/24/18 08/24/18 08:00 10:15 10:15 WBC RBC Hgb Hct MCV MCH MCHC RDW Plt Count MPV Absolute Neuts (auto) Neutrophils % Lymphocytes % Monocytes % Eosinophils % Basophils % Nucleated RBC % PT with INR INR Sodium Potassium Chloride Carbon Dioxide Anion Gap BUN Creatinine Creat Clearance w eGFR POC Glucometer Random Glucose Calcium Phosphorus Magnesium Total Bilirubin AST ALT Alkaline Phosphatase Total Protein Albumin RPR Titer Nonreactive HIV 1&2 Antibody Screen HIV P24 Antigen Blood Type O POSITIVE Cancelled Antibody Screen Negative Cancelled Crossmatch See Detail 08/24/18 08/24/18 08/24/18 17:59 18:40 21:01 WBC RBC Hgb Hct MCV MCH MCHC RDW Plt Count MPV Absolute Neuts (auto) Neutrophils % Lymphocytes % Monocytes % Eosinophils % Basophils % Nucleated RBC % PT with INR INR Sodium Potassium Chloride Carbon Dioxide Anion Gap BUN Creatinine Creat Clearance w eGFR POC Glucometer 188 253 Random Glucose Calcium Phosphorus Magnesium Total Bilirubin AST ALT Alkaline Phosphatase Total Protein Albumin RPR Titer HIV 1&2 Antibody Screen Negative HIV P24 Antigen Negative Blood Type Antibody Screen Crossmatch 08/24/18 08/24/18 08/25/18 21:20 21:20 00:27 WBC 7.4 RBC 2.57 L Hgb 8.0 L Hct 22.8 L MCV 88.6 MCH 31.0 MCHC 35.0 RDW 16.3 H Plt Count 159 MPV 8.7 Absolute Neuts (auto) 6.2 Neutrophils % 84.1 H Lymphocytes % 8.7 Monocytes % 5.4 Eosinophils % 1.3 Basophils % 0.5 Nucleated RBC % 0 PT with INR INR Sodium 144 Potassium 3.2 L Chloride 104 Carbon Dioxide 28 Anion Gap 11 BUN 37 H Creatinine 6.7 H Creat Clearance w eGFR 8.43 POC Glucometer [phone] Random Glucose 213 H Calcium 8.1 L Phosphorus Magnesium Total Bilirubin AST ALT Alkaline Phosphatase Total Protein Albumin RPR Titer HIV 1&2 Antibody Screen HIV P24 Antigen Blood Type Antibody Screen Crossmatch 08/25/18 08/25/18 08/25/18 05:30 05:30 05:30 WBC 7.8 RBC 2.60 L Hgb 7.9 L Hct 23.2 L MCV 89.1 MCH 30.2 MCHC 33.8 RDW 16.4 H Plt Count 141 MPV 8.7 Absolute Neuts (auto) 6.3 Neutrophils % 80.1 Lymphocytes % 11.4 D Monocytes % 5.5 Eosinophils % 2.6 D Basophils % 0.4 Nucleated RBC % 0 PT with INR 16.30 H INR 1.38 H Sodium 144 Potassium 3.3 L Chloride 105 Carbon Dioxide 26 Anion Gap 13 BUN 44 H Creatinine 7.5 H* Creat Clearance w eGFR 7.40 POC Glucometer Random Glucose 110 H Calcium 8.3 L Phosphorus 3.0 Magnesium 1.6 L Total Bilirubin 0.9 AST 14 L ALT 12 L Alkaline Phosphatase 76 Total Protein 6.5 Albumin 2.2 L RPR Titer HIV 1&2 Antibody Screen HIV P24 Antigen Blood Type Antibody Screen Crossmatch 08/25/18 06:26 WBC RBC Hgb Hct MCV MCH MCHC RDW Plt Count MPV Absolute Neuts (auto) Neutrophils % Lymphocytes % Monocytes % Eosinophils % Basophils % Nucleated RBC % PT with INR INR Sodium Potassium Chloride Carbon Dioxide Anion Gap BUN Creatinine Creat Clearance w eGFR POC Glucometer 134.95868 Random Glucose Calcium Phosphorus Magnesium Total Bilirubin AST ALT Alkaline Phosphatase Total Protein Albumin RPR Titer HIV 1&2 Antibody Screen HIV P24 Antigen Blood Type Antibody Screen Crossmatch Physical Examination Constitutional: Yes: No Distress Eyes: Yes: Conjunctiva Clear Neck: Yes: Supple Cardiovascular: Yes: Regular Rate and Rhythm Respiratory: Yes: Diminished Gastrointestinal: Yes: Soft. obese , NT Extremities: Yes: Other (rue - open wound- no drainage +)kassie+no thrill Edema: No, no groin hematoma -left femoral permacath . right femoral TLC Neurological: Yes: Alert/ n/f Psychiatric: Yes: Alert Assessment/Plan Abx- as per ID s/p EGD-- prominent veins in proximal esophagus on protonix gtt BP is low monitor CBC, s/p PRBC yesterday full liquid diet HD per Renal may need to do Chest CT to evaluate hemoptysis Problem List - Problems (1) Abdominal pain Code(s): R10.9 - UNSPECIFIED ABDOMINAL PAIN (2) Bacteremia Code(s): R78.81 - BACTEREMIA (3) Complication of vascular access for dialysis Code(s): T82.9XXA - UNSP COMP OF CARDIAC AND VASCULAR PROSTH DEV/GRFT, INIT Qualifiers: Encounter type: initial encounter Qualified Code(s): T82.9XXA - Unspecified complication of cardiac and vascular prosthetic device, implant and graft, initial encounter (4) ESRD (end stage renal disease) on dialysis Code(s): N18.6 - END STAGE RENAL DISEASE; Z99.2 - DEPENDENCE ON RENAL DIALYSIS (5) Fever Code(s): R50.9 - FEVER, UNSPECIFIED (6) AV fistula occlusion Code(s): T82.898A - OTH COMPLICATION OF VASCULAR PROSTH DEV/GRFT, INIT (7) Sepsis associated with vascular access catheter Code(s): T82.7XXA - INFECT/INFLM REACT D/T OTH CARDI/VASC DEV/IMPLNT/GRFT, INIT ; A41.9 - SEPSIS, UNSPECIFIED ORGANISM (8) CHF (congestive heart failure) Code(s): I50.9 - HEART FAILURE, UNSPECIFIED Qualifiers: Heart failure type: diastolic (9) Toxic metabolic encephalopathy Code(s): G92 - TOXIC ENCEPHALOPATHY (10) Hemoptysis Code(s): R04.2 - HEMOPTYSIS
[2018-08-25] MEDS: SEVELAMER CARBONATE 800 MG TAB (FP) PO SCH ×3 (10:58→17:21)
[2018-08-25] MEDS: TORSEMIDE 20 MG TABLET (FP) PO SCH (11:00)
[2018-08-25] MEDS: PANTOPRAZOLE 20 MG TABLET (FP) PO SCH (11:07)
--- NOTE | 2018-08-25 11:46 | PN ---
Progress Note (short form) - Note Progress Note: Renal follow up for ESRD on HD Pt seen and examined in the ICU noted to have hemoptyosis or hematemesis yesterday s/p dialysis yesterday with 2kg UF and 2 units PRBC transfused pt awake and alert no acute complaints bp is marginal Vital Signs Temperature 98 F 08/25/18 06:00 Pulse Rate 77 08/25/18 08:01 Respiratory Rate 19 08/25/18 08:01 Blood Pressure 112/83 08/25/18 08:01 O2 Sat by Pulse Oximetry (%) 100 08/24/18 22:43 Intake & Output 08/22/18 08/23/18 08/24/18 08/25/18 23:59 23:59 23:59 23:59 Intake Total 420 370 0 600 Output Total 20 Balance 400 370 0 600 Weight 86.137 kg 84.686 kg 84.323 kg 85.139 kg NAD on NC O2 RRR Dec BS but no rales soft NT/ND no LE edema CBC, BMP 08/25/18 05:30 08/25/18 05:30 Current Medications Acetaminophen (Tylenol -) 650 mg PO Q6H PRN PRN Reason: FEVER Chlorhexidine Gluconate (Hibiclens For Decolonization -) 1 applic TP HS RASHEEDA Last Admin: 08/25/18 00:20 Dose: 1 applic IV Flush (Triple Lumen Flush) 4 ml IVPUSH PRN PRN PRN Reason: Protocol Dextrose/Sodium Chloride (D5-1/2ns -) 1,000 mls @ 40 mls/hr IV ASDIR RASHEEDA Last Admin: 08/25/18 00:21 Dose: 40 mls/hr Nafcillin Sodium 2 gm/ (Dextrose) 100 mls @ 100 mls/hr IVPB Q6H-IV RASHEEDA; Protocol Last Admin: 08/25/18 10:58 Dose: 100 mls/hr Insulin Aspart (Novolog Vial Sliding Scale -) 1 vial SQ ACHS RASHEEDA; Protocol Last Admin: 08/25/18 06:41 Dose: 2 units Insulin Detemir (Levemir Vial) 10 units SQ HS RASHEEDA Mupirocin (Bactroban Ointment (For Decolonization) -) 1 applic NS BID RASHEEDA Stop: 08/29/18 21:59 Last Admin: 08/25/18 10:59 Dose: 1 applic Pantoprazole Sodium (Protonix -) 20 mg PO DAILY [facility] Last Admin: 08/25/18 11:07 Dose: 20 mg Sevelamer Carbonate (Renvela -) 800 mg PO TIDCM [facility] Last Admin: 08/25/18 11:16 Dose: 800 mg Torsemide (Demadex -) 80 mg PO DAILY [facility] Last Admin: 08/25/18 11:00 Dose: 80 mg 62 year old gentleman with hx of ESRD on HD, Hypertension, Anemia presented with Abd pain and found to have MSSA bacteremia with infected AVG site. #Sepsis/MSSA bacteremia (cultures now negative), #ESRD on HD (has femoral tunneled catheter) #Hypertension #Anemia requiring PRBC transfusion with guiac positive stools #Renal osteodystrophy no acute need for [employer] Today Hgb with less then expected response to 2 units prbc given yesterday continue to monitor for bleeding no active bleeding seen on EGD CXR w/o overt pathology still unclear as to source of bleeding may need to examine nasal mucosa or airway to look for soruce of bleeding will transfuse additional PRBC with HD tomorrow if needed Roderick Jameson DO
--- NOTE | 2018-08-25 11:47 | PN ---
Progress Note (short form) - Note Progress Note: Chief Complaint: syncope History of Present Illness: no cp sob palps dizzy; had hemoptysis, egd this AM ex cigs - Current Medication List Current Medications Generic Name Dose Route Start Last Admin Trade Name Freq PRN Reason Stop Dose Admin Acetaminophen 650 mg 08/24/18 22:06 Tylenol - PO Q6H PRN FEVER Chlorhexidine Gluconate 1 applic 08/24/18 22:00 08/25/18 00:20 Hibiclens For Decolonization - TP 1 applic HS RASHEEDA Administration IV Flush 4 ml 08/24/18 22:06 Triple Lumen Flush IVPUSH PRN PRN Protocol Dextrose/Sodium Chloride 1,000 mls @ 40 mls/hr 08/24/18 22:06 08/25/18 00:21 D5-1/2ns - IV 40 mls/hr ASDIR RASHEEDA Administration Nafcillin Sodium 2 gm/ 100 mls @ 100 mls/hr 08/25/18 03:00 08/25/18 10:58 Dextrose IVPB 100 mls/hr Q6H-IV RASHEEDA Administration Protocol Insulin Aspart 1 vial 08/25/18 07:00 08/25/18 06:41 Novolog Vial Sliding Scale - SQ 2 units ACHS RASHEEDA Administration Protocol Insulin Detemir 10 units 08/25/18 22:00 Levemir Vial SQ HS RASHEEDA Mupirocin 1 applic 08/24/18 22:00 08/25/18 10:59 Bactroban Ointment (For Decolonization) - NS 08/29/18 21:59 1 applic BID RASHEEDA Administration Pantoprazole Sodium 20 mg 08/25/18 10:00 08/25/18 11:07 Protonix - PO 20 mg DAILY [facility]A Administration Sevelamer Carbonate 800 mg 08/25/18 08:00 08/25/18 11:16 Renvela - PO 800 mg TIDCM RASHEEDA Administration Torsemide 80 mg 08/25/18 10:00 08/25/18 11:00 Demadex - PO 80 mg DAILY RAS[facility]A Administration - Objective Vital Signs: Vital Signs Period Temp Pulse Resp BP Sys/Jackson Pulse Ox Last 24 Hr 93 F-99.4 F 76-93 15-22 85-127/40-83 100-100 Constitutional: Yes: No Distress, Calm Eyes: No: Sclera Icterus Cardiovascular: Yes: Regular Rate and Rhythm, S1, S2, Other (PMI non diplaced). No: JVD (tds neck habitus), Gallop, Murmur Respiratory: Yes: CTA Bilaterally. No: Accessory Muscle Use, Rales, Wheezes Gastrointestinal: Yes: Normal Bowel Sounds, Soft. No: Tenderness Extremities: No: Cyanosis Edema: No Integumentary: No: Jaundice diaphoresis Neurological: Yes: Alert. No: Seizure Psychiatric: No: Agitated Labs: CBC, BMP 08/25/18 05:30 08/25/18 05:30 Assessment/Plan Echo 07/2018 nl LV size, EF 40-45%, E/A reversal, RV nl, LA nl Carotid dopplers: IJ thrombosis tele: sr, pvcs, pacs, nsvt 4 beats Syncope - patient denies history of syncope, however he complained of this per on 08/07 RN...he is poor historian. - here with old IJ clot per vascular--no AC indicated - was hypoxic to 86% on 08/06, normal sats since - mild tachycardia, suspect infection related - echo showed EF 40-45%, unclear if new, pt says no cardiac hx, unlikely to have contributed to syncope - may be vasovagal vs orthostatic, appears less likely cardiac etiology chest/abd pain, pos troponin - resolved - trop 0.14->0.15 on admission, has been constant since surgery and is worse with different positions, + worse with palpation. - trend and history not c/w ACS, unlikely cardiac etiology Cardiomyopathy - EF 40-45% - has had borderline BPs, if stable after resuming HD would consider adding ACEI /BB - appears euvolemic currently, volume management with HD per renal +/- po torsemide - would consider outpatient ischemic evaluation after acute issues resolved ESRD on HD - HD per renal fever/bacteremia - avg removed, on abx per ID - Vascular unable to place Permacath in chest due to chronic central vein occlusion. anemia, UGIB: -s/p egd, GI following
--- NOTE | 2018-08-25 12:32 | PN ---
Teaching Attending Note Name of Resident: Samra Rodarte ATTENDING PHYSICIAN STATEMENT I saw and evaluated the patient. I reviewed the resident's note and discussed the case with the resident. I agree with the resident's findings and plan as documented. SUBJECTIVE: Pt seen and examined in the ICU. Somnolent but arousable. Hypotensive this AM. EGD without source of bleeding. No hemoptysis or hematemesis since arrival to ICU. OBJECTIVE: Vital Signs Period Temp Pulse Resp BP Sys/Jackson Pulse Ox Last 24 Hr 93 F-99.4 F 76-93 15-22 85-127/40-83 100-100 Intake & Output 08/22/18 08/23/18 08/24/18 08/25/18 23:59 23:59 23:59 23:59 Intake Total 420 370 0 600 Output Total 20 Balance 400 370 0 600 Weight 86.137 kg 84.686 kg 84.323 kg 85.139 kg Gen: somnolent but arousable Heart: RRR Lung: decreased breath sounds at the bases Abd: soft, nontender Ext: no edema CBC, BMP 08/25/18 05:30 08/25/18 05:30 Active Medications Acetaminophen (Tylenol -) 650 mg PO Q6H PRN PRN Reason: FEVER Chlorhexidine Gluconate (Hibiclens For Decolonization -) 1 applic TP HS RASHEEDA Last Admin: 08/25/18 00:20 Dose: 1 applic IV Flush (Triple Lumen Flush) 4 ml IVPUSH PRN PRN PRN Reason: Protocol Dextrose/Sodium Chloride (D5-1/2ns -) 1,000 mls @ 40 mls/hr IV ASDIR RASHEEDA Last Admin: 08/25/18 00:21 Dose: 40 mls/hr Nafcillin Sodium 2 gm/ (Dextrose) 100 mls @ 100 mls/hr IVPB Q6H-IV RASHEEDA; Protocol Last Admin: 08/25/18 10:58 Dose: 100 mls/hr Insulin Aspart (Novolog Vial Sliding Scale -) 1 vial SQ ACHS RASHEEDA; Protocol Last Admin: 08/25/18 11:47 Dose: Not Given Insulin Detemir (Levemir Vial) 10 units SQ HS RASHEEDA Mupirocin (Bactroban Ointment (For Decolonization) -) 1 applic NS BID [facility]A Stop: 08/29/18 21:59 Last Admin: 08/25/18 10:59 Dose: 1 applic Pantoprazole Sodium (Protonix -) 20 mg PO DAILY [facility] Last Admin: 08/25/18 11:07 Dose: 20 mg Sevelamer Carbonate (Renvela -) 800 mg PO TIDCM [facility] Last Admin: 08/25/18 11:16 Dose: 800 mg Torsemide (Demadex -) 80 mg PO DAILY [facility] Last Admin: 08/25/18 11:00 Dose: 80 mg ASSESSMENT AND PLAN: r/o Hemoptysis vs Epistaxis Anemia Staph Bacteremia Infected AV Graft s/p removal LV Systolic Dysfunction ESRD on HD - monitor H/H - transfuse as needed - IVF challenge - inspect nares - continue antibiotics - aspiration precautions - DVT prophylaxis - can monitor on floor if BP improves with bolus
--- NOTE | 2018-08-25 13:31 | PN ---
Physical Exam: SUBJECTIVE: Patient seen and examined at bedside. Patient is somnolent, but arousable. No reported episodes of hematemesis or hemoptysis in the ICU. EGD done this morning, did not reveal any significant bleeding source. BP labile, with hypotensive episodes (MAP 60), improved with IVF boluses. OBJECTIVE: Vital Signs Period Temp Pulse Resp BP Sys/Jackson Pulse Ox Last 24 Hr 93 F-99.4 F 76-93 15-22 85-127/44-83 100-100 GENERAL: The patient is somnolent, but arousable to voice, in no acute distress. HEAD: Normal with no signs of trauma. EYES:PERRLA, sclera anicteric, conjunctiva clear. ENT: Ears normal, nares patent, no epistaxis, oropharynx clear without exudates , moist mucous membranes. NECK: Trachea midline, full range of motion, supple. LUNGS: Breath sounds equal, clear to auscultation bilaterally. HEART: Regular rate and rhythm, S1, S2 without murmur, rub or gallop. ABDOMEN: Soft, nontender, nondistended, normoactive bowel sounds. EXTREMITIES: 2+ pulses, warm, well-perfused, no edema. NEUROLOGICAL: Cranial nerves II through XII grossly intact. Normal speech, gait not observed. PSYCH: Normal mood, normal affect. SKIN: Warm, dry, normal turgor, no rashes or lesions noted Laboratory Results - last 24 hr 08/24/18 08/24/18 08/24/18 10:15 17:59 18:40 WBC RBC Hgb Hct MCV MCH MCHC RDW Plt Count MPV Absolute Neuts (auto) Neutrophils % Lymphocytes % Monocytes % Eosinophils % Basophils % Nucleated RBC % PT with INR INR Sodium Potassium Chloride Carbon Dioxide Anion Gap BUN Creatinine Creat Clearance w eGFR POC Glucometer 188 Random Glucose Calcium Phosphorus Magnesium Total Bilirubin AST ALT Alkaline Phosphatase Total Protein Albumin HIV 1&2 Antibody Screen Negative HIV P24 Antigen Negative Blood Type O POSITIVE Antibody Screen Negative Crossmatch See Detail 08/24/18 08/24/18 08/24/18 21:01 21:20 21:20 WBC 7.4 RBC 2.57 L Hgb 8.0 L Hct 22.8 L MCV 88.6 MCH 31.0 MCHC 35.0 RDW 16.3 H Plt Count 159 MPV 8.7 Absolute Neuts (auto) 6.2 Neutrophils % 84.1 H Lymphocytes % 8.7 Monocytes % 5.4 Eosinophils % 1.3 Basophils % 0.5 Nucleated RBC % 0 PT with INR INR Sodium 144 Potassium 3.2 L Chloride 104 Carbon Dioxide 28 Anion Gap 11 BUN 37 H Creatinine 6.7 H Creat Clearance w eGFR 8.43 POC Glucometer 253 Random Glucose 213 H Calcium 8.1 L Phosphorus Magnesium Total Bilirubin AST ALT Alkaline Phosphatase Total Protein Albumin HIV 1&2 Antibody Screen HIV P24 Antigen Blood Type Antibody Screen Crossmatch 08/25/18 08/25/18 08/25/18 00:27 05:30 05:30 WBC 7.8 RBC 2.60 L Hgb 7.9 L Hct 23.2 L MCV 89.1 MCH 30.2 MCHC 33.8 RDW 16.4 H Plt Count 141 MPV 8.7 Absolute Neuts (auto) 6.3 Neutrophils % 80.1 Lymphocytes % 11.4 D Monocytes % 5.5 Eosinophils % 2.6 D Basophils % 0.4 Nucleated RBC % 0 PT with INR 16.30 H INR 1.38 H Sodium Potassium Chloride Carbon Dioxide Anion Gap BUN Creatinine Creat Clearance w eGFR POC Glucometer 74.06842 Random Glucose Calcium Phosphorus Magnesium Total Bilirubin AST ALT Alkaline Phosphatase Total Protein Albumin HIV 1&2 Antibody Screen HIV P24 Antigen Blood Type Antibody Screen Crossmatch 08/25/18 08/25/18 08/25/18 05:30 06:26 11:45 WBC RBC Hgb Hct MCV MCH MCHC RDW Plt Count MPV Absolute Neuts (auto) Neutrophils % Lymphocytes % Monocytes % Eosinophils % Basophils % Nucleated RBC % PT with INR INR Sodium 144 Potassium 3.3 L Chloride 105 Carbon Dioxide 26 Anion Gap 13 BUN 44 H Creatinine 7.5 H* Creat Clearance w eGFR 7.40 POC Glucometer 134.21714 114.41078 Random Glucose 110 H Calcium 8.3 L Phosphorus 3.0 Magnesium 1.6 L Total Bilirubin 0.9 AST 14 L ALT 12 L Alkaline Phosphatase 76 Total Protein 6.5 Albumin 2.2 L HIV 1&2 Antibody Screen HIV P24 Antigen Blood Type Antibody Screen Crossmatch Active Medications Generic Name Dose Route Start Last Admin Trade Name Freq PRN Reason Stop Dose Admin Acetaminophen 650 mg 08/24/18 22:06 Tylenol - PO Q6H PRN FEVER Chlorhexidine Gluconate 1 applic 08/24/18 22:00 08/25/18 00:20 Hibiclens For Decolonization - TP 1 applic HS RASHEEDA Administration IV Flush 4 ml 08/24/18 22:06 Triple Lumen Flush IVPUSH PRN PRN Protocol Nafcillin Sodium 2 gm/ 100 mls @ 100 mls/hr 08/25/18 03:00 08/25/18 10:58 Dextrose IVPB 100 mls/hr Q6H-IV RASHEEDA Administration Protocol Insulin Aspart 1 vial 08/25/18 07:00 08/25/18 11:47 Novolog Vial Sliding Scale - SQ Not Given ACHS RASHEEDA Protocol Insulin Detemir 10 units 08/25/18 22:00 Levemir Vial SQ HS RASHEEDA Mupirocin 1 applic 08/24/18 22:00 08/25/18 10:59 Bactroban Ointment (For Decolonization) - NS 08/29/18 21:59 1 applic BID RASHEEDA Administration Pantoprazole Sodium 20 mg 08/25/18 10:00 08/25/18 11:07 Protonix - PO 20 mg DAILY [facility]A Administration Sevelamer Carbonate 800 mg 08/25/18 08:00 08/25/18 11:16 Renvela - PO 800 mg TIDCM RASHEEDA Administration Torsemide 80 mg 08/25/18 10:00 08/25/18 11:00 Demadex - PO 80 mg DAILY RASHEEDA Administration ASSESSMENT/PLAN: Patient is a 62 year old male with past medical history of ESRD (HD on TThS), presented with fevers on 08/06 and was subsequently admitted due to an infected AV fistula. On 08/20, patient was noted to have low Hgb of 6.9, with stool occult positive and reported to have dark loose stools. Patient then had one episode of hemoptysis with clots. He was subsequently transferred to the ICU for closer monitoring. #Cardiology 1)Cardiomyopathy -Last Echo 07/2018 nl LV size, EF 40-45%, E/A reversal, RV nl, LA nl -Cardiology (Dr. Arango) consulted. Recommendations appreciated. -has had borderline BPs, if stable after resuming HD would consider adding ACEI/ BB -Receives Torsemide 80mg intermittently with dialysis. -No signs of fluid overload -Outpatient ischemic evaluation by cardiology 2)Hypotension -episodes likely related to hemodialysis (large amount of fluid removed yesterday) -As per nephro, IV fluid boluses may be given to maintain MAP >65. #Pulmonology 1)r/o Hemoptysis vs Epistaxis -No episodes in the ICU overnight -Nares inspected - no signs of bleeding -will monitor H/H -transfuse PRN #Gastroenterology 1)Dark, loose stools, r/o UGIB vs LGIB -EGD: Mildly prominent veins in the proximal esophagus, stomach mucosa appeared normal, sessile polyp was found in the duodenal bulb, submucosal blebs/nodules in the 2nd portion of the duodenum that were not bleeding, duodenal mucosa otherwise normal. Of note, there was no tracheal blood noted during intubation. There was dried nonbloody mucous in the proximal esophagus. ?if patient had episode of blood tinged sputum. -Protonix drip switched to Protonix 20mg PO daily -Avoid NSAIDs -Monitor Coags. -IV Fluid boluses PRN #Nephrology 1)ESRD on HD -Nephrology (Dr. Jameson) consulted. -Has permacath now for dialysis and tolerating -Will need HeRo graft once arm is healed -Continue Renvela -no acute need for HEALTH SERVICES RN Today -Hgb with less than expected response to 2 units prbc given yesterday -Will transfuse additional pRBC with HD tomorrow if needed -continue to monitor for bleeding, still unclear as to source of bleeding #Infectious disease 1)Sepsis 2/2 S. aureus bacteremia 2/2 AV graft infection s/p excision -continue Nafcillin 2gm q6h -ID (Dr. Philippe) consulted. -Close monitoring #Hematology 1)Anemia of chronic disease, 2/2 ESRD -H/H 7.9/23.2 -Transfuse pRBC with Hgb <7 -Will transfuse with HD tomorrow if needed -Continue to monitor CBC #Endocrinology 1)DM -Insulin Levemir 10u sq daily -Insulin sliding scale implemented -BGM ACHS #FEN -Not on any standing fluids -May give IVF boluses PRN to maintain MAP >65 -Routine bmp monitoring -Full liquid diet (cholesterol, diabetic, sodium restricted) #Prophylaxis 1)DVT -SCDs, chemical ppx on hold for possible bleeding 2)GI - Protonix 20mg daily #Disposition -full code -ICU for closer monitoring Dispo: We will continue to follow the patient. Thank you for this consultative opportunity. Visit type - Emergency Visit Emergency Visit: Yes ED Registration Date: 08/06/18 Care time: The patient presented to the Emergency Department on the above date and was hospitalized for further evaluation of their emergent condition. - New Patient This patient is new to me today: Yes Date on this admission: 08/26/18 - Critical Care Critical Care patient: Yes Total Critical Care Time (in minutes): 45 Critical Care Statement: The care of this patient involved high complexity decision making to prevent further life threatening deterioration of the patient 's condition and/or to evaluate & treat vital organ system(s) failure or risk of failure.
--- NOTE | 2018-08-25 14:22 | PN ---
Progress Note, Physician History of Present Illness: events noted patient it seems he had hemoptysis had egd no bleeding source patient is lethargic arousable slurred speech had hypotensive speech - Current Medication List Current Medications: Active Medications Acetaminophen (Tylenol -) 650 mg PO Q6H PRN PRN Reason: FEVER Chlorhexidine Gluconate (Hibiclens For Decolonization -) 1 applic TP HS RASHEEDA Last Admin: 08/25/18 00:20 Dose: 1 applic IV Flush (Triple Lumen Flush) 4 ml IVPUSH PRN PRN PRN Reason: Protocol Nafcillin Sodium 2 gm/ (Dextrose) 100 mls @ 100 mls/hr IVPB Q6H-IV RASHEEDA; Protocol Last Admin: 08/25/18 10:58 Dose: 100 mls/hr Insulin Aspart (Novolog Vial Sliding Scale -) 1 vial SQ ACHS [facility]; Protocol Last Admin: 08/25/18 11:47 Dose: Not Given Insulin Detemir (Levemir Vial) 10 units SQ HS [facility] Mupirocin (Bactroban Ointment (For Decolonization) -) 1 applic NS BID [facility] Stop: 08/29/18 21:59 Last Admin: 08/25/18 10:59 Dose: 1 applic Pantoprazole Sodium (Protonix -) 20 mg PO DAILY [facility] Last Admin: 08/25/18 11:07 Dose: 20 mg Sevelamer Carbonate (Renvela -) 800 mg PO TIDCM [facility] Last Admin: 08/25/18 11:16 Dose: 800 mg Torsemide (Demadex -) 80 mg PO DAILY [facility] Last Admin: 08/25/18 11:00 Dose: 80 mg - Objective Vital Signs: Vital Signs Temperature 98 F 08/25/18 06:00 Pulse Rate 77 08/25/18 08:01 Respiratory Rate 19 08/25/18 09:00 Blood Pressure 112/83 08/25/18 08:01 O2 Sat by Pulse Oximetry (%) 100 08/25/18 09:00 Constitutional: Yes: No Distress, Calm Cardiovascular: Yes: Regular Rate and Rhythm Respiratory: Yes: Regular, CTA Bilaterally, On Nasal O2 Gastrointestinal: Yes: Normal Bowel Sounds, Soft Musculoskeletal: Yes: WNL Extremities: Yes: Other Neurological: Yes: Other Psychiatric: Yes: Other Labs: CBC, BMP 08/25/18 05:30 08/25/18 05:30 INR, PTT INR 1.38 (0.83-1.09) H 08/25/18 05:30 Assessment/Plan Problem List - Problems (1) Abdominal pain Code(s): R10.9 - UNSPECIFIED ABDOMINAL PAIN (2) Fever Code(s): R50.9 - FEVER, UNSPECIFIED (3) ESRD (end stage renal disease) on dialysis Code(s): N18.6 - END STAGE RENAL DISEASE; Z99.2 - DEPENDENCE ON RENAL DIALYSIS (4) Presence of arterial-venous shunt (for dialysis) Code(s): Z99.2 - DEPENDENCE ON RENAL DIALYSIS Assessment/Plan 62 y.o. male with PMH of ESRD on HD, AVF/Graft, DM, and HTN presenting with Lt sided abdominal pain, fevers, and RUE AVF site blister formation/mild bleeding/ mild tenderness Sepsis/ Staph aureus bacteremia Infection of AVG - s/p excision ESRD on HD DM HTN plan continue oxacillin close monitoring monitor closely as per icu cc 40 min
[2018-08-25] MEDS ORDERED: INSULIN (LEVEMIR) 100 UNITS/ML UNITS SQ SCH (22:00)
--- NOTE | 2018-08-25 23:12 | PN ---
Progress Note (short form) - Note Progress Note: Patient had a large BM (Melena). Will send CBC stat and transfuse if needed. Vitals: BP: 117/52 mmHg, HR 82 bpm, RR 16, Spo2 96 %.
[2018-08-26 00:52] LABS: HEMATOCRIT 23.2 % (35.4-49); HEMOGLOBIN 7.9 GM/dL (11.7-16.9); MCH 30.5 pg (25.7-33.7); MCHC 33.8 g/dl (32.0-35.9); MEAN CELL VOLUME 90.3 fl (80-96); MEAN PLT VOLUME 8.9 fl (7.5-11.1); PLATELET COUNT 150 K/MM3 (134-434); RBC 2.57 M/mm3 (4.00-5.60); RDW 16.8 % (11.9-15.9); WHITE BLOOD COUNT 7.1 K/mm3 (4.0-10.0)
[2018-08-26] MEDS ORDERED: PT OWN MED DRAWER 7, Y5N ONE ×2 (02:03→08:35)
[2018-08-26] MEDS: NAFCILLIN - 2 GM in DEXTROSE 5%-WATER - 100 ML IVPB SCH ×4 (03:22→21:15)
[2018-08-26] MEDS: INSULIN SLIDING SCALE (NOVOLOG) 1 VIAL SQ SCH ×4 (06:06→21:29)
[2018-08-26 06:28] LABS: ANION GAP 13 MMOL/L (8-16); BLOOD UREA NITROGEN 52 mg/dL (7-18); CALCIUM 8.1 mg/dL (8.5-10.1); CHLORIDE 103 mmol/L (98-107); CO2 26 mmol/L (21-32); GLUCOSE,RANDOM 169 mg/dL (74-106); MAGNESIUM 1.7 mg/dL (1.8-2.4); PHOSPHOROUS 4.1 mg/dL (2.5-4.9); POTASSIUM 3.4 mmol/L (3.5-5.1); SODIUM 142 mmol/L (136-145)
[2018-08-26 06:34] LABS: CREATININE 10.4 mg/dL (0.55-1.3)
[2018-08-26 06:36] LABS: HEMATOCRIT 23.3 % (35.4-49); HEMOGLOBIN 7.8 GM/dL (11.7-16.9); MCH 30.1 pg (25.7-33.7); MCHC 33.2 g/dl (32.0-35.9); MEAN CELL VOLUME 90.5 fl (80-96); MEAN PLT VOLUME 8.7 fl (7.5-11.1); PLATELET COUNT 136 K/MM3 (134-434); RBC 2.58 M/mm3 (4.00-5.60); RDW 16.9 % (11.9-15.9); WHITE BLOOD COUNT 6.5 K/mm3 (4.0-10.0)
[2018-08-26] MEDS: SEVELAMER CARBONATE 800 MG TAB (FP) PO SCH ×3 (08:41→17:36)
[2018-08-26] MEDS: TORSEMIDE 20 MG TABLET (FP) PO SCH (09:17)
[2018-08-26] MEDS: PANTOPRAZOLE 20 MG TABLET (FP) PO SCH (09:17)
--- NOTE | 2018-08-26 10:13 | PN ---
Progress Note (short form) - Note Progress Note: pt seen/ examined in icu chart reviewed all f/u noted awake. weak but comfortable still having jeanmarie Vital Signs Temp 98.9 F 08/26/18 06:00 Pulse 84 08/26/18 08:00 Resp 14 08/26/18 08:00 BP 117/56 L 08/26/18 08:00 Pulse Ox 94 L 08/26/18 08:28 Intake & Output 08/25/18 08/25/18 08/26/18 11:59 23:59 11:59 Intake Total 600 1450 150 Balance 600 1450 150 Weight 187 lb 11.2 oz 192 lb 4.8 oz Intake: IV 600 900 D5-1/2Ns - 1,000 ml @ 40 400 mls/hr IV ASDIR RASHEEDA Rx#: [id number] D5-1/2Ns - 1,000 ml @ 40 400 mls/hr IV ASDIR RASHEEDA Rx#: [id number] Normal Saline - 500 ml @ 500 500 mls/hr IV ASDIR STA Rx#:[id number] IVPB 500 100 Oral 50 50 Other: Voiding Method Incontinent Incontinent # Unmeasured Voids Void 1 Bowel Movement Yes: 3 Yes Yes # Bowel Movements 1 1 Body Mass Index (BMI) 27.6 Weight Measurement Method Built in Bedscale Built in Bedscale Active Medications Acetaminophen (Tylenol -) 650 mg PO Q6H PRN PRN Reason: FEVER Last Admin: 08/25/18 18:23 Dose: 650 mg Chlorhexidine Gluconate (Hibiclens For Decolonization -) 1 applic TP HS RASHEEDA Last Admin: 08/25/18 22:30 Dose: 1 applic IV Flush (Triple Lumen Flush) 4 ml IVPUSH PRN PRN PRN Reason: Protocol Nafcillin Sodium 2 gm/ (Dextrose) 100 mls @ 100 mls/hr IVPB Q6H-IV [facility]; Protocol Last Admin: 08/26/18 08:40 Dose: 100 mls/hr Insulin Aspart (Novolog Vial Sliding Scale -) 1 vial SQ ACHS [facility]; Protocol Last Admin: 08/26/18 06:06 Dose: 2 units Insulin Detemir (Levemir Vial) 10 units SQ HS RASHEEDA Mupirocin (Bactroban Ointment (For Decolonization) -) 1 applic NS BID RASHEEDA Stop: 08/29/18 21:59 Last Admin: 08/25/18 22:00 Dose: 1 applic Pantoprazole Sodium (Protonix -) 20 mg PO DAILY [facility] Last Admin: 08/26/18 09:17 Dose: 20 mg Sevelamer Carbonate (Renvela -) 800 mg PO TIDCM [facility] Last Admin: 08/26/18 08:41 Dose: 800 mg Torsemide (Demadex -) 80 mg PO DAILY [facility] Last Admin: 08/26/18 09:17 Dose: 80 mg CBC, BMP 08/26/18 05:30 08/26/18 05:30 INR, PTT INR 1.38 (0.83-1.09) H 08/25/18 05:30 Microbiology 08/21/18 12:19 Blood Culture - Preliminary Blood - Peripheral Venous NO GROWTH OBTAINED AFTER 96 HOURS, INCUBATION TO CONTINUE FOR 1 DAYS. 08/21/18 12:03 Blood Culture - Preliminary Blood - Peripheral Venous NO GROWTH OBTAINED AFTER 96 HOURS, INCUBATION TO CONTINUE FOR 1 DAYS. Physical Examination. Constitutional: Yes: awake/ weak. Eyes: Yes: Conjunctiva Clear Neck: Yes: Supple Cardiovascular: Yes: Regular Rate and Rhythm Respiratory: Yes: Diminished Gastrointestinal: Yes: Soft. obese , NT Edema: No, Neurological: Yes:drowsy but arousable Assessment/Plan GI Bleed Staph Bactremia Esrd- HD Diabetes Abx- as per ID s/p EGD-- prominent veins in proximal esophagus monitor CBC, HD per Renal -- transfuse with dialysis overall condition gaurded will discuss with icu team/ renal Discussed with pts in detail will try to get copy of colonoscopy from [facility]-- Asked to sign consent will follow cc time 30 min Problem List - Problems (1) Abdominal pain Code(s): R10.9 - UNSPECIFIED ABDOMINAL PAIN (2) ESRD (end stage renal disease) on dialysis Code(s): N18.6 - END STAGE RENAL DISEASE; Z99.2 - DEPENDENCE ON RENAL DIALYSIS (3) Fever Code(s): R50.9 - FEVER, UNSPECIFIED (4) AV fistula occlusion Code(s): T82.898A - OTH COMPLICATION OF VASCULAR PROSTH DEV/GRFT, INIT (5) Bacteremia Code(s): R78.81 - BACTEREMIA
[2018-08-26] MEDS: MUPIROCIN 2% TOPICAL OINTMENT FOR DECOLONIZATION NS SCH ×2 (10:45→21:15)
--- NOTE | 2018-08-26 11:56 | PN ---
Progress Note (short form) - Note Progress Note: Chief Complaint: syncope History of Present Illness: no cp sob palps dizzy ex cigs - Current Medication List Current Medications Generic Name Dose Route Start Last Admin Trade Name Freq PRN Reason Stop Dose Admin Acetaminophen 650 mg 08/24/18 22:06 08/25/18 18:23 Tylenol - PO 650 mg Q6H PRN Administration FEVER Chlorhexidine Gluconate 1 applic 08/24/18 22:00 08/25/18 22:30 Hibiclens For Decolonization - TP 1 applic HS RASHEEDA Administration IV Flush 4 ml 08/24/18 22:06 Triple Lumen Flush IVPUSH PRN PRN Protocol Nafcillin Sodium 2 gm/ 100 mls @ 100 mls/hr 08/25/18 03:00 08/26/18 08:40 Dextrose IVPB 100 mls/hr Q6H-IV RASHEEDA Administration Protocol Insulin Aspart 1 vial 08/25/18 07:00 08/26/18 06:06 Novolog Vial Sliding Scale - SQ 2 units ACHS RASHEEDA Administration Protocol Insulin Detemir 10 units 08/25/18 22:00 Levemir Vial SQ HS RASHEEDA Mupirocin 1 applic 08/24/18 22:00 08/25/18 22:00 Bactroban Ointment (For Decolonization) - NS 08/29/18 21:59 1 applic BID RASHEEDA Administration Pantoprazole Sodium 20 mg 08/25/18 10:00 08/26/18 09:17 Protonix - PO 20 mg DAILY RASHEEDA Administration Sevelamer Carbonate 800 mg 08/25/18 08:00 08/26/18 08:41 Renvela - PO 800 mg TIDCM RASHEEDA Administration Torsemide 80 mg 08/25/18 10:00 08/26/18 09:17 Demadex - PO 80 mg DAILY RASHEEDA Administration - Objective Vital Signs: Vital Signs Period Temp Pulse Resp BP Sys/Jackson Pulse Ox Last 24 Hr 98.2 F-100.8 F 76-87 14-24 87-143/52-117 94-98 Constitutional: Yes: No Distress, Calm Eyes: No: Sclera Icterus Cardiovascular: Yes: Regular Rate and Rhythm, S1, S2, Other (PMI non diplaced). No: JVD (tds neck habitus), Gallop, Murmur Respiratory: Yes: CTA Bilaterally. No: Accessory Muscle Use, Rales, Wheezes Gastrointestinal: Yes: Normal Bowel Sounds, Soft. No: Tenderness Extremities: No: Cyanosis Edema: No Integumentary: No: Jaundice diaphoresis Neurological: Yes: Alert. No: Seizure Psychiatric: No: Agitated Labs: CBC, BMP 08/26/18 05:30 08/26/18 05:30 Assessment/Plan Echo 07/2018 nl LV size, EF 40-45%, E/A reversal, RV nl, LA nl Carotid dopplers: IJ thrombosis tele: sr Syncope - patient denies history of syncope, however he complained of this per on 08/07 RN...he is poor historian. - here with old IJ clot per vascular--no AC indicated - was hypoxic to 86% on 08/06, normal sats since - mild tachycardia, suspect infection related - echo showed EF 40-45%, unclear if new, pt says no cardiac hx, unlikely to have contributed to syncope - may be vasovagal vs orthostatic, appears less likely cardiac etiology chest/abd pain, pos troponin - resolved - trop 0.14->0.15 on admission, has been constant since surgery and is worse with different positions, + worse with palpation. - trend and history not c/w ACS, unlikely cardiac etiology Cardiomyopathy - EF 40-45% - has had borderline BPs, if stable after resuming HD would consider adding ACEI /BB - appears euvolemic currently, volume management with HD per renal +/- po torsemide - would consider outpatient ischemic evaluation after acute issues resolved ESRD on HD - HD per renal fever/bacteremia - avg removed, on abx per ID - Vascular unable to place Permacath in chest due to chronic central vein occlusion. anemia, UGIB: -s/p egd w/o source of anemia, GI following
--- NOTE | 2018-08-26 12:01 | PN ---
Progress Note (short form) - Note Progress Note: Renal follow up for ESRD on HD Pt seen and examined in the ICU awake and alert having episodes of melena overnight no sob, cp, abd pain, N/V/D Vital Signs Temperature 98.2 F 08/26/18 10:00 Pulse Rate 87 08/26/18 10:00 Respiratory Rate 15 08/26/18 10:00 Blood Pressure 143/117 H 08/26/18 10:00 O2 Sat by Pulse Oximetry (%) 94 L 08/26/18 08:28 Intake & Output 08/23/18 08/24/18 08/25/18 08/26/18 23:59 23:59 23:59 23:59 Intake Total 370 0 2050 150 Balance 370 0 2050 150 Weight 84.686 kg 84.323 kg 85.139 kg 87.226 kg NAD RRR CTA soft NT/ND no LE edema CBC, BMP 08/26/18 05:30 08/26/18 05:30 Current Medications Acetaminophen (Tylenol -) 650 mg PO Q6H PRN PRN Reason: FEVER Last Admin: 08/25/18 18:23 Dose: 650 mg Chlorhexidine Gluconate (Hibiclens For Decolonization -) 1 applic TP HS RASHEEDA Last Admin: 08/25/18 22:30 Dose: 1 applic IV Flush (Triple Lumen Flush) 4 ml IVPUSH PRN PRN PRN Reason: Protocol Nafcillin Sodium 2 gm/ (Dextrose) 100 mls @ 100 mls/hr IVPB Q6H-IV RASHEEDA; Protocol Last Admin: 08/26/18 08:40 Dose: 100 mls/hr Insulin Aspart (Novolog Vial Sliding Scale -) 1 vial SQ ACHS RASHEEDA; Protocol Last Admin: 08/26/18 06:06 Dose: 2 units Insulin Detemir (Levemir Vial) 10 units SQ HS RASHEEDA Mupirocin (Bactroban Ointment (For Decolonization) -) 1 applic NS BID RASHEEDA Stop: 08/29/18 21:59 Last Admin: 08/25/18 22:00 Dose: 1 applic Pantoprazole Sodium (Protonix -) 20 mg PO DAILY RASHEEDA Last Admin: 08/26/18 09:17 Dose: 20 mg Sevelamer Carbonate (Renvela -) 800 mg PO TIDCM RASHEEDA Last Admin: 08/26/18 08:41 Dose: 800 mg Torsemide (Demadex -) 80 mg PO DAILY RASHEEDA Last Admin: 08/26/18 09:17 Dose: 80 mg 62 year old gentleman with hx of ESRD on HD, Hypertension, Anemia presented with Abd pain and found to have MSSA bacteremia with infected AVG site. #Sepsis/MSSA bacteremia (cultures now negative), #ESRD on HD (has femoral tunneled catheter) #Hypertension #Anemia requiring PRBC transfusion with guiac positive stools #Renal osteodystrophy will defer dialysis to tomorrow given mild hypotension no volume overload, acidosis, hyperkalemia to warrant acute dialysis continue to trend H/H, can transfuse additional units of PRBC with dialysis if needed Continue Nafcillin for MSSA bacteremia can d/c torsemide as pt not making urine Roderick Jameson DO
--- NOTE | 2018-08-26 12:21 | PN ---
Progress Note, Physician History of Present Illness: events noted patient it seems he had hemoptysis had egd no bleeding source patient has been stable - Current Medication List Current Medications: Active Medications Acetaminophen (Tylenol -) 650 mg PO Q6H PRN PRN Reason: FEVER Last Admin: 08/25/18 18:23 Dose: 650 mg Chlorhexidine Gluconate (Hibiclens For Decolonization -) 1 applic TP HS RASHEEDA Last Admin: 08/25/18 22:30 Dose: 1 applic IV Flush (Triple Lumen Flush) 4 ml IVPUSH PRN PRN PRN Reason: Protocol Nafcillin Sodium 2 gm/ (Dextrose) 100 mls @ 100 mls/hr IVPB Q6H-IV RASHEEDA; Protocol Last Admin: 08/26/18 08:40 Dose: 100 mls/hr Insulin Aspart (Novolog Vial Sliding Scale -) 1 vial SQ ACHS [facility]; Protocol Last Admin: 08/26/18 06:06 Dose: 2 units Insulin Detemir (Levemir Vial) 10 units SQ HS RASHEEDA Mupirocin (Bactroban Ointment (For Decolonization) -) 1 applic NS BID [facility] Stop: 08/29/18 21:59 Last Admin: 08/25/18 22:00 Dose: 1 applic Pantoprazole Sodium (Protonix -) 20 mg PO DAILY [facility] Last Admin: 08/26/18 09:17 Dose: 20 mg Sevelamer Carbonate (Renvela -) 800 mg PO TIDCM [facility] Last Admin: 08/26/18 08:41 Dose: 800 mg Torsemide (Demadex -) 80 mg PO DAILY [facility] Last Admin: 08/26/18 09:17 Dose: 80 mg - Objective Vital Signs: Vital Signs Temperature 98.2 F 08/26/18 10:00 Pulse Rate 87 08/26/18 10:00 Respiratory Rate 15 08/26/18 10:00 Blood Pressure 143/117 H 08/26/18 10:00 O2 Sat by Pulse Oximetry (%) 94 L 08/26/18 08:28 Constitutional: Yes: No Distress, Calm Cardiovascular: Yes: Regular Rate and Rhythm Respiratory: Yes: Regular, CTA Bilaterally, On Nasal O2 Gastrointestinal: Yes: Normal Bowel Sounds, Soft Musculoskeletal: Yes: WNL Extremities: Yes: Other Wound/Incision: Yes: Dressing Dry and Intact Neurological: Yes: Alert, Oriented Psychiatric: Yes: Alert, Oriented Labs: CBC, BMP 08/26/18 05:30 08/26/18 05:30 INR, PTT INR 1.38 (0.83-1.09) H 08/25/18 05:30 Assessment/Plan Problem List - Problems (1) Abdominal pain Code(s): R10.9 - UNSPECIFIED ABDOMINAL PAIN (2) Fever Code(s): R50.9 - FEVER, UNSPECIFIED (3) ESRD (end stage renal disease) on dialysis Code(s): N18.6 - END STAGE RENAL DISEASE; Z99.2 - DEPENDENCE ON RENAL DIALYSIS (4) Presence of arterial-venous shunt (for dialysis) Code(s): Z99.2 - DEPENDENCE ON RENAL DIALYSIS Assessment/Plan 62 y.o. male with PMH of ESRD on HD, AVF/Graft, DM, and HTN presenting with Lt sided abdominal pain, fevers, and RUE AVF site blister formation/mild bleeding/ mild tenderness Sepsis/ Staph aureus bacteremia Infection of AVG - s/p excision ESRD on HD DM HTN plan continue oxacillin close monitoring monitor closely gi on case dialysis as per nephro as per icu cc 40 min
[2018-08-26] MEDS ORDERED: SODIUM CHLORIDE 250 ML IV PRN (12:26)
--- NOTE | 2018-08-26 12:34 | PN ---
GI Progress Note Subjective: No acute events Dark BM's described overnight H/H stable from yesterday - Objective Vital Signs: Vital Signs Temperature 98.2 F 08/26/18 10:00 Pulse Rate 87 08/26/18 10:00 Respiratory Rate 15 08/26/18 10:00 Blood Pressure 143/117 H 08/26/18 10:00 O2 Sat by Pulse Oximetry (%) 94 L 08/26/18 08:28 Constitutional: Calm Eyes: No: Sclera Icterus Cardiovascular: Yes: Regular Rate and Rhythm Respiratory: Yes: Diminished (at bases b/l) Gastrointestinal Inspection: No: Distention ...Auscultate: Yes: Normoactive Bowel Sounds ...Percussion: No: Tympanitic ...Rectal Exam: Yes: Other (semiformed brown stool. no melena/blood) Edema: No (No LE edema) Neurological: Yes: Alert Labs: CBC, BMP 08/26/18 05:30 08/26/18 05:30 INR, PTT INR 1.38 (0.83-1.09) H 08/25/18 05:30 Problem List - Problems (1) Anemia Assessment/Plan: No overt bleeding noted on my exam Contiinue to monitor for now Loose brown BM's on my exam. Stool for c. diff ordered Code(s): D64.9 - ANEMIA, UNSPECIFIED Qualifiers: Anemia type: unspecified type Qualified Code(s): D64.9 - Anemia, unspecified
--- NOTE | 2018-08-26 14:40 | PN ---
Teaching Attending Note Name of Resident: Samra Rodarte ATTENDING PHYSICIAN STATEMENT I saw and evaluated the patient. I reviewed the resident's note and discussed the case with the resident. I agree with the resident's findings and plan as documented. SUBJECTIVE: Patient seen and examined in the ICU. Awake and responsive, but mildly confused. No further hemoptysis noted. OBJECTIVE: Intake & Output 08/23/18 08/24/18 08/25/18 08/26/18 23:59 23:59 23:59 23:59 Intake Total 370 0 2050 150 Balance 370 0 2050 150 Weight 186 lb 11.2 oz 185 lb 14.4 oz 187 lb 11.2 oz 192 lb 4.8 oz Last Vital Signs Temp Pulse Resp BP Pulse Ox 98.2 F 87 25 H 114/56 L 98 08/26/18 10:00 08/26/18 12:00 08/26/18 12:00 08/26/18 12:00 08/26/18 09:00 Active Medications Acetaminophen (Tylenol -) 650 mg PO Q6H PRN PRN Reason: FEVER Last Admin: 08/25/18 18:23 Dose: 650 mg Chlorhexidine Gluconate (Hibiclens For Decolonization -) 1 applic TP HS RASHEEDA Last Admin: 08/25/18 22:30 Dose: 1 applic Epoetin Nelson (Procrit -) 20,000 unit IVPUSH ONCE ONE Stop: 08/27/18 06:01 IV Flush (Triple Lumen Flush) 4 ml IVPUSH PRN PRN PRN Reason: Protocol Nafcillin Sodium 2 gm/ (Dextrose) 100 mls @ 100 mls/hr IVPB Q6H-IV RASHEEDA; Protocol Last Admin: 08/26/18 08:40 Dose: 100 mls/hr Sodium Chloride (Normal Saline -) 250 mls @ 3,000 mls/hr IV PRN PRN PRN Reason: Hypotension during Dialysis Stop: 08/27/18 12:26 Insulin Aspart (Novolog Vial Sliding Scale -) 1 vial SQ ACHS RASHEEDA; Protocol Last Admin: 08/26/18 13:42 Dose: 4 units Insulin Detemir (Levemir Vial) 10 units SQ HS RASHEEDA Mupirocin (Bactroban Ointment (For Decolonization) -) 1 applic NS BID RASHEEDA Stop: 08/29/18 21:59 Last Admin: 08/26/18 10:45 Dose: 1 applic Pantoprazole Sodium (Protonix -) 20 mg PO DAILY [facility] Last Admin: 08/26/18 09:17 Dose: 20 mg Sevelamer Carbonate (Renvela -) 800 mg PO TIDCM [facility] Last Admin: 08/26/18 12:45 Dose: 800 mg Gen: Awake, interactive, mildly confused Heart: RRR Lung: decreased breath sounds at the bases Abd: soft, nontender Ext: no edema Intake & Output 08/23/18 08/24/18 08/25/18 08/26/18 23:59 23:59 23:59 23:59 Intake Total 370 0 2050 150 Balance 370 0 2050 150 Weight 186 lb 11.2 oz 185 lb 14.4 oz 187 lb 11.2 oz 192 lb 4.8 oz Last Vital Signs Temp Pulse Resp BP Pulse Ox 98.2 F 87 25 H 114/56 L 98 08/26/18 10:00 08/26/18 12:00 08/26/18 12:00 08/26/18 12:00 08/26/18 09:00 Active Medications Acetaminophen (Tylenol -) 650 mg PO Q6H PRN PRN Reason: FEVER Last Admin: 08/25/18 18:23 Dose: 650 mg Chlorhexidine Gluconate (Hibiclens For Decolonization -) 1 applic TP HS [facility] Last Admin: 08/25/18 22:30 Dose: 1 applic Epoetin Nelson (Procrit -) 20,000 unit IVPUSH ONCE ONE Stop: 08/27/18 06:01 IV Flush (Triple Lumen Flush) 4 ml IVPUSH PRN PRN PRN Reason: Protocol Nafcillin Sodium 2 gm/ (Dextrose) 100 mls @ 100 mls/hr IVPB Q6H-IV RASHEEDA; Protocol Last Admin: 08/26/18 08:40 Dose: 100 mls/hr Sodium Chloride (Normal Saline -) 250 mls @ 3,000 mls/hr IV PRN PRN PRN Reason: Hypotension during Dialysis Stop: 08/27/18 12:26 Insulin Aspart (Novolog Vial Sliding Scale -) 1 vial SQ ACHS [facility]; Protocol Last Admin: 08/26/18 13:42 Dose: 4 units Insulin Detemir (Levemir Vial) 10 units SQ HS [facility] Mupirocin (Bactroban Ointment (For Decolonization) -) 1 applic NS BID [facility] Stop: 08/29/18 21:59 Last Admin: 08/26/18 10:45 Dose: 1 applic Pantoprazole Sodium (Protonix -) 20 mg PO DAILY [facility] Last Admin: 08/26/18 09:17 Dose: 20 mg Sevelamer Carbonate (Renvela -) 800 mg PO TIDCM [facility] Last Admin: 08/26/18 12:45 Dose: 800 mg ASSESSMENT AND PLAN: Hemoptysis: seems to have resolved R/O Epistaxis Anemia Staph Bacteremia Infected AV Graft s/p removal LV Systolic Dysfunction ESRD on HD - monitor H/H - Normal transfusion thresholds - IVF - monitor for hemoptysis - ABX coverage - Aspiration precautions - DVT prophylaxis - Can monitor on floor Dr Payne
--- NOTE | 2018-08-26 14:42 | PN ---
Physical Exam: SUBJECTIVE: Patient seen and examined at bedside. Patient had an episode of large bowel movement last night, noted to be dark-colored stools. Patient remained hemodynamically stable, with no episodes of hematemesis or hemoptysis. Patient was noted to be saturating to 60s-70s while sleeping, and noted to be snoring. Most probably have GAUDENCIO. Put on CPAP overnight, saturation maintained > 90% with CPAP. Saturation maintained on nasal cannula while awake. OBJECTIVE: Vital Signs Period Temp Pulse Resp BP Sys/Jackson Pulse Ox Last 24 Hr 98.2 F-100.8 F 77-87 14-25 87-143/52-117 94-98 GENERAL: The patient is somnolent, but arousable to voice, oriented, in no acute distress. HEAD: Normal with no signs of trauma. EYES:PERRLA, sclera anicteric, conjunctiva clear. ENT: Ears normal, nares patent, no epistaxis, oropharynx clear without exudates , moist mucous membranes. NECK: Trachea midline, full range of motion, supple. LUNGS: Breath sounds equal, clear to auscultation bilaterally. HEART: Regular rate and rhythm, S1, S2 without murmur, rub or gallop. ABDOMEN: Soft, nontender, nondistended, normoactive bowel sounds. EXTREMITIES: 2+ pulses, warm, well-perfused, no edema. NEUROLOGICAL: Cranial nerves II through XII grossly intact. Normal speech, gait not observed. PSYCH: Normal mood, normal affect. SKIN: Warm, dry, normal turgor, no rashes or lesions noted Laboratory Results - last 24 hr 08/20/18 08/25/18 08/25/18 21:10 17:17 18:30 WBC RBC Hgb Hct MCV MCH MCHC RDW Plt Count MPV Sodium Potassium Chloride Carbon Dioxide Anion Gap BUN Creatinine Creat Clearance w eGFR POC Glucometer [phone] Random Glucose Calcium Phosphorus Magnesium Influenza A (Rapid) Negative Influenza B (Rapid) Negative Blood Type O POSITIVE Antibody Screen Negative Crossmatch See Detail 08/26/18 08/26/18 08/26/18 00:00 05:30 05:30 WBC 7.1 6.5 RBC 2.57 L 2.58 L Hgb 7.9 L 7.8 L Hct 23.2 L 23.3 L MCV 90.3 90.5 MCH 30.5 30.1 MCHC 33.8 33.2 RDW 16.8 H 16.9 H Plt Count 150 136 MPV 8.9 8.7 Sodium 142 Potassium 3.4 L Chloride 103 Carbon Dioxide 26 Anion Gap 13 BUN 52 H Creatinine 10.4 H* Creat Clearance w eGFR 5.08 POC Glucometer Random Glucose 169 H Calcium 8.1 L Phosphorus 4.1 Magnesium 1.7 L Influenza A (Rapid) Influenza B (Rapid) Blood Type Antibody Screen Crossmatch 08/26/18 05:55 WBC RBC Hgb Hct MCV MCH MCHC RDW Plt Count MPV Sodium Potassium Chloride Carbon Dioxide Anion Gap BUN Creatinine Creat Clearance w eGFR POC Glucometer [phone] Random Glucose Calcium Phosphorus Magnesium Influenza A (Rapid) Influenza B (Rapid) Blood Type Antibody Screen Crossmatch Active Medications Generic Name Dose Route Start Last Admin Trade Name Freq PRN Reason Stop Dose Admin Acetaminophen 650 mg 08/24/18 22:06 08/25/18 18:23 Tylenol - PO 650 mg Q6H PRN Administration FEVER Chlorhexidine Gluconate 1 applic 08/24/18 22:00 08/25/18 22:30 Hibiclens For Decolonization - TP 1 applic HS RASHEEDA Administration Epoetin Nelson 20,000 unit 08/27/18 06:00 Procrit - IVPUSH 08/27/18 06:01 ONCE ONE IV Flush 4 ml 08/24/18 22:06 Triple Lumen Flush IVPUSH PRN PRN Protocol Nafcillin Sodium 2 gm/ 100 mls @ 100 mls/hr 08/25/18 03:00 08/26/18 08:40 Dextrose IVPB 100 mls/hr Q6H-IV RASHEEDA Administration Protocol Sodium Chloride 250 mls @ 3,000 mls/hr 08/26/18 12:26 Normal Saline - IV 08/27/18 12:26 PRN PRN Hypotension during Dialysis Insulin Aspart 1 vial 08/25/18 07:00 08/26/18 13:42 Novolog Vial Sliding Scale - SQ 4 units ACHS RASHEEDA Administration Protocol Insulin Detemir 10 units 08/25/18 22:00 Levemir Vial SQ HS RASHEEDA Mupirocin 1 applic 08/24/18 22:00 08/26/18 10:45 Bactroban Ointment (For Decolonization) - NS 11/19/18 21:59 1 applic BID RASHEEDA Administration Pantoprazole Sodium 20 mg 08/25/18 10:00 08/26/18 09:17 Protonix - PO 20 mg DAILY RASHEEDA Administration Sevelamer Carbonate 800 mg 08/25/18 08:00 08/26/18 12:45 Renvela - PO 800 mg TIDCM RASHEEDA Administration ASSESSMENT/PLAN: Patient is a 62 year old male with past medical history of ESRD (HD on TT), presented with fevers on 08/06 and was subsequently admitted due to an infected AV fistula. On 08/20, patient was noted to have low Hgb of 6.9, with stool occult positive and reported to have dark loose stools. Patient then had one episode of hemoptysis with clots. He was subsequently transferred to the ICU for closer monitoring. #Cardiology 1)Cardiomyopathy -Last Echo 07/2018 nl LV size, EF 40-45%, E/A reversal, RV nl, LA nl -Cardiology (Dr. Arango) consulted. Recommendations appreciated. -has had borderline BPs, if stable after resuming HD would consider adding ACEI/ BB -Receives Torsemide 80mg intermittently with dialysis. -No signs of fluid overload -Outpatient ischemic evaluation by cardiology 2)Hypotension -episodes likely related to hemodialysis (large amount of fluid removed yesterday) -As per nephro, IV fluid boluses may be given to maintain MAP >65. #Pulmonology 1)r/o Hemoptysis vs Epistaxis -No episodes in the ICU overnight -Nares inspected - no signs of bleeding -will monitor H/H -transfuse PRN 2)Hypoxia during sleep, likely 2/2 obstructive sleep apnea -CPAP at bedtime and PRN #Gastroenterology 1)Dark, loose stools, r/o UGIB vs LGIB -GI (Dr. Ritter) consulted. Recommendations appreciated. -EGD: Mildly prominent veins in the proximal esophagus, stomach mucosa appeared normal, sessile polyp was found in the duodenal bulb, submucosal blebs/nodules in the 2nd portion of the duodenum that were not bleeding, duodenal mucosa otherwise normal. Of note, there was no tracheal blood noted during intubation. There was dried nonbloody mucous in the proximal esophagus. ?if patient had episode of blood tinged sputum. -Protonix drip switched to Protonix 20mg PO daily -Avoid NSAIDs -Monitor Coags. -IV Fluid boluses PRN -Stool for C.diff ordered. #Nephrology 1)ESRD on HD -Nephrology (Dr. Jameson) consulted. -Has permacath now for dialysis and tolerating -Will need HeRo graft once arm is healed -Continue Renvela -no acute need for LINE RIDER Today -Hgb with less than expected response to 2 units prbc given yesterday -Will transfuse additional pRBC with HD tomorrow if needed -continue to monitor for bleeding, still unclear as to source of bleeding #Infectious disease 1)Sepsis 2/2 S. aureus bacteremia 2/2 AV graft infection s/p excision -continue Nafcillin 2gm q6h -ID (Dr. Philippe) consulted. -Close monitoring #Hematology 1)Anemia of chronic disease, 2/2 ESRD -H/H 7.8/23.3 -Transfuse pRBC with Hgb <7 -Will transfuse with HD tomorrow if needed -Continue to monitor CBC #Endocrinology 1)DM -Insulin Levemir 10u sq daily -Insulin sliding scale implemented -BGM ACHS #FEN -Not on any standing fluids -May give IVF boluses PRN to maintain MAP >65 -Routine bmp monitoring -Full liquid diet (cholesterol, diabetic, sodium restricted) #Prophylaxis 1)DVT -SCDs, chemical ppx on hold for possible bleeding 2)GI - Protonix 20mg daily #Disposition -full code -ICU for closer monitoring Dispo: We will continue to follow the patient. Thank you for this consultative opportunity. Visit type - Emergency Visit Emergency Visit: Yes ED Registration Date: 08/06/18 Care time: The patient presented to the Emergency Department on the above date and was hospitalized for further evaluation of their emergent condition. - New Patient This patient is new to me today: Yes Date on this admission: 08/26/18 - Critical Care Critical Care patient: Yes Total Critical Care Time (in minutes): 40 Critical Care Statement: The care of this patient involved high complexity decision making to prevent further life threatening deterioration of the patient 's condition and/or to evaluate & treat vital organ system(s) failure or risk of failure.
--- NOTE | 2018-08-26 18:07 | PATH ---
Surgical Pathology Report Patient Name: DAVID VALENZUELA [facility]. Rec. 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 Specimen(s) Received BX DUODENAL BULB POLYP Clinical History GI bleeding Postoperative diagnosis: Gastritis Final Diagnosis DUODENAL BULB, POLYP, BIOPSY: DUODENAL MUCOSA WITH CHRONIC DUODENITIS AND GASTRIC HETEROTOPIA. Electronically Signed Naomi Hunter M.D. Gross Description Received in formalin, labeled "biopsy duodenal bulb polyp" are 2 pinedo, irregular portions of soft tissue measuring 0.1 and 0.2 cm. in greatest dimension. The specimens are submitted in toto in one cassette. /08/25/2018
[2018-08-26] MEDS: CHLORHEXIDINE GLUCONATE 4% CLEANSER FOR DECOLONIZATION TP SCH (21:15)
[2018-08-27] MEDS: NAFCILLIN - 2 GM in DEXTROSE 5%-WATER - 100 ML IVPB SCH (02:31)
[2018-08-27 02:37] VITALS: PULSE 99; TEMP 98.5
[2018-08-27 04:49] VITALS: BP 93/47
--- NOTE | 2018-08-27 05:24 | PROC ---
Intubation - Intubation Reason for Intubation: Respiratory Failure, Airway Protection, Other (PEA cardiac arrest) Time of Intubation: 05:10 Intubation Method: orotracheal Blade used: Mac (4) Tube Size (cm): 8.0 Tube position @ lip (cm): 22 Tube position confirmed by: Direct visualization, CO2 detector, Chest x-ray ( pending), Breath sounds Breath Sounds after Intubation: equal Post Intubation Xray: Yes (pending) Remarks: CODE 99 called overhead. Pt unresponsive, presumably in PEA arrest, undergoing chest compressions and bag mask ventilation on arrival. Upon direct laryngoscopy scant bloody secretions and mucus noted in oropharynx, grade 2A view. Patinet making some respiratory effort. ETT passed through vocal cords under direct visualization to 22 cm depth. Cuff inflated with ~8 ml air to minimal occlusive pressure and ETT suctioned - some mucus in tube and airway. CO2 detector to confirm placement, breath sounds equal bilaterally. ETT secured. CXR pending
[2018-08-27] MEDS ORDERED: NOREPINEPHRINE BITARTRATE 4,000 MCG in DEXTROSE 5%-WATER - 496 ML IV SCH (05:30)
--- NOTE | 2018-08-27 05:38 | RAPID ---
Physical Examination Labs: CBC, BMP 08/26/18 05:30 08/26/18 05:30 Rapid Response - Rapid Response Assessment: Code 99 called at 5:02am. As per nursing, patient was noted to be PEA. ACLS protocol initiated. See attached code sheet. ROSC achieved at 5:07am. Patient intubated by anesthesiologist and started on ventilator. NGT inserted and minimal amount of blood present in NGT. Started on Levophed. All labs sent. CBC CMP MG, phos Coags EKG CXR ABG Dr. Jameson notified Dr. Frankel's office made aware Dr. Franklin's office called Family () called and was informed. Patient again went into pulseless electrical activity at 5:23. ROSC achieved at 5:25 Again run into PEA at 5:53am ACLS protocol initiated again. Coded up to 6:30am. came. made a decision to stop CPR. Pupils dilated, fixed. Corneal reflex absent. No doll's eye. No response to painful stimuli. No spontaneous breathing. No pulse. No heart rate on auscultation. Patient declared 6:30am. Called Dr. Pam Hager. Unable to reach.
[2018-08-27 05:53] LABS: INR 1.61 (0.83-1.09); PROTHROMBIN TIME (PATIENT) 19.1 SEC (9.7-13.0)
[2018-08-27 05:55] LABS: ACTIVATED PTT 29.5 SECONDS (25.2-36.5)
[2018-08-27] MEDS ORDERED: EPOETIN ALFA 20,000 UNIT/1 ML VIAL IVPUSH ONE (06:00)
[2018-08-27 06:02] LABS: HEMATOCRIT 27.2 % (35.4-49); HEMOGLOBIN 8.7 GM/dL (11.7-16.9); MCH 29.7 pg (25.7-33.7); MCHC 32.1 g/dl (32.0-35.9); MEAN CELL VOLUME 92.5 fl (80-96); PLATELET COUNT 167 K/MM3 (134-434); RBC 2.94 M/mm3 (4.00-5.60); RDW 18.1 % (11.9-15.9); WHITE BLOOD COUNT 10.2 K/mm3 (4.0-10.0)
[2018-08-27 06:12] LABS: ALBUMIN 1.8 g/dl (3.4-5.0); ALK PHOS 86 U/L (45-117); ANION GAP 21 MMOL/L (8-16); BILIRUBIN,TOTAL 2.6 mg/dL (0.2-1); BLOOD UREA NITROGEN 61 mg/dL (7-18); CALCIUM 9.1 mg/dL (8.5-10.1); CHLORIDE 102 mmol/L (98-107); CO2 21 mmol/L (21-32); GLUCOSE,RANDOM 207 mg/dL (74-106); PHOSPHOROUS 6.6 mg/dL (2.5-4.9); POTASSIUM 3.5 mmol/L (3.5-5.1); SGOT/AST 746 U/L (15-37); SGPT/ALT 288 U/L (13-61); SODIUM 144 mmol/L (136-145); TOT PROT 6.3 g/dl (6.4-8.2)
[2018-08-27 06:13] LABS: CREATININE 12.9 mg/dL (0.55-1.3)
[2018-08-27] MEDS: INSULIN SLIDING SCALE (NOVOLOG) 1 VIAL SQ SCH (06:50)
--- NOTE | 2018-08-27 07:30 | PN ---
Progress Note (short form) - Note Progress Note: Renal follow up for ESRD on HD Vital Signs Temperature 98.5 F 08/27/18 02:00 Pulse Rate 99 H 08/27/18 04:00 Respiratory Rate 18 08/27/18 04:50 Blood Pressure 93/47 L 08/27/18 04:00 O2 Sat by Pulse Oximetry (%) 96 08/27/18 03:10 Intake & Output 08/24/18 08/25/18 08/26/18 08/27/18 23:59 23:59 23:59 23:59 Intake Total 0 2049 750 Balance 0 2049 750 Weight 84.323 kg 85.139 kg 87.226 kg CBC, BMP 08/27/18 05:20 08/27/18 05:20 Current Medications Acetaminophen (Tylenol -) 650 mg PO Q6H PRN PRN Reason: FEVER Last Admin: 08/25/18 18:23 Dose: 650 mg Chlorhexidine Gluconate (Hibiclens For Decolonization -) 1 applic TP HS RASHEEDA Last Admin: 08/26/18 21:15 Dose: 1 applic Epoetin Nelson (Procrit -) 20,000 unit IVPUSH ONCE ONE Stop: 08/27/18 06:01 IV Flush (Triple Lumen Flush) 4 ml IVPUSH PRN PRN PRN Reason: Protocol Nafcillin Sodium 2 gm/ (Dextrose) 100 mls @ 100 mls/hr IVPB Q6H-IV RASHEEDA; Protocol Last Admin: 08/27/18 02:31 Dose: 100 mls/hr Sodium Chloride (Normal Saline -) 250 mls @ 3,000 mls/hr IV PRN PRN PRN Reason: Hypotension during Dialysis Stop: 08/27/18 12:26 Norepinephrine Bitartrate 4, (000 mcg/ Dextrose) 500 mls @ 37.5 mls/hr IV TITR RASHEEDA; Protocol Last Admin: 08/27/18 06:50 Dose: Not Given Insulin Aspart (Novolog Vial Sliding Scale -) 1 vial SQ ACHS RASHEEDA; Protocol Last Admin: 08/27/18 06:50 Dose: Not Given Insulin Detemir (Levemir Vial) 10 units SQ HS RASHEEDA Last Admin: 08/26/18 21:30 Dose: Not Given Mupirocin (Bactroban Ointment (For Decolonization) -) 1 applic NS BID RASHEEDA Stop: 08/29/18 21:59 Last Admin: 08/26/18 21:15 Dose: 1 applic Pantoprazole Sodium (Protonix -) 20 mg PO DAILY [facility] Last Admin: 08/26/18 09:17 Dose: 20 mg Sevelamer Carbonate (Renvela -) 800 mg PO TIDCM [facility] Last Admin: 08/26/18 17:36 Dose: 800 mg 62 year old gentleman with hx of ESRD on HD, Hypertension, Anemia presented with Abd pain and found to have MSSA bacteremia with infected AVG site. #Sepsis/MSSA bacteremia (cultures now negative), #ESRD on HD (has femoral tunneled catheter) #Hypertension #Anemia requiring PRBC transfusion with guiac positive stools #Renal osteodystrophy Roderick Jameson DO
--- NOTE | 2018-08-27 12:03 | DS ---
Physical Examination Vital Signs: Vital Signs Temperature 98.5 F 08/27/18 02:00 Pulse Rate 99 H 08/27/18 04:00 Respiratory Rate 18 08/27/18 04:50 Blood Pressure 93/47 L 08/27/18 04:00 O2 Sat by Pulse Oximetry (%) 96 08/27/18 03:10 Labs: CBC, BMP 08/27/18 05:20 08/27/18 05:20 Discharge Summary Reason For Visit: END STAGE RENAL FAILURE ON DIALYSIS Hospital Course: Admitted for sepsis-- persistent fever, dialysis pt . ID and Renal consulted-- cultures found out be positive for MSSA bacteremia-- he underwent excision of AV graft on 08/07. Was on iv antibiotics No vegetations seen on transthoracic echo. Cardiology consulted questionable syncope and elevated cardiac enzymes-- syncope likely vasovagal per cardiology- head ct negative. Had persistent positive blood cultures- antibiotics changed, permacath could not be placed due to positive blood cultures and rt IJ occlusion-- for which no anticoagulation is indicated. Cultures finally negative 08/21. pt started having acute severe anemia, seen by GI- EGD- 08/25-did not show source of bleed- possible pulmonary source- pt shifted to ICU for hemoptysis- altered mentation. 08/27/18- - pronounced 6:30 am Condition: Guarded - Instructions Referrals: Jackson Floyd MD [Primary Care Provider] - Disposition: - Home Medications Comprehensive Discharge Medication List: Ambulatory Orders Sevelamer Carbonate [Renvela -] 800 mg PO TIDCM 12/26/13 oxyCODONE HCL [Roxicodone -] 5 mg PO Q4H PRN #30 tablet 03/17/15
== END 2018-08-27 06:30 | disposition expired | DRG 252 ==
LOC: JER 00:07 → JERBED 04:17 → J7W 08:34 → OBSVTOIN 13:05 → J7W 08-13 17:34 → JICU 08-24 21:27
PROVIDERS: ADMIT Internal Medicine; ATTEND Internal Medicine
PROC: 30233N1 Transfusion of Nonautologous Red Blood Cells into Peripheral Vein, Percutaneous Approach (ICD-10-PCS; 2018-08-06)
PROC: 0JHM3XZ Insertion of Tunneled Vascular Access Device into Left Upper Leg Subcutaneous Tissue and Fascia, Percutaneous Approach (ICD-10-PCS; 2018-08-07)
PROC: 05PY03Z Removal of Infusion Device from Upper Vein, Open Approach (ICD-10-PCS; principal; 2018-08-07 00:02)
PROC: 06HM33Z Insertion of Infusion Device into Right Femoral Vein, Percutaneous Approach (ICD-10-PCS; 2018-08-09)
PROC: 5A1D70Z Performance of Urinary Filtration, Intermittent, Less than 6 Hours Per Day (ICD-10-PCS; 2018-08-09)
PROC: 06HN33Z Insertion of Infusion Device into Left Femoral Vein, Percutaneous Approach (ICD-10-PCS; 2018-08-11)
PROC: B54CZZA Ultrasonography of Left Lower Extremity Veins, Guidance (ICD-10-PCS; 2018-08-22)
PROC: B50 Imaging, Veins, Plain Radiography (ICD-10-PCS; 2018-08-22)
PROC: 0DB98ZX Excision of Duodenum, Via Natural or Artificial Opening Endoscopic, Diagnostic (ICD-10-PCS; 2018-08-25)
PROC: 0BH17EZ Insertion of Endotracheal Airway into Trachea, Via Natural or Artificial Opening (ICD-10-PCS; 2018-08-27)
PROC: 5A0935Z Assistance with Respiratory Ventilation, Less than 24 Consecutive Hours (ICD-10-PCS; 2018-08-27)
PROC: 5A12012 Performance of Cardiac Output, Single, Manual (ICD-10-PCS; 2018-08-27)
DX: T82.7XXA Infection and inflammatory reaction due to other cardiac and vascular devices, implants and grafts, initial encounter (principal); N18.6 End stage renal disease; A41.01 Sepsis due to Methicillin susceptible Staphylococcus aureus; I50.31 Acute diastolic (congestive) heart failure; J96.90 Respiratory failure, unspecified, unspecified whether with hypoxia or hypercapnia; G93.41 Metabolic encephalopathy; I42.9 Cardiomyopathy, unspecified; J98.11 Atelectasis; R04.2 Hemoptysis; I13.2 Hypertensive heart and chronic kidney disease with heart failure and with stage 5 chronic kidney disease, or end stage renal disease; I82.290 Acute embolism and thrombosis of other thoracic veins; T82.898A Other specified complication of vascular prosthetic devices, implants and grafts, initial encounter; N25.0 Renal osteodystrophy; E11.22 Type 2 diabetes mellitus with diabetic chronic kidney disease; Q27.31 Arteriovenous malformation of vessel of upper limb; Z99.2 Dependence on renal dialysis; Z87.891 Personal history of nicotine dependence; E87.5 Hyperkalemia; N28.1 Cyst of kidney, acquired; K40.20 Bilateral inguinal hernia, without obstruction or gangrene, not specified as recurrent; I70.0 Atherosclerosis of aorta; E66.9 Obesity, unspecified; Z68.28 Body mass index [BMI] 28.0-28.9, adult; N20.0 Calculus of kidney; Y84.1 Kidney dialysis as the cause of abnormal reaction of the patient, or of later complication, without mention of misadventure at the time of the procedure; D64.9 Anemia, unspecified; M25.511 Pain in right shoulder; Z78.1 Physical restraint status; R55 Syncope and collapse; R19.7 Diarrhea, unspecified; I86.8 Varicose veins of other specified sites
CPT/HCPCS: 36415; 36430; 36511; 70450-TC; 71045-TC-FY; 72125-TC; 74176; 76000-TC-FY; 80048; 80053; 81003; 81015; 82140; 82272; 82550; 82553; 82565; 82607; 82803; 82962; 83036; 83605; 83690; 83735; 83880; 84100; 84443; 84484; 84520; 85025; 85027; 85610; 85730; 86078; 86593; 86704; 86706; 86708; 86803; 86850; 86900; 86901; 86922; 87040; 87086; 87186; 87324; 87340; 87389; 87449; 87804; 88304-TC; 88305-TC; 93005; 93010; 93306-TC; 93880-TC; 94002; 94660; 94760; 97116-GP; 97161-GP; 99285-25; G0378; G0480; J0131; J0885; J1644; P9038; P9058